=== PATIENT | female | born 1940 | race Caucasian/White ===

== ENCOUNTER → 2020-05-13 09:08 | Outpatient (CLI) | payer MEDICARE, SELFPAY ==
--- NOTE | ~2020-05-13 | MR_ITS ---
EXAMINATION: MR lumbar spine wo con EXAM DATE: 05/13/2020 09:34 INDICATION: Low back pain, bilateral leg pain. TECHNIQUE: Multi-sequential, multiplanar MR images of the lumbar spine were obtained without contrast . Sagittal T1, T2, T2 fat saturation images. Axial T2 weighted images. There is no prior study for comparison. FINDINGS: There is severe thoracolumbar levoscoliosis. No acute bone marrow edema. There is moderate to severe loss of the L1-2 and L2-3 disc heights, mild to moderate at L3-4 and L4-5. The conus medull jose terminates at the L1 level and has normal signal intensity and morphology. The vertebral bodies are aligned in the AP dimension. Paraspinal soft tissue is unremarkable. Level by level evaluation: T12-L1: Disc does not extend beyond the endplate margin. Facet arthropathy: Moderate right, mild left. Neural foraminal stenosis: Mild to moderate right. Central canal stenosis: No stenosis. L1-L2: There is a minimal diffuse disc bulge. Facet arthropathy: Mild to moderate bilateral. Neural foraminal stenosis: No stenosis. Central canal stenosis: No stenosis. L2-L3: There is a mild diffuse disc bulge. Facet arthropathy: Moderate to severe right, moderate left. Neural foraminal stenosis: Mild to moderate right. Central canal stenosis: Mild. L3-L4: There is a moderate diffuse disc bulge. Facet arthropathy: Severe right, moderate to severe left. Neural foraminal stenosis: Moderate bilateral. Central canal stenosis: Moderate. L4-L5: There is a mild to moderate diffuse disc bulge superimposed tiny right central protrusion into the neural foramina Facet arthropathy: Moderate. Neural foraminal stenosis: Moderate to severe left, mild to moderate right. Central canal stenosis: Mild. L5-S1: There is a mild to moderate diffuse disc bulge. Facet arthropathy: Mild to moderate left, mild right. Neural foraminal stenosis: Mild to moderate left, mild right. Central canal stenosis: Mild. IMPRESSION: 1. Severe thoracolumbar levoscoliosis. 2. Multilevel neural foraminal stenosis, left L4-5 most stenotic. 3. L3-4 moderate central canal stenosis. Reviewed, dictated and finalized at location B.
--- NOTE | ~2020-05-13 | XR_ITS ---
EXAMINATION: XR lumbar spine 2-3V DATE: 05/13/2020 09:57 INDICATION: Lumbar radiculopathy TECHNIQUE: Anteroposterior and lateral views of the lumbar spine, and cone-down lateral view of the l umbosacral junction were obtained. COMPARISON: None. FINDINGS: There are 61 degrees of thoracolumbar levoscoliosis. Evaluation is difficult due to the sev erity of scoliosis. No fracture is identified. The bones are osteopenic. There are 12 mm of left late ral subluxation of the L3 relative to L4. There is asymmetric loss of intervertebral disc space heigh t on the right at L2-3 and on the left at L4-5. Severe symmetrical loss of intervertebral disc space height is seen at L1-2 and L5-S1. The vertebral body heights appear to be maintained. Changes of righ t total hip arthroplasty are noted. The bowel gas pattern is normal. Surgical clips in the right uppe r quadrant are likely from prior cholecystectomy. IMPRESSION: 1. Severe thoracolumbar levoscoliosis and severe spondylosis without definite acute osseous findings. Reviewed, dictated and finalized at location A. IMPRESSION: 1. Severe thoracolumbar levoscoliosis and severe spondylosis without definite a cute osseous findings.
== END ==
PROVIDERS: PCP Internal Medicine; Visit Provider Nurse Practitioner Adult Health
DX: M54.16 Radiculopathy, lumbar region (principal); M48.061 Spinal stenosis, lumbar region without neurogenic claudication; M47.894 Other spondylosis, thoracic region
CPT/HCPCS: 72100; 72148

== ENCOUNTER 2020-06-30 10:16 | Outpatient (CLI) | payer MEDICARE, SELFPAY ==
--- NOTE | ~2020-06-30 | DEXA_ITS ---
Bone Density Report Name: Ellyn Cody Age: 79 Sex: Female Ethnicity: White Date of : 1940 Indication: postmenopausal; height loss; asthma or emphysema; hysterectomy; Referring Provider: BRUCE GARCIA Study: Bone densitometry was performed. Exam Date: June 30, 2020 Accession number: [id number] There is hypertrophic degenerative change of the lumbar spine, which results in higher than expected spine bone mineral density measurements. These spine BMD and T score and Z score measurements are not reflective of the patient's true general bone mineral density. Bone Density: Region BMD T-score Z-score Classification AP Spine (L1, L2, L3) 1.015 0.0 2.6 Normal Femoral Neck (Left) 0.742 -1.0 1.3 Normal Total Hip (Left) 0.838 -0.9 1.2 Normal World Health Organization criteria for BMD impression classify patients as: Normal (T-score at or above -1.0), Osteopenia (T-score between -1.0 and -2.5), or Osteoporosis (T-score at or below -2.5). 10-year Fracture Risk: FRAX not reported because: All T-scores for Spine Total, Hip Total, Femoral Neck at or above -1.0 Treated for osteoporosis Clinical Information Provided by Patient: Is being treated for osteoporosis Has used the following medications: Fosamax (i.e. alendronate), Vitamin D, Calcium Has the following medical conditions: Asthma or Emphysema, Hysterectomy Patient maximum height was 65 Menopause Age: 47 Onset of menses at age 12 Number of children 2 Impression: The patient has normal bone mass. There is hypertrophic degenerative change of the lumbar spine, which results in higher than expected spine bone mineral density measurements. These spine BMD and T score and Z score measurements are not reflective of the patient's true general bone mineral density. Discussion: It is important to ask patients whether they are taking their medications and to encourage continued and appropriate compliance with their osteoporosis therapies to reduce fracture risk. It is also important to review their risk factors and encourage appropriate calcium and vitamin D intakes, exercise, fall prevention and other lifestyle measures. Follow-Up: Consider a repeat BMD and Vertebral Fracture Assessment (VFA) exam in 2 years or sooner if medically necessary, to reassess this patient's status. Reported by: SHERICE on 06/30/2020 10:50:00 AM. Reviewed, dictated and finalized at location AAshley TAPIA
== END 2020-06-30 10:17 | disposition home or self-care (01) ==
LOC: ANHIMG 10:20
PROVIDERS: PCP Internal Medicine; Visit Provider Internal Medicine
DX: M81.0 Age-related osteoporosis without current pathological fracture (principal); Z78.0 Asymptomatic menopausal state
CPT/HCPCS: 77080

== ENCOUNTER 2020-07-02 09:57 | Outpatient (NON) | payer MEDICARE, SELFPAY ==
[2020-07-03 02:53] LABS: SARS-CoV-2 RNA PCR Negative
== END 2020-07-02 09:58 ==
PROVIDERS: Visit Provider Internal Medicine
DX: Z20.828 Contact with and (suspected) exposure to other viral communicable diseases (principal); R68.89 Other general symptoms and signs
CPT/HCPCS: 87635; C9803; U0003

== ENCOUNTER 2020-07-27 13:30 | Outpatient (RCR) | payer MEDICARE, SELFPAY ==
[2020-06-26 10:54] VITALS: BP_SYST 75
--- NOTE | 2020-06-26 11:52 | PTOPEVAL ---
PHYSICAL THERAPY EVALUATION AND PLAN OF CARE Thank you for referring Ellyn Cody to [facility].? The patient is scheduled to be seen for therapy? 2x/week for 4 weeks. Please review, sign, date and return this plan of care EDILBERTO. I agree with and certify that the following plan of care is medically necessary. Referring Physician Date Attending Provider: Ignacio Bell MD Evaluation Musculoskeletal History Hx Back Pain Yes: severe scoliosis Hx Joint Replacement Yes: left CORAZON Diagnosis left shoulder adhesive capsulitis Onset 6months Cause insidious Subjective Information Ellyn is here today with left Query Text:As Reported By Patient/ shoulder pain and limited Family motion of the left shoulder. She reports no injury or accidnet or falls to initiate injury. She cannot raise arm overhead. she is doing aquatic therapy at another facility balance and LE function. Prior Level of Function Medications Home Meds (Include: OTC, RX, Vitamins, mobic Herbals, Dose, Route,and Frequency) [email or web address] Self Report Pain Assessment Left Shoulder(s) Reported Pain Level 5 Pain Description Aching Pain Frequency Chronic,Continuous Pain Score Pain Score 5: Self Report Scapular/ Shoulder Range of Motion Right Shoulder Flexion - Active 80 Shoulder Flexion - Passive 96 Shoulder Extension - Active 30 Shoulder Abduction - Active 55 Shoulder Abduction - Passive 75 Scapular/Shoulder Range of Motion significant popping and Comments instability noted during ROM and strength testing Scapular/Shoulder Right Shoulder Flexion Strength 4+ Good + Shoulder Abduction Strength 4+ Good + Shoulder Medial Rotation Strength 4+ Good + Shoulder Lateral Rotation Strength 4+ Good + Left Shoulder Flexion Strength 3- Fair - Shoulder Abduction Strength 3- Fair - Shoulder Medial Rotation Strength 4- Good - Shoulder Lateral Rotation Strength 4- Good - Palpation significant tension throughout trapezius, pectoralis, and rotator cuff muscles PT Clinical Summary Ellyn is a 79 yo female presenting to outpatient pysical therapy with diagnosis of left shoulder adhesive capsulitis. She does have arthritis in
[2020-07-27 13:31] VITALS: BP_SYST 85
--- NOTE | 2020-07-27 14:11 | PTOPEVAL ---
PHYSICAL THERAPY PROGRESS REPORT Thank you for referring Ellyn oCdy to [facility].? I recommend we hold PT until follow-up with orthopedic physician. Please review, sign, date and return this plan of care EDILBERTO. I agree with and certify that the following plan of care is medically necessary. Referring Physician Date Attending Provider: Ignacio Bell MD [facility] Past Medical History Musculoskeletal History Hx Back Pain Yes: severe scoliosis Hx Joint Replacement Yes: left CORAZON Diagnosis left shoulder adhesive capsulitis Onset 6months Cause insidious Subjective Information Ellyn has participated in PT Query Text:As Reported By Patient/ for left shoulder pain and Family adhesive capsulitis for 4 weeks. States that it feels stronger and as though the range of motion is greater. She is following up with Dr. Knox on 08/07. States that she feels as though there is less clicking/grinding in the shoulder and that she is able to reach out to the side easier - elevation continues to be biggest limitation Self Report Pain Assessment Left Shoulder(s) Reported Pain Level 3 Pain Score Pain Score 3: Self Report Upper Extremity Range of Motion Scapular/ Shoulder Range of Motion Right Shoulder Flexion - Active 75 (same as initial evaluation) Shoulder Flexion - Passive 96 (same as initial evaluation) Shoulder Extension - Active 30 Shoulder Abduction - Active 59 (same as initial evaluation) Shoulder Abduction - Passive 85 (increased 10deegrees from initial evaluation) Shoulder Medial Rotation - Active L5 Scapular/Shoulder Right Shoulder Flexion Strength 4+ Good + Shoulder Abduction Strength 4+ Good + Shoulder Medial Rotation Strength 4+ Good + Shoulder Lateral Rotation Strength 4+ Good + Left Shoulder Flexion Strength 3- Fair - (same as initial evaluation) Shoulder Abduction Strength 3- Fair -(same as initial evaluation) Shoulder Medial Rotation Strength 4- Good - (same as initial evaluation) Shoulder Lateral Rotation Strength 4- Good - (same as initial evaluation) PT Clinical Summary Ellyn is a 79 yo female participating in outpatient pysical therapy with diagnosis of left shoulder adhesive capsulitis. I continue to consider whether she arthritis
--- NOTE | 2020-08-26 16:39 | PCPTNOTE ---
PHYSICAL THERAPY DISCHARGE NOTE Attending Provider: Ignacio Bell MD Patient:Ellyn Cody Date of :1940 Patient has not returned for any further treatments since 07/27/2020, at which point she was having surgery. If she was to continue PT after surgery, her surgeon and referring physician were to clear her. We have not heard from Ellyn nor have we received new orders to resume PT; therefore, she will be discharged from PT at this time. The goals have been partially met. Thank you for referring this patient to [facility]. Please review, sign, date and return this discharge summary EDILBERTO. I have been updated about the patient's current status and I agree with discharge from the above service at this time. Referring Physician Date
== END 2020-08-27 10:38 | disposition home or self-care (01) ==
LOC: ANHPT 13:30
PROVIDERS: PCP Internal Medicine; Visit Provider Internal Medicine
DX: M75.02 Adhesive capsulitis of left shoulder (principal)
CPT/HCPCS: 97110; 97140; 97161

== ENCOUNTER 2020-12-22 08:40 | Outpatient (CLI) | payer MEDICARE, SELFPAY ==
--- NOTE | ~2020-12-22 | XR_ITS ---
EXAMINATION: XR barium swallow modified DATE: 12/22/2020 09:20 INDICATION: Dysphagia, unspecified, coughing and choking TECHNIQUE: Modified barium esophagram was performed by myself to administered fluoroscopy, in conjun ction with speech pathologist who administered barium in varying consistencies as per speech patholog ist documentation. This was recorded on tape. A single fluoroscopic spot image was recorded. The DAP for this procedure was 1.565 Gycm2. Fluoroscopy exposure time was 2.4 minutes. FINDINGS: Oral stage: Adequate function. Pharyngeal phase: Adequate function. Laryngeal penetration: None. Aspiration: None. Laryngeal sensitivity: Present. IMPRESSION: No laryngeal penetration or aspiration observed. Please refer to speech pathologist findi ngs and specific feeding recommendations. Reviewed, dictated and finalized at location A. ING WORKER IMPRESSION: No laryngeal penetration or aspiration observed. Please refer to sp eech pathologist findings and specific feeding recommendations.
--- NOTE | 2020-12-22 09:53 | STOPEVAL ---
MODIFIED BARIUM SWALLOW EVALUATION: Thank you for referring Ellyn Cody to [facility].? Attending Provider: MD DARLIN [place] [place] Start: 12/22/20 09:47 Freq: Status: Active Protocol: Document 12/22/20 09:00 BECHERERT (Rec: 12/22/20 09:53 BECHERERT [id number]) Therapy Assessment Status Assessment Status Assessment Status Evaluation Outpatient Past Medical History Past Medical History Source of Past Medical History Patient Musculoskeletal History Hx Back Pain Yes: severe scoliosis Hx Joint Replacement Yes: left CORAZON Pain Assessment Timing of Pain Assessment Timing of Pain Assessment Assessment Self Report Self Report Pain Level 0 Pain Score Pain Score 0: Self Report Modified Barium Swallow Evaluation Recent Swallowing History Reports Dysphagia Yes: occasional choking with liquids History of Dysphagia No Other Factors Impacting Dysphagia None History of Pneumonia No Reported Difficult Consistencies Thin Liquids Intake Method Prior to Swallow Oral Evaluation Diet Prior to Swallow Evaluation Regular, Level 7 Liquid Consistency Prior to Swallow Thin (0) Evaluation Consistency Solid Consistency Method of Presentation Spoon Oral Preparatory Symptoms None Oral Phase Symptoms None Pharyngeal Phase Symptoms None Severity of Vallecular Residue None - 0% No Residue Severity of Pyriform Sinus Residue None - 0% No Residue 8 Point Laryngeal Penetration-Aspiration Material Does Not Enter Airway Scale Cervical/Esophageal Symptoms None Mixed Consistency Method of Presentation Spoon Oral Preparatory Symptoms None Oral Phase Symptoms None Pharyngeal Phase Symptoms None Severity of Vallecular Residue None - 0% No Residue Severity of Pyriform Sinus Residue None - 0% No Residue 8 Point Laryngeal Penetration-Aspiration Material Does Not Enter Airway Scale Cervical/Esophageal Symptoms None Pureed Consistency Method of Presentation Spoon Oral Preparatory Symptoms None Oral Phase Symptoms None Pharyngeal Phase Symptoms None Severity of Vallecular Residue None - 0% No Residue Severity of Pyriform Sinus Residue None - 0% No Residue 8 Point Laryngeal Penetration-Aspiration Material Does Not Enter Airway Scale Cervical/Esophageal Symptoms None Thin Uncontrolled 2 Method of Presentation Straw Oral Preparatory Symptoms None Oral Phase Symptoms None Pharyngeal Phase Symptoms None Severity of Vallecular Residue None - 0% No Residue Severity of Pyriform Sinus Residue None - 0% No Residue
== END 2020-12-22 08:41 | disposition home or self-care (01) ==
PROVIDERS: PCP Internal Medicine; Visit Provider Internal Medicine
DX: R13.10 Dysphagia, unspecified (principal)
CPT/HCPCS: 92611

== ENCOUNTER 2021-07-20 14:20 | Inpatient (IN) | payer MEDICARE, SELFPAY ==
[2021-07-20] VITALS (8 sets, daily range): BP systolic 121–162; BP diastolic 45–82; PULSE 76–96; RESP 14–26; TEMP 36.1–38.2; O2SAT 95–99; BMI 26.9
--- NOTE | ~2021-07-20 | XR_ITS ---
EXAMINATION: XR chest 2V EXAM DATE: 07/20/2021 14:40 INDICATION: sob, cough TECHNIQUE: Frontal and lateral projections of the chest obtained and reviewed. There is no prior ko dy for comparison. FINDINGS: There is multi segmental left lower lobe airspace disease which could be pneumonia and atel ectasis but follow-up is indicated to exclude underlying cancer. The right lung is clear. Cardiomedia stinal silhouette is normal. There is no pneumothorax suspected. There are no pleural effusions. IMPRESSION: Multisegmental left lower lobe airspace disease, probably pneumonia and atelectasis. Foll ow-up to resolution. Reviewed, dictated and finalized at location A. IMPRESSION: Multisegmental left lower lobe airspace disease, probably pneumonia and atelectasis. Follow-up to resolution.
--- NOTE | 2021-07-20 14:22 | ECG_ITS ---
Measurements Intervals [place] Rate: 94 P: 48 WV: 149 QRS: -7 QRSD: 109 T: -9 QT: 311 QTc: 389 Interpretive Statements SINUS RHYTHM POSSIBLE LEFT ATRIAL ENLARGEMENT DELAYED PRECORDIAL R/S TRANSITION POSSIBLE LEFT VENTRICULAR HYPERTROPHY INFERIOR INFARCT, AGE INDETERMINATE ABNORMAL ECG Electronically Signed On 07-20-2021 14:57:04 CDT by Bonifacio Hernandez D.O.
[2021-07-20 15:12] LABS: Basophils Percent Auto 0.5 % (0.2-1.2); Eosinophils Percent Auto 0.5 % (0-4.4); Hematocrit 39.9 % (37.0-47.0); Hemoglobin 13.3 g/dL (12.0-15.0); Immature Granulocyte Absolute 0.03 K/mm3 (0.00-0.031); Immature Granulocyte Percent A 0.4 % (0-0.5); Lymphocytes Absolute Auto 1.25 K/mm3 (0.9-3.2); Lymphocytes Percent Auto 16.1 % (18.3-44.2); Mean Corpuscular HGB Conc 33.3 g/dl (32-36); Mean Corpuscular Hemoglobin 29.8 pg (26-34); Mean Corpuscular Volume 89.3 fl (80-100); Mean Platelet Volume 9.1 fl (7.4-10.4); Monocytes Percent Auto 12.6 % (2.6-8.5); Neutrophils Absolute Auto 5.4 K/mm3 (1.3-6.7); Neutrophils Percent Auto 69.9 % (45.5-73.1); Platelet Count Result 208 k/mm3 (150-375); Red Blood Count 4.47 M/mm3 (4.2-5.4); Red Cell Distribution Width 13.8 % (11.5-14.5); White Blood Count 7.8 K/mm3 (4.5-10.0)
[2021-07-20 15:21] LABS: Anion Gap 10 mmol/L (8-16); Blood Urea Nitrogen 15 mg/dL (7-17); Calcium 9.3 mg/dL (8.4-10.2); Carbon Dioxide 24 mmol/L (22-30); Chloride 102 mmol/L (98-107); Estimated CRCL calculation 40 ml/min; Estimated Glomerular Filt Rate > 60; Glucose 141 mg/dL (65-110); Sodium 136 mmol/L (137-145)
--- NOTE | 2021-07-20 20:10 | ED.GENADULT ---
HPI - General Adult General Chief complaint: Shortness of Breath/Dyspnea Stated complaint: sob, cough, hx copd Time Seen by Provider: 07/20/21 19:24 Source: patient and family Mode of arrival: ambulatory Limitations: no limitations History of Present Illness HPI narrative: Patient presents for evaluation of respiratory symptoms since Monday of last week. She indicates she received a flu shot last Monday and has tolerated these well in the past. Following administration of her vaccine last week she started generally not feeling well. She has experienced a cough and shortness of breath and feels like her lungs are filling up with fluid . No fever, chills, chest pain or leg swelling. On Monday of last week her son came to check on her. He checked her pulse oximetry with a reading of 87%. Reading did ultimately improve to 93% on . Her son lives down the street and states that he was concerned that his mother had not been taking in much orally. He was concerned that she may have Covid. Patient currently lives with her and he is asymptomatic. Patient did receive both of her [employer] Covid vaccines. She has underlying COPD and asthma. She does not smoke. She is compliant with spiriva. She states she has not been using her albuterol MDI. She is no longer using nebs. Related Data Home Medications Medication Instructions Recorded Confirmed aspirin 81 mg tablet,delayed 81 mg PO DAILY 12/13/19 05/03/21 release cetirizine 10 mg capsule PO .PRN cap 12/13/19 05/03/21 magnesium 250 mg tablet 250 mg PO DAILY 12/13/19 05/03/21 omeprazole 20 mg capsule,delayed 20 mg PO DAILY 12/13/19 05/03/21 release cholecalciferol (vitamin D3) 50 50 mcg PO DAILY 08/07/20 05/03/21 mcg (2,000 unit) capsule multivitamin 1 cap PO DAILY 08/07/20 05/03/21 Allergies Allergy/AdvReac Type Severity Reaction Status Date / Time codeine Allergy Severe Passes out Verified 07/20/21 19:36 oxycodone Allergy Mild pass out Verified 07/20/21 19:36 Review of Systems Review of Systems: CONSTITUTIONAL: Reports decreased appetite. Denies fever, chills, or sweats. EYES: Denies visual changes, redness, or discharge. ENT: Denies rhinorrhea, congestion, sore throat, or otalgia. CARDIOVASCULAR: Denies chest pain, palpitations, or edema. RESPIRATORY: Reports cough and shortness of breath GASTROINTESTINAL: Denies abdominal pain, nausea, vomiting, or diarrhea. GENITOURINARY: Denies dysuria or hematuria. SKIN: Denies rash or itching. MUSCULOSKELETAL: Denies back pain, joint pain, or myalgia. NEUROLOGIC: Denies headache, numbness, dizziness, or weakness. PSYCHIATRIC: Denies anxiety or depression. [facility] Past Medical History Medical History Arthritis Asthma Cataract fragments in eye following surgery COPD (chronic obstructive pulmonary disease) Diarrhea Emphysema of lung GERD (gastroesophageal reflux disease) Hair loss IBS (irritable bowel syndrome) Osteoporosis Pneumonia Right leg pain Shortness of breath Sleep apnea Vision abnormalities Vision changes Surgical History Surgical History History of bowel resection History of cholecystectomy History of partial hysterectomy History of right hip replacement Family History Family History Mother Pneumonia Father Asbestosis Grandparent Pneumonia Grandparent Heart attack Grandparent Cerebrovascular accident Other Arthritis Heart disease Malignant neoplasm Social History Social History (Updated 07/20/21 @ 20:11 by DELLA Yeung, ) Smoking status: Never smoker Alcohol intake: never Substance use: never Living arrangements: with family Gender identity (if verbalized by the patient): Female Sexual Orientation (if Verbalized by
[2021-07-20] MEDS: IPRATROPIUM BR 0.02% INH SOLN 0.5 MG/2.5 ML VIAL INHALATION (20:16)
[2021-07-20] MEDS: ALBUTEROL SULFATE NEB 2.5 MG/0.5 ML INH INHALATION (20:16)
[2021-07-20] MEDS: SODIUM CHLORIDE 0.9% IV 1,000 ML 999 ML IV CONT (21:06)
[2021-07-20] MEDS: methylPREDNISolone SOD SUCC 125 MG VIAL IV PUSH (21:07)
[2021-07-20 21:40] LABS: EDCOVIDSCREEN Negative (Negative)
--- NOTE | 2021-07-20 21:41 | PC.NURSE ---
Pt very difficult stick. Called phlebotomy yot request if they can draw pt labs
[2021-07-20 22:23] LABS: Alanine Aminotransferase 20 U/L (4-35); Albumin Level 3.7 g/dL (3.5-5.1); Alkaline Phosphatase 78 U/L (38-126); Aspartate Amino Transferase 25 U/L (14-36); Bilirubin,Total 0.7 mg/dL (0.2-1.3); Lactate Dehydrogenase 378 U/L (313-618)
[2021-07-20 22:32] LABS: NT Pro B Type Natriuretic Pept 190 pg/mL (5-100); Troponin I < 0.012 ng/mL (0.000-0.034)
[2021-07-21] VITALS (8 sets, daily range): BP systolic 102–148; BP diastolic 43–81; PULSE 72–95; RESP 18–22; TEMP 36.2–37.3; O2SAT 92–98
--- NOTE | 2021-07-21 00:05 | PM.IMHP ---
H&P: HPI History of Present Illness Date/Time: 07/21/21 00:05 Chief Complaint: Cough and shortness of breath Narrative: 80-year-old female with a past medical history of asthma/COPD, GERD, and obstructive sleep apnea who presented to the ER via private vehicle due to cough and shortness of breath since Monday. She reports that her symptoms started after she received her flu vaccine last week. Four days ago the patient's son came to check on the patient and her oxygen saturations were 87% at that time. They did improved to 93% on room air. She did receive both of her Pfizer COVID vaccines. She has not had any known COVID exposures and her is not having any ill symptoms. She has had decreased oral intake. She had a fever of 100.8 on arrival to the ER. She reports that immediately after receiving her flu shot she began feeling as if she had a ton of fluid that she had to cough up. She was coughing up thin clear phlegm. She is having generalized dyspnea. She denied any nausea or vomiting. She reports aching in her arm at the side of her her flu shot. Denies any other myalgias but does report her chronic back pain. She denied having any dysuria, changes in urinary frequency or urgency. She does have intermittent diarrhea with a history of IBS but no significant diarrhea recently. She denies any abdominal pain. Review of Systems Review of Systems: 12 systems were reviewed with pertinent positives and negatives per HPI. Except as documented in the HPI, all other systems were reviewed and are negative. [facility] Past Medical History Medical History (Updated 07/21/21 @ 00:27 by Ania Gaspar DO) Arthritis Asthma COPD (chronic obstructive pulmonary disease) COVID-19 vaccine series completed Dyslipidemia Emphysema of lung Frozen shoulder Left shoulder GERD (gastroesophageal reflux disease) IBS (irritable bowel syndrome) Memory loss Neuropathy Osteoporosis Sciatica associated with disorder of lumbar spine Scoliosis due to degenerative disease of spine in adult patient Sleep apnea Vision changes Vitamin D deficiency Surgical History Surgical History History of bowel resection History of cholecystectomy History of partial hysterectomy History of right hip replacement Status post cataract extraction of both eyes with insertion of intraocular lens Family History Family History Mother Pneumonia Father Asbestosis Grandparent Pneumonia Grandparent Heart attack Grandparent Cerebrovascular accident Other Arthritis Heart disease Malignant neoplasm Social History Social History (Updated 07/21/21 @ 04:07 by Ania Gaspar DO) Social History: She lives in [place] with her of 60 years. She has a Rollator at home but only uses it when she goes to the store. She has 2 children who are healthy. She is a lifelong nonsmoker and does not drink alcohol. 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 Primary care physician: Dr. Ignacio Bell Code status: DNR/DNI Surrogate decision maker: Miah (son) Smoking status: Never smoker Second hand tobacco smoke exposure: No Alcohol intake: never Substance use: never Substance use type: does not use Living arrangements: with family Occupation/Education: retired Gender identity (if verbalized by the patient): Female Sexual Orientation (if Verbalized by the Patient): Straight or Heterosexual Spiritual care concerns: No Agree to blood products: Yes Meds Home Medications and Allergies Home Medications Medication Instructions Recorded Confirmed Type aspirin 81 mg tablet,delayed 81 mg PO DAILY 12/13/19 07/20/21 History release cetirizine 10 mg capsule PO DAILY cap 12/13/19 05/03/21 History magnesium 250 mg tablet 250 mg PO DAILY 12/13/19 07/20/21 History omeprazole 20 m
--- NOTE | 2021-07-21 00:12 | ADMGEN ---
This patient, Ellyn Cody, was admitted to [facility] Surg Room 316-01. Patient/family oriented to hospital policies and general routines including ID bracelet, bed and alarms, visiting hours, pain management, procedures, bathroom and other care routines, personal items, smoking policy, room service/diet, and visiting hours. Information on how to activate the Rapid Response Team has been discussed. Patient/Family are encouraged to report perceived risks to care and to ask questions if they do not understand what they are told or what they should do.
[2021-07-21 01:29] LABS: Troponin I < 0.012 ng/mL (0.000-0.034)
[2021-07-21] MEDS: ALBUTEROL SULFATE (*SP) AEROSOL 1 PUFF 4 PUFF INHALATION ×2 (02:56→09:01)
[2021-07-21] MEDS: methylPREDNISolone SOD SUCC 40 MG VIAL 60 MG IV PUSH ×3 (06:20→22:30)
[2021-07-21 06:56] LABS: Basophils Percent Auto 0.2 % (0.2-1.2); Hematocrit 35.6 % (37.0-47.0); Hemoglobin 11.8 g/dL (12.0-15.0); Immature Granulocyte Absolute 0.03 K/mm3 (0.00-0.031); Immature Granulocyte Percent A 0.6 % (0-0.5); Lymphocytes Percent Auto 11.4 % (18.3-44.2); Mean Corpuscular HGB Conc 33.1 g/dl (32-36); Mean Corpuscular Hemoglobin 29.9 pg (26-34); Mean Corpuscular Volume 90.1 fl (80-100); Mean Platelet Volume 9.7 fl (7.4-10.4); Monocytes Absolute Auto 0.1 K/mm3 (0.1-0.6); Monocytes Percent Auto 2.1 % (2.6-8.5); Neutrophils Absolute Auto 4.5 K/mm3 (1.3-6.7); Neutrophils Percent Auto 85.7 % (45.5-73.1); Platelet Count Result 227 k/mm3 (150-375); Red Blood Count 3.95 M/mm3 (4.2-5.4); Red Cell Distribution Width 13.6 % (11.5-14.5); White Blood Count 5.3 K/mm3 (4.5-10.0)
[2021-07-21 07:16] LABS: Anion Gap 13 mmol/L (8-16); Blood Urea Nitrogen 19 mg/dL (7-17); Calcium 8.7 mg/dL (8.4-10.2); Carbon Dioxide 20 mmol/L (22-30); Chloride 102 mmol/L (98-107); Estimated CRCL calculation 36 ml/min; Estimated Glomerular Filt Rate 60; Glucose 262 mg/dL (65-110); Potassium 3.2 mmol/L (3.4-5.0); Sodium 135 mmol/L (137-145)
[2021-07-21] MEDS: PRAVASTATIN SODIUM 20 MG TABLET PO (09:36)
[2021-07-21] MEDS: MAGNESIUM OXIDE 200 MG TABLET PO (09:36)
[2021-07-21] MEDS: MONTELUKAST SODIUM 10 MG TABLET PO (09:36)
[2021-07-21] MEDS: ASPIRIN 81 MG ENTERIC TABLET PO (09:36)
[2021-07-21] MEDS: GABAPENTIN 300 MG CAPSULE PO ×3 (09:36→20:09)
[2021-07-21] MEDS: MELOXICAM 7.5 MG TABLET 15 MG PO (09:37)
[2021-07-21] MEDS: ENOXAPARIN 40 MG/0.4 ML SYRINGE SUB-Q (09:37)
[2021-07-21] MEDS: PANTOPRAZOLE 40 MG TABLET PO (09:37)
[2021-07-21] MEDS: ACETAMINOPHEN 325 MG TABLET 650 MG PO ×2 (12:34→20:10)
[2021-07-21] MEDS: LEVALBUTEROL HFA (*SP) 15 GM INHALER 2 PUFF INHALATION ×2 (14:01→20:48)
--- NOTE | 2021-07-21 18:11 | PM.EVENT ---
Event Note Event Note Event Note: f/u same day patient visit labs reviewed do not appear to be covid but pt vaccinated could be mild case cont current care k repleted will follow up tomorrow
[2021-07-21] MEDS: LIDOCAINE HCL 2% VISC SOLN 15 ML UDC PO (18:19)
--- NOTE | 2021-07-21 19:51 | PC.NURSE ---
At 1630, pt stating she had throat/epigastric pain, which she says is not uncommon for her. Pt had called MD who ordered 15ml viscous lidocaine. Held 1700 meds until pt pain improved. Will ask night RN to pass with PM medications; she stated she would. MD to adjust medications.
[2021-07-21] MEDS: POTASSIUM CHLORIDE 20 MEQ PACKET (FOR LIQUID) 40 MEQ PO (20:07)
[2021-07-21 20:25] LABS: SARS-CoV-2 RNA PCR Negative
[2021-07-22] VITALS (8 sets, daily range): BP systolic 100–118; BP diastolic 40–53; PULSE 69–78; RESP 20–23; TEMP 36.2–36.8; O2SAT 94–97
[2021-07-22] MEDS: LEVALBUTEROL HFA (*SP) 15 GM INHALER 2 PUFF INHALATION ×4 (03:08→20:57)
[2021-07-22] MEDS: methylPREDNISolone SOD SUCC 40 MG VIAL 60 MG IV PUSH (05:46)
[2021-07-22] MEDS: PRAVASTATIN SODIUM 20 MG TABLET PO (08:49)
[2021-07-22] MEDS: ENOXAPARIN 40 MG/0.4 ML SYRINGE SUB-Q (08:49)
[2021-07-22] MEDS: MAGNESIUM OXIDE 200 MG TABLET PO (08:50)
[2021-07-22] MEDS: ASPIRIN 81 MG ENTERIC TABLET PO (08:50)
[2021-07-22] MEDS: GABAPENTIN 300 MG CAPSULE PO ×3 (08:50→21:55)
[2021-07-22] MEDS: MONTELUKAST SODIUM 10 MG TABLET PO (08:50)
[2021-07-22] MEDS: PANTOPRAZOLE 40 MG TABLET PO (08:50)
[2021-07-22] MEDS: MELOXICAM 7.5 MG TABLET 15 MG PO (08:50)
--- NOTE | 2021-07-22 14:45 | PM.IMPN ---
Progress Note: A&P Assessment and Plan (1) Pneumonia: Qualifiers: Laterality: left Lung location: lower lobe of lung Pneumonia type: due to unspecified organism Qualified Code(s): J18.9 - Pneumonia, unspecified organism Code(s): J18.9 - Pneumonia, unspecified organism Status: Acute (2) COPD (chronic obstructive pulmonary disease): Code(s): J44.9 - Chronic obstructive pulmonary disease, unspecified Status: Inactive (3) GERD (gastroesophageal reflux disease): Code(s): K21.9 - Gastro-esophageal reflux disease without esophagitis Status: Acute Additional Plan Patient has left lower lobe pneumonia. There was concern for possible COVID 19 infection the patient's rapid COVID antigen was negative. COVID PCR has been ordered. Patient does have history of dysphagia but had a normal modified barium swallow in December so aspiration is less likely. She has been started on empiric antibiotic therapy with Rocephin and azithromycin. Blood cultures were not obtained in the ER but have been ordered at this time. She has a significant history of asthma/COPD and subsequently scheduled bronchodilators with albuterol inhaler have been ordered and daily Spiriva. The patient is not having any hypoxia at this time. The patient remains on droplet isolation until COVID PCR results are resulted. Patient has been started on IV Solu-Medrol as well as scheduled bronchodilators. Patient has been admitted as observation status. 07/22/21 pt doing much better COPD exacerbation improving now on RA COVID negative by PCR and rapid decrease steroid dosing cont duonebs cont abx anticipate dc in am Subjective Date/time seen: 07/22/21 14:45 pt doing ok feeling better but not quite back to baseline+ cough tolerating PO now on RA Exam Narrative: General: No acute distress, well-developed well-nourished HEENT: Mucous membranes are moist, no oral pharyngeal erythema, fair dentition, no scleral icterus Respiratory: RLL crackles no increased work breathing, frequent cough Cardiovascular: Regular rate, regular rhythm Gastrointestinal: Soft, nontender, nondistended Skin: Generalized pallor, non jaundice Musculoskeletal: No clubbing, cyanosis or edema Neurological: Alert and oriented times 3 bspeech is clear, no facial asymmetry, moves all extremities equally Psychiatric: Normal mood and affect, pleasant and cooperative Objective Data Vital Signs Vital Signs: Vital Signs - 24 hr 07/21/21 16:00 07/21/21 20:00 07/21/21 20:48 Temperature 97.6 F 98.1 F Pulse Rate 87 79 72 Respiratory Rate 18 20 Blood Pressure 148/81 H 117/53 L Pulse Oximetry 96 95 95 07/22/21 03:11 07/22/21 06:00 07/22/21 08:00 Temperature 98.2 F Pulse Rate 69 73 Respiratory Rate 20 Blood Pressure 100/40 L Pulse Oximetry 94 96 07/22/21 09:06 Temperature Pulse Rate Respiratory Rate Blood Pressure Pulse Oximetry 96 Intake/Output Intake/Output: Intake & Output 07/19/21 07/20/21 07/21/21 07/22/21 23:59 23:59 23:59 23:59 Intake Total 1300 890 640 Balance 1300 890 640 Meds/Results Medications: Active Medications Generic Name Dose Route Start Last Admin Trade Name Freq PRN Reason Stop Dose Admin Acetaminophen 650 mg 07/20/21 21:28 07/21/21 20:10 Acetaminophen 325 Mg Tablet PO 650 mg Q4H PRN Administration Mild Pain (1-3) or Fever Aspirin 81 mg 07/21/21 09:00 07/22/21 08:50 Aspirin 81 Mg Enteric Tablet PO 81 mg DAILY FATUMA Administration Dextrose 12.5 gm 07/22/21 14:34 Dextrose 50% 25 Gm/50 Ml Syringe IV PUSH PRN PRN Hypoglycemia Protocol Enoxaparin Sodium 40 mg 07/21/21 09:00 07/22/21 08:49 Enoxaparin 40 Mg/0.4 Ml Syringe SUB-Q 40 mg DAILY FATUMA Administration Gabapentin 300 mg 07/22/21 09:00 07/22/21 08:50 Gabapentin 300 Mg Capsule PO 300 mg 0900,1500,2100 FATUMA Administration Glucagon 1 mg 07/22/21 14:34
[2021-07-22] MEDS: POTASSIUM CHLORIDE 20 MEQ TABLET 40 MEQ PO (15:37)
[2021-07-22] MEDS: ACETAMINOPHEN 325 MG TABLET 650 MG PO (15:44)
[2021-07-22] MEDS: methylPREDNISolone SOD SUCC 125 MG VIAL 60 MG IV PUSH (17:48)
[2021-07-22 20:15] LABS: Glucose Point of Care 151 mg/dl (65-105)
[2021-07-23] MEDS: LEVALBUTEROL HFA (*SP) 15 GM INHALER 2 PUFF INHALATION ×2 (03:34→09:10)
[2021-07-23] MEDS: methylPREDNISolone SOD SUCC 125 MG VIAL 60 MG IV PUSH (05:24)
[2021-07-23 06:00] VITALS: BP 106/48; PULSE 73; RESP 20; TEMP 36.7; O2SAT 95
[2021-07-23 08:00] VITALS: O2SAT 96
[2021-07-23 08:28] LABS: Glucose Point of Care 142 mg/dl (65-105)
[2021-07-23 09:14] VITALS: O2SAT 96
[2021-07-23] MEDS: ASPIRIN 81 MG ENTERIC TABLET PO (09:45)
[2021-07-23] MEDS: ENOXAPARIN 40 MG/0.4 ML SYRINGE SUB-Q (09:45)
[2021-07-23] MEDS: MELOXICAM 7.5 MG TABLET 15 MG PO (09:45)
[2021-07-23] MEDS: PRAVASTATIN SODIUM 20 MG TABLET PO (09:46)
[2021-07-23] MEDS: MONTELUKAST SODIUM 10 MG TABLET PO (09:46)
[2021-07-23] MEDS: PANTOPRAZOLE 40 MG TABLET PO (09:46)
[2021-07-23] MEDS: MAGNESIUM OXIDE 200 MG TABLET PO (10:48)
[2021-07-23] MEDS: GABAPENTIN 300 MG CAPSULE PO (10:48)
[2021-07-23 13:09] LABS: Glucose Point of Care 166 mg/dl (65-105)
--- NOTE | 2021-07-23 13:26 | PM.DS ---
DS: Admitting Diagnosis Discharge Date 07/23/21 Admitting Diagnosis Pneumonia DS: Discharge Diagnosis Discharge Diagnosis (1) Pneumonia: Qualifiers: Laterality: left Lung location: lower lobe of lung Pneumonia type: due to unspecified organism Qualified Code(s): J18.9 - Pneumonia, unspecified organism Code(s): J18.9 - Pneumonia, unspecified organism Status: Acute (2) COPD (chronic obstructive pulmonary disease): Code(s): J44.9 - Chronic obstructive pulmonary disease, unspecified Status: Acute (3) GERD (gastroesophageal reflux disease): Code(s): K21.9 - Gastro-esophageal reflux disease without esophagitis Status: Acute DS: Summary Hospital Course Reason for hospitalization: Shortness of breath Hospital Course: Patient has left lower lobe pneumonia. There was concern for possible COVID 19 infection the patient's rapid COVID antigen was negative. COVID PCR has been ordered. Patient does have history of dysphagia but had a normal modified barium swallow in December so aspiration is less likely. She has been started on empiric antibiotic therapy with Rocephin and azithromycin. Blood cultures were not obtained in the ER but have been ordered at this time. She has a significant history of asthma/COPD and subsequently scheduled bronchodilators with albuterol inhaler have been ordered and daily Spiriva. The patient is not having any hypoxia at this time. The patient remains on droplet isolation until COVID PCR results are resulted. Patient has been started on IV Solu-Medrol as well as scheduled bronchodilators. Patient has been admitted as observation status. 07/22/21 pt doing much better COPD exacerbation improving now on RA COVID negative by PCR and rapid decrease steroid dosing cont duonebs cont abx anticipate dc in am 07/23/21 Patient is feeling much better on room air wheezing has resolved steroids have been changed to tapering prednisone dose continue DuoNebs outpatient p.o. antibiotics continued to complete course cefdinir 300 b.i.d. for 5 more days and azithromycin 250 p.o. q.day for 3 more days. Patient is advised to follow-up with her primary care physician for ongoing care. Status at Discharge Functional status at discharge: independent ambulation Overall status at discharge: patient is back to baseline Time Spent with Patient Time attestation: Total time spent providing and/or coordinating discharge services: Time spent: Greater than 30 minutes Exam Narrative: General: No acute distress, well-developed well-nourished HEENT: Mucous membranes are moist, no oral pharyngeal erythema, fair dentition, no scleral icterus Respiratory: RLL crackles no increased work breathing, frequent cough Cardiovascular: Regular rate, regular rhythm Gastrointestinal: Soft, nontender, nondistended Skin: Generalized pallor, non jaundice Musculoskeletal: No clubbing, cyanosis or edema Neurological: Alert and oriented times 3 bspeech is clear, no facial asymmetry, moves all extremities equally Psychiatric: Normal mood and affect, pleasant and cooperative DS: Data Data Completed and Pending Labs on day of discharge: Labs from last 24 hours 07/23/21 07/23/21 07/22/21 13:03 08:15 17:45 POC Capillary Glucose 166 H 142 H 151 H Preliminary micro results at discharge 07/21/21 00:45 Blood Culture - Preliminary Blood 07/21/21 00:45 Blood Culture - Preliminary Blood Discharge Plan Discharge Attending physician on discharge: [place] Al Discharging Clinician: [place] Al Anticipated Discharge Date/Time: 07/23/21 13:19 Patient Disposition: Home, Self-Care Activity: as tolerated Diet: regular Patient Instructions: Antibiotic Form Stand Alone Forms: General Discharge Information Follow-up/Referrals: Ignacio Bell MD [Primary Care Provider] - Discharge Medications: New prednisone 10 mg tablet 10 mg PO .ASDIR Qt
== END 2021-07-23 13:50 | disposition home or self-care (01) | DRG 195 ==
LOC: ANHED 20:49 → ANH3MEDSUR 22:38
PROVIDERS: Emergency Medicine; Admitting Provider Internal Medicine; Emergency Provider Nurse Practitioner; PCP Internal Medicine; Visit Provider Hospitalist
DX: J18.9 Pneumonia, unspecified organism (principal); Z20.822 Contact with and (suspected) exposure to COVID-19; J43.9 Emphysema, unspecified; K21.9 Gastro-esophageal reflux disease without esophagitis; K58.9 Irritable bowel syndrome, unspecified; J45.909 Unspecified asthma, uncomplicated; G47.33 Obstructive sleep apnea (adult) (pediatric); Z66 Do not resuscitate; Z79.82 Long term (current) use of aspirin; Z79.899 Other long term (current) drug therapy; Z98.42 Cataract extraction status, left eye; Z98.41 Cataract extraction status, right eye; Z96.1 Presence of intraocular lens
CPT/HCPCS: 36415; 71046; 80048; 80076; 82728; 82948; 83615; 83880; 84145; 84484; 85025; 86140; 87040; 87426; 93005; 94640; 96365; 96367; 96372; 96375; 96376; 97110; 97116; 97161; 97165; 99285; A9270; C9803; G0378; J0456; J0696; J1650; J2920; J2930; J7030; U0003; U0005

== ENCOUNTER 2021-09-22 02:54 | Day surgery (SDC) | payer MEDICARE, SELFPAY ==
[2021-09-15 13:17] VITALS: BMI 25.8
[2021-09-22 10:27] VITALS: BP 136/51; PULSE 84; RESP 18; TEMP 36.6; O2SAT 96
--- NOTE | 2021-09-22 10:44 | WPDANESEPPF ---
Anes - Initial Pre Proc Eval Procedure: Operation Date: 09/22/21 11:30 Proposed Procedures p Colonoscopy - Demarcus Byrnes MD Date/Time: 09/22/21 10:44 Surgeon: Demarcus Byrnes MD Pre Op Diagnosis: diarrhea Patient Data Age: 80 Gender: F Height: 1.52 m Weight: 60 kg Last Vital Signs Temp 36.6 C 09/22/21 10:27 Pulse 84 09/22/21 10:27 Resp 18 09/22/21 10:27 BP 136/51 L 09/22/21 10:27 Pulse Ox 96 09/22/21 10:27 Allergies Allergy/AdvReac Type Severity Reaction Status Date / Time codeine Allergy Severe Passes out Verified 09/22/21 10:25 oxycodone Allergy Severe pass out Verified 09/22/21 10:25 Home Medications Medication Instructions Recorded Confirmed Type aspirin 81 mg tablet,delayed 81 mg PO DAILY 12/13/19 09/15/21 History release cetirizine 10 mg capsule 10 mg PO DAILY cap 12/13/19 09/15/21 History omeprazole 20 mg capsule,delayed 20 mg PO DAILY PRN 12/13/19 09/15/21 History release cholecalciferol (vitamin D3) 50 50 mcg PO DAILY 08/07/20 09/15/21 History mcg (2,000 unit) capsule multivitamin 1 cap PO DAILY 08/07/20 09/15/21 History gabapentin 300 mg capsule 300 mg PO TID 90 Days #270 cap 12/16/20 09/15/21 Rx tiotropium bromide 1.25 2 puff INHALATION DAILY #4 g 03/22/21 09/15/21 Rx mcg/actuation mist for inhalation diphenoxylate-atropine 2.5 1 tablet PO BID PRN #30 tablet 07/27/21 09/15/21 Rx mg-0.025 mg tablet rosuvastatin 10 mg tablet 10 mg PO DAILY 07/27/21 09/15/21 History ondansetron HCl 4 mg tablet 4 mg PO Q8H PRN #30 tablet 09/14/21 09/15/21 Rx acetaminophen [Tylenol Extra 500 mg PO TID 09/15/21 09/15/21 History Strength] cyanocobalamin (vitamin B-12) 1,000 mcg PO DAILY 09/15/21 09/15/21 History [Vitamin B-12] levalbuterol tartrate 2 inh INHALATION Q6H PRN 09/15/21 09/15/21 History meloxicam 15 mg PO DAILY 09/15/21 09/15/21 History tramadol 25 mg PO Q6H 09/15/21 09/15/21 History montelukast 10 mg tablet 10 mg PO DAILY #90 tablet 09/20/21 09/22/21 Rx Patient hx anesthesia problems: none Family hx anesthesia problems: none Results Review: All pre-operative results and documents have been reviewed as part of the pre-operative evaluation. [facility] Past Medical History Medical History (Updated 07/27/21 @ 13:36 by Ignacio Bell MD) Arthritis Asthma COPD (chronic obstructive pulmonary disease) COVID-19 vaccine series completed Dyslipidemia Emphysema of lung Frozen shoulder Left shoulder GERD (gastroesophageal reflux disease) IBS (irritable bowel syndrome) Memory loss Neuropathy Osteoporosis Sciatica associated with disorder of lumbar spine Scoliosis due to degenerative disease of spine in adult patient Sleep apnea Vision changes Vitamin D deficiency Surgical History Surgical History History of bowel resection History of cholecystectomy History of partial hysterectomy History of right hip replacement Status post cataract extraction of both eyes with insertion of intraocular lens Family History Family History Mother Pneumonia Father Asbestosis Grandparent Pneumonia Grandparent Heart attack Grandparent Cerebrovascular accident Other Arthritis Heart disease Malignant neoplasm Social History Social History (Updated 09/14/21 @ 11:10 by Micaela Carrillo) Social History: She lives in [place] with her of 60 years. She has a Rollator at home but only uses it when she goes to the store. She has 2 children who are healthy. She is a lifelong nonsmoker and does not drink alcohol. 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 Primary care physician: Dr. Ignacio Bell Code status: DNR/DNI Surrogate decision maker: Miah (son) Smoking status: Never smoker Second hand tobacco smoke exposure: No Alcohol intake: never Substance use: [place]
[2021-09-22] MEDS: LACTATED RINGERS 1,000 ML 150 ML IV CONT (11:13)
--- NOTE | 2021-09-22 11:24 | PM.HPGS ---
History of Present Illness History of Present Illness Consent: Risks, benefits, and alternatives have been discussed and questions answered. Patient agrees to proceed with procedure. Chief complaint: diarrhea Narrative: Ellyn Cody is a 80 year old female with intermittent diarrhea for few years using imodium as needed. Last colonoscopy about 20 years ago, had partial colon resection for diverticulitis, also remote h/o GB surgery. Review of Systems Constitutional: Constitutional: Denies headache(s) and Denies weakness Eyes: Eyes: Denies blurry vision ENT: Reports Normal hearing present, Denies headache(s) and Denies neck pain Cardiovascular: Cardiovascular: Denies chest pain and Denies dyspnea Respiratory: Respiratory: Denies dyspnea Gastrointestinal: Gastrointestinal: Reports no additional gastrointestinal complaints Genitourinary: Genitourinary: Denies dysuria Musculoskeletal: Musculoskeletal: Denies neck pain Integumentary/Breasts: Skin/Breast: Denies dry skin Neurologic: Reports Normal hearing present, Denies headache(s) and Denies weakness Psychiatric: Psychiatric: Denies anxiety Endocrine: Endocrine: Denies change in body appearance Hematologic/Lymphatic: Hematologic/Lymphatic: Denies easy bleeding Allergic/Immunologic: Allergic/Immunologic: Denies urticaria PMFSH Past Medical History Medical History (Updated 07/27/21 @ 13:36 by Ignacio Bell MD) Arthritis Asthma COPD (chronic obstructive pulmonary disease) COVID-19 vaccine series completed Dyslipidemia Emphysema of lung Frozen shoulder Left shoulder GERD (gastroesophageal reflux disease) IBS (irritable bowel syndrome) Memory loss Neuropathy Osteoporosis Sciatica associated with disorder of lumbar spine Scoliosis due to degenerative disease of spine in adult patient Sleep apnea Vision changes Vitamin D deficiency Surgical History Surgical History History of bowel resection History of cholecystectomy History of partial hysterectomy History of right hip replacement Status post cataract extraction of both eyes with insertion of intraocular lens Family History Family History Mother Pneumonia Father Asbestosis Grandparent Pneumonia Grandparent Heart attack Grandparent Cerebrovascular accident Other Arthritis Heart disease Malignant neoplasm Social History Social History (Updated 09/14/21 @ 11:10 by Micaela Carrillo) Social History: She lives in [place] with her of 60 years. She has a Rollator at home but only uses it when she goes to the store. She has 2 children who are healthy. She is a lifelong nonsmoker and does not drink alcohol. 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 Primary care physician: Dr. Ignacio Bell Code status: DNR/DNI Surrogate decision maker: Miah (son) Smoking status: Never smoker Second hand tobacco smoke exposure: No Alcohol intake: never Substance use: never Substance use type: does not use Living arrangements: with family Gender identity (if verbalized by the patient): Female Sexual Orientation (if Verbalized by the Patient): Straight or Heterosexual Spiritual care concerns: No Agree to blood products: Yes Meds Home Medications and Allergies Home Medications Medication Instructions Recorded Confirmed Type aspirin 81 mg tablet,delayed 81 mg PO DAILY 12/13/19 09/15/21 History release cetirizine 10 mg capsule 10 mg PO DAILY cap 12/13/19 09/15/21 History omeprazole 20 mg capsule,delayed 20 mg PO DAILY PRN 12/13/19 09/15/21 History release cholecalciferol (vitamin D3) 50 50 mcg PO DAILY 08/07/20 09/15/21 History mcg (2,000 unit) capsule multivitamin 1 cap PO DAILY 08/07/20 09/15/21 History gabapentin 300 mg capsule 300 mg PO TID 90 Days #270 cap 12/16/20 09/15/21 Rx tiotrop
[2021-09-22 11:46] VITALS: BP 98/55; PULSE 68; RESP 18; O2SAT 96
[2021-09-22 11:56] VITALS: BP 111/59; PULSE 66; RESP 20; O2SAT 97
[2021-09-22 12:06] VITALS: BP 110/62; PULSE 68; RESP 18; O2SAT 98
== END 2021-09-22 12:23 | disposition home or self-care (01) ==
PROVIDERS: PCP Internal Medicine; Visit Provider Internal Medicine Gastroenterology
PROC: 0DJD8ZZ Inspection of Lower Intestinal Tract, Via Natural or Artificial Opening Endoscopic (ICD-10-PCS; CPT 45378; principal; 2021-09-22 11:30)
DX: Z12.11 Encounter for screening for malignant neoplasm of colon (principal); D12.8 Benign neoplasm of rectum; K57.30 Diverticulosis of large intestine without perforation or abscess without bleeding; K64.8 Other hemorrhoids; Z79.82 Long term (current) use of aspirin; Z79.51 Long term (current) use of inhaled steroids; J44.9 Chronic obstructive pulmonary disease, unspecified; E78.5 Hyperlipidemia, unspecified; K21.9 Gastro-esophageal reflux disease without esophagitis; K58.9 Irritable bowel syndrome, unspecified; G62.9 Polyneuropathy, unspecified; M81.0 Age-related osteoporosis without current pathological fracture; G47.30 Sleep apnea, unspecified; E55.9 Vitamin D deficiency, unspecified
CPT/HCPCS: 45385; 45380; 88305; J2704; J7120

== ENCOUNTER 2021-09-29 16:59 | Inpatient (IN) | payer MEDICARE, SELFPAY ==
[2021-09-29] VITALS (13 sets, daily range): BP systolic 105–137; BP diastolic 54–69; PULSE 75–102; RESP 15–24; TEMP 36–37; O2SAT 97–100; BMI 25.0
--- NOTE | ~2021-09-29 | MR_ITS ---
EXAMINATION: MR lumbar spine wo con DATE: 09/30/2021 10:01 INDICATION: Acute on chronic back pain. TECHNIQUE: Magnetic resonance imaging (MRI) of the lumbar spine was performed without intravenous con trast. Sequences included sagittal and coronal T2-weighted FSE, sagittal T2-weighted FS FSE, sagittal T1-weighted FSE, and axial T2-weighted FSE. COMPARISON: Lumbar spine MRI 05/13/2020, CT abdomen 09/29/21 FINDINGS: There is 52 degrees levoscoliosis of thoracolumbar spine. Vertebral body heights are normal . There is severely decreased disc height at L1-L2 and L2-L3, moderately decreased disc height at L3- L4 and L4-L5, and severely decreased disc at L5-S1 with endplate remodeling. The distal spinal cord s ignal intensity is normal. The conus medullaris is at L1. The following disc levels are specifically discussed: L1-L2: The disc is mildly bulging. There is moderate right and mild left facet joint osteoarthritis. There is mild right neural foraminal stenosis. There is no central canal stenosis. L2-L3: The disc is mildly bulging. There is severe bilateral facet joint osteoarthritis. There is mil d bilateral neural foraminal stenosis. There is no central canal stenosis. L3-L4: The disc is bulging and has an annular fissure. There is severe bilateral facet joint osteoart hritis. There is moderate bilateral neural foraminal stenosis. There is moderate central canal stenos is. L4-L5: The disc is bulging. There is moderate right and severe left facet joint osteoarthritis. There is mild right and moderate left neural foraminal stenosis. There is mild central canal stenosis. L5-S1: The disc is bulging and has an annular fissure. There is severe bilateral facet joint osteoart hritis. There is mild left neural foraminal stenosis. There is mild central canal stenosis. IMPRESSION: 1. Severe lumbar spondylosis, stable from 05/13/2020. 2. Thoracolumbar levoscoliosis. Reviewed, dictated and finalized at location A. IC SERVICE REPRESENTATIVE
--- NOTE | ~2021-09-29 | CT_ITS ---
EXAMINATION: CT lumbar spine wo con DATE: 09/29/2021 18:50 INDICATION: Severe back pain TECHNIQUE: Computed tomography (CT) of the lumbar spine was performed without intravenous contrast. A utomated exposure control and iterative reconstruction technique were employed. The dose-length produ ct was 1021.84 mGy-cm. COMPARISON: Lumbar spine radiographs and MR dated 05/13/2020 FINDINGS: 55 degree thoracolumbar levoscoliosis measured between T11 and L4. 8 mm left lateral listhesis L3 on L4. Sagittal alignment is normal with no spondylolisthesis. Vertebral body heights are normal. No fra cture. Mild right-sided predominant disc height loss at T11-T12, mild to moderate right-sided predomi nant disc height loss at T12-L1, moderate to severe right-sided predominant disc height loss at L1-L2 and L2-L3 with prominent disc calcification, moderate left-sided predominant disc height loss with p rominent vacuum phenomena at L3-L4. Mild to moderate left-sided predominant disc height loss at L4-L5 . Moderate to severe disc height loss at L5-S1. Minimal atelectasis at the visualized portions of the bilateral lung bases. Cholecystectomy clips the gallbladder fossa. Paravertebral soft tissues are un remarkable. The following disc levels are specifically discussed: T11-T12: Disc is mildly bulging. There is mild right and moderate to severe left facet joint osteoart hritis. There is moderate bilateral neural foraminal stenosis. There is no central canal stenosis. T12-L1: Disc is mildly bulging. There is mild to moderate right and severe left facet joint osteoarth ritis. There is moderate right and mild left neural foraminal stenosis. There is no central canal zee nosis. L1-L2: Disc is mildly bulging. There is severe left facet joint osteoarthritis. The right facet joint is fused. There is mild to moderate right and no left neural foraminal stenosis. There is no central canal stenosis. L2-L3: Disc is mildly bulging. There is severe left facet joint osteoarthritis. The right facet joint is fused. There is mild to moderate right and no left neural foraminal stenosis. There is mild centr al canal stenosis. L3-L4: Disc is bulging. There is moderate right and severe left facet joint osteoarthritis. There is moderate right and mild left neural foraminal stenosis. There is moderate central canal stenosis. L4-L5: Disc is bulging. There is mild to moderate right and severe left facet joint osteoarthritis. T here is moderate to severe left and mild to moderate right neural foraminal stenosis. There is mild c entral canal stenosis. L5-S1: Disc is bulging. There is mild right and severe left facet joint osteoarthritis. There is mode rate left and mild to moderate right neural foraminal stenosis. There is mild central canal stenosis. IMPRESSION: 1. Severe thoracolumbar levoscoliosis with moderate to severe spondylosis. No acute osseous abnormali ty. Reviewed, dictated and finalized at location A. ICAL MANAGER IMPRESSION: 1. Severe thoracolumbar levoscoliosis with moderate to severe spondylosis. No a cute osseous abnormality.
--- NOTE | ~2021-09-29 | XR_ITS ---
EXAMINATION: XR chest 1V portable DATE: 09/29/2021 18:00 INDICATION: Weakness TECHNIQUE: frontal view of the chest was obtained. COMPARISON: Chest radiograph dated 07/20/2021 FINDINGS: Patient is rotated towards the left. Elevation of the right hemidiaphragm. Mild streaky atelectasis/s carring at the site of prior more confluent lung disease at the left lung base. No new airspace opaci ties, pulmonary edema, pleural effusion or pneumothorax. The cardiomediastinal silhouette is normal. Cholecystectomy clips at the right upper quadrant. Chondrocalcinosis and severe glenohumeral osteoart hritis at the left shoulder. IMPRESSION: 1. Elevation right hemidiaphragm and mild streaky left basilar atelectasis. Reviewed, dictated and finalized at location A. RIBUTION TECHNICIAN
--- NOTE | 2021-09-29 17:10 | ECG_ITS ---
Measurements Intervals Essie Rate: 81 P: -8 DE: 135 QRS: 8 QRSD: 98 T: 3 QT: 357 QTc: 415 Interpretive Statements SINUS RHYTHM BASELINE ARTIFACT- I, II, III, AVR, AVF, V1-V6 NORMAL ECG Electronically Signed On 09-29-2021 19:53:52 [employer] by Bonifacio Hernandez D.O.
--- NOTE | 2021-09-29 17:40 | ED.WEAKNESS ---
HPI - Weakness General Chief complaint: Weakness Stated complaint: hasnt eaten in 2 days Time Seen by Provider: 09/29/21 17:01 Source: patient and family Mode of arrival: ambulatory Limitations: no limitations History of Present Illness HPI Narrative: This is an 80 year old female with history of chronic back pain, severe scoliosis, and COPD who presents for evaluation of low back pain and decreased appetite. Her son is at bedside assisting with history. Patient reports having severe low back pain for 3 months but it has worsened over past 1 week. She reports several years of back issues due to her scoliosis. She reports having MRI performed in the past and she also follows with pain management. She reports having back injection 6 months which initially helped her pain. She denies any exacerbating injury to account for her worsening pain. Her son states patient was hospitalized in July for treatment of pneumonia, and patient has been having severe back pain since. He also states patient has been weak since discharge. Patient was prescribed tramadol for her pain 1 week ago, but it has caused nausea and vomiting. She has discontinued taking her tramadol so she reports severe pain that is worse with movement. She also states her back pain radiates down her right leg. She denies any focal limb weakness. She reports bilateral peripheral neuropathy in feet but denies worsening numbness or tingling. She also denies urinary issues. Her son is concerned that patient has been in the bed alot over past 24 hours. He also states patient is not eating or drinking due to her nausea. He states she could not get up without assistance today. Related Data Home Medications Medication Instructions Recorded Confirmed aspirin 81 mg tablet,delayed 81 mg PO DAILY 12/13/19 09/15/21 release cetirizine 10 mg capsule 10 mg PO DAILY cap 12/13/19 09/15/21 omeprazole 20 mg capsule,delayed 20 mg PO DAILY PRN 12/13/19 09/15/21 release cholecalciferol (vitamin D3) 50 50 mcg PO DAILY 08/07/20 09/15/21 mcg (2,000 unit) capsule multivitamin 1 cap PO DAILY 08/07/20 09/15/21 rosuvastatin 10 mg tablet 10 mg PO DAILY 07/27/21 09/15/21 acetaminophen [Tylenol Extra 500 mg PO TID 09/15/21 09/15/21 Strength] cyanocobalamin (vitamin B-12) 1,000 mcg PO DAILY 09/15/21 09/15/21 [Vitamin B-12] levalbuterol tartrate 2 inh INHALATION Q6H PRN 09/15/21 09/15/21 meloxicam 15 mg PO DAILY 09/15/21 09/15/21 tramadol 25 mg PO Q6H 09/15/21 09/15/21 Allergies Allergy/AdvReac Type Severity Reaction Status Date / Time codeine Allergy Severe Passes out Verified 09/29/21 17:33 oxycodone Allergy Severe pass out Verified 09/29/21 17:33 Review of Systems Review of Systems: All systems reviewed & are unremarkable except as noted in HPI and below PMFSH Past Medical History Medical History Arthritis Asthma COPD (chronic obstructive pulmonary disease) COVID-19 vaccine series completed Dyslipidemia Emphysema of lung Frozen shoulder Left shoulder GERD (gastroesophageal reflux disease) IBS (irritable bowel syndrome) Memory loss Neuropathy Osteoporosis Sciatica associated with disorder of lumbar spine Scoliosis due to degenerative disease of spine in adult patient Sleep apnea Vision changes Vitamin D deficiency Surgical History Surgical History History of bowel resection History of cholecystectomy History of partial hysterectomy History of right hip replacement Status post cataract extraction of both eyes with insertion of intraocular lens Family History Family History Mother Pneumonia Father Asbestosis Grandparent Pneumonia Grandparent Heart attack Grandparent Cerebrovascular accident Other Arthritis Heart disease M
[2021-09-29 18:03] LABS: Basophils Percent Auto 0.4 % (0.2-1.2); Eosinophils Percent Auto 0.4 % (0-4.4); Hematocrit 40.6 % (37.0-47.0); Hemoglobin 13.6 g/dL (12.0-15.0); Immature Granulocyte Absolute 0.01 K/mm3 (0.00-0.031); Immature Granulocyte Percent A 0.2 % (0-0.5); Lymphocytes Absolute Auto 1.16 K/mm3 (0.9-3.2); Lymphocytes Percent Auto 21.4 % (18.3-44.2); Mean Corpuscular HGB Conc 33.5 g/dl (32-36); Mean Corpuscular Volume 89.4 fl (80-100); Mean Platelet Volume 9.1 fl (7.4-10.4); Monocytes Absolute Auto 0.5 K/mm3 (0.1-0.6); Monocytes Percent Auto 9.1 % (2.6-8.5); Neutrophils Absolute Auto 3.7 K/mm3 (1.3-6.7); Neutrophils Percent Auto 68.5 % (45.5-73.1); Platelet Count Result 226 k/mm3 (150-375); Red Blood Count 4.54 M/mm3 (4.2-5.4); Red Cell Distribution Width 13.4 % (11.5-14.5); White Blood Count 5.4 K/mm3 (4.5-10.0)
[2021-09-29] MEDS: ONDANSETRON INJ 4 MG/2 ML VIAL IV PUSH ×2 (18:21→19:26)
[2021-09-29] MEDS: FAMOTIDINE 20 MG/2 ML VIAL IV PUSH (18:21)
[2021-09-29] MEDS: SODIUM CHLORIDE 0.9% IV 1,000 ML 999 ML IV CONT (18:21)
[2021-09-29] MEDS: MORPHINE SULFATE (*CRX) 4 MG/ML INJ IV PUSH (18:21)
[2021-09-29 18:30] LABS: Add Urine Microscopic? YES; Appearance Urine Cloudy (Clear); Bilirubin Urine Negative (Negative); Blood Urine Negative (Negative); Color Urine Yellow (Yellow); Glucose Urine UA Negative (Negative); Ketones Urine 2+ mg/dL (Negative); Leukocyte Esterase Ur 3+ LEU/UL (Negative); Mucus Urine Rare /lpf; Nitrate Urine Negative (Negative); Protein Urine Negative (Negative); Specific Grav Ur 1.017 (1.001-1.035); Squamous Epithelial Cell Urine Rare /hpf (Few); Urobilinogen Urine Negative mg/dL (<2.0); WBC Urine 31-50 /hpf
[2021-09-29 18:31] LABS: Alanine Aminotransferase 21 U/L (4-35); Albumin Level 4.1 g/dL (3.5-5.1); Alkaline Phosphatase 52 U/L (38-126); Anion Gap 9 mmol/L (8-16); Aspartate Amino Transferase 34 U/L (14-36); Bilirubin,Total 0.8 mg/dL (0.2-1.3); Blood Urea Nitrogen 12 mg/dL (7-17); Calcium 9.9 mg/dL (8.4-10.2); Carbon Dioxide 24 mmol/L (22-30); Chloride 103 mmol/L (98-107); Estimated CRCL calculation 42 ml/min; Estimated Glomerular Filt Rate > 60; Glucose 118 mg/dL (65-110); Lipase 36 U/L (23-300); Magnesium 1.4 mg/dL (1.6-2.3); Potassium 4.3 mmol/L (3.4-5.0); Sodium 136 mmol/L (137-145)
[2021-09-29 18:36] LABS: INR 0.9; Prothrombin Time 12.4 Seconds (11.1-14.7)
[2021-09-29 18:37] LABS: Partial Thromboplastin Time 25.3 SECONDS (22.3-36.8)
[2021-09-29] MEDS: SODIUM CHLORIDE 0.9% IV 1,000 ML 125 ML IV CONT ×2 (21:17→22:50)
--- NOTE | 2021-09-29 21:39 | PC.NURSE ---
floor called back ask to hold patient house keeping cleaning room
--- NOTE | 2021-09-29 21:45 | PM.IMHP ---
H&P: HPI History of Present Illness Date/Time: 09/29/21 21:45 Chief Complaint: Severe back pain Narrative: 80-year-old female with past medical history of asthma/COPD, GERD, obstructive sleep apnea, scoliosis, moderate lumbar stenosis who presented to the ER with worsening of her chronic back pain. She was recently evaluated as outpatient last week for some back pain is started on tramadol on 09/14/2021. She reported that initially she was started on 25 mg of tramadol which did not seem to upset her stomach but it was not helping with her pain. When the increase the tramadol to 50 mg a day she was having significant nausea with some vomiting. She had no hematemesis or coffee-ground emesis. Her emesis was clear consisted of food. The nausea started about 5 days ago. She reports that her back pain precipitously worsened about a week or so ago when she almost fell and had a catch herself on the edge of the bed. She did not fall and did not think she initially injured anything. She reports that her pain travels from the left side of her lumbar region to the right. Over the last 7 days the pain has worsened and is now radiating down her left leg. She does have chronic neuropathy but reports that this pain is worse and different than her neuropathy. At times the pain is a 10/10 in intensity. She was supposed to have injections in her back at her pain management doctor today but stated that she was in too much pain to go to the appointment. She reports that she has had such decreased appetite that she has become progressively more weak. She does not usually have to use her Rollator to walk on a day-to-day basis but had to use her Rollator today. She required 1 person assist in the ER to ambulate to the bedside commode. She reports that she really has not eaten anything over the last several days. She has not been able to get out of bed at all on her own over the last 24 hours. She denies any loss of bowel or bladder control. She has not had a bowel movement about 3 days due to decreased appetite and intake. She reports that her urine output has also decreased over the last several days due to decreased intake. She denies any dysuria urea or hematuria. She denies any foul-smelling urine or urgency. She had an MRI of her lumbar spine about a year ago that showed moderate L3-L4 central canal stenosis and severe thoraco lumbar scoliosis, and multilevel neural foraminal stenosis with likely L4-L5 left foraminal stenosis being most severe. She reports that the pain is worse with activity and with palpation. She reports severe tenderness over the spinous processes in the soft tissues of the sacral region. She reports chronic shortness of breath that is unchanged from baseline. She was supposed to get her COVID vaccine booster last week but chose not to as she was feeling ill. Review of Systems Review of Systems: 12 systems were reviewed with pertinent positives and negatives per HPI. Except as documented in the HPI, all other systems were reviewed and are negative. [facility] Past Medical History Medical History Arthritis Asthma COPD (chronic obstructive pulmonary disease) COVID-19 vaccine series completed Dyslipidemia Emphysema of lung Frozen shoulder Left shoulder GERD (gastroesophageal reflux disease) IBS (irritable bowel syndrome) Memory loss Neuropathy Osteoporosis Sciatica associated with disorder of lumbar spine Scoliosis due to degenerative disease of spine in adult patient Sleep apnea Vision changes Vitamin D deficiency Surgical History Surgical History History of bowel resection History of cholecystectomy History of partial hysterectomy History of right hip replacement Status post cataract extraction of both eyes with insertion of intraocular lens Family History Family History (Reviewed 09/30/21 @ 01:29 by Katrina Gracia
--- NOTE | 2021-09-29 22:33 | ADMGEN ---
This patient, Ellyn Cody, was admitted to Medical Room 254-01. Patient/family oriented to hospital policies and general routines including ID bracelet, bed and alarms, visiting hours, pain management, procedures, bathroom and other care routines, personal items, smoking policy, room service/diet, and visiting hours. Information on how to activate the Rapid Response Team has been discussed. Patient/Family are encouraged to report perceived risks to care and to ask questions if they do not understand what they are told or what they should do.
[2021-09-29] MEDS: MAGNESIUM OXIDE 200 MG TABLET PO (22:51)
[2021-09-30] MEDS: KETOROLAC 30 MG/ML VIAL (*BKC) IV PUSH (00:03)
[2021-09-30 03:51] VITALS: BP 109/44; PULSE 70; RESP 17; TEMP 36; O2SAT 94
[2021-09-30] MEDS: ONDANSETRON INJ 4 MG/2 ML VIAL IV PUSH ×3 (05:59→16:54)
[2021-09-30] MEDS: METOCLOPRAMIDE HCL INJ 10 MG/2 ML VIAL IV PUSH (08:07)
[2021-09-30] MEDS: GABAPENTIN 300 MG CAPSULE PO ×2 (10:08→16:40)
[2021-09-30] MEDS: ACETAMINOPHEN 500 MG TABLET PO ×2 (10:09→16:40)
--- NOTE | 2021-09-30 10:16 | PCOTNOTE ---
Attempted OT Evaluation, unable to complete eval at this time due to patient's increased nausea. Will follow and attempt at later time, RN aware.
[2021-09-30 10:31] VITALS: O2SAT 94
[2021-09-30] MEDS: PANTOPRAZOLE SODIUM IV 40 MG VIAL IV PUSH (10:57)
--- NOTE | 2021-09-30 11:01 | PCPTNOTE ---
Attempted PT Evaluation, unable to complete eval at this time due to patient's increased nausea and active vomitting. Will follow and attempt at later time, RN aware.
--- NOTE | 2021-09-30 11:30 | PM.IMPN ---
Progress Note: A&P Assessment and Plan (1) Acute UTI: Code(s): N39.0 - Urinary tract infection, site not specified Status: Acute Assessment and Plan: Urine cultures pending. Empiric antibiotic therapy with Rocephin. (2) Acute exacerbation of chronic low back pain: Code(s): M54.50 - Low back pain, unspecified; G89.29 - Other chronic pain Status: Acute Assessment and Plan: Acute on chronic Pain controlled currently with morphine. The patient is currently unable to tolerate oral medications and has persistent nausea/vomiting. Gave 1 dose of Toradol IV. PT and OT evaluation. Case management consult for possible rehab placement. (3) Weakness: Code(s): R53.1 - Weakness Status: Acute Assessment and Plan: Due to acute on chronic back pain, UTI, and decreased oral intake. Gentle IV fluid hydration. PT OT evaluation. (4) Hypomagnesemia: Code(s): E83.42 - Hypomagnesemia Status: Acute Assessment and Plan: Oral magnesium supplementation. (5) Nausea and vomiting: Code(s): R11.2 - Nausea with vomiting, unspecified Status: Acute Assessment and Plan: Likely secondary to UTI. Will provide antiemetics as needed and continue IV fluid hydration. Will place on Protonix IV daily for GI prophylaxis. Subjective Date/time seen: 09/30/21 11:30 80-year-old female with past medical history of asthma/COPD, GERD, obstructive sleep apnea, scoliosis, moderate lumbar stenosis, admitted to the hospital for UTI and acute on chronic back pain. This morning she reports generalized weakness, nausea, vomiting, dysuria, and decreased appetite. States she has not been able to keep anything down x3-4 days. Dysuria intermittent x weeks. No abdominal pain. Has intermittent diarrhea but this is chronic. Pt also c/o low back pain rated 8/10. Acute on chronic back pain. Hx of stenosis was scheduled to see pain management but has been too weak. No new injury. No focal weakness. Has numbness to bilateral feet which is chronic. Review of Systems Review of Systems: General: Denies fevers, chills, reports fatigue and generalized weakness Eyes: Denies vision changes or eye pain ENT: Denies nasal congestion or sore throat Respiratory: Denies cough or shortness of breath Cardiovascular: Denies chest pain, palpitations, or lower extremity edema Gastrointestinal: Denies abdominal pain, reports nausea, vomiting, and diarrhea Genitourinary: Reports dysuria Musculoskeletal: Reports back pain Neurological: Denies headache or motor weakness, reports numbness bilateral feet Integumentary: Denies rash or other skin lesions Exam Narrative: General: Frail, elderly, well-nourished HEENT: Mucous membranes are dry, no oral pharyngeal erythema, fair dentition, pupils are equal and reactive, head is normocephalic atraumatic Respiratory: Clear to auscultation bilaterally, no increased work of breathing Cardiovascular: Regular rate, regular rhythm, 2+ bilateral radial pedal pulses Gastrointestinal: Soft, nontender, nondistended, positive bowel sounds Skin: Generalized pallor, non jaundice Musculoskeletal: 5/5 plantar and dorsiflexion strength bilaterally, no clubbing, no cyanosis Neurological: Alert and oriented, speech is clear but slow, chronic tremor of bilateral upper extremities, sensation intact BLE Psychiatric: Appropriate mood, mildly anxious, pleasant and cooperative : No urinary or stool incontinence Hematologic/lymphatic: No petechiae, no bruising, no anterior cervical or submandibular lymphadenopathy Objective Data Vital Signs Vital Signs: Vital Signs - 24 hr 09/29/21 17:07 09/29/21 17:12 09/29/21 17:29 Temperature 98 F Pulse Rate 83 81 Respiratory Rate 24 H Blood Pressure 126/54 L Pulse Oximetry 98 98 09/29/21 17:35 09/29/21 17:45 09/29/21 18:05 Temperature Pulse Rate 79 79 76 Respiratory Rate 17
[2021-09-30 13:55] VITALS: BP 121/48; PULSE 73; RESP 20; TEMP 37; O2SAT 93
[2021-09-30] MEDS: MAGNESIUM SULF 2 GM/WATER 50ML 2 GM/50 ML BAG IVPB (16:40)
[2021-09-30] MEDS: SODIUM CHLORIDE 0.9% IV 1,000 ML 125 ML IV CONT (16:54)
[2021-09-30 20:00] VITALS: PULSE 67; RESP 18; O2SAT 97
[2021-09-30 20:02] VITALS: BP 127/46; PULSE 67; RESP 18; TEMP 36.6; O2SAT 97
[2021-09-30] MEDS: MAGNESIUM OXIDE 200 MG TABLET PO (20:32)
[2021-09-30 21:27] VITALS: O2SAT 97
[2021-10-01 05:20] LABS: Basophils Percent Auto 0.6 % (0.2-1.2); Eosinophils Absolute Auto 0.1 K/mm3 (0-0.3); Eosinophils Percent Auto 2.3 % (0-4.4); Hematocrit 33.8 % (37.0-47.0); Hemoglobin 11.4 g/dL (12.0-15.0); Immature Granulocyte Absolute 0.01 K/mm3 (0.00-0.031); Immature Granulocyte Percent A 0.2 % (0-0.5); Lymphocytes Absolute Auto 1.72 K/mm3 (0.9-3.2); Lymphocytes Percent Auto 35.6 % (18.3-44.2); Mean Corpuscular HGB Conc 33.7 g/dl (32-36); Mean Corpuscular Hemoglobin 30.4 pg (26-34); Mean Corpuscular Volume 90.1 fl (80-100); Mean Platelet Volume 8.9 fl (7.4-10.4); Monocytes Absolute Auto 0.5 K/mm3 (0.1-0.6); Neutrophils Absolute Auto 2.4 K/mm3 (1.3-6.7); Neutrophils Percent Auto 50.3 % (45.5-73.1); Platelet Count Result 196 k/mm3 (150-375); Red Blood Count 3.75 M/mm3 (4.2-5.4); Red Cell Distribution Width 13.3 % (11.5-14.5); White Blood Count 4.8 K/mm3 (4.5-10.0)
[2021-10-01 05:30] LABS: Anion Gap 6 mmol/L (8-16); Blood Urea Nitrogen 10 mg/dL (7-17); Calcium 8.8 mg/dL (8.4-10.2); Carbon Dioxide 23 mmol/L (22-30); Chloride 108 mmol/L (98-107); Estimated CRCL calculation 39 ml/min; Estimated Glomerular Filt Rate > 60; Glucose 86 mg/dL (65-110); Potassium 3.8 mmol/L (3.4-5.0); Sodium 137 mmol/L (137-145)
[2021-10-01 05:46] VITALS: BP 133/58; PULSE 65; RESP 16; TEMP 36.7; O2SAT 94
[2021-10-01] MEDS: ACETAMINOPHEN 500 MG TABLET PO ×3 (08:24→16:06)
[2021-10-01] MEDS: GABAPENTIN 300 MG CAPSULE PO ×3 (08:24→16:06)
[2021-10-01] MEDS: ASPIRIN 81 MG ENTERIC TABLET PO (08:24)
[2021-10-01] MEDS: CYANOCOBALAMIN 1,000 MCG TABLET 1000 MCG PO (08:25)
[2021-10-01] MEDS: CHOLECALCIFEROL 1,000 UNITS TABLET 2000 UNITS PO (08:25)
[2021-10-01] MEDS: ENOXAPARIN 40 MG/0.4 ML SYRINGE SUB-Q (08:25)
[2021-10-01] MEDS: MONTELUKAST SODIUM 10 MG TABLET PO (08:25)
[2021-10-01] MEDS: MELOXICAM 7.5 MG TABLET 15 MG PO (08:25)
[2021-10-01] MEDS: MAGNESIUM OXIDE 200 MG TABLET PO ×2 (09:10→21:12)
[2021-10-01] MEDS: MULTIVITAMINS THERAPEUTIC TAB (*BKC) 1 TABLET PO (09:10)
[2021-10-01] MEDS: UMECLIDINIUM BROMIDE 62.5 MCG ELLIPTA 1 PUFF INHALATION (09:50)
[2021-10-01] MEDS: PANTOPRAZOLE SODIUM IV 40 MG VIAL IV PUSH (10:10)
[2021-10-01] MEDS: ACETAMINOPHEN 500 MG TABLET 1000 MG PO (11:13)
--- NOTE | 2021-10-01 13:02 | PM.IMPN ---
Progress Note: A&P Assessment and Plan (1) Acute UTI: Code(s): N39.0 - Urinary tract infection, site not specified Status: Acute Assessment and Plan: -UA w/ 3+ leukocytes, 31-50 WBCs and rare squamous cells, however urine culture was negative -Pt arrived symptomatic and was started on rocephin. She has shown significant improvement with antibiotics today. Will continue to treat empirically based on clinical picture. (2) Acute exacerbation of chronic low back pain: Code(s): M54.50 - Low back pain, unspecified; G89.29 - Other chronic pain Status: Acute Assessment and Plan: Acute on chronic Pain control w/ morphine initially but pt states made her more nauseated Does not want narcotics, will stick to tylenol for now PT and OT evaluation. Case management consult for possible rehab placement. Also working on pain management referral, pt reportedly does not like the person she was supposed to see for injections (3) Weakness: Code(s): R53.1 - Weakness Status: Acute Assessment and Plan: Due to acute on chronic back pain, UTI, and decreased oral intake. PT OT evaluation. (4) Hypomagnesemia: Code(s): E83.42 - Hypomagnesemia Status: Acute Assessment and Plan: Oral magnesium supplementation. (5) Nausea and vomiting: Code(s): R11.2 - Nausea with vomiting, unspecified Status: Acute Assessment and Plan: Likely secondary to UTI. Will provide antiemetics as needed and continue IV fluid hydration. Will place on Protonix IV daily for GI prophylaxis. Doing better today Subjective Date/time seen: 10/01/21 13:02 Interval history: 80-year-old female with past medical history of asthma/COPD, GERD, obstructive sleep apnea, scoliosis, moderate lumbar stenosis, admitted to the hospital for UTI and acute on chronic back pain. Pt is doing better today. Nausea and vomiting has resolved. No dysuria or incontinence today. No abd pain. States was able to walk to bathroom yesterday with the walker. Had increased pain but had not been ambulating at all so this was improvement. Back pain 2/10 at rest and 8/10 w/ movement. Review of Systems Review of Systems: General: Denies fevers, chills, reports fatigue and generalized weakness Eyes: Denies vision changes or eye pain ENT: Denies nasal congestion or sore throat Respiratory: Denies cough or shortness of breath Cardiovascular: Denies chest pain, palpitations, or lower extremity edema Gastrointestinal: Denies abdominal pain, reports nausea, vomiting, and diarrhea Genitourinary: Denies dysuria Musculoskeletal: Reports back pain Neurological: Denies headache or motor weakness, reports numbness bilateral feet Integumentary: Denies rash or other skin lesions Exam Narrative: General: Frail, elderly, well-nourished HEENT: Mucous membranes are dry, no oral pharyngeal erythema, fair dentition, pupils are equal and reactive, head is normocephalic atraumatic Respiratory: Clear to auscultation bilaterally, no increased work of breathing Cardiovascular: Regular rate, regular rhythm, 2+ bilateral radial pedal pulses Gastrointestinal: Soft, nontender, nondistended, positive bowel sounds Skin: Generalized pallor, non jaundice Musculoskeletal: 5/5 plantar and dorsiflexion strength bilaterally, no clubbing, no cyanosis Neurological: Alert and oriented, speech is clear but slow, chronic tremor of bilateral upper extremities, sensation intact BLE Psychiatric: Appropriate mood, mildly anxious, pleasant and cooperative : No urinary or stool incontinence Hematologic/lymphatic: No petechiae, no bruising, no anterior cervical or submandibular lymphadenopathy Objective Data Vital Signs Vital Signs: Vital Signs - 24 hr 09/30/21 13:55 09/30/21 20:00 09/30/21 20:02 Temperature 98.6 F 97.8 F Pulse Rate 73 67 67 Respiratory Rate 20 18 18 Blood Pressure 121/48 L 127/46 L
[2021-10-01] MEDS: ONDANSETRON INJ 4 MG/2 ML VIAL IV PUSH ×2 (13:54→21:32)
[2021-10-01 14:18] VITALS: BP 123/48; PULSE 84; RESP 16; TEMP 36.6; O2SAT 95
[2021-10-01 21:15] VITALS: BP 124/61; PULSE 69; RESP 20; TEMP 36.7; O2SAT 96
[2021-10-01] MEDS: KETOROLAC 15 MG/ML VIAL (*BKC) IV PUSH (21:32)
[2021-10-02 05:17] VITALS: BP 135/51; PULSE 67; RESP 16; TEMP 36.4; O2SAT 96
[2021-10-02 08:18] LABS: Basophils Percent Auto 0.7 % (0.2-1.2); Eosinophils Absolute Auto 0.1 K/mm3 (0-0.3); Hematocrit 35.3 % (37.0-47.0); Hemoglobin 11.8 g/dL (12.0-15.0); Immature Granulocyte Absolute 0.01 K/mm3 (0.00-0.031); Immature Granulocyte Percent A 0.2 % (0-0.5); Lymphocytes Percent Auto 43.4 % (18.3-44.2); Mean Corpuscular HGB Conc 33.4 g/dl (32-36); Mean Corpuscular Hemoglobin 30.1 pg (26-34); Mean Corpuscular Volume 90.1 fl (80-100); Mean Platelet Volume 9.3 fl (7.4-10.4); Monocytes Absolute Auto 0.5 K/mm3 (0.1-0.6); Monocytes Percent Auto 11.6 % (2.6-8.5); Neutrophils Absolute Auto 1.8 K/mm3 (1.3-6.7); Neutrophils Percent Auto 41.1 % (45.5-73.1); Platelet Count Result 198 k/mm3 (150-375); Red Blood Count 3.92 M/mm3 (4.2-5.4); Red Cell Distribution Width 13.7 % (11.5-14.5); White Blood Count 4.4 K/mm3 (4.5-10.0)
[2021-10-02 08:21] LABS: Anion Gap 4 mmol/L (8-16); Blood Urea Nitrogen 12 mg/dL (7-17); Calcium 8.7 mg/dL (8.4-10.2); Carbon Dioxide 26 mmol/L (22-30); Chloride 104 mmol/L (98-107); Estimated CRCL calculation 39 ml/min; Estimated Glomerular Filt Rate > 60; Glucose 91 mg/dL (65-110); Potassium 3.6 mmol/L (3.4-5.0); Sodium 134 mmol/L (137-145)
[2021-10-02] MEDS: GABAPENTIN 300 MG CAPSULE PO ×3 (08:31→16:39)
[2021-10-02] MEDS: MULTIVITAMINS THERAPEUTIC TAB (*BKC) 1 TABLET PO (08:31)
[2021-10-02] MEDS: MELOXICAM 7.5 MG TABLET 15 MG PO (08:31)
[2021-10-02] MEDS: CHOLECALCIFEROL 1,000 UNITS TABLET 2000 UNITS PO (08:31)
[2021-10-02] MEDS: MONTELUKAST SODIUM 10 MG TABLET PO (08:31)
[2021-10-02] MEDS: ACETAMINOPHEN 500 MG TABLET PO ×3 (08:32→16:39)
[2021-10-02] MEDS: ENOXAPARIN 40 MG/0.4 ML SYRINGE SUB-Q (08:32)
[2021-10-02] MEDS: ASPIRIN 81 MG ENTERIC TABLET PO (08:32)
[2021-10-02] MEDS: PANTOPRAZOLE SODIUM IV 40 MG VIAL IV PUSH (08:32)
[2021-10-02] MEDS: CYANOCOBALAMIN 1,000 MCG TABLET 1000 MCG PO (08:32)
[2021-10-02] MEDS: MAGNESIUM OXIDE 200 MG TABLET PO ×2 (08:32→20:43)
[2021-10-02] MEDS: UMECLIDINIUM BROMIDE 62.5 MCG ELLIPTA 1 PUFF INHALATION (09:50)
[2021-10-02] MEDS: MORPHINE SULFATE (*CRX) 4 MG/ML INJ IV PUSH (10:15)
[2021-10-02] MEDS: ONDANSETRON INJ 4 MG/2 ML VIAL IV PUSH (10:15)
--- NOTE | 2021-10-02 11:05 | PM.IMPN ---
Progress Note: A&P Assessment and Plan (1) Acute UTI: Code(s): N39.0 - Urinary tract infection, site not specified Status: Acute Assessment and Plan: -UA w/ 3+ leukocytes, 31-50 WBCs and rare squamous cells, however urine culture was negative -Pt arrived symptomatic and was started on rocephin. She has shown significant improvement with antibiotics. Will continue to treat empirically based on clinical picture. (2) Acute exacerbation of chronic low back pain: Code(s): M54.50 - Low back pain, unspecified; G89.29 - Other chronic pain Status: Acute Assessment and Plan: Acute on chronic Pain control w/ morphine initially but pt states made her more nauseated Does not want narcotics, will stick to tylenol for now, dry steroid and lidoderm patch PT and OT evaluation. Case management consult for possible rehab placement. Also working on pain management referral, pt reportedly does not like the person she was supposed to see for injections (3) Weakness: Code(s): R53.1 - Weakness Status: Acute Assessment and Plan: Due to acute on chronic back pain, UTI, and decreased oral intake. PT OT evaluation. Resolved (4) Hypomagnesemia: Code(s): E83.42 - Hypomagnesemia Status: Acute Assessment and Plan: Oral magnesium supplementation. (5) Nausea and vomiting: Code(s): R11.2 - Nausea with vomiting, unspecified Status: Acute Assessment and Plan: Likely secondary to UTI. Will provide antiemetics as needed and continue IV fluid hydration. Will place on Protonix IV daily for GI prophylaxis. Resolved, IV fluids discontinued Will avoid narcotics when possible as they seem to increase her nausea Subjective Date/time seen: 10/02/21 11:05 Interval history: 80-year-old female with past medical history of asthma/COPD, GERD, obstructive sleep apnea, scoliosis, moderate lumbar stenosis, admitted to the hospital for UTI and acute on chronic back pain. Pt is doing well today. Nausea and vomiting has resolved. No dysuria or incontinence today. No abd pain. Weakness improving. States she is still having a lot of back pain when ambulating but does not want to try any narcotic medications because they make her very nauseated. Back pain 2/10 at rest and 8/10 w/ movement. She states she would prefer to go to a rehab facility on discharge to continue working with therapy. Review of Systems Review of Systems: General: Denies fevers, chills, weakness Eyes: Denies vision changes or eye pain ENT: Denies nasal congestion or sore throat Respiratory: Denies cough or shortness of breath Cardiovascular: Denies chest pain, palpitations, or lower extremity edema Gastrointestinal: Denies abdominal pain, nausea, vomiting, or diarrhea Genitourinary: Denies dysuria Musculoskeletal: Reports back pain Neurological: Denies headache or motor weakness, reports numbness bilateral feet Integumentary: Denies rash or other skin lesions Exam Narrative: General: Frail, elderly, well-nourished HEENT: Mucous membranes moist, pupils are equal and reactive, head is normocephalic atraumatic Respiratory: Clear to auscultation bilaterally, no increased work of breathing Cardiovascular: Regular rate, regular rhythm, 2+ bilateral radial pedal pulses Gastrointestinal: Soft, nontender, nondistended, positive bowel sounds Skin: Generalized pallor, non jaundice Musculoskeletal: 5/5 plantar and dorsiflexion strength bilaterally, no clubbing, no cyanosis Neurological: Alert and oriented, speech is clear but slow, chronic tremor of bilateral upper extremities, sensation intact BLE Psychiatric: Appropriate mood, pleasant and cooperative Hematologic/lymphatic: No petechiae, no bruising Objective Data Vital Signs Vital Signs: Vital Signs - 24 hr 10/01/21 14:18 10/01/21 21:15 10/02/21 05:17 Temperature 97.9 F 98.0 F 97.5 F L Pulse Rate 84 69 67
[2021-10-02 11:34] LABS: Magnesium 1.8 mg/dL (1.6-2.3)
[2021-10-02 11:35] VITALS: BP 134/80; PULSE 68; TEMP 36.6; O2SAT 97
[2021-10-02] MEDS: LIDOCAINE 5% PATCH 1 PATCH TRANSDERM (13:40)
[2021-10-02] MEDS: DOCUSATE SODIUM 100 MG CAPSULE PO (13:40)
[2021-10-02 14:00] VITALS: BP 147/52; PULSE 80; RESP 18; TEMP 36.9; O2SAT 95
[2021-10-02 21:42] VITALS: BP 121/64; PULSE 78; RESP 20; TEMP 36.1; O2SAT 95
[2021-10-03 05:45] VITALS: BP 134/63; PULSE 71; RESP 16; TEMP 36.1; O2SAT 95
[2021-10-03 06:04] LABS: Hematocrit 35.9 % (37.0-47.0); Hemoglobin 12.3 g/dL (12.0-15.0); Mean Corpuscular HGB Conc 34.3 g/dl (32-36); Mean Corpuscular Hemoglobin 30.1 pg (26-34); Mean Platelet Volume 9.6 fl (7.4-10.4); Platelet Count Result 235 k/mm3 (150-375); Red Blood Count 4.08 M/mm3 (4.2-5.4); Red Cell Distribution Width 13.3 % (11.5-14.5); White Blood Count 5.3 K/mm3 (4.5-10.0)
[2021-10-03 06:28] LABS: Anion Gap 7 mmol/L (8-16); Blood Urea Nitrogen 17 mg/dL (7-17); Calcium 9.3 mg/dL (8.4-10.2); Carbon Dioxide 24 mmol/L (22-30); Chloride 101 mmol/L (98-107); Estimated CRCL calculation 39 ml/min; Estimated Glomerular Filt Rate > 60; Glucose 123 mg/dL (65-110); Magnesium 1.7 mg/dL (1.6-2.3); Potassium 3.9 mmol/L (3.4-5.0); Sodium 132 mmol/L (137-145)
[2021-10-03] MEDS: ENOXAPARIN 40 MG/0.4 ML SYRINGE SUB-Q (08:00)
[2021-10-03] MEDS: CHOLECALCIFEROL 1,000 UNITS TABLET 2000 UNITS PO (08:01)
[2021-10-03] MEDS: PANTOPRAZOLE SODIUM IV 40 MG VIAL IV PUSH (08:01)
[2021-10-03] MEDS: LIDOCAINE 5% PATCH 1 PATCH TRANSDERM (08:01)
[2021-10-03] MEDS: MULTIVITAMINS THERAPEUTIC TAB (*BKC) 1 TABLET PO (08:01)
[2021-10-03] MEDS: ACETAMINOPHEN 500 MG TABLET PO ×3 (08:01→16:29)
[2021-10-03] MEDS: MAGNESIUM OXIDE 200 MG TABLET PO (08:01)
[2021-10-03] MEDS: MONTELUKAST SODIUM 10 MG TABLET PO (08:01)
[2021-10-03] MEDS: MELOXICAM 7.5 MG TABLET 15 MG PO (08:01)
[2021-10-03] MEDS: GABAPENTIN 300 MG CAPSULE PO ×3 (08:01→16:29)
[2021-10-03] MEDS: CYANOCOBALAMIN 1,000 MCG TABLET 1000 MCG PO (08:01)
[2021-10-03] MEDS: ASPIRIN 81 MG ENTERIC TABLET PO (08:01)
[2021-10-03] MEDS: DOCUSATE SODIUM 100 MG CAPSULE PO (08:05)
[2021-10-03] MEDS: UMECLIDINIUM BROMIDE 62.5 MCG ELLIPTA 1 PUFF INHALATION (09:34)
[2021-10-03 11:47] LABS: EDCOVIDSCREEN Negative (Negative)
--- NOTE | 2021-10-03 12:23 | PM.DS ---
DS: Admitting Diagnosis Discharge Date 10/03/21 Admitting Diagnosis back pain DS: Discharge Diagnosis Discharge Diagnosis (1) Acute UTI: Code(s): N39.0 - Urinary tract infection, site not specified Status: Acute Assessment and Plan: -UA w/ 3+ leukocytes, 31-50 WBCs and rare squamous cells, however urine culture was negative -Pt arrived symptomatic and was started on rocephin. She has shown significant improvement with antibiotics. Will continue to treat empirically based on clinical picture. Discharging home w/ 3 more days of keflex. (2) Acute exacerbation of chronic low back pain: Code(s): M54.50 - Low back pain, unspecified; G89.29 - Other chronic pain Status: Acute Assessment and Plan: Acute on chronic Pain control w/ morphine initially but pt states made her more nauseated Does not want narcotics, will stick to tylenol for now, had relief with steroid and lidoderm patch PT and OT evaluation. Pt doing much better. She was able to walk around the room several times with her walker today which is a giant improvement. She is going to [facility] today to continue her rehab. (3) Weakness: Code(s): R53.1 - Weakness Status: Acute Assessment and Plan: Due to acute on chronic back pain, UTI, and decreased oral intake. PT OT evaluation. Resolved (4) Hypomagnesemia: Code(s): E83.42 - Hypomagnesemia Status: Acute Assessment and Plan: Oral magnesium supplemented as needed repeat mag level outpatient in 1 week pcp follow up (5) Nausea and vomiting: Code(s): R11.2 - Nausea with vomiting, unspecified Status: Acute Assessment and Plan: Likely secondary to UTI. Provided antiemetics as needed and IV fluid hydration. On Protonix IV daily for GI prophylaxis. Resolved, IV fluids discontinued Will avoid narcotics when possible as they seem to increase her nausea DS: Summary Hospital Course Reason for hospitalization: 80-year-old female with past medical history of asthma/COPD, GERD, obstructive sleep apnea, scoliosis, moderate lumbar stenosis, admitted to the hospital for UTI and acute on chronic back pain. Please see HPI for further details. Hospital Course: Please see above for details of hospital course. Status at Discharge Cognitive/behavioral status at discharge: stable Functional status at discharge: uses cane/walker Overall status at discharge: patient is progressing back to baseline Time Spent with Patient Time attestation: Total time spent providing and/or coordinating discharge services: 32 Time spent: Greater than 30 minutes Exam Narrative: General: Frail, elderly, well-nourished HEENT: Mucous membranes moist, pupils are equal and reactive, head is normocephalic atraumatic Respiratory: Clear to auscultation bilaterally, no increased work of breathing Cardiovascular: Regular rate, regular rhythm, 2+ bilateral radial pedal pulses Gastrointestinal: Soft, nontender, nondistended, positive bowel sounds Skin: Generalized pallor, non jaundice Musculoskeletal: 5/5 plantar and dorsiflexion strength bilaterally, no clubbing, no cyanosis Neurological: Alert and oriented, speech is clear but slow, chronic tremor of bilateral upper extremities, sensation intact BLE Psychiatric: Appropriate mood, pleasant and cooperative Hematologic/lymphatic: No petechiae, no bruising DS: Data Data Completed and Pending Labs on day of discharge: Labs from last 24 hours 10/03/21 10/03/21 10/03/21 11:31 05:27 05:27 WBC 5.3 RBC 4.08 L Hgb 12.3 Hct 35.9 L MCV 88.0 MCH 30.1 MCHC 34.3 RDW 13.3 Plt Count 235 MPV 9.6 Sodium 132 L Potassium 3.9 Chloride 101 Carbon Dioxide 24 Anion Gap 7 L BUN 17 Creatinine 0.80 Estim Creat Clear Calc 39 Estimated GFR > 60 Glucose 123 H Calcium 9.3 Magnesium 1.7 SARS-CoV-2 IgG/IgM Ag?Rapid
[2021-10-03 14:15] VITALS: BP 121/53; PULSE 66; RESP 18; TEMP 36.3; O2SAT 97
== END 2021-10-03 17:05 | DRG 690 ==
LOC: ANHED 20:36 → ANH2MED 21:23
PROVIDERS: Physician Assistant; Admitting Provider Internal Medicine; Emergency Provider General Practice; PCP Internal Medicine; Visit Provider Internal Medicine
DX: N39.0 Urinary tract infection, site not specified (principal); R11.2 Nausea with vomiting, unspecified; M54.50 Low back pain, unspecified; G89.29 Other chronic pain; R53.1 Weakness; E83.42 Hypomagnesemia; J44.9 Chronic obstructive pulmonary disease, unspecified; K21.9 Gastro-esophageal reflux disease without esophagitis; G47.33 Obstructive sleep apnea (adult) (pediatric); M48.061 Spinal stenosis, lumbar region without neurogenic claudication; M41.9 Scoliosis, unspecified; Z66 Do not resuscitate; Z79.82 Long term (current) use of aspirin; Z79.899 Other long term (current) drug therapy; Z98.42 Cataract extraction status, left eye; Z98.41 Cataract extraction status, right eye; Z96.1 Presence of intraocular lens
CPT/HCPCS: 36415; 71045; 72131; 72148; 80048; 80053; 81001; 83690; 83735; 85025; 85027; 85610; 85730; 87040; 87086; 87426; 93005; 94640; 96365; 96375; 96376; 97110; 97116; 97161; 97165; 97530; 97535; 99285; A9270; C9113; C9803; J0131; J0696; J1100; J1650; J1885; J2270; J2405; J2765; J3475; J7030

== ENCOUNTER 2022-04-04 08:04 | Outpatient (CLI) | payer MEDICARE, SELFPAY ==
--- NOTE | 2022-04-12 13:33 | WPDSLEEPSTUD ---
Sleep Study Date of Study: 04/04/22 Ordering Provider: Do Maciel MD Interpreting Physician: Do Maciel MD Sleep Study Type: Split Polysomnogram Height: 1.5 m Weight: 58.513 kg Body Mass Index: 26.0 Neck Circumference (inches): 12 [place]: 3 Reason for Sleep Study Long history of obstructive sleep apnea, was treated with CPAP until 2 years ago moving to this area; now she has worsening symptoms Sleep History Ellyn Zarco is an 81 year old female with a long history of obstructive sleep apnea, last testing was 2017 in [place]. She has not used her equipment during the 2 years since she moved to this area because she did not have a [employer] company. She wakes up throughout the night and has a difficult time waking in the morning. She occasionally awakens at night feeling short of breath. She does not awaken at night with heartburn, belching or coughing. She constantly snores loudly enough that others complain about it. She constantly has trouble sleeping with a cold and constantly gasps for breath at night. She occasionally has breathing problems at night observed by others. She does not sweat excessively at night or notice her heart pounding or beating irregularly at night. She occasionally falls asleep during the day, occasionally involuntarily but never while driving. She does not have loss of muscle tone with strong emotion. She does not have daytime difficulties due to excessive sleepiness. She does not have vivid dreamlike scenes upon awakening or falling asleep. She does not feel afraid to go to sleep. She denies having nightmares. She does not remember her dreams. She does not have recent thoughts. She does not feel sad, depressed or anxious. She does not have muscular tension. She does not notice parts of her body jerking. She does not kick at night. She constantly has crawling and aching feelings in her legs and leg pain during the night. She does not have morning jaw pain. She does not grind her teeth during sleep. She constantly is bothered by pain during the day, constantly awakened by pain at night and constantly wakes up feeling stiff in the morning with sore achy muscles and pain in the neck and spine. Normal bedtime is variable, sometimes going to bed at 10 pm or later. She has multiple awakenings during the night, at least 2 or 3 times per night with a trip to the bathroom each time. The amount of time to return to sleep is variable. She does not have a fixed wake time either. She estimates at most getting 5 hours of sleep at night. She takes naps in the afternoon or evening. A short nap lasting 10 or 15 minutes may be refreshing. She is generally drowsy for 2 hours after waking. Habits: Never smoked tobacco. No caffeine, alcohol or recreational drugs . FOR[facility]LY [facility] Past Medical History Medical History Arthritis Asthma COPD (chronic obstructive pulmonary disease) COVID-19 vaccine series completed Dyslipidemia Emphysema of lung Frozen shoulder Left shoulder GERD (gastroesophageal reflux disease) IBS (irritable bowel syndrome) Memory loss Neuropathy Osteoporosis Sciatica associated with disorder of lumbar spine Scoliosis due to degenerative disease of spine in adult patient Sleep apnea Vision changes Vitamin D deficiency Surgical History Surgical History History of bowel resection History of cholecystectomy History of partial hysterectomy History of right hip replacement Status post cataract extraction of both eyes with insertion of intraocular lens Family History Family History Mother Pneumonia Father Asbestosis Grandparent Pneumonia Grandparent Heart attack Grandparent Cerebrovascular accident Other Arthritis Malignant neoplasm Social History Social
[2022-04-12 14:52] VITALS: BMI 26.0
--- NOTE | 2023-04-25 11:15 | SLEEP ---
pt dc'd use of new bilevel device pt is continuing usage of old machine
== END 2022-04-05 07:32 | disposition home or self-care (01) ==
LOC: ANHCSM 08:05
PROVIDERS: PCP Internal Medicine; Visit Provider Internal Medicine Critical Care Medicine
DX: G47.33 Obstructive sleep apnea (adult) (pediatric) (principal); G25.81 Restless legs syndrome; Z68.26 Body mass index [BMI] 26.0-26.9, adult
CPT/HCPCS: 95811

== ENCOUNTER 2022-04-20 08:12 | Outpatient (CLI) | payer MEDICARE, SELFPAY ==
--- NOTE | 2022-04-20 10:25 | WPDPFTINT ---
PFT Procedure Performed PFT Procedure Performed Spirometry with Pre/Post Bronchodilator Plethysmography (Lung Vol) Diffusing Cap (DLCO) Flow Vol Loop PFT Interpretation Lung volumes were measured with the body plethysmography method. Lung volumes are unremarkable. Spirometry showed normal expiratory flow rates and a normal FEV1 to FVC ratio of 76%. Following administration of a bronchodilator, there was a borderline increase in FVC and FEV1. Lung diffusion capacity is within normal range at 70% predicted. The flow volume loop is unremarkable. Impression: Spirometry, lung volumes, and lung diffusion capacity all within the normal range.
== END 2022-04-20 08:13 | disposition home or self-care (01) ==
LOC: ANHPFT 08:15
PROVIDERS: PCP Internal Medicine; Visit Provider Internal Medicine Critical Care Medicine
DX: R06.02 Shortness of breath (principal); J44.9 Chronic obstructive pulmonary disease, unspecified
CPT/HCPCS: 94060; 94726; 94729

== ENCOUNTER 2023-05-01 09:51 | Outpatient (CLI) | payer MEDICARE, SELFPAY ==
--- NOTE | ~2023-05-01 | DEXA_ITS ---
Bone Density Report Name: MYLES RECINOS Age: 82 Sex: Female Ethnicity: White Date of : 1940 Indication: postmenopausal; screening for osteoporosis; height loss; prior fracture; asthma or emphysema; hysterectomy; Referring Provider: SANDRO SILVER Study: Bone densitometry was performed. Exam Date: May 01, 2023 Accession number: [id number] There is hypertrophic degenerative change of the lumbar spine, which results in higher than expected spine bone mineral density measurements. These spine BMD and T score and Z score measurements are not reflective of the patient's true general bone mineral density. Bone Density: Region BMD T-score Z-score Classification AP Spine(L3, L4) 1.213 1.0 3.9 Normal Femoral Neck (Left) 0.730 -1.1 1.3 Osteopenia Total Hip (Left) 0.803 -1.1 1.1 Osteopenia World Health Organization criteria for BMD impression classify patients as: Normal (T-score at or above -1.0), Osteopenia (T-score between -1.0 and -2.5), or Osteoporosis (T-score at or below -2.5). 10-year Fracture Risk: FRAX not reported because: Prior hip or vertebral fracture Treated for osteoporosis Clinical Information Provided by Patient: Have had a previous hip or vertebral fracture Has had a low trauma fracture Is being treated for osteoporosis Has used the following medications: Vitamin D Has the following medical conditions: Asthma or Emphysema, Hysterectomy Patient maximum height was 65.5 Menopause Age: 45 Drinks caffeinated beverages Onset of menses at age 12 Number of children 2 Impression: The patient has low bone mass, based on the Left Total Hip T-score. The patient has risk factors, including: previous fracture. There is hypertrophic degenerative change of the lumbar spine, which results in higher than expected spine bone mineral density measurements. These spine BMD and T score and Z score measurements are not reflective of the patient's true general bone mineral density. Discussion: It is important to ask patients whether they are taking their medications and to encourage continued and appropriate compliance with their osteoporosis therapies to reduce fracture risk. It is also important to review their risk factors and encourage appropriate calcium and vitamin D intakes, exercise, fall prevention and other lifestyle measures. Follow-Up: Consider a repeat BMD and Vertebral Fracture Assessment (VFA) exam in 2 years or sooner if medically necessary, to reassess this patient's status. Reported by: SHERICE on 05/01/2023 10:13:00 AM. Reviewed, dictated and finalized at location A. [facility]
== END 2023-05-01 09:52 | disposition home or self-care (01) ==
LOC: ANHIMG 09:52
PROVIDERS: PCP Family Medicine; Visit Provider Family Medicine
DX: M81.0 Age-related osteoporosis without current pathological fracture (principal); M85.852 Other specified disorders of bone density and structure, left thigh
CPT/HCPCS: 77080

== ENCOUNTER 2023-08-21 08:31 | Outpatient (CLI) | payer MEDICARE, SELFPAY ==
--- NOTE | 2023-08-24 17:08 | WPDSLEEPSTUD ---
Sleep Study Date of Study: 08/21/23 Ordering Provider: Sixto Patino APRN Interpreting Physician: Do Maciel MD Sleep Study Type: Split Polysomnogram Height: 1.45 m Weight: 54.431 kg Body Mass Index: 25.9 Neck Circumference (inches): 13 Reason for Sleep Study Known SHAKIR, split night in 2021, optimal pressure was BiPAP 16/12 with an apnea-hypopnea index of 20.2, desaturation to 84%, worse in REM with a supine REM AHI of 26.7.? She has RLS by history, constant has crawling and aching feelings in her legs and leg pain during the night.?Ferritin was 117 ng/mL on 07/20/2021, normal level. Sleep History Ellyn Zarco is an 82 year old female with a long history of obstructive sleep apnea, last testing was a split night on 04/04/2022. On that study, she had moderate SHAKIR, optimal pressure was BiPAP 16/12. She is re-testing now to qualify for equipment, did not use her equipment set up after last test. She did not complete a new questionnaire, so all her information from the March 2022 study is used here. She wakes up throughout the night and has a difficult time waking in the morning. She occasionally awakens at night feeling short of breath. She does not awaken at night with heartburn, belching or coughing. She constantly snores loudly enough that others complain about it. She constantly has trouble sleeping with a cold and constantly gasps for breath at night. She occasionally has breathing problems at night observed by others. She does not sweat excessively at night or notice her heart pounding or beating irregularly at night. She occasionally falls asleep during the day, occasionally falls asleep involuntarily but never while driving. She does not have loss of muscle tone with strong emotion. She does not have daytime difficulties due to excessive sleepiness. She does not have vivid dreamlike scenes upon awakening or falling asleep. She does not feel afraid to go to sleep. She denies having nightmares. She does not remember her dreams. She does not have racing thoughts. She does not feel sad, depressed or anxious. She does not have muscular tension. She does not notice parts of her body jerking. She does not kick at night. She constantly has crawling and aching feelings in her legs and leg pain during the night. She does not have morning jaw pain. She does not grind her teeth during sleep. She constantly is bothered by pain during the day, constantly awakened by pain at night and constantly wakes up feeling stiff in the morning with sore achy muscles and pain in the neck and spine. Normal bedtime is variable, sometimes going to bed at 10 pm or later. She has multiple awakenings during the night, at least 2 or 3 times per night with a trip to the bathroom each time. The amount of time to return to sleep is variable. She does not have a fixed wake time, either. She estimates at most getting 5 hours of sleep at night. She takes naps in the afternoon or evening. A short nap lasting 10 or 15 minutes may be refreshing. She is generally drowsy for 2 hours after waking. Habits: Never smoked tobacco. No caffeine, alcohol or recreational drugs . REPLACED BY [facility] Past Medical History Medical History Arthritis Asthma COPD (chronic obstructive pulmonary disease) COVID-19 vaccine series completed Dyslipidemia Emphysema of lung Frozen shoulder Left shoulder GERD (gastroesophageal reflux disease) IBS (irritable bowel syndrome) Memory loss Neuropathy Osteoporosis Sciatica associated with disorder of lumbar spine Scoliosis due to degenerative disease of spine in adult patient Sleep apnea Vision changes Vitamin D deficiency Surgical History Surgical History History of bowel resection History of cholecystectomy History of partial hysterectomy History of right hip replacement Status post cataract extraction of both eyes with inser
[2023-08-31 23:16] VITALS: BMI 25.9
== END 2023-08-22 06:48 | disposition home or self-care (01) ==
PROVIDERS: PCP Family Medicine; Visit Provider Nurse Practitioner Family
DX: G47.33 Obstructive sleep apnea (adult) (pediatric) (principal)
CPT/HCPCS: 95811

== ENCOUNTER 2023-09-29 11:35 | Observation (INO) | payer MEDICARE, SELFPAY ==
[2023-09-29] VITALS (23 sets, daily range): BP systolic 102–177; BP diastolic 55–102; PULSE 75–107; RESP 13–22; TEMP 36.5–36.8; O2SAT 94–100; BMI 20.9
--- NOTE | ~2023-09-29 | CT_ITS ---
EXAMINATION: CT abdomen pelvis w con DATE: 09/29/2023 16:49 INDICATION: Nausea, loss of weight, weakness. TECHNIQUE: Computed tomography (CT) of the abdomen and pelvis was performed with 100 CC Omnipaque 350 intravenous contrast. Automated exposure control and iterative reconstruction technique were employe d. Exam dose: 349.79 mGy-cm total exam DLP. COMPARISON: None. FINDINGS: There is atelectasis and/or fibrotic change at the lung bases. Normal heart size. No pericardial or pleural effusion. Status post cholecystectomy. No bile duct or pancreatic duct dilatation. No hepatic, splenic, pancreatic, and adrenal or suspicious renal space-occupying mass lesion is evide nt. 4.5 mm probable left renal cyst. No urinary tract calculus or hydroureteronephrosis is detected. There is very extensive calcification of the abdominal aorta and aortic branches as well as iliac art eries and femoral arteries. No abdominal aortic aneurysm. No intraperitoneal or retroperitoneal or pe lvic mass lesion or adenopathy or ascites is evident. There is considerable streak artifact from a right total hip arthroplasty, which limits evaluation of the pelvis. There is apparent hysterectomy. Small amount of air in the urinary bladder which otherwise appears gr ossly unremarkable considering the limitations related to the streak artifact from the hip replacemen t. Diverticulosis of the colon; no evidence of diverticulitis is noted. No bowel obstruction is detected . No bowel wall thickening, pneumatosis or intraperitoneal free air. Prominent levoscoliosis and multilevel severe degenerative disease of the lumbar spine. No suspicious osteolytic or osteoblastic lesions are noted. IMPRESSION: Status post cholecystectomy Atherosclerosis Diverticulosis of the colon; no CT evidence of diverticulitis Status post right total hip arthroplasty Levoscoliosis and multilevel degenerative disc disease of the lumbar spine Reviewed, dictated and finalized at Location A. Reviewed, dictated and finalized at location B. [employer]
[2023-09-29 12:57] LABS: Basophils Percent Auto 0.1 % (0.2-1.2); Hematocrit 43.4 % (37.0-47.0); Hemoglobin 14.3 g/dL (12.0-15.0); Immature Granulocyte Absolute 0.02 K/mm3 (0.00-0.031); Immature Granulocyte Percent A 0.2 % (0-0.5); Lymphocytes Absolute Auto 1.31 K/mm3 (0.9-3.2); Mean Corpuscular HGB Conc 32.9 g/dl (32-36); Mean Corpuscular Hemoglobin 30.4 pg (26-34); Mean Corpuscular Volume 92.1 fl (80-100); Mean Platelet Volume 9.5 fl (7.4-10.4); Monocytes Absolute Auto 0.8 K/mm3 (0.1-0.6); Monocytes Percent Auto 9.8 % (2.6-8.5); Neutrophils Absolute Auto 6.1 K/mm3 (1.3-6.7); Neutrophils Percent Auto 73.9 % (45.5-73.1); Platelet Count Result 194 k/mm3 (150-375); Red Blood Count 4.71 M/mm3 (4.2-5.4); Red Cell Distribution Width 13.4 % (11.5-14.5); White Blood Count 8.2 K/mm3 (4.5-10.0)
[2023-09-29 13:03] LABS: Alanine Aminotransferase 26 U/L (6-35); Albumin Level 4.5 g/dL (3.5-5.1); Alkaline Phosphatase 60 U/L (38-126); Anion Gap 15 mmol/L (8-16); Aspartate Amino Transferase 33 U/L (14-36); Blood Urea Nitrogen 15 mg/dL (7-17); Calcium 9.7 mg/dL (8.4-10.2); Carbon Dioxide 21 mmol/L (22-30); Chloride 102 mmol/L (98-107); Estimated CRCL calculation 44 ml/min; Estimated Glomerular Filt Rate > 60; Glucose 140 mg/dL (65-110); Lipase 37 U/L (23-300); Potassium 3.9 mmol/L (3.4-5.0); Sodium 138 mmol/L (137-145)
--- NOTE | 2023-09-29 13:04 | ED.GENADULT ---
HPI - General Adult General Chief complaint: Nausea/Vomiting/Diarrhea Stated complaint: nausea Time Seen by Provider: 09/29/23 12:22 Source: patient Mode of arrival: ambulatory Limitations: no limitations History of Present Illness HPI narrative: 82 years old white female came by private car from home with her complaining of gradually gotten weak, nausea and poor appetite over the last 3 days. She denies any fever, chills, vomiting or diarrhea. Patient denies any respiratory symptoms. Currently patient in complaint is chronic back pain which is not different from before secondary to spinal stenosis and scoliosis and currently on gabapentin. Related Data Home Medications Medication Instructions Recorded Confirmed cholecalciferol (vitamin D3) 50 50 mcg PO DAILY 08/07/20 07/26/23 mcg (2,000 unit) capsule multivitamin 1 cap PO DAILY 08/07/20 07/26/23 cyanocobalamin (vitamin B-12) 1,000 mcg PO DAILY 09/15/21 07/26/23 1,000 mcg tablet (Vitamin B-12) cetirizine 10 mg capsule (All Day 10 mg PO DAILY PRN 03/08/23 07/26/23 Allergy (cetirizine)) Allergies Allergy/AdvReac Type Severity Reaction Status Date / Time codeine Allergy Severe Passes out Verified 09/13/23 12:53 oxycodone Allergy Severe pass out Verified 09/13/23 12:53 pain medications AdvReac Severe syncope Uncoded 09/13/23 12:55 Review of Systems Review of Systems: All systems reviewed & are unremarkable except as noted in HPI and below PMFSH Past Medical History Medical History Arthritis Asthma COPD (chronic obstructive pulmonary disease) COVID-19 vaccine series completed Dyslipidemia Emphysema of lung Frozen shoulder Left shoulder GERD (gastroesophageal reflux disease) IBS (irritable bowel syndrome) Memory loss Neuropathy Osteoporosis Sciatica associated with disorder of lumbar spine Scoliosis due to degenerative disease of spine in adult patient Sleep apnea Vision changes Vitamin D deficiency Surgical History Surgical History History of bowel resection History of cholecystectomy History of partial hysterectomy History of right hip replacement Status post cataract extraction of both eyes with insertion of intraocular lens Family History Family History Mother Pneumonia Father Asbestosis Grandparent Pneumonia Grandparent Heart attack Grandparent Cerebrovascular accident Other Arthritis Malignant neoplasm Social History Social History Social History: She lives in [place] with her of 60 years. She has a [employer] at home but only uses it when she goes to the store. She has 2 children who are healthy. She is a lifelong nonsmoker and does not drink alcohol. 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 Primary care physician: Dr. Cruz Code status: DNR/DNI Surrogate decision maker: Miah (son) Smoking status: Never smoker Second hand tobacco smoke exposure: No Alcohol intake: never Substance use: never Substance use type: does not use Living arrangements: with family Occupation/Education: retired Gender identity (if verbalized by the patient): Female Sexual Orientation (if Verbalized by the Patient): Straight or Heterosexual Spiritual care concerns: No Agree to blood products: Yes Exam Narrative: General appearance: Well-developed, well-nourished, not in any pain or distress Skin: Normal color Head: Normocephalic, nontraumatic Eyes: Clear conjunctiva ENT: Oropharynx normal, ears normal, nose normal Neck: Supple, nontender Chest and respiratory: Airway patent, no respiratory distress, no accessory muscle use Heart: Regular rate/rhythm Abdomen: Soft, nontender, no organomegaly, quiet bowel sounds Vascular: Normal peripheral pul
[2023-09-29] MEDS: SODIUM CHLORIDE 0.9% IV 1,000 ML 999 ML IV CONT (13:18)
[2023-09-29] MEDS: ONDANSETRON INJ 4 MG/2 ML VIAL 8 MG IV PUSH (13:19)
--- NOTE | 2023-09-29 13:43 | PC.NURSE ---
LAC SLN infiltrated, vascular access at bedside after 2 failed attempts. Slight hematoma at site pt denies pain
[2023-09-29 14:48] LABS: Appearance Urine Clear (Clear); Bacteria Urine None Seen /hpf; Bilirubin Urine Negative (Negative); Blood Urine Trace (Negative); Color Urine Yellow (Yellow); Glucose Urine UA Negative (Negative); Ketones Urine 4+ mg/dL (Negative); Leukocyte Esterase Ur Negative LEU/UL (Negative); Nitrate Urine Negative (Negative); Protein Urine Trace mg/dL (Negative); Specific Grav Ur 1.022 (1.001-1.035); Squamous Epithelial Cell Urine None seen /hpf (Few); Urobilinogen Urine 0.2 mg/dL (<2.0); WBC Urine 0-5 /hpf; pH Urine 5.5 (5.0-9.0)
[2023-09-29 14:59] LABS: Add Urine Microscopic? YES
[2023-09-29] MEDS: ONDANSETRON INJ 4 MG/2 ML VIAL IV PUSH (18:13)
--- NOTE | 2023-09-29 18:16 | PC.NURSE ---
Upon entering room to discharge patient her son Miah, was on phone, and expressed concern sending patient home as no one is in town to come get her and she cannot take a cab alone. Pts is home but not well enough to assist patient. Son also states last time this happened she was re-admitted to hospital the day after being sent home d/t not eating and N/V. Dr. Morris notified.
--- NOTE | 2023-09-29 20:56 | ADMGEN ---
This patient, Ellyn Cody, was admitted to Medical Room 348-01. Patient/family oriented to hospital policies and general routines including ID bracelet, bed and alarms, visiting hours, pain management, procedures, bathroom and other care routines, personal items, smoking policy, room service/diet, and visiting hours. Information on how to activate the Rapid Response Team has been discussed. Patient/Family are encouraged to report perceived risks to care and to ask questions if they do not understand what they are told or what they should do.
[2023-09-29] MEDS: SODIUM CHLORIDE 0.9% IV 1,000 ML 125 ML IV CONT (21:21)
--- NOTE | 2023-09-29 21:57 | PM.IMHP ---
H&P: HPI History of Present Illness Date/Time: 09/29/23 21:57 Chief Complaint: Nausea/vomiting Narrative: This is an 82-year-old female with past medical history significant for COPD, dyslipidemia, GERD, irritable bowel syndrome, dementia, neuropathy, osteoporosis, sleep apnea. Patient was brought to the emergency room due to generalized weakness, nausea, vomiting. At the time of my visit patient was confused unable to really contribute in a meaningful way to history taking could not give any details about her current visit in the hospital. Preliminary workup has been essentially nonrevealing. Patient is has been placed in observation for further evaluation management and treatment. NDICATION: Nausea, loss of weight, weakness. TECHNIQUE: Computed tomography (CT) of the abdomen and pelvis was performed with 100 CC Omnipaque 350 intravenous contrast. Automated exposure control and iterative reconstruction technique were employed. Exam dose:? 349.79 mGy-cm total exam DLP.? COMPARISON: None. FINDINGS: There is atelectasis and/or fibrotic change at the lung bases. Normal heart size. No pericardial or pleural effusion. Status post cholecystectomy. No bile duct or pancreatic duct dilatation. No hepatic, splenic, pancreatic, and adrenal or suspicious renal space-occupying mass lesion is evident. 4.5 mm probable left renal cyst. No urinary tract calculus or hydroureteronephrosis is detected. There is very extensive calcification of the abdominal aorta and aortic branches as well as iliac arteries and femoral arteries. No abdominal aortic aneurysm. No intraperitoneal or retroperitoneal or pelvic mass lesion or adenopathy or ascites is evident. There is considerable streak artifact from a right total hip arthroplasty, which limits evaluation of the pelvis. There is apparent hysterectomy. Small amount of air in the urinary bladder which otherwise appears grossly unremarkable considering the limitations related to the streak artifact from the hip replacement. Diverticulosis of the colon; no evidence of diverticulitis is noted. No bowel obstruction is detected. No bowel wall thickening, pneumatosis or intraperitoneal free air. Prominent levoscoliosis and multilevel severe degenerative disease of the lumbar spine. No suspicious osteolytic or osteoblastic lesions are noted. IMPRESSION:? Status post cholecystectomy Atherosclerosis Diverticulosis of the colon; no CT evidence of diverticulitis Status post right total hip arthroplasty Levoscoliosis and multilevel degenerative disc disease of the lumbar spine Review of Systems Review of Systems: ROS unobtainable: Yes unobtainable due to mental status (Dementia) [facility] Past Medical History Medical History Arthritis Asthma COPD (chronic obstructive pulmonary disease) COVID-19 vaccine series completed Dyslipidemia Emphysema of lung Frozen shoulder Left shoulder GERD (gastroesophageal reflux disease) IBS (irritable bowel syndrome) Memory loss Neuropathy Osteoporosis Sciatica associated with disorder of lumbar spine Scoliosis due to degenerative disease of spine in adult patient Sleep apnea Vision changes Vitamin D deficiency Surgical History Surgical History History of bowel resection History of cholecystectomy History of partial hysterectomy History of right hip replacement Status post cataract extraction of both eyes with insertion of intraocular lens Family History Family History (Updated 09/29/23 @ 21:02 by Deja Cat RN) Mother Pneumonia Father Asbestosis Grandparent Pneumonia Grandparent Heart attack Grandparent Cerebrovascular accident Sibling Malignant neoplasm Other Arthritis Social History Social History Social History: She lives in [facility]
[2023-09-30 06:00] VITALS: BP 123/56; PULSE 69; RESP 18; TEMP 37.1; O2SAT 94
[2023-09-30 08:21] VITALS: O2SAT 92
[2023-09-30] MEDS: MAGNESIUM OXIDE 200 MG TABLET PO (09:42)
[2023-09-30] MEDS: MULTIVITAMINS THERAPEUTIC TAB (*BKC) 1 TABLET PO (09:42)
[2023-09-30] MEDS: LORATADINE 10 MG TABLET PO (09:42)
[2023-09-30] MEDS: GABAPENTIN 300 MG CAPSULE 600 MG PO ×3 (09:42→17:14)
[2023-09-30] MEDS: ASPIRIN 81 MG CHEWABLE TABLET PO (09:42)
[2023-09-30] MEDS: CYANOCOBALAMIN 1,000 MCG TABLET 1000 MCG PO (09:42)
[2023-09-30] MEDS: MONTELUKAST SODIUM 10 MG TABLET PO (09:42)
[2023-09-30] MEDS: DULoxetine HCL 30 MG CAPSULE.DR PO (09:42)
[2023-09-30] MEDS: CHOLECALCIFEROL 1,000 UNITS TABLET 2000 UNITS PO (09:42)
[2023-09-30] MEDS: ONDANSETRON INJ 4 MG/2 ML VIAL IV PUSH (10:46)
[2023-09-30] MEDS: DIPHENOXYLATE/ATROPINE (*CRX) 2.5 MG TABLET 1 TABLET PO (11:17)
[2023-09-30] MEDS: SODIUM CHLORIDE 0.9% IV 1,000 ML 125 ML IV CONT (13:22)
[2023-09-30 14:00] VITALS: BP 160/65; PULSE 73; RESP 16; TEMP 36.5; O2SAT 95
--- NOTE | 2023-09-30 15:00 | PM.IMPN ---
Progress Note: A&P Assessment and Plan (1) Weakness: Code(s): R53.1 - Weakness Status: Acute Assessment and Plan: 09/29/23 Placed in observation Supportive care PT OT 09/30/23: No change to current treatment plan (2) IBS (irritable bowel syndrome): Qualifiers: Irritable bowel syndrome type: with diarrhea Qualified Code(s): K58.0 - Irritable bowel syndrome with diarrhea Code(s): K58.9 - Irritable bowel syndrome without diarrhea Status: Acute Assessment and Plan: 09/29/23: Unchanged 09/30/23: Patient is having diarrhea and states that she has had diarrhea for the last 5 days We will check a stool culture on her along with ova and parasite We will also check a respiratory panel to rule out COVID/flu (3) Nausea: Code(s): R11.0 - Nausea Status: Acute Assessment and Plan: 09/29/23: CT abdomen and pelvis with no acute findings Resume diet 09/30/23: Patient currently on Zofran for nausea control (4) GERD (gastroesophageal reflux disease): Code(s): K21.9 - Gastro-esophageal reflux disease without esophagitis Status: Acute Assessment and Plan: 09/29/23: PPI 09/30/23: No change to current treatment plan Time Spent With Patient Time with patient: 25 - 35 minutes Subjective Date/time seen: 09/30/23 15:00 Interval history: An 82-year-old female who came to the emergency room last night due to generalized weakness, nausea, vomiting. She was confused on admission and there was little history obtained during her initial presentation. Workup in the ED included CT of the abdomen pelvis which shown a post cholecystectomy, atherosclerosis, diverticulosis of the colon without evidence of diverticulitis. Labs were essentially unremarkable other than her carbon dioxide was 21, and her blood sugars ranging 140-150, liver enzymes were normal, lipase was 37. She also had a UA which showed 4+ ketones but otherwise was negative. No cultures were obtained. On examination today patient alert oriented x3 lying in the bed. She states that for the last 5 days she has had a bout of diarrhea with nausea. She has not had any vomiting. She denies any sick contacts or recent illness. Vital signs are stable she is currently afebrile she is currently on room air. She denies pain or discomfort at this time. Also denies fever, chills, headache, shortness of breath, chest pain, cough, vomiting, or abdominal pain. She also states that she has not had any antibiotic therapy recently. We will repeat labs today. We will check a respiratory panel on her, obtain a stool sample for culture, and ova/parasites. Review of Systems Review of Systems: All systems reviewed & are unremarkable except as noted in HPI and below Constitutional: Constitutional: Reports as per HPI and Reports no additional constitutional complaints Eyes: Eyes: Reports as per HPI and Reports no additional eye complaints ENT: Reports system reviewed and no additional complaints, except as documented and Reports as per HPI Cardiovascular: Cardiovascular: Reports as per HPI and Reports no additional cardiovascular complaints Respiratory: Respiratory: Reports as per HPI and Reports no additional respiratory complaints Gastrointestinal: Gastrointestinal: Reports as per HPI and Reports no additional gastrointestinal complaints Genitourinary: Genitourinary: Reports no additional female genitourinary complaints and Reports as per HPI Musculoskeletal: Musculoskeletal: Reports no additional musculoskeletal complaints and Reports as per HPI Integumentary/Breasts: Skin/Breast: Reports system reviewed and no additional complaints, except as docu and Reports as per HPI Neurologic: Reports system reviewed and no additional complaints, except as documented and Reports as per HPI Psychiatric: Psychiatric: Reports no additional psychiatric complaints and Reports as per HPI Exam Narrativ
[2023-09-30 16:16] LABS: Basophils Percent Auto 0.7 % (0.2-1.2); Eosinophils Absolute Auto 0.1 K/mm3 (0-0.3); Eosinophils Percent Auto 0.8 % (0-4.4); Hematocrit 36.6 % (37.0-47.0); Hemoglobin 11.9 g/dL (12.0-15.0); Immature Granulocyte Absolute 0.02 K/mm3 (0.00-0.031); Immature Granulocyte Percent A 0.3 % (0-0.5); Lymphocytes Absolute Auto 2.38 K/mm3 (0.9-3.2); Lymphocytes Percent Auto 39.2 % (18.3-44.2); Mean Corpuscular HGB Conc 32.5 g/dl (32-36); Mean Corpuscular Hemoglobin 30.4 pg (26-34); Mean Corpuscular Volume 93.4 fl (80-100); Mean Platelet Volume 9.3 fl (7.4-10.4); Monocytes Absolute Auto 0.7 K/mm3 (0.1-0.6); Monocytes Percent Auto 11.4 % (2.6-8.5); Neutrophils Absolute Auto 2.9 K/mm3 (1.3-6.7); Neutrophils Percent Auto 47.6 % (45.5-73.1); Platelet Count Result 155 k/mm3 (150-375); Red Blood Count 3.92 M/mm3 (4.2-5.4); Red Cell Distribution Width 13.5 % (11.5-14.5); White Blood Count 6.1 K/mm3 (4.5-10.0)
[2023-09-30 16:30] LABS: Anion Gap 9 mmol/L (8-16); Blood Urea Nitrogen 12 mg/dL (7-17); Calcium 8.8 mg/dL (8.4-10.2); Carbon Dioxide 22 mmol/L (22-30); Chloride 106 mmol/L (98-107); Estimated CRCL calculation 41 ml/min; Estimated Glomerular Filt Rate > 60; Glucose 81 mg/dL (65-110); Potassium 3.4 mmol/L (3.4-5.0); Sodium 137 mmol/L (137-145)
[2023-09-30 20:00] VITALS: PULSE 73; RESP 16; O2SAT 95
[2023-09-30 22:00] VITALS: BP 109/47; PULSE 81; RESP 16; TEMP 36.6; O2SAT 94
[2023-10-01] MEDS: SODIUM CHLORIDE 0.9% IV 1,000 ML 125 ML IV CONT ×2 (00:18→09:32)
[2023-10-01 06:00] VITALS: BP 128/56; PULSE 66; RESP 16; TEMP 36.3; O2SAT 94
[2023-10-01 06:08] LABS: Basophils Percent Auto 0.8 % (0.2-1.2); Eosinophils Absolute Auto 0.1 K/mm3 (0-0.3); Eosinophils Percent Auto 1.6 % (0-4.4); Hematocrit 35.3 % (37.0-47.0); Hemoglobin 11.2 g/dL (12.0-15.0); Immature Granulocyte Absolute 0.01 K/mm3 (0.00-0.031); Immature Granulocyte Percent A 0.2 % (0-0.5); Lymphocytes Absolute Auto 2.34 K/mm3 (0.9-3.2); Lymphocytes Percent Auto 47.7 % (18.3-44.2); Mean Corpuscular HGB Conc 31.7 g/dl (32-36); Mean Corpuscular Hemoglobin 30.3 pg (26-34); Mean Corpuscular Volume 95.4 fl (80-100); Monocytes Absolute Auto 0.6 K/mm3 (0.1-0.6); Monocytes Percent Auto 11.6 % (2.6-8.5); Neutrophils Absolute Auto 1.9 K/mm3 (1.3-6.7); Neutrophils Percent Auto 38.1 % (45.5-73.1); Platelet Count Result 139 k/mm3 (150-375); Red Cell Distribution Width 13.6 % (11.5-14.5); White Blood Count 4.9 K/mm3 (4.5-10.0)
[2023-10-01 06:30] LABS: Anion Gap 5 mmol/L (8-16); Blood Urea Nitrogen 11 mg/dL (7-17); Calcium 8.3 mg/dL (8.4-10.2); Carbon Dioxide 25 mmol/L (22-30); Chloride 107 mmol/L (98-107); Estimated CRCL calculation 53 ml/min; Estimated Glomerular Filt Rate > 60; Glucose 84 mg/dL (65-110); Potassium 3.3 mmol/L (3.4-5.0); Sodium 137 mmol/L (137-145)
[2023-10-01] MEDS: CHOLECALCIFEROL 1,000 UNITS TABLET 2000 UNITS PO (09:32)
[2023-10-01] MEDS: LORATADINE 10 MG TABLET PO (09:32)
[2023-10-01] MEDS: DULoxetine HCL 30 MG CAPSULE.DR PO (09:32)
[2023-10-01] MEDS: CYANOCOBALAMIN 1,000 MCG TABLET 1000 MCG PO (09:32)
[2023-10-01] MEDS: GABAPENTIN 300 MG CAPSULE 600 MG PO (09:32)
[2023-10-01] MEDS: ASPIRIN 81 MG CHEWABLE TABLET PO (09:32)
[2023-10-01] MEDS: MONTELUKAST SODIUM 10 MG TABLET PO (09:32)
[2023-10-01] MEDS: MULTIVITAMINS THERAPEUTIC TAB (*BKC) 1 TABLET PO (09:33)
[2023-10-01] MEDS: MAGNESIUM OXIDE 200 MG TABLET PO (09:33)
[2023-10-01] MEDS: POTASSIUM CHLORIDE 20 MEQ ER TABLET 40 MEQ PO (10:22)
[2023-10-01 11:04] LABS: Influenza A QL RT-PCR Negative (Negative); Influenza B QL RT-PCR Negative (Negative); RSV RNA, RT-PCR Negative (Negative); SARS-CoV-2 RNA PCR Negative (Negative)
--- NOTE | 2023-10-01 12:10 | PM.DS ---
DS: Admitting Diagnosis Discharge Date 10/01/23 Admitting Diagnosis Weakness Nausea Dehydration COPD spinal stenosis GERD IBS DS: Discharge Diagnosis Discharge Diagnosis (1) Weakness: Code(s): R53.1 - Weakness Status: Acute (2) IBS (irritable bowel syndrome): Qualifiers: Irritable bowel syndrome type: with diarrhea Qualified Code(s): K58.0 - Irritable bowel syndrome with diarrhea Code(s): K58.9 - Irritable bowel syndrome without diarrhea Status: Acute (3) Nausea: Code(s): R11.0 - Nausea Status: Acute (4) GERD (gastroesophageal reflux disease): Code(s): K21.9 - Gastro-esophageal reflux disease without esophagitis Status: Acute DS: Summary Hospital Course Reason for hospitalization: Weakness Dehydration Hospital Course: This is an 82-year-old female who presented to the hospital 09/29/2023 with generalized weakness, nausea, and diarrhea. She was confused on admission and there was little history obtained during her initial presentation. Workup in the ED included a CT of the abdomen pelvis which shown E post cholecystectomy, arthrosclerosis, diverticulosis of the colon without evidence of diverticulitis. Patient was given IV fluids and a respiratory panel was done which was negative for RSV, COVID, flu. On examination today patient is alert and oriented x3, lying in the bed. She states that she feels much better than when she initially presented and states that the diarrhea has resolved. She denies any fever, chills, nausea, vomiting, diarrhea, abdominal pain, abdominal distension, shortness of breath, or chest pain. Labs today revealed a white blood cell count of 4.9, hemoglobin 11.2, hematocrit 35.3, sodium 137, potassium 3.3, chloride 107, BUN 11, creatinine 0.6, calcium 8.3, blood sugars ranging 81-84. She was given 40 mEq of potassium this morning. She is stable for discharge. Will need to follow up with her primary care physician 1 week. Status at Discharge Cognitive/behavioral status at discharge: Alert oriented x3 Functional status at discharge: independent ambulation Overall status at discharge: patient is progressing back to baseline Time Spent with Patient Time attestation: Total time spent providing and/or coordinating discharge services: Time spent: Greater than 30 minutes Exam Narrative: General: In no acute distress, well nourished, pleasant Head: atraumatic, no encephalopathy Eyes: EOMI, PERRLA, sclera clear ENT: moist mucous membranes, nasal passages clear Neck: supple, no JVD, no adenopathy, trachea midline Cardiac: Normal S1 and S2. No murmur, gallops or friction rubs, peripheral pulses intact. Respiratory: Lungs clear to auscultation, no adventitious lung sounds Gastrointestinal: soft, non-distended, non-tender, normoactive bowel sounds. : voiding without difficulty. Extremities: moves all extremities well, no edema, good ROM, strength 5/5 Skin: clean, dry, intact. No wounds or lesions. Neuro: Alert and oriented x4, cranial nerves intact, no neuro deficits. Psych: normal mood, normal affect, interactive DS: Data Data Completed and Pending Completed studies during hospitalization: Abdomen/pelvis CT Pending studies at discharge: None Labs on day of discharge: Labs from last 24 hours 10/01/23 10/01/23 09/30/23 09:40 05:56 15:58 WBC 4.9 6.1 RBC 3.70 L 3.92 L Hgb 11.2 L 11.9 L Hct 35.3 L 36.6 L MCV 95.4 93.4 MCH 30.3 30.4 MCHC 31.7 L 32.5 RDW 13.6 13.5 Plt Count 139 L 155 MPV 9.0 9.3 Immature Gran % (Auto) 0.2 0.3 Neut % (Auto) 38.1 L 47.6 Lymph % (Auto) 47.7 H 39.2 Finney % (Auto) 11.6 H 11.4 H Eos % (Auto) 1.6 0.8 Baso % (Auto) 0.8 0.7 Lymph # (Auto) 2.34 2.38 Finney # (Auto) 0.6 0.7 H Eos # (Auto) 0.1 0.1 Baso # (Auto) 0.0 0.0 Abs Immat Gran (auto) 0.01 0.02 Absolute Neuts (auto) 1.9 2.9 Absolute Nucleated RBC 0.0 0.0 Nucleated RBC %
== END 2023-10-01 13:50 | disposition home or self-care (01) ==
LOC: ANHED 17:49 → ANH3MED 19:40
PROVIDERS: General Practice; Nurse Practitioner Acute Care; Admitting Provider Internal Medicine; Emergency Provider Emergency Medicine; PCP Family Medicine; Visit Provider Student in an Organized Health Care Education/Training Program
DX: R53.1 Weakness (principal); K58.0 Irritable bowel syndrome with diarrhea; K21.9 Gastro-esophageal reflux disease without esophagitis; M48.00 Spinal stenosis, site unspecified; M81.0 Age-related osteoporosis without current pathological fracture; M54.40 Lumbago with sciatica, unspecified side; M41.86 Other forms of scoliosis, lumbar region; F03.90 Unspecified dementia, unspecified severity, without behavioral disturbance, psychotic disturbance, mood disturbance, and anxiety; K57.30 Diverticulosis of large intestine without perforation or abscess without bleeding; G47.30 Sleep apnea, unspecified; R63.0 Anorexia; Z68.20 Body mass index [BMI] 20.0-20.9, adult; Z20.822 Contact with and (suspected) exposure to COVID-19; M19.90 Unspecified osteoarthritis, unspecified site; I70.90 Unspecified atherosclerosis; Z99.89 Dependence on other enabling machines and devices; J44.9 Chronic obstructive pulmonary disease, unspecified; E78.5 Hyperlipidemia, unspecified; G62.9 Polyneuropathy, unspecified; E55.9 Vitamin D deficiency, unspecified; Z66 Do not resuscitate; Z79.82 Long term (current) use of aspirin; Z79.51 Long term (current) use of inhaled steroids; Z79.899 Other long term (current) drug therapy
CPT/HCPCS: 36415; 74177; 80048; 80053; 81001; 83690; 85025; 87637; 96361; 96374; 96375; 96376; 99285; A9270; G0378; J2405; J7030; Q9967

== ENCOUNTER 2023-10-04 09:20 | Inpatient (IN) | payer MEDICARE, SELFPAY ==
[2023-10-04 09:22] VITALS: BP 120/50; PULSE 96; RESP 18; TEMP 36.6; O2SAT 96
--- NOTE | 2023-10-04 09:33 | PC.NURSE ---
per family pt has been taking odt zofran to control nausea and vomiting. but states pt is refusing po intake. pt is weak and sleeping more. thinks she may be dehydrated again.
--- NOTE | 2023-10-04 10:04 | ED.NAVMDI ---
HPI - Nausea/Vomiting/Diarrhea General Chief complaint: Nausea/Vomiting/Diarrhea <PRECIOUS Lou Last Filed: 10/04/23 18:43> Stated complaint: N/V deydration <PRECIOUS Lou Last Filed: 10/04/23 18:43> Time Seen by Provider: 10/04/23 09:33 <PRECIOUS Lou Last Filed: 10/04/23 18:43> Source: patient, family and old records reviewed <PRECIOUS Lou Last Filed: 10/04/23 18:43> Mode of arrival: ambulatory <PRECIOUS Lou Filed: 10/04/23 18:43> Limitations: no limitations <PRECIOUS Lou Filed: 10/04/23 18:43> History of Present Illness HPI Narrative: Patient is an 82 y/o female who presents to the ED with c/o persistent nausea. Patient complains of constant nausea, decreased appetite, weakness, dehydration. Family at bedside assisted in providing information. They report patient was recently admitted to the hospital from 09/29 through 10/01 for similar symptoms/N/V/D. She was discharged on oral Zofran and has been trying this at home without much improvement of her nausea. She has not had as much vomiting or diarrhea, but still not been eating and drinking much. Family reports oliguria. Patient denies current abdominal pain, fevers, cough or cold symptoms. <PRECIOUS Lou Last Filed: 10/04/23 18:43> Related Data Home medications: Home Medications Medication Instructions Recorded Confirmed cholecalciferol (vitamin D3) 50 50 mcg PO DAILY 08/07/20 10/04/23 mcg (2,000 unit) capsule multivitamin 1 cap PO DAILY 08/07/20 10/04/23 cyanocobalamin (vitamin B-12) 1,000 mcg PO DAILY 09/15/21 10/04/23 1,000 mcg tablet (Vitamin B-12) gabapentin 600 mg tablet 600 mg PO TID 09/29/23 10/04/23 levalbuterol tartrate 45 2 inh inhalation Q6H PRN Asthma 09/29/23 10/04/23 mcg/actuation aerosol inhaler magnesium 250 mg tablet 250 mg PO DAILY 09/29/23 10/04/23 omeprazole 20 mg tablet,delayed 20 mg PO DAILY PRN GERD 09/29/23 10/04/23 release <Marielle Marte PA-C - Last Filed: 10/04/23 18:43> Allergies/Adverse reactions: Allergies Allergy/AdvReac Type Severity Reaction Status Date / Time codeine Allergy Severe Passes out Verified 10/03/23 07:51 oxycodone Allergy Severe pass out Verified 10/03/23 07:51 pain medications AdvReac Severe syncope Uncoded 10/03/23 07:51 <Marielle Marte PA-C - Last Filed: 10/04/23 18:43> Review of Systems Review of Systems: CONSTITUTIONAL: Denies fever, chills, or sweats. ENT: Denies rhinorrhea, congestion, sore throat. CARDIOVASCULAR: Denies chest pain. RESPIRATORY: Denies cough or dyspnea. GASTROINTESTINAL: See HPI. GENITOURINARY: See HPI. SKIN: Denies rash or itching. MUSCULOSKELETAL: Denies back pain, joint pain, or myalgia. <Marielle Marte PA-C - Last Filed: 10/04/23 18:43> All systems reviewed & are unremarkable except as noted in HPI and below <Marielle Marte PA-C - Last Filed: 10/04/23 18:43> [facility] Past Medical History Medical History: Medical History Arthritis Asthma COPD (chronic obstructive pulmonary disease) COVID-19 vaccine series completed Dyslipidemia Emphysema of lung Frozen shoulder Left shoulder GERD (gastroesophageal reflux disease) IBS (irritable bowel syndrome) Memory loss Neuropathy Osteoporosis Sciatica associated with disorder of lumbar spine Scoliosis due to degenerative disease of spine in adult patient Sleep apnea Vision changes Vitamin D deficiency <Marielle Marte PA-C - Last Filed: 10/04/23 18:43> Surgical History Surgical History: Surgical History History of bowel resection History of cholecystectomy History of partial hysterectomy History of right hip replacement Status post cataract extraction of both eyes with insertion
[2023-10-04 10:42] LABS: Influenza A QL RT-PCR Negative (Negative); Influenza B QL RT-PCR Negative (Negative); SARS-CoV-2 RNA PCR Negative (Negative)
--- NOTE | 2023-10-04 11:18 | PC.NURSE ---
ARLETTE Arambula with ultrasound at bedside to attempt IV access.
[2023-10-04 11:35] VITALS: BP 121/54; PULSE 74; RESP 18; O2SAT 96
[2023-10-04] MEDS: SODIUM CHLORIDE 0.9% IV 1,000 ML 999 ML IV CONT ×2 (11:36→16:57)
[2023-10-04] MEDS: ONDANSETRON INJ 4 MG/2 ML VIAL IV PUSH (11:36)
[2023-10-04 11:49] LABS: Basophils Percent Auto 0.3 % (0.2-1.2); Eosinophils Percent Auto 0.3 % (0-4.4); Hematocrit 43.8 % (37.0-47.0); Hemoglobin 14.6 g/dL (12.0-15.0); Immature Granulocyte Absolute 0.01 K/mm3 (0.00-0.031); Immature Granulocyte Percent A 0.2 % (0-0.5); Lymphocytes Absolute Auto 1.82 K/mm3 (0.9-3.2); Lymphocytes Percent Auto 27.7 % (18.3-44.2); Mean Corpuscular HGB Conc 33.3 g/dl (32-36); Mean Corpuscular Hemoglobin 30.7 pg (26-34); Mean Corpuscular Volume 92.2 fl (80-100); Mean Platelet Volume 9.4 fl (7.4-10.4); Monocytes Absolute Auto 0.8 K/mm3 (0.1-0.6); Monocytes Percent Auto 11.4 % (2.6-8.5); Neutrophils Absolute Auto 3.9 K/mm3 (1.3-6.7); Neutrophils Percent Auto 60.1 % (45.5-73.1); Platelet Count Result 213 k/mm3 (150-375); Red Blood Count 4.75 M/mm3 (4.2-5.4); Red Cell Distribution Width 13.4 % (11.5-14.5); White Blood Count 6.6 K/mm3 (4.5-10.0)
[2023-10-04 11:58] LABS: Creatine Kinase 33 U/L (30-135)
[2023-10-04 12:03] LABS: Alanine Aminotransferase 25 U/L (6-35); Albumin Level 4.3 g/dL (3.5-5.1); Alkaline Phosphatase 43 U/L (38-126); Anion Gap 15 mmol/L (8-16); Aspartate Amino Transferase 37 U/L (14-36); Bilirubin,Total 1.1 mg/dL (0.2-1.3); Blood Urea Nitrogen 14 mg/dL (7-17); Calcium 9.7 mg/dL (8.4-10.2); Carbon Dioxide 22 mmol/L (22-30); Chloride 97 mmol/L (98-107); Estimated Glomerular Filt Rate > 60; Glucose 92 mg/dL (65-110); Lipase 43 U/L (23-300); Magnesium 1.6 mg/dL (1.6-2.3); Potassium 3.8 mmol/L (3.4-5.0); Sodium 134 mmol/L (137-145)
[2023-10-04 12:31] LABS: Appearance Urine Cloudy (Clear); Bacteria Urine 4+ /hpf; Bilirubin Urine Negative (Negative); Blood Urine Trace (Negative); Color Urine Yellow (Yellow); Glucose Urine UA Negative (Negative); Hyaline Casts Urine Present /lpf; Ketones Urine 3+ mg/dL (Negative); Leukocyte Esterase Ur Negative LEU/UL (Negative); Need Manual Microscopic Reviewed; Nitrate Urine Negative (Negative); Protein Urine Negative (Negative); Specific Grav Ur 1.012 (1.001-1.035); Squamous Epithelial Cell Urine None seen /hpf (Few); WBC Urine 0-5 /hpf; pH Urine 5.5 (5.0-9.0)
[2023-10-04 12:34] LABS: Add Urine Microscopic? YES
[2023-10-04 12:35] VITALS: BP 125/60; PULSE 75; RESP 20; O2SAT 99
[2023-10-04] MEDS: MAGNESIUM SULF 1 GM/D5W 100 ML 1 GM/100 ML BAG IVPB (12:39)
[2023-10-04 13:30] VITALS: BP 121/58; PULSE 70; RESP 18; O2SAT 96
--- NOTE | 2023-10-04 14:54 | ADMGEN ---
This patient, Ellyn Cody, was admitted to Medical Room 258-01. Patient/family oriented to hospital policies and general routines including ID bracelet, bed and alarms, visiting hours, pain management, procedures, bathroom and other care routines, personal items, smoking policy, room service/diet, and visiting hours. Information on how to activate the Rapid Response Team has been discussed. Patient/Family are encouraged to report perceived risks to care and to ask questions if they do not understand what they are told or what they should do.
[2023-10-04 15:05] VITALS: BP 122/52; PULSE 68; RESP 16; TEMP 36.4; O2SAT 97; BMI 25.1
[2023-10-04 15:12] VITALS: BMI 25.1
[2023-10-04] MEDS: SODIUM CHLORIDE 0.9% IV 1,000 ML 100 ML IV CONT (18:18)
--- NOTE | 2023-10-04 19:08 | PM.IMHP ---
H&P: HPI History of Present Illness Date/Time: 10/04/23 19:08 Chief Complaint: Nausea, Decreased PO, Weakness Narrative: 82 y/o F presents here with nausea. decreased PO intake, and weakness/shakiness with PMH of asthma, GERD, IBS, osteoporosis, arthritis, vit D deficiency, and sleep apnea. Patient was recently admitted from 09/29-10/01 for generalized weakness, nausea, vomiting and transient confusion. States she had been having nausea and diarrhea 5 days prior to admission. Workup at that time was benign, CT performed showing diverticulosis of the colon without evidence of diverticulitis. Patient was discharged after she was able to tolerate PO and instructed to follow-up with her PCP in 1 week. Patient saw her PCP yesterday, 10/03, and continued to endorse nausea. Prescribed zofran and GI f/u to be made. Patient reports Zofran has given her partial relief from nausea but has had a significance reduction in PO intake despite medication. Nausea with intermittent retching, no emesis. Continues to deny abdominal pain, diarrhea, or syncope. States she feels shaky when she walks, no previous issue with this prior to this bout of illness. PT/OT evaluated during last admission and was improving at time of discharge. Review of Systems Review of Systems: All systems reviewed & are unremarkable except as noted in HPI and below PMFSH Past Medical History Medical History Arthritis Asthma COPD (chronic obstructive pulmonary disease) COVID-19 vaccine series completed Dyslipidemia Emphysema of lung Frozen shoulder Left shoulder GERD (gastroesophageal reflux disease) IBS (irritable bowel syndrome) Memory loss Neuropathy Osteoporosis Sciatica associated with disorder of lumbar spine Scoliosis due to degenerative disease of spine in adult patient Sleep apnea Vision changes Vitamin D deficiency Surgical History Surgical History History of bowel resection History of cholecystectomy History of partial hysterectomy History of right hip replacement Status post cataract extraction of both eyes with insertion of intraocular lens Family History Family History Mother Pneumonia Father Asbestosis Grandparent Pneumonia Grandparent Heart attack Grandparent Cerebrovascular accident Sibling Malignant neoplasm Other Arthritis Social History Social History Social History: She lives in [place] with her of 60 years. She has a Rollator at home but only uses it when she goes to the store. She has 2 children who are healthy. She is a lifelong nonsmoker and does not drink alcohol. 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 Primary care physician: Dr. Cruz Code status: DNR/DNI Surrogate decision maker: Miah (son) Smoking status: Never smoker Second hand tobacco smoke exposure: No Alcohol intake: never Substance use: never Substance use type: does not use Lack of Transportation: No Lack of Food: Never True Current Housing: I Have Housing Concerned About Future Housing: No Difficulty Paying Gas/Electric Bills: No Difficulty Paying for Meds: No Currently Unemployed: No Education: Master's Degree or Higher Difficulty w/ Childcare or Family Care: No Living arrangements: with family Occupation/Education: retired Gender identity (if verbalized by the patient): Female Sexual Orientation (if Verbalized by the Patient): Straight or Heterosexual Spiritual care concerns: No Agree to blood products: Yes Meds Home Medications and Allergies Home Medications Medication Instructions Recorded Confirmed Type cholecalciferol (vitamin D3) 50 50 mcg PO DAILY 08/07/20 10/04/23 History mcg (2,000 unit) capsule mu
[2023-10-04 19:55] VITALS: BP 132/89; PULSE 72; RESP 18; TEMP 36.4; O2SAT 96
[2023-10-04] MEDS: FAMOTIDINE 20 MG/2 ML VIAL IV PUSH (19:56)
[2023-10-04] MEDS: METOCLOPRAMIDE HCL INJ 10 MG/2 ML VIAL 5 MG IV PUSH (23:14)
[2023-10-05 06:04] LABS: Basophils Percent Auto 0.6 % (0.2-1.2); Eosinophils Absolute Auto 0.1 K/mm3 (0-0.3); Hematocrit 37.7 % (37.0-47.0); Hemoglobin 11.9 g/dL (12.0-15.0); Immature Granulocyte Absolute 0.01 K/mm3 (0.00-0.031); Immature Granulocyte Percent A 0.2 % (0-0.5); Lymphocytes Absolute Auto 1.79 K/mm3 (0.9-3.2); Lymphocytes Percent Auto 35.2 % (18.3-44.2); Mean Corpuscular HGB Conc 31.6 g/dl (32-36); Mean Corpuscular Hemoglobin 30.5 pg (26-34); Mean Corpuscular Volume 96.7 fl (80-100); Mean Platelet Volume 9.4 fl (7.4-10.4); Monocytes Absolute Auto 0.5 K/mm3 (0.1-0.6); Monocytes Percent Auto 10.6 % (2.6-8.5); Neutrophils Absolute Auto 2.7 K/mm3 (1.3-6.7); Neutrophils Percent Auto 52.4 % (45.5-73.1); Platelet Count Result 172 k/mm3 (150-375); Red Cell Distribution Width 13.6 % (11.5-14.5); White Blood Count 5.1 K/mm3 (4.5-10.0)
[2023-10-05] MEDS: SODIUM CHLORIDE 0.9% IV 1,000 ML 100 ML IV CONT ×2 (06:06→14:13)
[2023-10-05] MEDS: METOCLOPRAMIDE HCL INJ 10 MG/2 ML VIAL 5 MG IV PUSH ×3 (06:06→17:54)
[2023-10-05 06:17] LABS: Alanine Aminotransferase 15 U/L (6-35); Albumin Level 2.9 g/dL (3.5-5.1); Alkaline Phosphatase 34 U/L (38-126); Anion Gap 12 mmol/L (8-16); Aspartate Amino Transferase 27 U/L (14-36); Bilirubin,Total 0.7 mg/dL (0.2-1.3); Blood Urea Nitrogen 9 mg/dL (7-17); Carbon Dioxide 16 mmol/L (22-30); Chloride 107 mmol/L (98-107); Estimated Glomerular Filt Rate > 60; Glucose 70 mg/dL (65-110); Magnesium 1.8 mg/dL (1.6-2.3); Potassium 3.4 mmol/L (3.4-5.0); Sodium 135 mmol/L (137-145)
[2023-10-05 08:00] VITALS: RESP 18; O2SAT 96
[2023-10-05] MEDS: ENOXAPARIN 40 MG/0.4 ML SYRINGE SUB-Q (08:34)
[2023-10-05] MEDS: CHOLECALCIFEROL 1,000 UNITS TABLET 2000 UNITS PO (08:34)
[2023-10-05] MEDS: GABAPENTIN 300 MG CAPSULE 600 MG PO ×3 (08:34→16:28)
[2023-10-05] MEDS: MONTELUKAST SODIUM 10 MG TABLET PO (08:34)
[2023-10-05] MEDS: FAMOTIDINE 20 MG/2 ML VIAL IV PUSH ×2 (08:34→20:55)
[2023-10-05] MEDS: MULTIVITAMINS THERAPEUTIC TAB (*BKC) 1 TABLET PO (08:34)
[2023-10-05] MEDS: CYANOCOBALAMIN 1,000 MCG TABLET 1000 MCG PO (08:34)
[2023-10-05] MEDS: ROSUVASTATIN 10 MG TABLET PO (08:35)
[2023-10-05] MEDS: MELOXICAM 7.5 MG TABLET 15 MG PO (08:35)
[2023-10-05] MEDS: MAGNESIUM OXIDE 200 MG TABLET PO (08:35)
[2023-10-05 09:59] VITALS: BP 116/53; PULSE 73; RESP 17; TEMP 36.6; O2SAT 96
--- NOTE | 2023-10-05 13:15 | PM.IMPN ---
Progress Note: A&P Assessment and Plan (1) Generalized weakness: Code(s): R53.1 - Weakness Status: Acute Assessment and Plan: suspect weakness secondary to dehydration given current nausea and benign workup. fluids,. supportive care PT/OT to eval and treat, patient is currently not open to transitioning to assisted living. Stated she lives at home with her , who also has mobility issues, but their son lives less than 1 mile away and helps them often. UA: Cloudy, 3+ ketones, 3-5 RBC, no epithelial cells. Urine culture pending. Urine culture from 09/29 final result was no growth. Low suspicion for UTI given normal WBC and asymptomatic, will hold further antibiotics until urine culture results. viral PCR negative for COVID/Flu/RSV monitor daily labs (2) Nausea: Code(s): R11.0 - Nausea Status: Acute Assessment and Plan: CT abd/pelvis on 09/29 Status post cholecystectomy Atherosclerosis Diverticulosis of the colon; no CT evidence of diverticulitis Status post right total hip arthroplasty Levoscoliosis and multilevel degenerative disc disease of the lumbar spine IVF, supportive care antiemetics: Zofran 1st line, metoclopramide 2nd line advance diet as tolerated, clears this am tolerated, will try full liquid hold home omeprazole, sub to famotidine IV BID Plan Home Meds/Chronic Conditions -home medication reviewed, all resumed. DVT Prophylaxis: SCDs, Lovenox Lines: pIV Code Status: DNR Subjective Date/time seen: 10/05/23 13:15 Interval history: Patient is a 82 YO F admitted for continued nausea. decreased PO intake, and weakness/shakiness with PMH of asthma, GERD, IBS, osteoporosis, arthritis, vit D deficiency, and sleep apnea. Patient was recently admitted from 09/29-10/01 for generalized weakness, nausea, vomiting and transient confusion. States she had been having nausea and diarrhea 5 days prior to admission. Workup at that time was benign, CT performed showing diverticulosis of the colon without evidence of diverticulitis. Patient was discharged after she was able to tolerate PO and instructed to follow-up with her PCP in 1 week. Patient saw her PCP yesterday, 10/03, and continued to endorse nausea. Prescribed zofran and GI f/u to be made. Patient reports Zofran has given her partial relief from nausea but has had a significance reduction in PO intake despite medication. Nausea with intermittent retching, no emesis. Continues to deny abdominal pain, diarrhea, or syncope. Patient was able to tolerate minimal intake of clear liquids this morning. Denies nausea this am. Will continue IV fluids and advance her diet as tolerated. Working on increasing PO intake and resolve nausea prior to d/c. PT and OT to evaluate. UA culture pending to rule out infection as her UA had presence of bacteria. Review of Systems Review of Systems: All systems reviewed & are unremarkable except as noted in HPI and below Exam Narrative: Sitting up in chair, visiting Const: General: comfortable and no acute distress HENMT: Face/Nose/Sinus: Normal nares present Mouth: Yes dry mucous membranes Eyes: General: appearance normal, both eyes and all related structures Sclera: sclerae normal Pupils: Equal, round and reactive pupils present Neck: Thyroid: thyroid normal Resp: Effort & Inspection: normal respiratory effort Auscultation: clear to auscultation bilaterally Cardio: Rate: regular rate Rhythm: regular rhythm Other: S1-S2 present without murmur, rub, ectopy GI: GI Palp: Yes Soft to palpation Auscultation: normal bowel sounds Other: non-tender, non-distended Skin: General skin exam: normal color and no rashes or lesions noted Wounds: no wounds Neuro: Speech: normal speech Sensory Exam: normal sensation Other: A/Ox4 Psych: Mental Status: mental status grossly normal Affect: normal affect Other: good insight/judgement
[2023-10-05 14:00] VITALS: BP 118/58; PULSE 70; RESP 17; TEMP 36.5; O2SAT 96
[2023-10-05 20:50] VITALS: BP 155/73; PULSE 67; RESP 16; O2SAT 98
[2023-10-05 20:52] VITALS: BP 155/73; PULSE 67; RESP 16; TEMP 36.4; O2SAT 98
[2023-10-06] MEDS: METOCLOPRAMIDE HCL INJ 10 MG/2 ML VIAL 5 MG IV PUSH ×4 (00:02→17:33)
[2023-10-06] MEDS: SODIUM CHLORIDE 0.9% IV 1,000 ML 100 ML IV CONT (00:03)
[2023-10-06 05:19] VITALS: BP 126/51; PULSE 60; RESP 16; TEMP 36.1; O2SAT 97
[2023-10-06 06:05] LABS: Basophils Percent Auto 0.8 % (0.2-1.2); Eosinophils Absolute Auto 0.1 K/mm3 (0-0.3); Eosinophils Percent Auto 1.6 % (0-4.4); Hematocrit 35.7 % (37.0-47.0); Hemoglobin 11.8 g/dL (12.0-15.0); Immature Granulocyte Absolute 0.01 K/mm3 (0.00-0.031); Immature Granulocyte Percent A 0.3 % (0-0.5); Lymphocytes Absolute Auto 1.55 K/mm3 (0.9-3.2); Lymphocytes Percent Auto 41.4 % (18.3-44.2); Mean Corpuscular HGB Conc 33.1 g/dl (32-36); Mean Corpuscular Hemoglobin 30.5 pg (26-34); Mean Corpuscular Volume 92.2 fl (80-100); Mean Platelet Volume 9.2 fl (7.4-10.4); Monocytes Absolute Auto 0.4 K/mm3 (0.1-0.6); Monocytes Percent Auto 11.5 % (2.6-8.5); Neutrophils Absolute Auto 1.7 K/mm3 (1.3-6.7); Neutrophils Percent Auto 44.4 % (45.5-73.1); Platelet Count Result 159 k/mm3 (150-375); Red Blood Count 3.87 M/mm3 (4.2-5.4); Red Cell Distribution Width 13.6 % (11.5-14.5); White Blood Count 3.7 K/mm3 (4.5-10.0)
[2023-10-06 06:15] LABS: Anion Gap 8 mmol/L (8-16); Blood Urea Nitrogen 4 mg/dL (7-17); Calcium 8.4 mg/dL (8.4-10.2); Carbon Dioxide 23 mmol/L (22-30); Chloride 107 mmol/L (98-107); Estimated Glomerular Filt Rate > 60; Glucose 84 mg/dL (65-110); Lipase 51 U/L (23-300); Potassium 2.9 mmol/L (3.4-5.0); Sodium 138 mmol/L (137-145)
[2023-10-06] MEDS: CHOLECALCIFEROL 1,000 UNITS TABLET 2000 UNITS PO (08:34)
[2023-10-06] MEDS: POTASSIUM CHLORIDE INJ 40 MEQ in SODIUM CHLORIDE 0.9% IV 500 ML 130 MEQ IVPB (08:34)
[2023-10-06] MEDS: FAMOTIDINE 20 MG/2 ML VIAL IV PUSH ×2 (08:35→20:18)
[2023-10-06] MEDS: ROSUVASTATIN 10 MG TABLET PO (08:35)
[2023-10-06] MEDS: CYANOCOBALAMIN 1,000 MCG TABLET 1000 MCG PO (08:35)
[2023-10-06] MEDS: MULTIVITAMINS THERAPEUTIC TAB (*BKC) 1 TABLET PO (08:35)
[2023-10-06] MEDS: MELOXICAM 7.5 MG TABLET 15 MG PO (08:35)
[2023-10-06] MEDS: POTASSIUM CHLORIDE 20 MEQ ER TABLET PO (08:35)
[2023-10-06] MEDS: GABAPENTIN 300 MG CAPSULE 600 MG PO ×3 (08:35→17:33)
[2023-10-06] MEDS: MAGNESIUM OXIDE 200 MG TABLET PO (08:35)
[2023-10-06] MEDS: MONTELUKAST SODIUM 10 MG TABLET PO (08:35)
[2023-10-06] MEDS: ENOXAPARIN 40 MG/0.4 ML SYRINGE SUB-Q (08:35)
--- NOTE | 2023-10-06 11:02 | PM.IMPN ---
Progress Note: A&P Assessment and Plan (1) Generalized weakness: Code(s): R53.1 - Weakness Status: Acute Assessment and Plan: suspect weakness secondary to dehydration given current nausea and benign workup. discontinue fluids PT/OT to eval and treat, patient is currently not open to transitioning to assisted living. Stated she lives at home with her , who also has mobility issues, but their son lives less than 1 mile away and helps them often. UA: Cloudy, 3+ ketones, 3-5 RBC, no epithelial cells. Urine culture pending. Urine culture from 09/29 final result was no growth. viral PCR negative for COVID/Flu/RSV monitor daily labs (2) Acute UTI: Code(s): N39.0 - Urinary tract infection, site not specified Status: Acute Assessment and Plan: UA: Cloudy, 3+ ketones, 3-5 RBC, no epithelial cells. Urine culture pending. Urine culture from 09/29 final result was no growth. Urine culture positive for E coli. Sensitivities pending. Will give dose of Rocephin Adjust antibiotics to sensitivity results (3) Nausea: Code(s): R11.0 - Nausea Status: Resolved Assessment and Plan: CT abd/pelvis on 09/29 did not show anything they could cause patient's symptoms. antiemetics: Zofran 1st line, metoclopramide 2nd line hold home omeprazole, sub to famotidine IV BID Patient tolerating regular diet. Subjective Date/time seen: 10/06/23 11:02 Interval history: Patient doing well tolerating her diet. She denies any active nausea at this time. Her urine culture did come back positive for E. Coli will give patient 1 dose of Rocephin and wait for sensitivities to return. Patient states that she is getting around okay in the room although PT did recommend possible home health therapy. Will discuss this with care coordination. Hopeful discharge for patient tomorrow. Exam Narrative: GENERAL: Comfortable, no acute distress HENMT: moist mucous membranes EYES: EOM intact b/l NECK: no lymphadenopathy RESPIRATORY: clear to auscultation CARDIO: RRR GI: soft, nontender, bowel sounds present SKIN: no rashes EXTREMITIES: no edema, redness or tenderness Objective Data Vital Signs Vital Signs: Vital Signs - 24 hr 10/05/23 14:00 10/05/23 20:50 10/05/23 20:52 Temperature 97.7 F 97.5 F L Pulse Rate 70 67 67 Respiratory Rate 17 16 16 Blood Pressure 118/58 L 155/73 H 155/73 H Pulse Oximetry 96 98 98 Oxygen Delivery 10/06/23 05:19 10/06/23 08:30 Temperature 97.0 F L Pulse Rate 60 Respiratory Rate 16 Blood Pressure 126/51 L Pulse Oximetry 97 Oxygen Delivery Room Air Intake/Output Intake/Output: Intake & Output 10/03/23 10/04/23 10/05/23 10/06/23 23:59 23:59 23:59 23:59 Intake Total 720 3014 1150 Balance 720 3014 1150 Meds/Results Medications: Active Medications Generic Name Dose Route Start Last Admin Trade Name Freq PRN Reason Stop Dose Admin Acetaminophen 650 mg 10/04/23 13:56 Acetaminophen 325 Mg Tablet PO Q4H PRN Mild Pain (1-3) or Fever Cyanocobalamin 1,000 mcg 10/05/23 09:00 10/06/23 08:35 Cyanocobalamin 1,000 Mcg Tablet PO 1,000 mcg DAILY FATUMA Administration Enoxaparin Sodium 40 mg 10/05/23 09:00 10/06/23 08:35 Enoxaparin 40 Mg/0.4 Ml Syringe SUB-Q 40 mg DAILY FATUMA Administration Famotidine 20 mg 10/04/23 21:00 10/06/23 08:35 Famotidine 20 Mg/2 Ml Vial IV PUSH 20 mg Q12HR FATUMA Administration Gabapentin 600 mg 10/05/23 09:00 10/06/23 08:35 Gabapentin 300 Mg Capsule PO 600 mg TID FATUMA Administration Potassium Chloride 40 meq/ 520 mls @ 130 mls/hr 10/06/23 08:00 10/06/23 08:34 Sodium Chloride IVPB 10/06/23 11:59 130 mls/hr ONCE ONE Administration Levalbuterol HCl 2 puff 10/04/23 22:20 Levalbuterol Hfa (*Sp) 15 Gm Inhaler INHALATION Q6HRT PRN Asthma Magnesium Oxide 200 mg 10/05/23 09:00 10/06/23 08:35 Mag
[2023-10-06 13:31] LABS: Anion Gap 7 mmol/L (8-16); Blood Urea Nitrogen 3 mg/dL (7-17); Calcium 8.8 mg/dL (8.4-10.2); Carbon Dioxide 27 mmol/L (22-30); Chloride 105 mmol/L (98-107); Estimated Glomerular Filt Rate > 60; Glucose 107 mg/dL (65-110); Potassium 3.9 mmol/L (3.4-5.0); Sodium 139 mmol/L (137-145)
[2023-10-06 14:00] VITALS: BP 132/52; PULSE 70; RESP 17; TEMP 36.9; O2SAT 97
[2023-10-06 19:43] VITALS: BP 140/56; PULSE 73; RESP 16; TEMP 36.4; O2SAT 95
[2023-10-07 06:19] VITALS: BP 115/58; PULSE 62; RESP 16; TEMP 36.5; O2SAT 96
[2023-10-07 06:23] LABS: Anion Gap 6 mmol/L (8-16); Blood Urea Nitrogen 6 mg/dL (7-17); Calcium 8.9 mg/dL (8.4-10.2); Carbon Dioxide 28 mmol/L (22-30); Chloride 105 mmol/L (98-107); Estimated Glomerular Filt Rate > 60; Glucose 112 mg/dL (65-110); Potassium 3.2 mmol/L (3.4-5.0); Sodium 139 mmol/L (137-145)
[2023-10-07] MEDS: FAMOTIDINE 20 MG/2 ML VIAL IV PUSH ×2 (08:24→20:13)
[2023-10-07] MEDS: MAGNESIUM OXIDE 200 MG TABLET PO (08:24)
[2023-10-07] MEDS: ENOXAPARIN 40 MG/0.4 ML SYRINGE SUB-Q (08:24)
[2023-10-07] MEDS: GABAPENTIN 300 MG CAPSULE 600 MG PO ×3 (08:24→17:13)
[2023-10-07] MEDS: CHOLECALCIFEROL 1,000 UNITS TABLET 2000 UNITS PO (08:24)
[2023-10-07] MEDS: MULTIVITAMINS THERAPEUTIC TAB (*BKC) 1 TABLET PO (08:24)
[2023-10-07] MEDS: MONTELUKAST SODIUM 10 MG TABLET PO (08:24)
[2023-10-07] MEDS: CYANOCOBALAMIN 1,000 MCG TABLET 1000 MCG PO (08:24)
[2023-10-07] MEDS: MELOXICAM 7.5 MG TABLET 15 MG PO (08:24)
[2023-10-07] MEDS: ROSUVASTATIN 10 MG TABLET PO (08:24)
[2023-10-07] MEDS: AMOXICILLIN/CLAVULANATE K 875-125 MG TAB 1 TABLET PO ×2 (12:09→20:13)
--- NOTE | 2023-10-07 13:46 | PM.IMPN ---
Progress Note: A&P Assessment and Plan (1) Generalized weakness: Code(s): R53.1 - Weakness Status: Acute Assessment and Plan: suspect weakness secondary to dehydration given current nausea and benign workup. discontinue fluids PT/OT to eval and treat, patient is currently not open to transitioning to assisted living. Stated she lives at home with her , who also has mobility issues, but their son lives less than 1 mile away and helps them often. UA: Cloudy, 3+ ketones, 3-5 RBC, no epithelial cells. Urine culture pending. Urine culture from 09/29 final result was no growth. viral PCR negative for COVID/Flu/RSV monitor daily labs 10/07: Son able to machine operator picker patient tomorrow and be around to assist. Patient working with therapy and plans for home health therapy have been discussed. (2) Acute UTI: Code(s): N39.0 - Urinary tract infection, site not specified Status: Acute Assessment and Plan: UA: Cloudy, 3+ ketones, 3-5 RBC, no epithelial cells. Urine culture pending. Urine culture from 09/29 final result was no growth. Urine culture positive for E coli. Sensitivities pending. Will give dose of Rocephin Adjust antibiotics to sensitivity results 10/07: Pansensitive E coli and aerococcus urinae, Augmentin started (3) Nausea: Code(s): R11.0 - Nausea Status: Resolved Assessment and Plan: CT abd/pelvis on 09/29 did not show anything they could cause patient's symptoms. antiemetics: Zofran 1st line, metoclopramide 2nd line hold home omeprazole, sub to famotidine IV BID Patient tolerating regular diet. 10/07: No further nausea and vomiting at this time Plan Oral antibiotics, continue to work with therapy, plan to discharge tomorrow Time Spent With Patient Time with patient: 25 - 35 minutes Subjective Date/time seen: 10/07/23 13:46 Interval history: Patient reports that her nausea and vomiting is resolved. She is not experiencing any pain but still having some generalized weakness. She is working with therapy and able to ambulate with a wheeled walker. She tires out easily after doing so. Urine culture shows E coli and another bacteria that appear to be pansensitive. We will place patient on Augmentin. Patient's son called and stated that there would not be a ride for the patient or anyone to help her at home if she were to be discharged today. We felt it prudent to observe patient overnight continue to work with therapy make sure she tolerates oral antibiotics and planned discharge tomorrow morning. Patient had some mild hypokalemia this morning that was treated orally. Review of Systems Review of Systems: All systems reviewed & are unremarkable except as noted in HPI and below Exam Narrative: GENERAL: Comfortable, no acute distress HENMT: moist mucous membranes EYES: EOM intact b/l NECK: no lymphadenopathy RESPIRATORY: clear to auscultation CARDIO: RRR no murmur GI: soft, nontender, bowel sounds present SKIN: no rashes EXTREMITIES: no edema, redness or tenderness Objective Data Vital Signs Vital Signs: Vital Signs - 24 hr 10/06/23 14:00 10/06/23 19:43 10/07/23 06:19 Temperature 36.9 C 36.4 C 36.5 C Pulse Rate 70 73 62 Respiratory Rate 17 16 16 Blood Pressure 132/52 L 140/56 L 115/58 L Pulse Oximetry 97 95 96 Oxygen Delivery 10/07/23 08:30 10/07/23 12:42 Temperature Pulse Rate Respiratory Rate Blood Pressure Pulse Oximetry Oxygen Delivery Room Air Room Air Intake/Output Intake/Output: Intake & Output 10/04/23 10/05/23 10/06/23 10/07/23 23:59 23:59 23:59 23:59 Intake Total 720 3014 1630 830 Output Total 400 Balance 720 3014 1630 430 Meds/Results Medications: Active Medications Generic Name Dose Route Start Last Admin Trade Name Freq PRN Reason Stop Dose Admin Acetaminophen 650 mg 10/04/23 13:56 Acetaminophen 325 Mg Tablet PO Q4H PRN Mild Pain (1-3
[2023-10-07 14:00] VITALS: BP 115/53; PULSE 86; RESP 16; TEMP 36.2; O2SAT 94
[2023-10-07 20:00] VITALS: PULSE 86; RESP 16; O2SAT 94
[2023-10-07 21:54] VITALS: BP 145/53; PULSE 66; RESP 16; TEMP 36.5; O2SAT 96
[2023-10-08 05:41] LABS: Basophils Percent Auto 0.7 % (0.2-1.2); Eosinophils Absolute Auto 0.1 K/mm3 (0-0.3); Eosinophils Percent Auto 2.3 % (0-4.4); Hematocrit 38.9 % (37.0-47.0); Hemoglobin 12.7 g/dL (12.0-15.0); Immature Granulocyte Absolute 0.01 K/mm3 (0.00-0.031); Immature Granulocyte Percent A 0.2 % (0-0.5); Lymphocytes Absolute Auto 1.71 K/mm3 (0.9-3.2); Mean Corpuscular HGB Conc 32.6 g/dl (32-36); Mean Corpuscular Hemoglobin 30.2 pg (26-34); Mean Corpuscular Volume 92.6 fl (80-100); Mean Platelet Volume 9.6 fl (7.4-10.4); Monocytes Absolute Auto 0.6 K/mm3 (0.1-0.6); Monocytes Percent Auto 13.1 % (2.6-8.5); Neutrophils Absolute Auto 1.9 K/mm3 (1.3-6.7); Neutrophils Percent Auto 43.7 % (45.5-73.1); Platelet Count Result 180 k/mm3 (150-375); Red Cell Distribution Width 13.4 % (11.5-14.5); White Blood Count 4.3 K/mm3 (4.5-10.0)
[2023-10-08 05:50] LABS: Albumin Level 3.2 g/dL (3.5-5.1); Anion Gap 6 mmol/L (8-16); Blood Urea Nitrogen 13 mg/dL (7-17); Calcium 9.1 mg/dL (8.4-10.2); Carbon Dioxide 30 mmol/L (22-30); Chloride 100 mmol/L (98-107); Estimated Glomerular Filt Rate > 60; Glucose 110 mg/dL (65-110); Phosphorus 3.1 mg/dL (2.5-4.5); Potassium 3.2 mmol/L (3.4-5.0); Sodium 136 mmol/L (137-145)
[2023-10-08 06:08] VITALS: BP 113/60; PULSE 64; RESP 16; TEMP 36.7; O2SAT 95
[2023-10-08] MEDS: MELOXICAM 7.5 MG TABLET 15 MG PO (08:37)
[2023-10-08] MEDS: CHOLECALCIFEROL 1,000 UNITS TABLET 2000 UNITS PO (08:37)
[2023-10-08] MEDS: FAMOTIDINE 20 MG/2 ML VIAL IV PUSH (08:37)
[2023-10-08] MEDS: MAGNESIUM OXIDE 200 MG TABLET PO (08:37)
[2023-10-08] MEDS: MULTIVITAMINS THERAPEUTIC TAB (*BKC) 1 TABLET PO (08:37)
[2023-10-08] MEDS: AMOXICILLIN/CLAVULANATE K 875-125 MG TAB 1 TABLET PO (08:37)
[2023-10-08] MEDS: CYANOCOBALAMIN 1,000 MCG TABLET 1000 MCG PO (08:37)
[2023-10-08] MEDS: MONTELUKAST SODIUM 10 MG TABLET PO (08:37)
[2023-10-08] MEDS: ROSUVASTATIN 10 MG TABLET PO (08:37)
[2023-10-08] MEDS: POTASSIUM CHLORIDE 20 MEQ ER TABLET 40 MEQ PO (08:37)
[2023-10-08] MEDS: GABAPENTIN 300 MG CAPSULE 600 MG PO (08:37)
[2023-10-08] MEDS: ENOXAPARIN 40 MG/0.4 ML SYRINGE SUB-Q (08:38)
--- NOTE | 2023-10-08 09:00 | PM.DS ---
DS: Admitting Diagnosis Discharge Date 10/08/2023 Admitting Diagnosis Generalized weakness, nausea DS: Discharge Diagnosis Discharge Diagnosis (1) Generalized weakness: Code(s): R53.1 - Weakness Status: Acute (2) Acute UTI: Code(s): N39.0 - Urinary tract infection, site not specified Status: Acute (3) Nausea: Code(s): R11.0 - Nausea Status: Resolved DS: Summary Hospital Course Reason for hospitalization: Patient was a return hospitalization after recent discharge for nausea and vomiting with continued nausea vomiting and generalized weakness. Hospital Course: 10/05: Patient is a 82 YO F admitted for continued nausea. decreased PO intake, and weakness/shakiness with PMH of asthma, GERD, IBS, osteoporosis, arthritis, vit D deficiency, and sleep apnea. Patient was recently admitted from 09/29-10/01 for generalized weakness, nausea, vomiting and transient confusion.? States she had been having nausea and diarrhea 5 days prior to admission.? Workup at that time was benign, CT performed showing diverticulosis of the colon without evidence of diverticulitis.? Patient was discharged after she was able to tolerate PO and instructed to follow-up with her PCP in 1 week. Patient saw her PCP yesterday, 10/03, and continued to endorse nausea. Prescribed zofran and GI f/u to be made. Patient reports Zofran has given her partial relief from nausea but has had a significance reduction in PO intake despite medication.? Nausea with intermittent retching, no emesis.? Continues to deny abdominal pain, diarrhea, or syncope. Patient was able to tolerate minimal intake of clear liquids this morning. Denies nausea this am. Will continue IV fluids and advance her diet as tolerated. Working on increasing PO intake and resolve nausea prior to d/c. PT and OT to evaluate. UA culture pending to rule out infection as her UA had presence of bacteria. 10/06: Patient doing well tolerating her diet.? She denies any active nausea at this time.? Her urine culture did come back positive for E. Coli? will give patient 1 dose of Rocephin and wait for sensitivities to return.? Patient states that she is getting around okay in the room although PT did recommend possible home health therapy.? Will discuss this with care coordination.? Hopeful discharge for patient tomorrow. 10/07: Patient reports that her nausea and vomiting is resolved.? She is not experiencing any pain but still having some generalized weakness.? She is working with therapy and able to ambulate with a wheeled walker.? She tires out easily after doing so.? Urine culture shows E coli and another bacteria that appear to be pansensitive.? We will place patient on Augmentin.? Patient's son called and stated that there would not be a ride for the patient or anyone to help her at home if she were to be discharged today.? We felt it prudent to observe patient overnight continue to work with therapy make sure she tolerates oral antibiotics and planned discharge tomorrow morning.? Patient had some mild hypokalemia this morning that was treated orally. 10/08: Patient continues to deny any nausea vomiting and states that she is getting stronger working with therapy. Patient declined SNF and wanted to go home with home health for continued work with therapy. She is tolerating the Augmentin without any adverse effects. She is discharged with 9 more doses to ensure 7 days appropriate coverage. Status at Discharge Cognitive/behavioral status at discharge: Awake alert oriented and very pleasant Functional status at discharge: uses cane/walker (Previously independent ambulation) Overall status at discharge: patient is progressing back to baseline Time Spent with Patient Time attestation: Total time spent providing and/or coordinating discharge services: 40 minutes Time spent: Greater than 30 minutes Exam Narrative: GENERAL: Comfortable, no acute distress HENMT: moist mucous membranes EYES:
== END 2023-10-08 11:35 | disposition home health service (06) | DRG 690 ==
LOC: ANHED 14:09 → ANH2MED 14:15
PROVIDERS: Internal Medicine Critical Care Medicine; Nurse Practitioner; Student in an Organized Health Care Education/Training Program; Admitting Provider Hospitalist; Emergency Provider Physician Assistant; PCP Family Medicine; Visit Provider Nurse Practitioner
DX: N39.0 Urinary tract infection, site not specified (principal); B96.20 Unspecified Escherichia coli [E. coli] as the cause of diseases classified elsewhere; E86.0 Dehydration; K21.9 Gastro-esophageal reflux disease without esophagitis; K58.9 Irritable bowel syndrome, unspecified; M81.0 Age-related osteoporosis without current pathological fracture; E55.9 Vitamin D deficiency, unspecified; G47.30 Sleep apnea, unspecified; M19.90 Unspecified osteoarthritis, unspecified site; E87.6 Hypokalemia; J45.909 Unspecified asthma, uncomplicated; Z20.822 Contact with and (suspected) exposure to COVID-19; J44.9 Chronic obstructive pulmonary disease, unspecified; E78.5 Hyperlipidemia, unspecified; G62.9 Polyneuropathy, unspecified; Z90.49 Acquired absence of other specified parts of digestive tract; Z96.641 Presence of right artificial hip joint; Z98.42 Cataract extraction status, left eye; Z98.41 Cataract extraction status, right eye; Z96.1 Presence of intraocular lens; Z90.711 Acquired absence of uterus with remaining cervical stump
CPT/HCPCS: 36415; 80048; 80053; 80069; 81001; 82550; 83605; 83690; 83735; 85025; 87077; 87086; 87147; 87186; 87636; 96365; 96367; 96375; 97161; 97165; 97530; 99285; A9270; G0378; J0696; J1650; J2405; J2765; J3475; J3480; J7030; J7040

== ENCOUNTER 2023-11-24 19:43 | Observation (INO) | payer MEDICARE, SELFPAY ==
--- NOTE | ~2023-11-24 | CT_ITS ---
EXAMINATION: CT abdomen pelvis w con DATE: 11/24/2023 22:32 INDICATION: nausea and vomiting, constipation TECHNIQUE: Computed tomography (CT) of the abdomen and pelvis was performed with 100 mL Omnipaque-350 intravenous contrast. Automated exposure control and iterative reconstruction technique were employe d. The dose-length product was 338.28 mGy-cm. COMPARISON: 09/29/2023. FINDINGS: Lower thorax: Bibasilar scar. Coronary artery calcification. Liver: Normal. Biliary/Gallbladder: Gallbladder is absent. Mild intrahepatic and extra hepatic bile duct dilation, l ikely secondary to cholecystectomy. Pancreas: Atrophy and fatty infiltration. No duct dilation. Spleen: Normal. Adrenals:No mass. Kidneys: No suspicious mass, obstructing stone, or hydronephrosis. Small left midpole AML. Scattered hypodensities, too small to characterize but also likely represent cysts. Bilateral cortical scarring . GI tract: Mild distal esophageal and gastric wall edema. No small or large bowel dilation. Normal anh endix. Diverticulosis without diverticulitis. Mesentery/Peritoneum: No ascites, mass, or free air. Retroperitoneum: No mass. Atherosclerotic abdominal aortic and/or arterial calcifications. Pelvis: Pelvic organs are partially obscured by metal artifact. Absent uterus. Normal-appearing bladd er. Soft Tissues: Soft tissues and body wall unremarkable. Bones: No acute osseous finding. Severe lumbar scoliosis. Partially visualized uncomplicated appeari ng right hip arthroplasty. IMPRESSION: Mild esophagitis/gastritis. Otherwise, no acute abdominopelvic process detected Reviewed, dictated and finalized at location K. COORDINATOR
[2023-11-24 19:52] VITALS: BP 138/74; PULSE 95; RESP 16; TEMP 37; O2SAT 96
[2023-11-24 21:12] LABS: Basophils Percent Auto 0.2 % (0.2-1.2); Eosinophils Percent Auto 0.3 % (0-4.4); Hematocrit 47.5 % (37.0-47.0); Hemoglobin 15.2 g/dL (12.0-15.0); Immature Granulocyte Absolute 0.02 K/mm3 (0.00-0.031); Immature Granulocyte Percent A 0.3 % (0-0.5); Lymphocytes Absolute Auto 1.07 K/mm3 (0.9-3.2); Lymphocytes Percent Auto 17.7 % (18.3-44.2); Mean Corpuscular Hemoglobin 30.2 pg (26-34); Mean Corpuscular Volume 94.2 fl (80-100); Mean Platelet Volume 9.2 fl (7.4-10.4); Monocytes Absolute Auto 0.4 K/mm3 (0.1-0.6); Monocytes Percent Auto 6.5 % (2.6-8.5); Neutrophils Absolute Auto 4.5 K/mm3 (1.3-6.7); Platelet Count Result 212 k/mm3 (150-375); Red Blood Count 5.04 M/mm3 (4.2-5.4); Red Cell Distribution Width 13.4 % (11.5-14.5)
[2023-11-24 21:26] LABS: Alanine Aminotransferase 25 U/L (6-35); Albumin Level 4.7 g/dL (3.5-5.1); Alkaline Phosphatase 64 U/L (38-126); Anion Gap 12 mmol/L (8-16); Aspartate Amino Transferase 32 U/L (14-36); Blood Urea Nitrogen 15 mg/dL (7-17); Carbon Dioxide 25 mmol/L (22-30); Chloride 101 mmol/L (98-107); Estimated Glomerular Filt Rate > 60; Glucose 144 mg/dL (65-110); Lipase 58 U/L (23-300); Potassium 4.2 mmol/L (3.4-5.0); Sodium 138 mmol/L (137-145)
[2023-11-24 21:30] VITALS: BP 166/69; PULSE 77; RESP 23; O2SAT 96
[2023-11-24] MEDS: SODIUM CHLORIDE 0.9% IV 1,000 ML 999 ML IV CONT (22:07)
[2023-11-24 22:14] LABS: Appearance Urine Clear (Clear); Bacteria Urine None Seen /hpf; Bilirubin Urine Negative (Negative); Blood Urine Trace (Negative); Color Urine Yellow (Yellow); Glucose Urine UA Negative (Negative); Ketones Urine 2+ mg/dL (Negative); Leukocyte Esterase Ur Negative LEU/UL (Negative); Nitrate Urine Negative (Negative); Non Pathogenic Casts 0-2; Protein Urine Negative (Negative); RBC Urine 0-2 /hpf (0-2); Specific Grav Ur 1.021 (1.001-1.035); Squamous Epithelial Cell Urine None seen /hpf (Few); Urobilinogen Urine 0.2 mg/dL (<2.0); WBC Urine 0-5 /hpf; pH Urine 5.5 (5.0-9.0)
--- NOTE | 2023-11-24 22:15 | ED.GENADULT ---
HPI - General Adult General Chief complaint: Nausea/Vomiting/Diarrhea Stated complaint: N/V Time Seen by Provider: 11/24/23 21:22 Source: patient and family Mode of arrival: ambulatory Limitations: no limitations History of Present Illness HPI narrative: This is an 82-year-old female who presents to the ED with chief complaint of N/V/D x2 days. Patient complains of constant nausea along with general weakness and decreased appetite. Her son is at bedside and helping provide the information and history. He reports that she has just been feeling a little sick with N/V/D and often gets he dehydrated when this happens. He reports that she will not take in oral fluids and start to feel sicker and sicker. He states the last time this happened she had be admitted. States her most recent hospital stay was in September. Denies fevers, abdominal pain, cough, chest pain. Related Data Home Medications Medication Instructions Recorded Confirmed cholecalciferol (vitamin D3) 50 50 mcg PO DAILY 08/07/20 10/04/23 mcg (2,000 unit) capsule multivitamin 1 cap PO DAILY 08/07/20 10/04/23 cyanocobalamin (vitamin B-12) 1,000 mcg PO DAILY 09/15/21 10/04/23 1,000 mcg tablet (Vitamin B-12) gabapentin 600 mg tablet 600 mg PO TID 09/29/23 10/04/23 levalbuterol tartrate 45 2 inh inhalation Q6H PRN Asthma 09/29/23 10/04/23 mcg/actuation aerosol inhaler magnesium 250 mg tablet 250 mg PO DAILY 09/29/23 10/04/23 omeprazole 20 mg tablet,delayed 20 mg PO DAILY PRN GERD 09/29/23 10/04/23 release Allergies Allergy/AdvReac Type Severity Reaction Status Date / Time codeine Allergy Severe Passes out Verified 11/24/23 21:34 oxycodone Allergy Severe pass out Verified 11/24/23 21:34 pain medications AdvReac Severe syncope Uncoded 11/24/23 21:34 Review of Systems Review of Systems: All systems as dictated in [facility] Past Medical History Medical History Arthritis Asthma COPD (chronic obstructive pulmonary disease) COVID-19 vaccine series completed Dyslipidemia Emphysema of lung Frozen shoulder Left shoulder GERD (gastroesophageal reflux disease) IBS (irritable bowel syndrome) Memory loss Neuropathy Osteoporosis Sciatica associated with disorder of lumbar spine Scoliosis due to degenerative disease of spine in adult patient Sleep apnea Vision changes Vitamin D deficiency Surgical History Surgical History History of bowel resection History of cholecystectomy History of partial hysterectomy History of right hip replacement Status post cataract extraction of both eyes with insertion of intraocular lens Family History Family History Mother Pneumonia Father Asbestosis Grandparent Pneumonia Grandparent Heart attack Grandparent Cerebrovascular accident Sibling Malignant neoplasm Other Arthritis Social History Social History Social History: She lives in [place] with her of 60 years. She has a Rollator at home but only uses it when she goes to the store. She has 2 children who are healthy. She is a lifelong nonsmoker and does not drink alcohol. 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 Primary care physician: Dr. Cruz Code status: DNR/DNI Surrogate decision maker: Miah (son) Smoking status: Never smoker Second hand tobacco smoke exposure: No Alcohol intake: never Substance use: never Substance use type: does not use Lack of Transportation: No Lack of Food: Never True Current Housing: I Have Housing Concerned About Future Housing: No Difficulty Paying Gas/Electric Bills: No Difficulty Paying for Meds: No Currently Unemployed: No Education: Master's Degree or Higher Difficulty w/ Childcare or Family Care: No
[2023-11-24 22:20] LABS: Add Urine Microscopic? YES
[2023-11-24] MEDS: ONDANSETRON INJ 4 MG/2 ML VIAL IV PUSH (22:54)
[2023-11-25] VITALS (8 sets, daily range): BP systolic 98–149; BP diastolic 49–93; PULSE 70–111; RESP 16–20; TEMP 35.7–37.3; O2SAT 94–97; BMI 26.3
--- NOTE | 2023-11-25 01:50 | PM.IMHP ---
H&P: HPI History of Present Illness Date/Time: 11/25/23 01:50 Chief Complaint: nausea and vomiting Narrative: this is an 83-year-old female with past medical history significant for asthma, GERD, irritable bowel syndrome, dementia, sleep apnea. Patient presents to the emergency room with her son due to concerns for patient's nausea and vomiting poor per orally intake generalized weakness. Preliminary workup has been essentially none revealing. EXAMINATION: CT abdomen pelvis w con DATE: 11/24/2023 22:32 INDICATION: nausea and vomiting, constipation TECHNIQUE: Computed tomography (CT) of the abdomen and pelvis was performed with 100 mL Omnipaque-350 intravenous contrast. Automated exposure control and iterative reconstruction technique were employed. The dose-length product was 338.28 mGy-cm. COMPARISON: 09/29/2023. FINDINGS: Lower thorax: Bibasilar scar. Coronary artery calcification. Liver: Normal.? Biliary/Gallbladder: Gallbladder is absent. Mild intrahepatic and extra hepatic bile duct dilation, likely secondary to cholecystectomy. Pancreas: Atrophy and fatty infiltration. No duct dilation. Spleen: Normal. Adrenals:No mass. Kidneys: No suspicious mass, obstructing stone, or hydronephrosis. Small left midpole AML. Scattered hypodensities, too small to characterize but also likely represent cysts. Bilateral cortical scarring. GI tract: Mild distal esophageal and gastric wall edema. No small or large bowel dilation. Normal appendix. Diverticulosis without diverticulitis. Mesentery/Peritoneum: No ascites, mass, or free air. Retroperitoneum: No mass. Atherosclerotic abdominal aortic and/or arterial calcifications. Pelvis: Pelvic organs are partially obscured by metal artifact. Absent uterus. Normal-appearing bladder. Soft Tissues: Soft tissues and body wall unremarkable. Bones:? No acute osseous finding. Severe lumbar scoliosis. Partially visualized uncomplicated appearing right hip arthroplasty. IMPRESSION: Mild esophagitis/gastritis. Otherwise, no acute abdominopelvic process detected Review of Systems Review of Systems: ROS unobtainable: Yes unobtainable due to medical condition ( dry heaving) [facility] Past Medical History Medical History Arthritis Asthma COPD (chronic obstructive pulmonary disease) COVID-19 vaccine series completed Dyslipidemia Emphysema of lung Frozen shoulder Left shoulder GERD (gastroesophageal reflux disease) IBS (irritable bowel syndrome) Memory loss Neuropathy Osteoporosis Sciatica associated with disorder of lumbar spine Scoliosis due to degenerative disease of spine in adult patient Sleep apnea Vision changes Vitamin D deficiency Surgical History Surgical History History of bowel resection History of cholecystectomy History of partial hysterectomy History of right hip replacement Status post cataract extraction of both eyes with insertion of intraocular lens Family History Family History Mother Pneumonia Father Asbestosis Grandparent Pneumonia Grandparent Heart attack Grandparent Cerebrovascular accident Sibling Malignant neoplasm Other Arthritis Social History Social History Social History: She lives in [place] with her of 60 years. She has a Rollator at home but only uses it when she goes to the store. She has 2 children who are healthy. She is a lifelong nonsmoker and does not drink alcohol. 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 Primary care physician: Dr. Cruz Code status: DNR/DNI Surrogate decision maker: Miah (son) Smoking status: Never smoker Second hand tobacco smoke exposure: No Alcohol intake: never Substance use: never Substance use type: does not u
[2023-11-25] MEDS: ONDANSETRON INJ 4 MG/2 ML VIAL IV PUSH ×2 (02:42→08:26)
[2023-11-25 03:03] LABS: SARS-CoV-2 RNA PCR Negative (Negative)
[2023-11-25 03:04] LABS: Influenza A QL RT-PCR Negative (Negative); Influenza B QL RT-PCR Negative (Negative); RSV RNA, RT-PCR Negative (Negative)
[2023-11-25 03:44] LABS: Toxigenic C. Diff NEGATIVE (NEGATIVE)
[2023-11-25] MEDS: SODIUM CHLORIDE 0.9% IV 1,000 ML 125 ML IV CONT ×3 (04:02→23:10)
--- NOTE | 2023-11-25 11:49 | PM.IMPN ---
Progress Note: A&P Assessment and Plan (1) Intractable nausea and vomiting: Code(s): R11.2 - Nausea with vomiting, unspecified Status: Acute (2) Generalized weakness: Code(s): R53.1 - Weakness Status: Acute (3) COPD (chronic obstructive pulmonary disease): Qualifiers: COPD type: unspecified COPD Qualified Code(s): J44.9 - Chronic obstructive pulmonary disease, unspecified Code(s): J44.9 - Chronic obstructive pulmonary disease, unspecified Status: Acute (4) Restless leg syndrome: Code(s): G25.81 - Restless legs syndrome Status: Acute (5) Spinal stenosis: Code(s): M48.00 - Spinal stenosis, site unspecified Status: Acute Plan 82-year-old female presented with nausea vomiting diarrhea for 2 days generalized weakness and decreased appetite. Not able to keep anything down. ED evaluation revealed mild tachycardia afebrile laboratory evaluation with normal cbc and CMP urinalysis showed 2+ ketones but otherwise negative. Clinically dehydrated. CT abdomen pelvis showed mild esophagitis and gastritis but no acute findings. Admitted for observation. Feeling better. Denies any abdominal pain. Had on PPI. IV fluid clear liquid diet and advanced as tolerated. Zofran for supportive treatment Subjective Date/time seen: 11/25/23 11:49 Interval history: 82-year-old female presented with nausea vomiting diarrhea for 2 days generalized weakness and decreased appetite. Not able to keep anything down. ED evaluation revealed mild tachycardia afebrile laboratory evaluation with normal cbc and CMP urinalysis showed 2+ ketones but otherwise negative. Clinically dehydrated. CT abdomen pelvis showed mild esophagitis and gastritis but no acute findings. Admitted for observation. Feeling better. Denies any abdominal pain. Had on PPI. IV fluid clear liquid diet and advanced as tolerated. Zofran for supportive treatment Review of Systems Review of Systems: All systems reviewed & are unremarkable except as noted in HPI and below Exam Narrative: GENERAL: Well-appearing, well-nourished, and in no acute distress. HEAD: Normocephalic, atraumatic. EYES: PERRLA and EOMI. ENT: Nares clear, no rhinorrhea or epistaxis.? Mucous membranes moist. NECK: Supple.? No adenopathy or masses.? CHEST: No respiratory distress. Clear to auscultation. No wheezes rales or rhonchi HEART: Regular rate and rhythm.? No murmur heard.? Normal peripheral pulses. ABDOMEN: Soft, nontender, nondistended, normal active bowel sounds. MSK: Normal range of motion.? No edema. SKIN: Warm, dry, no rash. NEURO: Alert and oriented x3. No focal deficits.? PSYCH: Normal mood and affect. Objective Data Vital Signs Vital Signs: Vital Signs - 24 hr 11/24/23 19:52 11/24/23 21:30 11/25/23 00:30 Temperature 98.6 F Pulse Rate 95 77 93 Respiratory Rate 16 23 H 20 Blood Pressure 138/74 166/69 H 132/70 Pulse Oximetry 96 96 94 Oxygen Delivery Room Air 11/25/23 01:21 11/25/23 02:55 11/25/23 03:37 Temperature Pulse Rate 111 H 86 90 Respiratory Rate 20 20 19 Blood Pressure 149/93 H 144/66 H 141/71 H Pulse Oximetry 94 94 94 Oxygen Delivery 11/25/23 06:00 11/25/23 08:00 Temperature 96.3 F L Pulse Rate 91 Respiratory Rate 16 Blood Pressure 124/77 Pulse Oximetry 97 Oxygen Delivery Room Air Intake/Output Intake/Output: Intake & Output 11/22/23 11/23/23 11/24/23 11/25/23 23:59 23:59 23:59 23:59 Intake Total 1000 Balance 1000 Meds/Results Medications: Active Medications Generic Name Dose Route Start Last Admin Trade Name Freq PRN Reason Stop Dose Admin Sodium Chloride 1,000 mls @ 125 mls/hr 11/25/23 01:55 11/25/23 11:02 Normal Saline Iv IV CONT Not Given .Q8H [facility] Ondansetron HCl 4 mg 11/25/23 01:53 11/25/23 08:26 Ondansetron Inj 4 Mg/2 Ml Vial IV PUSH 4 mg Q4H PRN Administration Nausea Radiology Results: ITS Impres
[2023-11-25] MEDS: GABAPENTIN 300 MG CAPSULE 600 MG PO ×3 (14:33→20:57)
[2023-11-25] MEDS: CHOLECALCIFEROL 1,000 UNITS TABLET 1000 UNITS PO (14:34)
[2023-11-25] MEDS: MONTELUKAST SODIUM 10 MG TABLET PO (14:34)
[2023-11-26 06:00] VITALS: BP 121/44; PULSE 69; RESP 16; TEMP 36.3; O2SAT 93
[2023-11-26 06:18] LABS: Eosinophils Absolute Auto 0.1 K/mm3 (0-0.3); Eosinophils Percent Auto 2.2 % (0-4.4); Immature Granulocyte Absolute 0.01 K/mm3 (0.00-0.031); Immature Granulocyte Percent A 0.2 % (0-0.5); Lymphocytes Absolute Auto 1.97 K/mm3 (0.9-3.2); Lymphocytes Percent Auto 47.8 % (18.3-44.2); Mean Corpuscular HGB Conc 31.6 g/dl (32-36); Mean Corpuscular Hemoglobin 30.4 pg (26-34); Mean Corpuscular Volume 96.2 fl (80-100); Mean Platelet Volume 8.8 fl (7.4-10.4); Monocytes Absolute Auto 0.5 K/mm3 (0.1-0.6); Monocytes Percent Auto 12.1 % (2.6-8.5); Neutrophils Absolute Auto 1.5 K/mm3 (1.3-6.7); Neutrophils Percent Auto 36.7 % (45.5-73.1); Platelet Count Result 160 k/mm3 (150-375); Red Blood Count 3.95 M/mm3 (4.2-5.4); Red Cell Distribution Width 13.2 % (11.5-14.5); White Blood Count 4.1 K/mm3 (4.5-10.0)
[2023-11-26 06:38] LABS: Alanine Aminotransferase 17 U/L (6-35); Albumin Level 3.3 g/dL (3.5-5.1); Alkaline Phosphatase 43 U/L (38-126); Anion Gap 4 mmol/L (8-16); Aspartate Amino Transferase 25 U/L (14-36); Bilirubin,Total 0.6 mg/dL (0.2-1.3); Blood Urea Nitrogen 10 mg/dL (7-17); Calcium 8.3 mg/dL (8.4-10.2); Carbon Dioxide 27 mmol/L (22-30); Chloride 107 mmol/L (98-107); Estimated Glomerular Filt Rate > 60; Glucose 90 mg/dL (65-110); Magnesium 1.5 mg/dL (1.6-2.3); Potassium 3.5 mmol/L (3.4-5.0); Sodium 138 mmol/L (137-145)
[2023-11-26] MEDS: PANTOPRAZOLE 40 MG TABLET PO (08:43)
[2023-11-26] MEDS: CHOLECALCIFEROL 1,000 UNITS TABLET 1000 UNITS PO (08:43)
[2023-11-26] MEDS: GABAPENTIN 300 MG CAPSULE 600 MG PO ×4 (08:43→20:07)
[2023-11-26] MEDS: ROSUVASTATIN 10 MG TABLET PO (08:43)
[2023-11-26] MEDS: MONTELUKAST SODIUM 10 MG TABLET PO (08:43)
[2023-11-26] MEDS: MULTIVITAMINS THERAPEUTIC TAB (*BKC) 1 TABLET PO (08:43)
[2023-11-26] MEDS: CYANOCOBALAMIN 1,000 MCG TABLET 1000 MCG PO (08:44)
[2023-11-26] MEDS: SODIUM CHLORIDE 0.9% IV 1,000 ML 125 ML IV CONT (08:45)
[2023-11-26] MEDS: MAGNESIUM 13.5 MG TABLET (250 MG MAG GLUCONATE) BY MOUTH (09:02)
[2023-11-26] MEDS: MAGNESIUM SULF 2 GM/WATER 50ML 2 GM/50 ML BAG IVPB (09:39)
[2023-11-26] MEDS: POTASSIUM CHLORIDE 20 MEQ ER TABLET 40 MEQ PO (09:39)
--- NOTE | 2023-11-26 12:02 | PCPTNOTE ---
11/26/23 MW PT eval completed
--- NOTE | 2023-11-26 12:04 | PM.IMPN ---
Progress Note: A&P Assessment and Plan (1) Intractable nausea and vomiting: Code(s): R11.2 - Nausea with vomiting, unspecified Status: Acute (2) Generalized weakness: Code(s): R53.1 - Weakness Status: Acute (3) COPD (chronic obstructive pulmonary disease): Qualifiers: COPD type: unspecified COPD Qualified Code(s): J44.9 - Chronic obstructive pulmonary disease, unspecified Code(s): J44.9 - Chronic obstructive pulmonary disease, unspecified Status: Acute (4) Restless leg syndrome: Code(s): G25.81 - Restless legs syndrome Status: Acute (5) Spinal stenosis: Code(s): M48.00 - Spinal stenosis, site unspecified Status: Acute Plan 82-year-old female presented with nausea vomiting diarrhea for 2 days generalized weakness and decreased appetite. Not able to keep anything down. ED evaluation revealed mild tachycardia afebrile laboratory evaluation with normal cbc and CMP urinalysis showed 2+ ketones but otherwise negative. Clinically dehydrated. CT abdomen pelvis showed mild esophagitis and gastritis but no acute findings. Admitted for observation. Feeling better. Denies any abdominal pain. Had on PPI. IV fluid clear liquid diet and advanced as tolerated. Zofran for supportive treatment. Tolerating diet. Replace electrolytes will stop IV fluid today PT OT to see Subjective Date/time seen: 11/26/23 12:04 Interval history: 82-year-old female presented with nausea vomiting diarrhea for 2 days generalized weakness and decreased appetite. Not able to keep anything down. ED evaluation revealed mild tachycardia afebrile laboratory evaluation with normal cbc and CMP urinalysis showed 2+ ketones but otherwise negative. Clinically dehydrated. CT abdomen pelvis showed mild esophagitis and gastritis but no acute findings. Admitted for observation. Feeling better. Denies any abdominal pain. Had on PPI. IV fluid clear liquid diet and advanced as tolerated. Zofran for supportive treatment 11/26/2023: Feeling well. Able to eat and drink. Has some loose stool again today. Denies any abdominal pain. Review of Systems Review of Systems: All systems reviewed & are unremarkable except as noted in HPI and below Exam Narrative: GENERAL: Well-appearing, well-nourished, and in no acute distress. HEAD: Normocephalic, atraumatic. EYES: PERRLA and EOMI. ENT: Nares clear, no rhinorrhea or epistaxis.? Mucous membranes moist. NECK: Supple.? No adenopathy or masses.? CHEST: No respiratory distress. Clear to auscultation. No wheezes rales or rhonchi HEART: Regular rate and rhythm.? No murmur heard.? Normal peripheral pulses. ABDOMEN: Soft, nontender, nondistended, normal active bowel sounds. MSK: Normal range of motion.? No edema. SKIN: Warm, dry, no rash. NEURO: Alert and oriented x3. No focal deficits.? PSYCH: Normal mood and affect. Objective Data Vital Signs Vital Signs: Vital Signs - 24 hr 11/25/23 14:00 11/25/23 22:00 11/25/23 22:30 Temperature 99.1 F 98 F Pulse Rate 74 70 Respiratory Rate 18 16 Blood Pressure 121/54 L 98/49 L 120/68 Pulse Oximetry 96 95 Oxygen Delivery 11/26/23 06:00 11/26/23 08:45 11/26/23 11:54 Temperature 97.3 F L Pulse Rate 69 Respiratory Rate 16 Blood Pressure 121/44 L Pulse Oximetry 93 Oxygen Delivery Room Air Room Air Intake/Output Intake/Output: Intake & Output 11/23/23 11/24/23 11/25/23 11/26/23 23:59 23:59 23:59 23:59 Intake Total 1000 2240 1240 Balance 1000 2240 1240 Meds/Results Medications: Active Medications Generic Name Dose Route Start Last Admin Trade Name Freq PRN Reason Stop Dose Admin Cyanocobalamin 1,000 mcg 11/26/23 09:00 11/26/23 08:44 Cyanocobalamin 1,000 Mcg Tablet PO 1,000 mcg DAILY FATUMA Administration Gabapentin 600 mg 11/25/23 13:00 11/26/23 08:43 Gabapentin 300 Mg Capsule PO 600 mg QID FATUMA Administration Sodium Chloride 1,000
[2023-11-26 14:00] VITALS: BP 106/30; PULSE 73; RESP 10; TEMP 36.4; O2SAT 95
[2023-11-26 21:59] VITALS: BP 127/58; PULSE 70; RESP 16; TEMP 36.4; O2SAT 96
[2023-11-27 06:00] VITALS: BP 132/55; PULSE 67; RESP 16; TEMP 36.4; O2SAT 95
[2023-11-27 06:27] LABS: Basophils Percent Auto 0.6 % (0.2-1.2); Eosinophils Absolute Auto 0.1 K/mm3 (0-0.3); Eosinophils Percent Auto 2.1 % (0-4.4); Hematocrit 37.8 % (37.0-47.0); Hemoglobin 11.7 g/dL (12.0-15.0); Immature Granulocyte Absolute 0.01 K/mm3 (0.00-0.031); Immature Granulocyte Percent A 0.2 % (0-0.5); Lymphocytes Absolute Auto 1.97 K/mm3 (0.9-3.2); Lymphocytes Percent Auto 42.1 % (18.3-44.2); Mean Corpuscular Hemoglobin 30.1 pg (26-34); Mean Corpuscular Volume 97.2 fl (80-100); Mean Platelet Volume 9.1 fl (7.4-10.4); Monocytes Absolute Auto 0.5 K/mm3 (0.1-0.6); Monocytes Percent Auto 11.5 % (2.6-8.5); Neutrophils Percent Auto 43.5 % (45.5-73.1); Platelet Count Result 170 k/mm3 (150-375); Red Blood Count 3.89 M/mm3 (4.2-5.4); Red Cell Distribution Width 13.3 % (11.5-14.5); White Blood Count 4.7 K/mm3 (4.5-10.0)
[2023-11-27 06:42] LABS: Alanine Aminotransferase 15 U/L (6-35); Albumin Level 3.3 g/dL (3.5-5.1); Alkaline Phosphatase 47 U/L (38-126); Anion Gap 5 mmol/L (8-16); Aspartate Amino Transferase 21 U/L (14-36); Bilirubin,Total 0.5 mg/dL (0.2-1.3); Blood Urea Nitrogen 9 mg/dL (7-17); Calcium 8.8 mg/dL (8.4-10.2); Carbon Dioxide 26 mmol/L (22-30); Chloride 106 mmol/L (98-107); Estimated Glomerular Filt Rate > 60; Glucose 94 mg/dL (65-110); Sodium 137 mmol/L (137-145)
[2023-11-27] MEDS: MULTIVITAMINS THERAPEUTIC TAB (*BKC) 1 TABLET PO (08:51)
[2023-11-27] MEDS: MONTELUKAST SODIUM 10 MG TABLET PO (08:51)
[2023-11-27] MEDS: CHOLECALCIFEROL 1,000 UNITS TABLET 1000 UNITS PO (08:51)
[2023-11-27] MEDS: PANTOPRAZOLE 40 MG TABLET PO (08:51)
[2023-11-27] MEDS: CYANOCOBALAMIN 1,000 MCG TABLET 1000 MCG PO (08:52)
[2023-11-27] MEDS: GABAPENTIN 300 MG CAPSULE 600 MG PO ×2 (08:52→12:21)
[2023-11-27] MEDS: ROSUVASTATIN 10 MG TABLET PO (08:52)
[2023-11-27] MEDS: MAGNESIUM 13.5 MG TABLET (250 MG MAG GLUCONATE) BY MOUTH (08:52)
[2023-11-27] MEDS: MELOXICAM 7.5 MG TABLET 15 MG PO (12:21)
--- NOTE | 2023-11-27 12:24 | PM.DS ---
DS: Admitting Diagnosis Discharge Date 11/27/2023 Admitting Diagnosis Nausea vomiting diarrhea DS: Discharge Diagnosis Discharge Diagnosis (1) Intractable nausea and vomiting: Code(s): R11.2 - Nausea with vomiting, unspecified Status: Acute (2) Generalized weakness: Code(s): R53.1 - Weakness Status: Acute (3) COPD (chronic obstructive pulmonary disease): Qualifiers: COPD type: unspecified COPD Qualified Code(s): J44.9 - Chronic obstructive pulmonary disease, unspecified Code(s): J44.9 - Chronic obstructive pulmonary disease, unspecified Status: Acute (4) Restless leg syndrome: Code(s): G25.81 - Restless legs syndrome Status: Acute (5) Spinal stenosis: Code(s): M48.00 - Spinal stenosis, site unspecified Status: Acute DS: Summary Hospital Course Hospital Course: 82-year-old female presented with nausea vomiting diarrhea for 2 days generalized weakness and decreased appetite.? Not able to keep anything down.? ED evaluation revealed mild tachycardia afebrile laboratory evaluation with normal cbc and CMP urinalysis showed 2+ ketones but otherwise negative.? Clinically dehydrated.? CT abdomen pelvis showed mild esophagitis and gastritis but no acute findings.? Admitted for observation.? Feeling better.? Denies any abdominal pain.? Had on PPI. Started on iV fluid and slowly started on clear liquid diet and advanced as tolerated.? Zofran for supportive treatment.? Tolerating diet.? Replace electrolytes will stop IV fluid today PT OT to see and ambulated well without any much assistance. She will be going back home. Her diarrhea has resolved stool studies came back negative so far Time Spent with Patient Time attestation: Total time spent providing and/or coordinating discharge services: 30 minutes Exam Narrative: GENERAL: Well-appearing, well-nourished, and in no acute distress. HEAD: Normocephalic, atraumatic. EYES: PERRLA and EOMI. ENT: Nares clear, no rhinorrhea or epistaxis.? Mucous membranes moist. NECK: Supple.? No adenopathy or masses.? CHEST: No respiratory distress. Clear to auscultation. No wheezes rales or rhonchi HEART: Regular rate and rhythm.? No murmur heard.? Normal peripheral pulses. ABDOMEN: Soft, nontender, nondistended, normal active bowel sounds. MSK: Normal range of motion.? No edema. SKIN: Warm, dry, no rash. NEURO: Alert and oriented x3. No focal deficits.? PSYCH: Normal mood and affect. DS: Data Data Completed and Pending Labs on day of discharge: Labs from last 24 hours 11/27/23 06:04 WBC 4.7 RBC 3.89 L Hgb 11.7 L Hct 37.8 MCV 97.2 MCH 30.1 MCHC 31.0 L RDW 13.3 Plt Count 170 MPV 9.1 Immature Gran % (Auto) 0.2 Neut % (Auto) 43.5 L Lymph % (Auto) 42.1 [place] % (Auto) 11.5 H Eos % (Auto) 2.1 Baso % (Auto) 0.6 Lymph # (Auto) 1.97 [place] # (Auto) 0.5 Eos # (Auto) 0.1 Baso # (Auto) 0.0 Abs Immat Gran (auto) 0.01 Absolute Neuts (auto) 2.0 Absolute Nucleated RBC 0.0 Nucleated RBC % 0.0 Sodium 137 Potassium 4.0 Chloride 106 Carbon Dioxide 26 Anion Gap 5 L BUN 9 Creatinine 0.80 Estim Creat Clear Calc Not Reportable Estimated GFR > 60 Glucose 94 Calcium 8.8 Magnesium 2.0 Total Bilirubin 0.5 AST 21 ALT 15 Alkaline Phosphatase 47 Total Protein 6.0 L Albumin 3.3 L Imaging Radiologist's impression: ITS Impressions Abdomen/Pelvis CT 11/24/23 22:44 IMPRESSION: Mild esophagitis/gastritis. Otherwise, no acute abdominopelvic process detected Discharge Plan Discharge Attending physician on discharge: Wyatt Lindquist Discharging Clinician: Wyatt Lindquist Anticipated Discharge Date/Time: 11/27/23 12:22 Patient Disposition: Home, Self-Care Activity: as tolerated Diet: as tolerated and regular Patient Instructions: Antibiotic Form Stand Alone Forms: General Discharge Information Follow-up/Referrals: Angel Mora
[2023-11-27 14:00] VITALS: BP 132/44; PULSE 71; RESP 18; TEMP 36.7; O2SAT 95
== END 2023-11-27 15:30 | disposition home or self-care (01) ==
LOC: ANHED 11-25 02:21 → ANH3MEDSUR 11-25 03:39
PROVIDERS: Emergency Medicine; Admitting Provider Internal Medicine; Emergency Provider Physician Assistant; PCP Family Medicine; Visit Provider Internal Medicine
DX: R11.2 Nausea with vomiting, unspecified (principal); E86.0 Dehydration; R53.1 Weakness; J44.9 Chronic obstructive pulmonary disease, unspecified; G25.81 Restless legs syndrome; M48.00 Spinal stenosis, site unspecified; K58.0 Irritable bowel syndrome with diarrhea; R00.0 Tachycardia, unspecified; K20.90 Esophagitis, unspecified without bleeding; K29.70 Gastritis, unspecified, without bleeding; E78.5 Hyperlipidemia, unspecified; F03.90 Unspecified dementia, unspecified severity, without behavioral disturbance, psychotic disturbance, mood disturbance, and anxiety; K21.9 Gastro-esophageal reflux disease without esophagitis; M81.0 Age-related osteoporosis without current pathological fracture; Z20.822 Contact with and (suspected) exposure to COVID-19; Z68.26 Body mass index [BMI] 26.0-26.9, adult; G47.30 Sleep apnea, unspecified; E55.9 Vitamin D deficiency, unspecified; Z66 Do not resuscitate; Z90.49 Acquired absence of other specified parts of digestive tract; Z99.89 Dependence on other enabling machines and devices; Z79.51 Long term (current) use of inhaled steroids; Z79.899 Other long term (current) drug therapy
CPT/HCPCS: 36415; 74177; 80053; 81001; 83690; 83735; 85025; 87045; 87427; 87449; 87493; 87637; 96361; 96365; 96374; 96376; 97161; 97165; 99285; A9270; G0378; J2405; J3475; J7030; Q9967

== ENCOUNTER 2024-07-25 07:01 | Outpatient (CLI) | payer MEDICARE, SELFPAY ==
--- NOTE | ~2024-07-25 | MR_ITS ---
EXAMINATION: MR lumbar spine wo con DATE: 07/25/2024 08:10 INDICATION: Sciatica with low back pain and numbness extending down the right leg TECHNIQUE: Magnetic resonance imaging (MRI) of the lumbar spine was performed without intravenous con trast. Sequences included sagittal T2-weighted FSE, sagittal T2-weighted FS FSE, sagittal T1-weighted FSE, and axial T2-weighted FSE. COMPARISON: None FINDINGS: 55 degree levoscoliosis measured between T11 and L3 and 35 degree dextroscoliosis between L3 and S1. There is also significant rotational component to the scoliosis with 40 degree rotation towards the l eft between L1 and S1. 3 to 4 mm retrolisthesis L5 on S1. Approximately 5 mm left lateral listhesis o f L2 on L3 and L3 on L4. Vertebral body heights are normal. Normal marrow signal. Severe disc height loss on the concave right side of the levocurvature at T12-L1 through L2-L3 and along the concave le ft side of the dextrocurvature at L3-L4 L4-L5 and more diffusely at L5-S1. The conus medullaris termi nates at L1. The conus and nerve roots of the cauda equina transverse along the right side of the the omaira sac in the region of the upper lumbar levoscoliosis and along the left side of the thecal sac at the lower lumbar dextroscoliosis. There is normal signal in the caudal spinal cord. Paravertebral sof t tissues are unremarkable. The following disc levels are specifically discussed: T12-L1: Minimal right paracentral disc protrusion. There is moderate left-sided and severe right-side d facet joint osteoarthritis. There is moderate right and no left neural foraminal stenosis. There is mild central canal stenosis. L1-L2: The disc is minimally bulging. There is moderate bilateral facet joint osteoarthritis. There i s moderate right and no left neural foraminal stenosis. There is mild central canal stenosis. L2-L3: The disc is minimally bulging. There is severe bilateral facet joint osteoarthritis. There is moderate right and no left neural foraminal stenosis. There is mild central canal stenosis. L3-L4: Annular fissure with disc bulge and small endplate osteophytes. There is severe bilateral face t joint osteoarthritis. There is moderate bilateral neural foraminal stenosis. There is moderate cent ral canal stenosis. L4-L5: Disc is mildly bulging. There is moderate right and severe left facet joint osteoarthritis. Th ere is moderate right and moderate to severe left neural foraminal stenosis. There is mild central ca nal stenosis. L5-S1: Annular fissure and disc bulge. There is minimal bilateral facet joint osteoarthritis. There i s mild right and mild to moderate left neural foraminal stenosis. There is mild central canal stenosi s. IMPRESSION: 1. Thoracolumbar levorotoscoliosis with compensatory lumbar dextroscoliosis. 2. Severe lumbar spondylosis Reviewed, dictated and finalized at location B.
--- NOTE | ~2024-07-25 | MR_ITS ---
MRI of the brain Clinical History: Trauma Technique: Axial and sagittal T1-weighted images were acquired. These were followed by axial T2-weigh marlon, diffusion weighted, gradient, and FLAIR images. Findings: There is no acute infarct, intracranial hemorrhage or mass lesion. There is mild to moderat e chronic microvascular ischemic change in the periventricular white matter. Ventricles and subarachnoid spaces are mildly dilated. Orbits are unremarkable. Paranasal sinuses and mastoid air cells are clear. Major intracranial flow voids are intact. Sagittal midline structures are intact. IMPRESSION: No acute abnormality. Mild to moderate chronic microvascular ischemic change and mild generalized atrophy. Reviewed, dictated and finalized at location . IMPRESSION: No acute abnormality. Mild to moderate chronic microvascular ischemic change and mild generalized atr ophy.
== END 2024-07-25 07:02 | disposition home or self-care (01) ==
LOC: MICIMG 07:02
PROVIDERS: PCP Family Medicine; Visit Provider Psychiatry & Neurology Neurology
DX: G25.2 Other specified forms of tremor (principal); M54.30 Sciatica, unspecified side; M47.896 Other spondylosis, lumbar region
CPT/HCPCS: 70551; 72148

== ENCOUNTER 2024-10-27 07:54 | Emergency (ER) | payer MEDICARE, SELFPAY ==
--- NOTE | ~2024-10-27 | CT_ITS ---
Noncontrast CT scan of the thoracolumbar spine CLINICAL HISTORY: Pain TECHNIQUE: Axial noncontrast imaging of the thoracolumbar spine was performed. Sagittal and coronal r eformatted images were constructed. Dose reduction technique was used on this scan by utilizing autom ated exposure control and iterative reconstruction technique. The dose-length product (DLP) was 744.1 5 mGy-cm. FINDINGS: There is marked levoscoliosis of the thoracolumbar spine. No acute fracture or anteroposter ior subluxation evident. There are scattered areas of moderate degenerative disc narrowing of the tho racic spine. There are prominent facet joint degenerative changes at the lower thoracic spine. No significant disc bulge or herniation clearly evident in the thoracic spine. No thoracic canal sten osis or cord compression evident. There is advanced left neural foraminal narrowing at T10-T11. There is advanced right neural foraminal narrowing at T9-T10. There is probable multilevel mild to moderat e neural foraminal narrowing from T7 through T10 otherwise. At L1-L2, there is advanced degenerative disc narrowing. There is advanced facet arthropathy, without significant disc bulge evident. No spinal canal stenosis. There is probable mild right neural forami nal narrowing. Left neural foramen preserved. At L2-L3, there is advanced degenerative disc narrowing. No definite disc bulge or herniation. There is advanced centrally. No definite canal stenosis or neural foraminal narrowing. At L3-L4, there is advanced degenerative disc narrowing. There is disc osteophyte complex at the left paracentral to left foraminal region. No nilson central canal stenosis. There is probable severe righ t neural foraminal narrowing. Probable moderate to advanced left neural foraminal narrowing. At L4-L5, there is mild disc bulge with advanced facet arthropathy. No nilson central canal stenosis. There is severe left neural foraminal narrowing, and moderate right neural foraminal narrowing. At L5-S1, there is moderate to advanced degenerative disc narrowing. There is advanced facet arthropa thy, especially the left side. No nilson central canal stenosis. There is moderate bilateral neural fo raminal narrowing. Paravertebral soft tissues are unremarkable. Impression: No acute abnormality clearly evident. Prominent levoscoliosis with overall moderate degenerative spondylitic changes, as detailed above. Reviewed, dictated and finalized at location [employer] Impression: No acute abnormality clearly evident. Prominent levoscoliosis with overall moderate degenerative spondylitic changes, as detailed above.
[2024-10-27 07:07] VITALS: BP 132/58; PULSE 73; RESP 20; TEMP 36.6; O2SAT 99
--- NOTE | 2024-10-27 07:55 | PC.NURSE ---
Dr. Louis informed of low output with straight cath. Pt oral mucosa dry
--- NOTE | 2024-10-27 07:59 | ED.GENADULT ---
HPI - General Adult General Chief complaint: Back Pain/Injury Stated complaint: chronic back pain History of Present Illness HPI narrative: patient 84-year-old female presents emergency department with chief complaint back pain. Patient reports she has prior history of chronic back pain and has history of scoliosis and has also had sciatica patient reports that for the last several days her back has been more uncomfortable reports that she did take Tylenol this morning without improvement the patient reports that she has been on Lidoderm patches but has not used today patient reports that the pain is worse with movement denies bowel or bladder continence the patient reports no new trauma. Related Data Home Medications ?Medication ?Instructions ?Recorded ?Confirmed ?Last Taken ?Type cholecalciferol (vitamin D3) 50 50 mcg PO DAILY 08/07/20 10/09/24 11/22/23 08:00 History mcg (2,000 unit) capsule multivitamin 1 cap PO DAILY 08/07/20 10/09/24 11/22/23 08:00 History levalbuterol tartrate 45 2 inh inhalation Q6H PRN Asthma 09/29/23 10/09/24 11/22/23 08:00 History mcg/actuation aerosol inhaler magnesium 250 mg tablet 250 mg PO DAILY 09/29/23 10/09/24 11/22/23 08:00 History cyanocobalamin (vitamin B-12) 1,000 mcg PO DAILY PRN 04/04/24 10/09/24 Unknown History 1,000 mcg tablet (Vitamin B-12) acetaminophen 500 mg tablet 1,000 mg PO QID 10/09/24 10/09/24 Unknown History Allergies Allergy/AdvReac Type Severity Reaction Status Date / Time codeine Allergy Severe Passes out Verified 10/09/24 07:18 oxycodone Allergy Severe pass out Verified 10/09/24 07:18 pain medications AdvReac Severe syncope Uncoded 10/09/24 07:18 Review of Systems Review of Systems: A 10 system review of systems was completed on the patient and is negative except for what is stated in the HPI. Nursing and ancillary documentation was reviewed. [facility] Past Medical History Medical History Kyphoscoliosis Benign essential tremor Vitamin D deficiency Scoliosis due to degenerative disease of spine in adult patient COPD (chronic obstructive pulmonary disease) Vision changes COVID-19 vaccine series completed Neuropathy Dyslipidemia Osteoporosis Sleep apnea Emphysema of lung Memory loss Frozen shoulder Left shoulder Sciatica associated with disorder of lumbar spine GERD (gastroesophageal reflux disease) Arthritis IBS (irritable bowel syndrome) Asthma Surgical History Surgical History Status post cataract extraction of both eyes with insertion of intraocular lens History of partial hysterectomy History of bowel resection History of cholecystectomy History of right hip replacement Family History Family History Mother Pneumonia Father Asbestosis Grandparent Pneumonia Grandparent Heart attack Grandparent Cerebrovascular accident Sibling Malignant neoplasm Other Arthritis Social History Social History Social History: She lives in [place] with her of 60 years. She has a Rollator at home but only uses it when she goes to the store. She has 2 children who are healthy. She is a lifelong nonsmoker and does not drink alcohol. 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 Primary care physician: Dr. Cruz Code status: DNR/DNI Surrogate decision maker: Miah (son) Smoking status: Never smoker Second hand tobacco smoke exposure: No Alcohol intake: never Substance use: never Substance use type: does not use Do You Feel Safe in your Home?: Yes Lack of Transportation: No Lack of Food: Never True Current Housing: I Have Housing Concerned About Future Housing: No Difficulty Paying Gas/Electric Bills: No Difficulty Paying for Meds: No Currently Unemployed: No Education: Master's Degree or Higher Difficulty w/ Childcare or Family Care: No Living arrangements: with family Occupation/Education: retired Gender identity (if verbalized by the patient): Female Sexual Orientation (if Verbalized by the Patient): Straight or Heterosexual Spiritual care concerns: No Agree to blood products: Yes Exam Narrative: GENERAL: Well-appearing, well-nourished, and in no acute distress. HEAD: Normocephalic, atraumatic. EYES: PERRLA and EOMI. ENT: Nares clear, no rhinorrhea or epistaxis. Mucous membranes moist. NECK: Supple. CHEST: Clear to auscultation. No respiratory distress. HEART: Regular rate and rhythm. No murmur heard. Normal peripheral pulses. ABDOMEN: Soft, nontender, nondistended, normal active bowel sounds. EXTREMITIES: Normal range of motion. No edema. SKIN: Warm, dry, no rash. NEURO: No focal deficits. Alert and oriented x3. PSYCH: Normal mood and affect. Course Vital Signs Vital signs: Vital Signs Temperature 36.6 C 10/27/24 07:07 Pulse Rate 73 10/27/24 07:07 Respiratory Rate 20 10/27/24 07:07 Blood Pressure 132/58 L 10/27/24 07:07 Pulse Oximetry 99 10/27/24 07:07 Oxygen Delivery Room Air 10/27/24 07:07 Temperature 36.8 C 10/27/24 09:30 Pulse Rate 78 10/27/24 09:30 Respiratory Rate 18 10/27/24 09:30 Blood Pressure 128/86 10/27/24 09:30 Pulse Oximetry 98 10/27/24 09:30 Oxygen Delivery Room Air 10/27/24 07:07 Medical Decision Making MDM Narrative Medical decision making narrative: differential diagnosis includes thoracic or lumbar spine fracture, sciatica, low back pain CT scan of thoracic and lumbar spine showed There is marked levoscoliosis of the thoracolumbar spine. No acute fracture or anteroposterior subluxation evident. There are scattered areas of moderate degenerative disc narrowing of the thoracic spine. There are prominent facet joint degenerative changes at the lower thoracic spine. No significant disc bulge or herniation clearly evident in the thoracic spine. No thoracic canal stenosis or cord compression evident. There is advanced left neural foraminal narrowing at T10-T11. There is advanced right neural foraminal narrowing at T9-T10. There is probable multilevel mild to moderate neural foraminal narrowing from T7 through T10 otherwise. At L1-L2, there is advanced degenerative disc narrowing. There is advanced facet arthropathy, without significant disc bulge evident. No spinal canal stenosis. There is probable mild right neural foraminal narrowing. Left neural foramen preserved. At L2-L3, there is advanced degenerative disc narrowing. No definite disc bulge or herniation. There is advanced centrally. No definite canal stenosis or neural foraminal narrowing. At L3-L4, there is advanced degenerative disc narrowing. There is disc osteophyte complex at the left paracentral to left foraminal region. No nilson central canal stenosis. There is probable severe right neural foraminal narrowing. Probable moderate to advanced left neural foraminal narrowing. At L4-L5, there is mild disc bulge with advanced facet arthropathy. No nilson central canal stenosis. There is severe left neural foraminal narrowing, and moderate right neural foraminal narrowing. At L5-S1, there is moderate to advanced degenerative disc narrowing. There is advanced facet arthropathy, especially the left side. No nilson central canal stenosis. There is moderate bilateral neural foraminal narrowing. Paravertebral soft tissues are unremarkable. patient received steroids in the emergency department and also was given Lidoderm patch. The patient reports she is feeling much better at this time the patient was started on a steroid pulse and will be given a prescription for Lidoderm patches Vital Signs Vital Signs: Vital Signs Temperature 36.6 C 10/27/24 07:07 Pulse Rate 73 10/27/24 07:07 Respiratory Rate 20 10/27/24 07:07 Blood Pressure 132/58 L 10/27/24 07:07 Pulse Oximetry 99 10/27/24 07:07 Oxygen Delivery Room Air 10/27/24 07:07 Temperature 36.8 C 10/27/24 09:30 Pulse Rate 78 10/27/24 09:30 Respiratory Rate 18 10/27/24 09:30 Blood Pressure 128/86 10/27/24 09:30 Pulse Oximetry 98 10/27/24 09:30 Oxygen Delivery Room Air 10/27/24 07:07 Lab Data 10/27/24 08:00 10/27/24 08:00 Labs: Lab Results 10/27/24 Range/Units 08:00 WBC 6.7 (4.5-10.0) K/mm3 RBC 4.84 (4.2-5.4) M/mm3 Hgb 14.7 D (12.0-15.0) g/dL Hct 44.2 (37.0-47.0) % MCV 91.3 (80-100) fl MCH 30.4 (26-34) pg MCHC 33.3 (32-36) g/dl RDW 13.2 (11.5-14.5) % Plt Count 205 (150-375) k/mm3 MPV 8.6 (7.4-10.4) fl Immature Gran % (Auto) 0.1 (0-0.5) % Neut % (Auto) 53.5 (45.5-73.1) % Lymph % (Auto) 33.8 (18.3-44.2) % [place] % (Auto) 11.6 H (2.6-8.5) % Eos % (Auto) 0.6 (0-4.4) % Baso % (Auto) 0.4 (0.2-1.2) % Lymph # (Auto) 2.27 (0.9-3.2) K/mm3 [place] # (Auto) 0.8 H (0.1-0.6) K/mm3 Eos # (Auto) 0.0 (0-0.3) K/mm3 Baso # (Auto) 0.0 (0.0-0.1) K/mm3 Abs Immat Gran (auto) 0.01 (0.00-0.031) K/mm3 Absolute Neuts (auto) 3.6 (1.3-6.7) K/mm3 Absolute Nucleated RBC 0.000 (0.0-0.012) K/mm3 Nucleated RBC % 0.0 (0.0-0.2) % Sodium 139 (137-145) mmol/L Potassium 3.3 L (3.4-5.0) mmol/L Chloride 106 (98-107) mmol/L Carbon Dioxide 24 (22-30) mmol/L Anion Gap 9 (4-12) mmol/L BUN 21 H D (7-17) mg/dL Creatinine 0.80 (0.7-1.0) mg/dL Estim Creat Clear Calc 47 ml/min Estimated GFR > 60 (59 - ) Glucose 123 H (65-110) mg/dL Calcium 9.7 (8.4-10.2) mg/dL Total Bilirubin 1.1 (0.2-1.3) mg/dL AST 25 (14-36) U/L ALT 17 (6-35) U/L Alkaline Phosphatase 58 (38-126) U/L Total Protein 7.0 (6.3-8.2) g/dL Albumin 4.1 (3.5-5.1) g/dL Urine Color Dark yellow (Yellow) Urine Appearance Clear (Clear) Urine pH 5.5 (5.0-9.0) Ur Specific [place] 1.027 (1.001-1.035) Urine Protein Trace (Negative) mg/dL Urine Glucose (UA) Negative (Negative) mg/dL Urine Ketones 2+ H (Negative) mg/dL Ur Blood (Man) Negative (Negative) Urine Nitrate Negative (Negative) Urine Bilirubin Negative (Negative) Urine Urobilinogen 1.0 (<2.0) mg/dL Add Ur Microanalysis Reviewed Leukocyte Esterase Rfl Negative (Negative) PATY/UL Urine RBC 0-2 (0-2) /hpf Urine WBC 0-5 (0-3) /hpf Ur Squamous Epith Cells None seen (Few) /hpf Urine Bacteria None seen /hpf Urine Casts 3-5 Discharge Plan Discharge Clinical Impression: Back pain Patient Disposition: Home, Self-Care Condition: Stable Instructions: Antibiotic Form, Back Pain (ED) Patient Language: Citizen Of [place] Prescriptions: New lidocaine [Lidoderm] 5 % adhesive patch,medicated 1 patch topical DAILY PRN (Reason: back pain) Qty: 15 0RF Rx Instructions: leave on most painful area for up to 12 hrs prednisone 20 mg tablet 40 mg PO DAILY 5 Days Qty: 10 0RF No Action ondansetron 4 mg tablet,disintegrating 4 mg PO Q8H PRN (Reason: nausea and vomiting) Qty: 30 1RF omeprazole 40 mg capsule,delayed release(DR/EC) 40 mg PO DAILY Qty: 90 0RF cholecalciferol (vitamin D3) 50 mcg (2,000 unit) capsule 50 mcg PO DAILY multivitamin Capsule 1 cap PO DAILY primidone [Mysoline] 50 mg tablet 50 mg PO QHS Qty: 90 6RF Rx Instructions: start with half tablet daily at bedtime and increase at a rate of half tablet every week until 3 tablets at bedtime. prednisone 10 mg tablet 10 mg PO DIRECTED Qty: 21 0RF Rx Instructions: 4 tabs po QD x 3 days 2 tabs PO QD x 3 days 1 tab PO QD x 3 days lidocaine [Lidoderm] 5 % adhesive patch,medicated 1 patch transdermal DAILY Qty: 10 0RF cyanocobalamin (vitamin B-12) [Vitamin B-12] 1,000 mcg tablet 1,000 mcg PO DAILY PRN magnesium 250 mg Tablet 250 mg PO DAILY levalbuterol tartrate 45 mcg/actuation Hfa Aerosol Inhaler 2 inh INHALATION Q6H PRN (Reason: Asthma) acetaminophen 500 mg tablet 1,000 mg PO QID Rx Instructions: takes with gabapentin montelukast 10 mg tablet 10 mg PO DAILY Qty: 90 1RF Rx Instructions: Take 1 tablet by mouth once daily meloxicam 15 mg tablet 15 mg PO DAILY Qty: 90 1RF Rx Instructions: Take 1 tablet by mouth once daily rosuvastatin 10 mg tablet 10 mg PO DAILY Qty: 90 1RF gabapentin 600 mg tablet See Rx Instructions .ROUTE .COMPLEX Qty: 360 0RF Dose Instruction: Take 1 tablet by mouth 4 times daily Rx Instructions: Take 1 tablet by mouth 4 times daily Follow-up/Referrals: Angel Mora MD [Primary Care Provider] - Time of Disposition: 10:58
[2024-10-27 08:06] LABS: Basophils Percent Auto 0.4 % (0.2-1.2); Eosinophils Percent Auto 0.6 % (0-4.4); Hematocrit 44.2 % (37.0-47.0); Hemoglobin 14.7 g/dL (12.0-15.0); Immature Granulocyte Absolute 0.01 K/mm3 (0.00-0.031); Immature Granulocyte Percent A 0.1 % (0-0.5); Lymphocytes Absolute Auto 2.27 K/mm3 (0.9-3.2); Lymphocytes Percent Auto 33.8 % (18.3-44.2); Mean Corpuscular HGB Conc 33.3 g/dl (32-36); Mean Corpuscular Hemoglobin 30.4 pg (26-34); Mean Corpuscular Volume 91.3 fl (80-100); Mean Platelet Volume 8.6 fl (7.4-10.4); Monocytes Absolute Auto 0.8 K/mm3 (0.1-0.6); Monocytes Percent Auto 11.6 % (2.6-8.5); Neutrophils Absolute Auto 3.6 K/mm3 (1.3-6.7); Neutrophils Percent Auto 53.5 % (45.5-73.1); Platelet Count Result 205 k/mm3 (150-375); Red Blood Count 4.84 M/mm3 (4.2-5.4); Red Cell Distribution Width 13.2 % (11.5-14.5); White Blood Count 6.7 K/mm3 (4.5-10.0)
[2024-10-27 08:18] LABS: Alanine Aminotransferase 17 U/L (6-35); Albumin Level 4.1 g/dL (3.5-5.1); Alkaline Phosphatase 58 U/L (38-126); Anion Gap 9 mmol/L (4-12); Aspartate Amino Transferase 25 U/L (14-36); Bilirubin,Total 1.1 mg/dL (0.2-1.3); Blood Urea Nitrogen 21 mg/dL (7-17); Calcium 9.7 mg/dL (8.4-10.2); Carbon Dioxide 24 mmol/L (22-30); Chloride 106 mmol/L (98-107); Estimated CRCL calculation 47 ml/min; Estimated Glomerular Filt Rate > 60; Glucose 123 mg/dL (65-110); Potassium 3.3 mmol/L (3.4-5.0); Sodium 139 mmol/L (137-145)
[2024-10-27 08:24] LABS: Add Urine Microscopic? YES; Appearance Urine Clear (Clear); Bacteria Urine None Seen /hpf; Bilirubin Urine Negative (Negative); Blood Urine Negative (Negative); Color Urine Dark Yellow (Yellow); Glucose Urine UA Negative (Negative); Ketones Urine 2+ mg/dL (Negative); Leukocyte Esterase Ur Negative LEU/UL (Negative); Need Manual Microscopic Reviewed; Nitrate Urine Negative (Negative); Protein Urine Trace mg/dL (Negative); RBC Urine 0-2 /hpf (0-2); Specific Grav Ur 1.027 (1.001-1.035); Squamous Epithelial Cell Urine None Seen /hpf (Few); WBC Urine 0-5 /hpf (0-3); pH Urine 5.5 (5.0-9.0)
[2024-10-27] MEDS: SODIUM CHLORIDE 0.9% IV 1,000 ML 999 ML IV CONT (08:33)
[2024-10-27] MEDS: dexAMETHasone SOD PHOS INJ 10 MG/ML 1 ML VIAL IV PUSH (08:34)
[2024-10-27] MEDS: KETOROLAC 15 MG/ML VIAL (*BKC) IV PUSH (08:34)
[2024-10-27 08:39] VITALS: BP 140/70; PULSE 71; RESP 20; O2SAT 98
[2024-10-27] MEDS: LIDOCAINE 5% PATCH 1 PATCH TRANSDERM (09:10)
[2024-10-27] MEDS: POTASSIUM CHLORIDE 20 MEQ PACKET (FOR LIQUID) 40 MEQ PO (09:25)
[2024-10-27 09:30] VITALS: BP 128/86; PULSE 78; RESP 18; TEMP 36.8; O2SAT 98
[2024-10-27 11:00] VITALS: BP 133/73; PULSE 978; RESP 16; TEMP 36.8; O2SAT 96
[2024-10-27 12:04] VITALS: BP 140/86; PULSE 87; RESP 16; O2SAT 98
--- OUTSIDE RECORDS SUMMARY | 2024-10-31 16:50 | XMS_ITS | Clinical Summary ---
Author Organization [employer] [address] [facility] Address [address] [place] [address] Care Team Providers Care Budget Assistant Name Role Phone Ignacio Bell MD Primary Care Provider [phone] Allergies Active Allergy Reactions Criticality Noted Date Comments Codeine Syncope Medium 02/02/2021 Medications Medication Sig Dispensed Refills Start Date End Date Status aspirin (ELVIRA CHEWABLE) 81 mg Tablet, Chewable Take 81 mg by mouth daily. Active cetirizine (ZyrTEC) 10 mg tablet Take 10 mg by mouth daily. Active cholecalciferol, Vitamin D3, 50 mcg (2,000 unit) Tablet Take by mouth. A ctive gabapentin (NEURONTIN) 300 mg capsule Take 300 mg by mouth 3 times daily. Active LEVALBUTEROL TARTRATE INHALATION Take by inhalation. Active magnesium oxide 250 mg magnesium Tablet Take by mouth. A ctive meloxicam (MOBIC) 15 mg tablet Take 15 mg by mouth daily. Active montelukast (SINGULAIR) 10 mg tablet Take 10 mg by mouth daily at bedtime. Active multivitamin (DAILY-ANDRES) tablet Take 1 Tablet by mouth daily. Active omeprazole (PriLOSEC) 20 mg Capsule, Delayed Release(E.C.) Take 20 mg by mouth daily. Active rosuvastatin (CRESTOR) 10 mg tablet Take 10 mg by mouth daily. Active tiotropium (Spiriva Respimat) 1.25 mcg/actuation Mist Take by inhalation daily. Active cyanocobalamin 1,000 mcg Tablet Take 1,000 mcg by mouth daily. Active Active Problems Problem Noted Date Diagnosed Date Other secondary scoliosis, thoracolumbar region 02/03/2021 Osteoarthritis of right sacroiliac joint 021 Social History Tobacco Use Types Packs/Day Years Used Date Smoking Tobacco: Never Smokeless Tobacco: Never Alcohol Use Standard Drinks/Week Comments Never 0 (1 standard drink = 0.6 oz pur e alcohol) Sex and Gender Information Value Date Recorded Sex Assigned at Not on file Gender Identity Not on file Sexual Orientation Not on file Plan of Treatment Health Maintenance Due Date Last Done Comments ZOSTER VACCINE (1 of 2) 1990 OSTEOPOROSIS SCREENING 2005 DTAP/TDAP/TD VACCINES (1 - Tdap) 10/12/2011 10/11/20 11 RSV VACCINE (60+ or ) (1 - 1-dose 75+ series) 2015 INFLUENZA VACCINE (#1) 2024 0, 09/04/2019, 07/17/2018, Additional history exists PNEUMOCOCCAL VACCINE 65+ YEARS Completed 12/03/2014 , 09/21/2006 Care Teams Budget Assistant Relationship Specialty Start Date End Date Ignacio Bell MD [address] [place] [address] PCP - General Internal Medicine 12/31/20
--- OUTSIDE RECORDS SUMMARY | 2024-10-31 16:50 | XMS_ITS | Encounter Summary ---
Author Organization [facility] Address [address] [place] [address] Care Team Providers Care Radar Mechanic Name Role Phone Unavailable Primary Care Provider Unavailabl e Encounter Details Date Type Department Care Team (Late st Contact Info) Description 12/16/2020 Abstract [facility] Neurosurgery - [address] [place] [address] Provider, Abstract NO ADDRESS ON FILE Social History Tobacco Use Types Packs/Day Years Used Date Smoking Tobacco: Never Assessed Sex and Gender Information Value Date Recorded Sex Assigned at Not on file Gender Identity Not on file Sexual Orientation Not on file documented as of this encounter Plan of Treatment Not on file documented as of this encounter Visit Diagnoses Not on filedocumented in this encounter
--- OUTSIDE RECORDS SUMMARY | 2024-10-31 16:50 | XMS_ITS | Encounter Summary ---
Author Organization [facility] Address [address] [place] [address] Care Team Providers Care System Specialist Name Role Phone Unavailable Primary Care Provider Unavailabl e Reason for Visit * MRI (Routine) - Closed Specialty Diagnoses / Procedures Referred By Aly carlson Referred To Contact Diagnoses DDD (degenerative disc disease), lumbar Procedures MRI PRIOR STUDY [facility], External Provider [address] [place] [address] Referral ID Status Reason Start Date Expiration Date Visits Re quested Visits Authorized [id number] Closed 01/08/2021 02/08/2022 1 1 Encounter Details Date Type Department Care Team (Latest Contact Info) Description 05/13/2020 - 05/13/2020 11:59 PM CDT Hospital Encounter [facility] [address] [place] [address] [facility], External Provider [address] [place] [address] Discharge Disposition: Home or Self Care Social History Tobacco Use Types Packs/Day Years Used Date Smoking Tobacco: Never Assessed Sex and Gender Information Value Date Recorded Sex Assigned at Not on file Gender Identity Not on file Sexual Orientation Not on file documented as of this encounter Plan of Treatment Not on file documented as of this encounter Procedures Procedure Name Priority Date/Time Associated Diagnosis Comments MRI PRIOR STUDY Routine 05/13/2020 12:00 AM CDT DDD (degenerative disc disease), lumbar documented in this encounter Results * MRI PRIOR STUDY (05/13/2020 12:00 AM CDT) Narrative 01/08/2021 9:16 AM FAUCETS ASSEMBLER This exam was auto finalized to allow images to be scanned to PACS. External Provider [facility] MR ORDERABLES documented in this encounter Visit Diagnoses Diagnosis DDD (degenerative disc disease), lumbar Degeneration of lumbar or lumbosacral intervertebral disc documented in this encounter
--- OUTSIDE RECORDS SUMMARY | 2024-10-31 16:50 | XMS_ITS | Encounter Summary ---
Author Organization [facility] Address [address] [place] [address] Care Team Providers Care Entry Level Name Role Phone Ignacio Bell MD Primary Care Provider [phone] Reason for Referral * Eval and Treat (Routine) - Closed Specialty Diagnoses / Procedures Referred By Contac t Referred To Contact Pain Management Diagnoses Other secondary scoliosis, thoracolumbar region Osteoarthritis [place] [address] [place] [address] [facility] Pain [facility] Physical Therapy [address] [place] [address] [place] [address] Referral ID Status Reason Start Date Expiration Date Visits Re quested Visits Authorized [id number] Closed 02/04/2021 02/04/2022 12 12 Encounter Details Date Type Department Care Team (Late st Contact Info) Description 02/04/2021 Orders Only [facility] Neurosurgery - [id number] [place] [address] [address] [place] [address] [place] [address] [place] [address] Other secondary scoliosis, thoracolumbar region (Primary Dx); Osteoarthritis of right sacroiliac joint Social History Tobacco Use Types Packs/Day Years Used Date Smoking Tobacco: Never Smokeless Tobacco: Never Alcohol Use Standard Drinks/Week Comments Never 0 (1 standard drink = 0.6 oz pur e alcohol) Sex and Gender Information Value Date Recorded Sex Assigned at Not on file Gender Identity Not on file Sexual Orientation Not on file COVID-19 Exposure Response Date Recorded In the last month, have you been in contact with someone who was confirmed or suspected to have Coronavirus / COVID-19? No / Unsure 02/02/2021 1:58 PM CDT documented as of this encounter Plan of Treatment Scheduled Referrals Name Type Priority Associated Diagnoses Orde r Schedule AMB REFERRAL TO PAIN CLINIC Outpatient Referral Routine Other secondary scoliosis, thoracolumbar region Osteoarthritis of right sacroiliac joint Ordered: 02/04/2021 documented as of this encounter Visit Diagnoses Diagnosis Other secondary scoliosis, thoracolumbar region- Primary Osteoarthritis of right sacroiliac joint documented in this encounter Care Teams Entry Level Relationship Specialty Start Date End Date Ignacio Bell MD [address] [place] [address] PCP - General Internal Medicine 12/31/20 documented as of this encounter
--- OUTSIDE RECORDS SUMMARY | 2024-10-31 16:50 | XMS_ITS | Encounter Summary ---
Author Organization [facility] Address [address] [place] [address] Care Team Providers Care Shingle Inspector Name Role Phone Ignacio Bell MD Primary Care Provider [phone] Reason for Visit * Reason Comments Back Pain Encounter Details Date Type Department Care Team (Late st Contact Info) Description 02/02/2021 2:00 PM CDT Office Visit [facility] Neurosurgery [address] [facility] [address] [place] [address] [place] [address] [facility] [address] [place] [address] Other secondary scoliosis, thoracolumbar region [...] PM CDT documented as of this encounter Progress Notes * Erwin Parrish MD - 02/03/2021 8:52 AM CDT I had the pleasure of seeing Escobar today at [facility] here in [place], [place]. Carolis a 80 y.o. female who comes today with complaints of low back pain and right lower extremity painthat is been ongoing now for 2 years. The pain can be quite severe at times. She attributes this toher arthritis. Is described as sharp and worse with her activities of daily living. The medicationsshe takes does help to some extent as does aqua therapy.. No past medical history on file. No past surgical history on file. Social History Socioeconomic History ??? Marital status: Spouse name: Not on file ??? Number of children: Not on file ??? Years of education: Not on file ??? Highest education level: Not on file Occupational History ??? Not on file Tobacco Use ??? Smoking status: Not on file Substance and Sexual Activity ??? Alcohol use: Not on file ??? Drug use: Not on file ??? Sexual activity: Not on file Other Topics Concern ??? Not on file Social History Narrative ??? Not on file Social Determinants of Health Financial Resource Strain: ??? Difficulty of Paying Living Expenses: Food Insecurity: ??? Worried About Running Out of Food in the Last Year: ??? Ran Out of Food in the Last Year: Transportation Needs: ??? Lack of Transportation (Medical): ??? Lack of Transportation (Non-Medical): Physical Activity: ??? Days of Exercise per Week: ??? Minutes of Exercise per Session: Stress: ??? Feeling of Stress : Social Connections: ??? Frequency of Communication with Friends and Family: ??? Frequency of Social Gatherings with Friends and Family: ??? Attends Baptism Services: ??? Active Member of Clubs or Organizations: ??? Attends Club or Organization Meetings: ??? Marital Status: Intimate Partner Violence: ??? Fear of Current or Ex-Partner: ??? Emotionally Abused: ??? Physically Abused: ??? Sexually Abused: No family history on file. Current Outpatient Medications on File Prior to Visit Medication Sig Dispense Refill ??? aspirin (ELVIRA CHEWABLE) 81 mg Tablet, Chewable Take 81 mg by mouth daily. ??? cetirizine (ZyrTEC) 10 mg tablet Take 10 mg by mouth daily. ??? cholecalciferol, Vitamin D3, 50 mcg (2,000 unit) Tablet Take by mouth. ??? gabapentin (NEURONTIN) 300 mg capsule Take 300 mg by mouth 3 times daily. ??? LEVALBUTEROL TARTRATE INHALATION Take by inhalation. ??? magnesium oxide 250 mg magnesium Tablet Take by mouth. ??? meloxicam (MOBIC) 15 mg tablet Take 15 mg by mouth daily. ??? montelukast (SINGULAIR) 10 mg tablet Take 10 mg by mouth daily at bedtime. ??? multivitamin (DAILY-ANDRES) tablet Take 1 Tablet by mouth daily. ??? omeprazole (PriLOSEC) 20 mg Capsule, Delayed Release(E.C.) Take 20 mg by mouth daily. ??? rosuvastatin (CRESTOR) 10 mg tablet Take 10 mg by mouth daily. ??? tiotropium (Spiriva Respimat) 1.25 mcg/actuation Mist Take by inhalation daily. ??? cyanocobalamin 1,000 mcg Tablet Take 1,000 mcg by mouth daily. No current facility-administered medications on file prior to visit. Allergies Allergen Reactions ??? Codeine Syncope Review of Systems Physical Exam Constitutional: Appearance: She is well-developed. HENT: Head: Normocephalic and atraumatic. Eyes: Conjunctiva/sclera: Conjunctivae normal. Pupils: Pupils are equal, round, and reactive to light. Pulmonary: Effort: Pulmonary effort is normal. Abdominal: Palpations: Abdomen is soft. Musculoskeletal: General: Tenderness present. Cervical back: Neck supple. Comments: Tenderness over the right SI joint is noted. Obvious curvature of the thoracolumbar spine with significant scoliosis is noted. Skin: General: Skin is warm and dry. Neurological: General: No focal deficit present. Mental Status: She is alert and oriented to person, place, and time. Cranial Nerves: No cranial nerve deficit. Sensory: No sensory deficit. Coordination: Coordination normal. Deep Tendon Reflexes: Reflexes normal. Comments: Strength 5 out of 5 throughout. Psychiatric: Behavior: Behavior normal. Thought Content: Thought content normal. Diagnostic Data: The patient has an MRI of the lumbar spine shows severe degenerative level scoliosis.. ASSESSMENT: Encounter Diagnoses Name Primary? Other secondary scoliosis, thoracolumbar region Yes ??? Osteoarthritis of right sacroiliac joint PLAN: No orders of the defined types were placed in this encounter. There is no height or weight on file to calculate BMI. BMI within normal limits TOBACCO COUNSELING She is not a tobacco user. Assessment and Plan: My assessment at this point is that Ellyn is suffering from degenerative levelscoliosis that is causing right SI joint pain. Neither of these should be treated surgically. We will refer her to [facility] for her care of both her lumbar spine and her right SI joint syndrome. She is a very pleasant female and very much enjoyed meeting her. I am sorry I cannot do more for her. I welcome any questions you may have. Thank you. documented in this encounter Plan of Treatment Not on file documented as of this encounter Visit Diagnoses Diagnosis Other secondary scoliosis, thoracolumbar region- Primary Osteoarthritis of right sacroiliac joint documented in this encounter Care Teams Shingle Inspector Relationship Specialty Start Date End Date Ignacio Bell MD [address] [place] [address] PCP - General Internal Medicine 12/31/20 documented as of this encounter
--- OUTSIDE RECORDS SUMMARY | 2024-10-31 16:50 | XMS_ITS | Encounter Summary ---
Author Organization [facility] Address [address] [place] [address] Care Team Providers Care Revenue Enforcement Collection Agent Name Role Phone Ignacio Bell MD Primary Care Provider [phone] Reason for Referral * MRI (Routine) - Closed Specialty Diagnoses / Procedures Referred By Contac t Referred To Contact Diagnoses DDD (degenerative disc disease), lumbar Procedures MRI PRIOR STUDY [facility], External Provider [address] [place] [address] Referral ID Status Reason Start Date Expiration Date Visits Re quested Visits Authorized [id number] Closed 01/08/2021 02/08/2022 1 1 IT ADMINISTRATION OFFICER Encounter Details Date Type Department Care Team (Late st Contact Info) Description 01/08/2021 Orders Only [facility]iology [address] [place] [address] [facility], External Provider [address] [place] [address] DDD (degenerative disc disease), lumbar (Primary Dx) Social History Tobacco Use Types Packs/Day Years Used Date Smoking Tobacco: Never Assessed Sex and Gender Information Value Date Recorded Sex Assigned at Not on file Gender Identity Not on file Sexual Orientation Not on file documented as of this encounter Plan of Treatment Not on file documented as of this encounter Results * MRI PRIOR STUDY (05/13/2020 12:00 AM CDT) Narrative 01/08/2021 9:16 AM CREDIT ADMINISTRATION OFFICER This exam was auto finalized to allow images to be scanned to PACS. External Provider [facility] MR ORDERABLES documented in this encounter Visit Diagnoses Diagnosis DDD (degenerative disc disease), lumbar Degeneration of lumbar or lumbosacral intervertebral disc DDD (degenerative disc disease), lumbar- Primary Degeneration of lumbar or lumbosacral intervertebral disc documented in this encounter Care Teams Revenue Enforcement Collection Agent Relationship Specialty Start Date End Date Ignacio Bell MD [address] [place] [address] PCP - General Internal Medicine 12/31/20 documented as of this encounter
--- OUTSIDE RECORDS SUMMARY | 2024-10-31 16:50 | XMS_ITS | Encounter Summary ---
Author Organization [facility] Address [address] [place] [address] Care Team Providers Care Bleaching Supervisor Name Role Phone Ignacio Bell MD Primary Care Provider [phone] Encounter Details Date Type Department Care Team (Late st Contact Info) Description 02/05/2021 Abstract [facility] - [address] [facility] [address] [place] [address] Provider, Abstract NO ADDRESS ON [...] Diagnoses Not on filedocumented in this encounter Care Teams Bleaching Supervisor Relationship Specialty Start Date End Date Ignacio Bell MD [address] [place] [address] PCP - General Internal Medicine 12/31/20 documented as of this encounter
--- OUTSIDE RECORDS SUMMARY | 2024-10-31 16:50 | XMS_ITS | Encounter Summary ---
Author Organization [facility] Address [address] [place] [address] Care Team Providers Care Tracer Lathe Set Up Operator Name Role Phone Unavailable Primary Care Provider Unavailabl e Reason for Visit * MRI (Routine) - Closed Specialty Diagnoses / Procedures Referred By Aly carlson Referred To Contact Diagnoses DDD (degenerative disc disease), lumbar Procedures MRI PRIOR STUDY [facility], External Provider [address] [place] [address] Referral ID Status Reason Start Date Expiration Date Visits Re quested Visits Authorized [id number] Closed 12/31/2020 01/31/2022 1 1 Encounter Details Date Type Department Care Team (Latest Contact Info) Description 05/13/2020 - 05/13/2020 11:59 PM CDT Hospital Encounter [facility] [place] [address] [place] [address] [facility], External Provider [address] [place] [address] Discharge Disposition: Home or Self Care Social [...] PRIOR STUDY (05/13/2020 12:00 AM CDT) Narrative 12/31/2020 4:07 PM SHIPPING LEAD PERSON This exam was auto finalized to allow images to be scanned to PACS. External Provider [facility] MR ORDERABLES documented in this encounter Visit Diagnoses Diagnosis DDD (degenerative disc disease), lumbar Degeneration of lumbar or lumbosacral intervertebral disc documented in this encounter
--- OUTSIDE RECORDS SUMMARY | 2024-10-31 16:50 | XMS_ITS | Encounter Summary ---
Author Organization [facility] Address [address] [place] [address] Care Team Providers Care Automotive Brake Technician Name Role Phone Ignacio Bell MD Primary Care Provider [phone] Encounter Details Date Type Department Care Team (Late st Contact Info) Description 12/31/2020 Orders Only [facility] Neurosurgery - [address] [facility] [address] [place] [address] Provider, Abstract NO ADDRESS ON [...] Name Priority Date/Time Associated Diagnosis Comments MRI LUMBAR WO CONTRAST Routine 05/13/2020 XR LUMBAR SPINE 2 OR 3 VW Routine 05/13/2020 documented in this encounter Results * XR LUMBAR SPINE 2 OR 3 VW (05/13/2020) Anatomical Region Laterality Modality Spine Other Abstract Provider DIAGNOSTIC IMAGING O RDERABLES * MRI LUMBAR WO CONTRAST (05/13/2020) Anatomical Region Laterality Modality Spine Other Abstract Provider MR ORDERABLES documented in this encounter Visit Diagnoses Not on filedocumented in this encounter Care Teams Automotive Brake Technician Relationship Specialty Start Date End Date Ignacio Bell MD [address] [place] [address] PCP - General Internal Medicine 12/31/20 documented as of this encounter
--- OUTSIDE RECORDS SUMMARY | 2024-10-31 16:50 | XMS_ITS | Encounter Summary ---
Author Organization [facility] Address [address] [facility] Attn: Epic Prelude ADT REGINO DIMAS [address] Care Team Providers Care Assembler Dielectric Heater Name Role Phone Ignacio Bell MD Primary Care Provider [phone] Encounter Details Date Type Department Care Team (Latest Contact Info) Description 02/02/2021 Travel Social History Tobacco Use Types Packs/Day Years [...] on filedocumented in this encounter Care Teams Assembler Dielectric Heater Relationship Specialty Start Date End Date Ignacio Bell [place] [address] PCP - General Internal Medicine 12/31/20 documented as of this encounter
--- OUTSIDE RECORDS SUMMARY | 2024-10-31 16:50 | XMS_ITS | Encounter Summary ---
Author Organization [facility] Address [address] [place] [address] Care Team Providers Care Long Wall Shear Operator Name Role Phone Ignacio Bell MD Primary Care Provider [phone] Reason for Referral * MRI (Routine) - Closed Specialty Diagnoses / Procedures Referred By Contac t Referred To Contact Diagnoses DDD (degenerative disc disease), lumbar Procedures MRI PRIOR STUDY [facility], External Provider [address] [place] [address] Referral ID Status Reason Start Date Expiration Date Visits Re quested Visits Authorized [id number] Closed 12/31/2020 01/31/2022 1 1 ER MINER Encounter Details Date Type Department Care Team (Late st Contact Info) Description 12/31/2020 Orders Only [facility] [id number] [place] [address] [facility], External Provider [address] [place] [address] DDD (degenerative disc disease), lumbar (Primary Dx) [...] 12:00 AM CDT) Narrative 12/31/2020 4:07 PM SILVER MINER This exam was auto finalized to allow images to be scanned to PACS. External Provider [facility] MR ORDERABLES * XR PRIOR STUDY (05/13/2020 12:00 AM CDT) Narrative 12/31/2020 3:54 PM SILVER MINER This exam was auto finalized to allow images to be scanned to PACS. External Provider [facility] DIAGNOSTIC IMAGIN G ORDERABLES documented in this encounter Visit Diagnoses Diagnosis DDD (degenerative disc disease), lumbar Degeneration of lumbar or lumbosacral intervertebral disc DDD (degenerative disc disease), lumbar Degeneration of lumbar or lumbosacral intervertebral disc DDD (degenerative disc disease), lumbar- Primary Degeneration of lumbar or lumbosacral intervertebral disc documented in this encounter Care Teams Long Wall Shear Operator Relationship Specialty Start Date End Date Ignacio Bell MD [address] [place] [id number] PCP - General Internal Medicine 12/31/20 documented as of this encounter
--- OUTSIDE RECORDS SUMMARY | 2024-10-31 16:50 | XMS_ITS | Encounter Summary ---
Author Organization [facility] Address [address] [place] [address] Care Team Providers Care Application Design Engineer Name Role Phone Unavailable Primary Care Provider Unavailabl e Encounter Details Date Type Department Care Team (Latest Contact Info) Description 05/13/2020 - 05/13/2020 11:59 PM CDT Hospital Encounter [facility] Diagnostic XR [address] [place] [address] [facility], External Provider [address] [place] [address] Discharge Disposition: Home or Self Care Social [...] Procedure Name Priority Date/Time Associated Diagnosis Comments X-RAY PRIOR STUDY Routine 05/13/2020 12: 00 AM CDT DDD (degenerative disc disease), lumbar documented in this encounter Results * XR PRIOR STUDY (05/13/2020 12:00 AM CDT) Narrative 12/31/2020 3:54 PM OFFAL TRIMMER This exam was auto finalized to allow images to be scanned to PACS. External Provider [facility] DIAGNOSTIC IMAGIN G ORDERABLES documented in this encounter Visit Diagnoses Diagnosis DDD (degenerative disc disease), lumbar Degeneration of lumbar or lumbosacral intervertebral disc documented in this encounter
--- OUTSIDE RECORDS SUMMARY | 2024-10-31 16:50 | XMS_ITS | Encounter Summary ---
Author Organization [facility] Address [address] [place] [address] Care Team Providers Care Deputy Assessor Name Role Phone Ignacio Bell MD Primary Care Provider [phone] Reason for Visit * Reason Onset Date Comments Question 09/03/2021 Encounter Details Date Type Department Care Team (Late st Contact Info) Description 09/03/2021 Telephone [facility] [address] [address] Princess Arroyo, ARLETTE Question Social History Tobacco Use Types Packs/Day Years Used Date Smoking Tobacco: Never Smokeless Tobacco: Never Alcohol Use Standard Drinks/Week Comments Never 0 (1 standard drink = 0.6 oz pur e alcohol) Sex and Gender Information Value Date Recorded Sex Assigned at Not on file Gender Identity Not on file Sexual Orientation Not on file documented as of this encounter Miscellaneous Notes * Telephone Encounter - Princess Arroyo RN - 09/03/2021 2:31 PM CDT This RN called patient to get verbal consent to fax Dr. Parrish's note from 02/02/2021 to [facility]. Wendi Patricia Requesting this be faxed to [phone]. Left voicemail. documented in this encounter Plan of Treatment Not on file documented as of this encounter Visit Diagnoses Not on filedocumented in this encounter Care Teams Deputy Assessor Relationship Specialty Start Date End Date Ignacio Bell MD [address] [place] [address] PCP - General Internal Medicine 12/31/20 documented as of this encounter
== END 2024-10-27 12:07 | disposition home or self-care (01) ==
PROVIDERS: Emergency Provider Emergency Medicine; PCP Family Medicine
DX: M54.9 Dorsalgia, unspecified (principal); G89.29 Other chronic pain; J43.9 Emphysema, unspecified; J45.909 Unspecified asthma, uncomplicated; G62.9 Polyneuropathy, unspecified; E55.9 Vitamin D deficiency, unspecified; E78.5 Hyperlipidemia, unspecified; G47.30 Sleep apnea, unspecified; K21.9 Gastro-esophageal reflux disease without esophagitis; M81.0 Age-related osteoporosis without current pathological fracture; M41.9 Scoliosis, unspecified; M19.90 Unspecified osteoarthritis, unspecified site; K58.9 Irritable bowel syndrome, unspecified; Z66 Do not resuscitate; Z96.641 Presence of right artificial hip joint; Z96.1 Presence of intraocular lens; Z98.42 Cataract extraction status, left eye; Z98.41 Cataract extraction status, right eye; Z90.711 Acquired absence of uterus with remaining cervical stump; Z90.49 Acquired absence of other specified parts of digestive tract
CPT/HCPCS: 36415; 72128; 72131; 80053; 81001; 85025; 96361; 96374; 96375; 99284; A9270; J1100; J1885; J7030

== ENCOUNTER 2025-01-19 12:00 | Emergency (ER) | payer MEDICARE, SELFPAY ==
--- NOTE | ~2025-01-19 | XR_ITS ---
EXAMINATION: XR chest 1V portable Exam Date/Time: 01/19/2025 13:50 CDT HISTORY: Coughing Comparison: 09/29/2021. RESULT: Lines, tubes, and devices: Cholecystectomy clips. Lungs and pleura: Mild right hemidiaphragm elevation. Left basilar scar. Otherwise clear. Cardiomediastinal silhouette: Stable. Other: No acute osseous or upper abdominal finding. IMPRESSION: No acute cardiopulmonary process. Reviewed, dictated and finalized at location K.
[2025-01-19 11:58] VITALS: BP 129/68; PULSE 70; RESP 17; TEMP 36.6; O2SAT 97
--- NOTE | 2025-01-19 12:05 | ECG_ITS ---
Test Date: 2025-01-19 12:14:36 Measurements Intervals [place] Rate: 69 P: -32 CT: 150 QRS: 33 QRSD: 98 T: 43 QT: 383 QTc: 412 Interpretive Statements SINUS RHYTHM No previous ECG available for comparison Electronically Signed On 01-20-2025 11:12:16 CDT by Humberto Tavares M.D.
[2025-01-19 12:09] VITALS: O2SAT 98
[2025-01-19 12:16] VITALS: BP 114/64; PULSE 71; RESP 21; O2SAT 99
--- OUTSIDE RECORDS SUMMARY | 2025-01-19 12:23 | XMS_ITS | Clinical Summary ---
Author Organization [employer] [address] [facility] Address [address] [place] [address] Care Team Providers Care Retail Solar Advisor Name Role Phone Ignacio Bell MD Primary Care Provider [phone] Allergies Active Allergy Reactions Criticality Noted Date Comments Codeine Syncope Medium 02/02/2021 Medications aspirin (ELVIRA CHEWABLE) 81 mg Tablet, Chewable Take 81 mg by mouth daily. Active cetirizine (ZyrTEC) 10 mg tablet Take 10 mg by mouth daily. Active cholecalciferol , Vitamin D3, 50 mcg (2,000 unit) Tablet Take by mouth. Ac tive gabapentin (NEURONTIN) 300 mg capsule Take 300 mg by mouth 3 times daily. Active LEVALBUTEROL TARTRATE INHALATION Take by inhalation. Active magnesium oxide 250 mg magnesium Tablet Take by mouth. Activ e meloxicam (MOBIC) 15 mg tablet Take 15 [...] drink = 0.6 oz pur e alcohol) Comments Unknown Sex and Gender Information Value Date Recorded Sex Assigned at Not on file Legal Sex Female 9:29 AM MANAGER EXCHANGE Gender Identity Not on file Sexual Orientation Not on file Plan of Treatment Health Maintenance Due Date Last Done Comments ZOSTER VACCINE (1 of 2) 1990 OSTEOPOROSIS SCREENING 2005 DTAP/TDAP/TD VACCINES (1 - Tdap) 10/12/2011 10/11/20 11 RSV VACCINE (60+ or ) (1 - 1-dose 75+ series) 2015 INFLUENZA VACCINE (#1) 2024 0, 09/04/2019, 07/17/2018, Additional history exists PNEUMOCOCCAL VACCINE 50+ YEARS Completed 12/03/2014 , 09/21/2006 Insurance MEDICARE PART A AND B [facility] [id number] Care Teams Retail Solar Advisor Relationship Specialty Start Date End Date Ignacio Bell MD [address] [place] [address] PCP - General Internal Medicine 12/31/20
--- NOTE | 2025-01-19 12:24 | ED.GENADULT ---
HPI - General Adult General Chief complaint: Nausea/Vomiting/Diarrhea Stated complaint: nausea x 1 week Time Seen by Provider: 01/19/25 12:20 Source: patient Mode of arrival: EMS Limitations: no limitations History of Present Illness HPI narrative: 84 years old white female came from home by ambulance because of nausea for 1 week. She denies any fever or chills or vomiting or diarrhea or constipation. Patient report lot of people at home tested positive for flu. Patient reports a nonproductive cough over the last few days. Related Data Home Medications ?Medication ?Instructions ?Recorded ?Confirmed ?Last Taken ?Type cholecalciferol (vitamin D3) 50 50 mcg PO DAILY 08/07/20 10/09/24 11/22/23 08:00 History mcg (2,000 unit) capsule multivitamin 1 cap PO DAILY 08/07/20 10/09/24 11/22/23 08:00 History levalbuterol tartrate 45 2 inh inhalation Q6H PRN Asthma 09/29/23 10/09/24 11/22/23 08:00 History mcg/actuation aerosol inhaler magnesium 250 mg tablet 250 mg PO DAILY 09/29/23 10/09/24 11/22/23 08:00 History cyanocobalamin (vitamin B-12) 1,000 mcg PO DAILY PRN 04/04/24 10/09/24 Unknown History 1,000 mcg tablet (Vitamin B-12) acetaminophen 500 mg tablet 1,000 mg PO QID 10/09/24 10/09/24 Unknown History Allergies Allergy/AdvReac Type Severity Reaction Status Date / Time codeine Allergy Severe Passes out Verified 01/19/25 12:08 oxycodone Allergy Severe pass out Verified 01/19/25 12:08 pain medications AdvReac Severe syncope Uncoded 01/19/25 12:08 Review of Systems Review of Systems: All systems reviewed & are unremarkable except as noted in HPI and below PMFSH Past Medical History Medical History Kyphoscoliosis Benign essential tremor Vitamin D deficiency Scoliosis due to degenerative disease of spine in adult patient COPD (chronic obstructive pulmonary disease) Vision changes COVID-19 vaccine series completed Neuropathy Dyslipidemia Osteoporosis Sleep apnea Emphysema of lung Memory loss Frozen shoulder Left shoulder Sciatica associated with disorder of lumbar spine GERD (gastroesophageal reflux disease) Arthritis IBS (irritable bowel syndrome) Asthma Surgical History Surgical History Status post cataract extraction of both eyes with insertion of intraocular lens History of partial hysterectomy History of bowel resection History of cholecystectomy History of right hip replacement Family History Family History Mother Pneumonia Father Asbestosis Grandparent Pneumonia Grandparent Heart attack Grandparent Cerebrovascular accident Sibling Malignant neoplasm Other Arthritis Social History Social History Social History: She lives in [place] with her of 60 years. She has a Rollator at home but only uses it when she goes to the store. She has 2 children who are healthy. She is a lifelong nonsmoker and does not drink alcohol. 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 Primary care physician: Dr. Cruz Code status: DNR/DNI Surrogate decision maker: Miah (son) Smoking status: Never smoker Second hand tobacco smoke exposure: No Alcohol intake: never Substance use: never Substance use type: does not use Do You Feel Safe in your Home?: Yes Lack of Transportation: No Lack of Food: Never True Current Housing: I Have Housing Concerned About Future Housing: No Difficulty Paying Gas/Electric Bills: No Difficulty Paying for Meds: No Currently Unemployed: No Education: Master's Degree or Higher Difficulty w/ Childcare or Family Care: No Living arrangements: with family Occupation/Education: retired Gender identity (if verbalized by the patient): Female Sexual Orientation (if Verbalized by the Patient): Straight or Heterosexual Spiritual care concerns: No Agree to blood products: Yes Exam Narrative: General appearance: Well-developed, well-nourished, holding vomiting bag in hand, dry heaves, no vomiting Skin: Normal color Head: Normocephalic, nontraumatic Eyes: Clear conjunctiva ENT: Oropharynx normal, ears normal, nose normal Neck: Supple, nontender Chest and respiratory: Airway patent, no respiratory distress, no accessory muscle use Heart: Regular rate/rhythm Abdomen: Soft, nontender, no organomegaly, quiet bowel sounds Vascular: Normal peripheral pulses, normal capillary refill. Musculoskeletal: Normal range of motion, nontender back Neurologic: Alert and oriented ?3, L D RN is normal as tested, no gross motor deficit Course Vital Signs Vital signs: Vital Signs Temperature 36.6 C 01/19/25 11:58 Pulse Rate 70 01/19/25 11:58 Respiratory Rate 17 01/19/25 11:58 Blood Pressure 129/68 01/19/25 11:58 Pulse Oximetry 97 01/19/25 11:58 Oxygen Delivery Room Air 01/19/25 11:58 Temperature 36.6 C 01/19/25 11:58 Pulse Rate 71 01/19/25 13:47 Respiratory Rate 19 01/19/25 13:47 Blood Pressure 134/70 01/19/25 13:47 Pulse Oximetry 99 01/19/25 13:47 Oxygen Delivery Room Air 01/19/25 12:09 Medical Decision Making MDM Narrative Medical decision making narrative: Patient came to the ED with flu-like symptoms, and nausea. Vital signs are stable Physical examination positive for intermittent coughing, holding vomiting bag in hands otherwise insignificant Differential diagnosis viral syndrome, electrolyte imbalance, dehydration, pneumonia Blood workup today includes CBC, CMP, lipase showed WBC of 3.3 potassium 3.2, otherwise insignificant abnormalities Respiratory panel positive for influenza A CHEST X-RAY SHOWED NO ACUTE ABNORMALITIES DIAGNOSIS: INFLUENZA A AND NAUSEA SECONDARY TO INFLUENZA DISCHARGED ON ZOFRAN. THE PT WAS DISCHARGED TO HOME.THE PT,S CONDITION UPON DISCHARGE WAS FAIR,EDUCATION WAS PROVIDED TO THE PT IN REFERENCE TO THE FINAL IMPRESSION,DISCHARGE STUDY RESULTS,TREATMENT,PROGNOSIS AND NEED FOR FOLLOW UP . Differential Diagnosis Differential Diagnosis: ABOVE Vital Signs Vital Signs: Vital Signs Temperature 36.6 C 01/19/25 11:58 Pulse Rate 70 01/19/25 11:58 Respiratory Rate 17 01/19/25 11:58 Blood Pressure 129/68 01/19/25 11:58 Pulse Oximetry 97 01/19/25 11:58 Oxygen Delivery Room Air 01/19/25 11:58 Temperature 36.6 C 01/19/25 11:58 Pulse Rate 71 01/19/25 13:47 Respiratory Rate 19 01/19/25 13:47 Blood Pressure 134/70 01/19/25 13:47 Pulse Oximetry 99 01/19/25 13:47 Oxygen Delivery Room Air 01/19/25 12:09 Lab Data 01/19/25 12:15 01/19/25 12:15 Labs: Lab Results 01/19/25 01/19/25 Range/Units 12:15 13:15 WBC 3.3 L (4.5-10.0) K/mm3 RBC 5.06 (4.2-5.4) M/mm3 Hgb 15.2 H (12.0-15.0) g/dL Hct 46.2 (37.0-47.0) % MCV 91.3 (80-100) fl MCH 30.0 (26-34) pg MCHC 32.9 (32-36) g/dl RDW 13.2 (11.5-14.5) % Plt Count 179 (150-375) k/mm3 MPV 8.9 (7.4-10.4) fl Immature Gran % (Auto) 0.3 (0-0.5) % Neut % (Auto) 47.5 (45.5-73.1) % Lymph % (Auto) 34.7 (18.3-44.2) % [place] % (Auto) 17.2 H (2.6-8.5) % Eos % (Auto) 0.0 (0-4.4) % Baso % (Auto) 0.3 (0.2-1.2) % Lymph # (Auto) 1.13 (0.9-3.2) K/mm3 [place] # (Auto) 0.6 (0.1-0.6) K/mm3 Eos # (Auto) 0.0 (0-0.3) K/mm3 Baso # (Auto) 0.0 (0.0-0.1) K/mm3 Abs Immat Gran (auto) 0.01 (0.00-0.031) K/mm3 Absolute Neuts (auto) 1.6 (1.3-6.7) K/mm3 Absolute Nucleated RBC 0.000 (0.0-0.012) K/mm3 Nucleated RBC % 0.0 (0.0-0.2) % Sodium 137 (137-145) mmol/L Potassium 3.2 L (3.4-5.0) mmol/L Chloride 100 (98-107) mmol/L Carbon Dioxide 24 (22-30) mmol/L Anion Gap 13 H (4-12) mmol/L BUN 20 H (7-17) mg/dL Creatinine 0.78 (0.7-1.0) mg/dL Estim Creat Clear Calc 37 ml/min Estimated GFR > 60 (59 - ) Glucose 97 (65-110) mg/dL Calcium 9.0 (8.4-10.2) mg/dL Total Bilirubin 0.6 (0.2-1.3) mg/dL AST 33 (14-36) U/L ALT 18 (6-35) U/L Alkaline Phosphatase 60 (38-126) U/L Total Protein 7.0 (6.3-8.2) g/dL Albumin 4.1 (3.5-5.1) g/dL Lipase 68 (23-300) U/L Urine Color Yellow (Yellow) Urine Appearance Clear (Clear) Urine pH 5.5 (5.0-9.0) Ur Specific [place] 1.028 (1.001-1.035) Urine Protein 1+ H (Negative) mg/dL Urine Glucose (UA) Negative (Negative) mg/dL Urine Ketones 3+ H (Negative) mg/dL Ur Blood (Man) Negative (Negative) Urine Nitrate Negative (Negative) Urine Bilirubin Negative (Negative) Urine Urobilinogen 0.2 (<2.0) mg/dL Leukocyte Esterase Rfl Negative (Negative) PATY/UL Urine RBC 0-2 (0-2) /hpf Urine WBC 0-5 (0-3) /hpf Ur Squamous Epith Cells None seen (Few) /hpf Urine Bacteria None seen /hpf Urine Casts 0-2 Influenza A (RT-PCR) Positive A (Negative) Influenza B (RT-PCR) Negative (Negative) RSV (RT-PCR) Negative (Negative) SARS-CoV-2 RNA (RT-PCR) Negative (Negative) Imaging Data Radiologist's impression: Impressions Chest X-Ray 01/19/25 14:02 IMPRESSION: No acute cardiopulmonary process. Critical Care Time Critical Care Time Critical Care Time: No Discharge Plan Discharge Clinical Impression: Influenza A, Nausea, Acute hypokalemia Patient Disposition: Home, Self-Care Condition: Stable Instructions: Influenza (ED), Acute Nausea and Vomiting (ED), Viral Syndrome (ED) Additional Instructions: Return if symptoms are worsening , call your family physician for appointment, take Tylenol as as needed for aches and pain, continue home medications. Patient Language: Italian Prescriptions: New potassium chloride [K-Tab] 20 mEq tablet extended release 20 meq PO BID Qty: 14 0RF ondansetron HCl 4 mg tablet 4 mg PO Q4H Qty: 10 0RF Rx Instructions: 1st dose 1-2 hr before radiation No Action ondansetron 4 mg tablet,disintegrating 4 mg PO Q8H PRN (Reason: nausea and vomiting) Qty: 30 1RF omeprazole 40 mg capsule,delayed release(DR/EC) 40 mg PO DAILY Qty: 90 0RF cholecalciferol (vitamin D3) 50 mcg (2,000 unit) capsule 50 mcg PO DAILY multivitamin Capsule 1 cap PO DAILY primidone [Mysoline] 50 mg tablet 50 mg PO QHS Qty: 90 6RF Rx Instructions: start with half tablet daily at bedtime and increase at a rate of half tablet every week until 3 tablets at bedtime. prednisone 10 mg tablet 10 mg PO DIRECTED Qty: 21 0RF Rx Instructions: 4 tabs po QD x 3 days 2 tabs PO QD x 3 days 1 tab PO QD x 3 days lidocaine [Lidoderm] 5 % adhesive patch,medicated 1 patch transdermal DAILY Qty: 10 0RF cyanocobalamin (vitamin B-12) [Vitamin B-12] 1,000 mcg tablet 1,000 mcg PO DAILY PRN magnesium 250 mg Tablet 250 mg PO DAILY levalbuterol tartrate 45 mcg/actuation Hfa Aerosol Inhaler 2 inh INHALATION Q6H PRN (Reason: Asthma) acetaminophen 500 mg tablet 1,000 mg PO QID Rx Instructions: takes with gabapentin lidocaine [Lidoderm] 5 % adhesive patch,medicated 1 patch topical DAILY PRN (Reason: back pain) Qty: 15 0RF Rx Instructions: leave on most painful area for up to 12 hrs prednisone 20 mg tablet 40 mg PO DAILY 5 Days Qty: 10 0RF montelukast 10 mg tablet 10 mg PO DAILY Qty: 90 1RF Rx Instructions: Take 1 tablet by mouth once daily meloxicam 15 mg tablet 15 mg PO DAILY Qty: 90 1RF Rx Instructions: Take 1 tablet by mouth once daily rosuvastatin 10 mg tablet 10 mg PO DAILY Qty: 90 1RF gabapentin 600 mg tablet See Rx Instructions .ROUTE .COMPLEX Qty: 360 0RF Dose Instruction: Take 1 tablet by mouth 4 times daily Rx Instructions: Take 1 tablet by mouth 4 times daily Follow-up/Referrals: Angel Mora MD [Primary Care Provider] -
[2025-01-19 12:30] LABS: Basophils Percent Auto 0.3 % (0.2-1.2); Hematocrit 46.2 % (37.0-47.0); Hemoglobin 15.2 g/dL (12.0-15.0); Immature Granulocyte Absolute 0.01 K/mm3 (0.00-0.031); Immature Granulocyte Percent A 0.3 % (0-0.5); Lymphocytes Absolute Auto 1.13 K/mm3 (0.9-3.2); Lymphocytes Percent Auto 34.7 % (18.3-44.2); Mean Corpuscular HGB Conc 32.9 g/dl (32-36); Mean Corpuscular Volume 91.3 fl (80-100); Mean Platelet Volume 8.9 fl (7.4-10.4); Monocytes Absolute Auto 0.6 K/mm3 (0.1-0.6); Monocytes Percent Auto 17.2 % (2.6-8.5); Neutrophils Absolute Auto 1.6 K/mm3 (1.3-6.7); Neutrophils Percent Auto 47.5 % (45.5-73.1); Platelet Count Result 179 k/mm3 (150-375); Red Blood Count 5.06 M/mm3 (4.2-5.4); Red Cell Distribution Width 13.2 % (11.5-14.5); White Blood Count 3.3 K/mm3 (4.5-10.0)
[2025-01-19 12:41] LABS: Alanine Aminotransferase 18 U/L (6-35); Albumin Level 4.1 g/dL (3.5-5.1); Alkaline Phosphatase 60 U/L (38-126); Anion Gap 13 mmol/L (4-12); Aspartate Amino Transferase 33 U/L (14-36); Bilirubin,Total 0.6 mg/dL (0.2-1.3); Blood Urea Nitrogen 20 mg/dL (7-17); Carbon Dioxide 24 mmol/L (22-30); Chloride 100 mmol/L (98-107); Estimated CRCL calculation 37 ml/min; Estimated Glomerular Filt Rate > 60; Glucose 97 mg/dL (65-110); Lipase 68 U/L (23-300); Potassium 3.2 mmol/L (3.4-5.0); Sodium 137 mmol/L (137-145)
[2025-01-19 13:05] LABS: Influenza A QL RT-PCR Positive (Negative); Influenza B QL RT-PCR Negative (Negative); RSV RNA, RT-PCR Negative (Negative); SARS-CoV-2 RNA PCR Negative (Negative)
[2025-01-19] MEDS: POTASSIUM CHLORIDE 20 MEQ ER TABLET 40 MEQ PO (13:06)
[2025-01-19 13:31] LABS: Add Urine Microscopic? YES; Appearance Urine Clear (Clear); Bacteria Urine None Seen /hpf; Bilirubin Urine Negative (Negative); Blood Urine Negative (Negative); Color Urine Yellow (Yellow); Glucose Urine UA Negative (Negative); Ketones Urine 3+ mg/dL (Negative); Leukocyte Esterase Ur Negative LEU/UL (Negative); Nitrate Urine Negative (Negative); Non Pathogenic Casts 0-2; Protein Urine 1+ mg/dL (Negative); RBC Urine 0-2 /hpf (0-2); Specific Grav Ur 1.028 (1.001-1.035); Squamous Epithelial Cell Urine None Seen /hpf (Few); Urobilinogen Urine 0.2 mg/dL (<2.0); WBC Urine 0-5 /hpf (0-3); pH Urine 5.5 (5.0-9.0)
[2025-01-19 13:33] VITALS: BP 127/76; PULSE 78; RESP 15; O2SAT 96
[2025-01-19] MEDS: ONDANSETRON INJ 4 MG/2 ML VIAL IV PUSH (13:46)
[2025-01-19 13:47] VITALS: BP 134/70; PULSE 71; RESP 19; O2SAT 99
[2025-01-19 15:11] VITALS: BP 136/65; PULSE 71; RESP 18; TEMP 36.6; O2SAT 98
== END 2025-01-19 15:13 | disposition home or self-care (01) ==
PROVIDERS: Emergency Provider Emergency Medicine; PCP Family Medicine
DX: J10.1 Influenza due to other identified influenza virus with other respiratory manifestations (principal); R11.0 Nausea; E87.6 Hypokalemia; E55.9 Vitamin D deficiency, unspecified; E78.5 Hyperlipidemia, unspecified; J43.9 Emphysema, unspecified; J45.909 Unspecified asthma, uncomplicated; K21.9 Gastro-esophageal reflux disease without esophagitis; K58.9 Irritable bowel syndrome, unspecified; M19.90 Unspecified osteoarthritis, unspecified site; M81.0 Age-related osteoporosis without current pathological fracture; G47.30 Sleep apnea, unspecified; G62.9 Polyneuropathy, unspecified; Z66 Do not resuscitate; Z96.641 Presence of right artificial hip joint; Z96.1 Presence of intraocular lens; Z98.42 Cataract extraction status, left eye; Z98.41 Cataract extraction status, right eye; Z90.711 Acquired absence of uterus with remaining cervical stump; Z90.49 Acquired absence of other specified parts of digestive tract
CPT/HCPCS: 36415; 71045; 80053; 81001; 83690; 85025; 87637; 93005; 96374; 99284; A9270; J2405

== ENCOUNTER 2025-01-21 11:14 | Inpatient (IN) | payer MEDICARE, SELFPAY ==
[2025-01-21] VITALS (13 sets, daily range): BP systolic 119–141; BP diastolic 48–66; PULSE 66–73; RESP 9–21; TEMP 36–36.8; O2SAT 92–97; BMI 24.8
--- NOTE | ~2025-01-21 | XR_ITS ---
EXAMINATION: XR chest 2V DATE: 01/21/2025 12:28 INDICATION: Shortness of breath. TECHNIQUE: Frontal and lateral views of the chest were obtained. COMPARISON: Chest single view 01/19/2025 FINDINGS: There is mild atelectasis at left lung base. No pleural effusion or pneumothorax. The heart size is normal. Surgical clips in the right upper quadrant are likely from cholecystectomy. IMPRESSION: 1. Mild atelectasis at left lung base. Reviewed, dictated and finalized at location B.
--- NOTE | 2025-01-21 11:38 | ECG_ITS ---
Test Date: 2025-01-21 11:47:03 Measurements Intervals [place] Rate: 76 P: 0 VA: 0 QRS: 44 QRSD: 101 T: 57 QT: 380 QTc: 429 Interpretive Statements SINUS ARRHYTHMIA ABNORMAL RHYTHM ECG Compared to ECG 01/19/2025 12:14:36 NO SIGNIFICANT CHANGES Electronically Signed On 01-21-2025 15:03:51 CDT by Leslie Wright M.D.
[2025-01-21 11:48] LABS: Basophils Percent Auto 0.2 % (0.2-1.2); Eosinophils Percent Auto 0.2 % (0-4.4); Hemoglobin 14.9 g/dL (12.0-15.0); Immature Granulocyte Absolute 0.01 K/mm3 (0.00-0.031); Immature Granulocyte Percent A 0.2 % (0-0.5); Lymphocytes Absolute Auto 1.46 K/mm3 (0.9-3.2); Lymphocytes Percent Auto 26.3 % (18.3-44.2); Mean Corpuscular HGB Conc 33.1 g/dl (32-36); Mean Corpuscular Hemoglobin 30.2 pg (26-34); Mean Corpuscular Volume 91.1 fl (80-100); Mean Platelet Volume 8.9 fl (7.4-10.4); Monocytes Absolute Auto 0.6 K/mm3 (0.1-0.6); Monocytes Percent Auto 10.3 % (2.6-8.5); Neutrophils Absolute Auto 3.5 K/mm3 (1.3-6.7); Neutrophils Percent Auto 62.8 % (45.5-73.1); Platelet Count Result 174 k/mm3 (150-375); Red Blood Count 4.94 M/mm3 (4.2-5.4); Red Cell Distribution Width 13.1 % (11.5-14.5); White Blood Count 5.6 K/mm3 (4.5-10.0)
[2025-01-21 12:09] LABS: Alanine Aminotransferase 20 U/L (6-35); Alkaline Phosphatase 56 U/L (38-126); Anion Gap 15 mmol/L (4-12); Aspartate Amino Transferase 29 U/L (14-36); Bilirubin,Total 0.8 mg/dL (0.2-1.3); Blood Urea Nitrogen 20 mg/dL (7-17); Calcium 9.2 mg/dL (8.4-10.2); Carbon Dioxide 21 mmol/L (22-30); Chloride 99 mmol/L (98-107); Estimated CRCL calculation 36 ml/min; Estimated Glomerular Filt Rate > 60; Glucose 100 mg/dL (65-110); Potassium 3.6 mmol/L (3.4-5.0); Sodium 135 mmol/L (137-145)
[2025-01-21 13:12] LABS: Add Urine Microscopic? YES; Appearance Urine Clear (Clear); Bacteria Urine 4+ /hpf; Bilirubin Urine Negative (Negative); Blood Urine Trace (Negative); Color Urine Dark Yellow (Yellow); Glucose Urine UA Negative (Negative); Ketones Urine 3+ mg/dL (Negative); Leukocyte Esterase Ur Trace LEU/UL (Negative); Nitrate Urine Positive (Negative); Non Pathogenic Casts 0-2; Protein Urine Trace mg/dL (Negative); RBC Urine 21-50 /hpf (0-2); Specific Grav Ur 1.023 (1.001-1.035); Squamous Epithelial Cell Urine None Seen /hpf (Few); pH Urine 5.5 (5.0-9.0)
--- NOTE | 2025-01-21 13:26 | PC.NURSE ---
Lab called to add on CK and trop.
--- NOTE | 2025-01-21 13:29 | ED_ITS ---
HPI - Weakness General Chief complaint: Weakness Stated complaint: N/V, Flu A Time Seen by Provider: 01/21/25 12:59 History of Present Illness HPI Narrative: 84-year-old female presenting to the emergency department for evaluation of generalized weakness and diarrhea. She was diagnosed with flu and has been having symptoms for about 8 days. She is presenting with her at bedside who states that she is not eating, drinking and lying around in bed for last week and concerned for her well-being. Patient has had a nonproductive cough for last few days, reported sick contacts with influenza at home as well. Patient endorses diffuse myalgias, chest pain, cough, diarrhea. No nausea vomiting presently. She was seen here 2 days ago and discharged home after unremarkable workup. is concerned that she cannot take care of herself and he cannot take care of her at home at this time given her illness. Related Data Home Medications ?Medication ?Instructions ?Recorded ?Confirmed ?Last Taken ?Type cholecalciferol (vitamin D3) 50 50 mcg PO DAILY 08/07/20 10/09/24 11/22/23 08:00 History mcg (2,000 unit) capsule multivitamin 1 cap PO DAILY 08/07/20 10/09/24 11/22/23 08:00 History levalbuterol tartrate 45 2 inh inhalation Q6H PRN Asthma 09/29/23 10/09/24 11/22/23 08:00 History mcg/actuation aerosol inhaler magnesium 250 mg tablet 250 mg PO DAILY 09/29/23 10/09/24 11/22/23 08:00 History cyanocobalamin (vitamin B-12) 1,000 mcg PO DAILY PRN 04/04/24 10/09/24 Unknown History 1,000 mcg tablet (Vitamin B-12) acetaminophen 500 mg tablet 1,000 mg PO QID 10/09/24 10/09/24 Unknown History Allergies Allergy/AdvReac Type Severity Reaction Status Date / Time codeine Allergy Severe Passes out Verified 01/19/25 12:08 oxycodone Allergy Severe pass out Verified 01/19/25 12:08 pain medications AdvReac Severe syncope Uncoded 01/19/25 12:08 Review of Systems 2 Review of Systems: As reviewed above in HPI [facility] Past Medical History Medical History Kyphoscoliosis Benign essential tremor Vitamin D deficiency Scoliosis due to degenerative disease of spine in adult patient COPD (chronic obstructive pulmonary disease) Vision changes COVID-19 vaccine series completed Neuropathy Dyslipidemia Osteoporosis Sleep apnea Emphysema of lung Memory loss Frozen shoulder Left shoulder Sciatica associated with disorder of lumbar spine GERD (gastroesophageal reflux disease) Arthritis IBS (irritable bowel syndrome) Asthma Surgical History Surgical History Status post cataract extraction of both eyes with insertion of intraocular lens History of partial hysterectomy History of bowel resection History of cholecystectomy History of right hip replacement Family History Family History Mother Pneumonia Father Asbestosis Grandparent Pneumonia Grandparent Heart attack Grandparent Cerebrovascular accident Sibling Malignant neoplasm Other Arthritis Social History Social History Social History: She lives in [place] with her of 60 years. She has a Rollator at home but only uses it when she goes to the store. She has 2 children who are healthy. She is a lifelong nonsmoker and does not drink alcohol. 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 Primary care physician: Dr. Cruz Code status: DNR/DNI Surrogate decision maker: Miah (son) Smoking status: Never smoker Second hand tobacco smoke exposure: No Alcohol intake: never Substance use: never Substance use type: does not use Do You Feel Safe in your Home?: Yes Lack of Transportation: No Lack of Food: Never True Current Housing: I Have Housing Concerned About Future Housing: No Difficulty Paying Gas/Electric Bills: No Difficulty Paying for Meds: No Currently Unemployed: No Education: Master's Degree or Higher Difficulty w/ Childcare or Family Care: No Living arrangements: with family Occupation/Education: retired Gender identity (if verbalized by the patient): Female Sexual Orientation (if Verbalized by the Patient): Straight or Heterosexual Spiritual care concerns: No Agree to blood products: Yes Exam 2 Narrative: GENERAL: Ill-appearing, not any acute distress, thin and frail, elderly HEAD: [Normocephalic, atraumatic.] EYES: [PERRLA and EOMI.] ENT: Nares clear, no rhinorrhea or epistaxis. Mucous membranes moist. NECK: Supple. CHEST: [Clear to auscultation. No respiratory distress.] Coughing frequently without any productive cough HEART: [Regular rate and rhythm]. No murmur heard. [Normal peripheral pulses.] ABDOMEN: [Soft, nondistended], [nontender], [No rigidity or guarding] EXTREMITIES: Normal range of motion. [No edema.] SKIN: Warm, dry, no rash. NEURO: [No focal deficits]. Alert and oriented [x3.] PSYCH: [Normal mood and affect.] Course Vital Signs Vital signs: Vital Signs Temperature 36.8 C 01/21/25 11:17 Pulse Rate 70 01/21/25 11:17 Respiratory Rate 18 01/21/25 11:17 Blood Pressure 141/66 H 01/21/25 11:17 Pulse Oximetry 95 01/21/25 11:17 Oxygen Delivery Room Air 01/21/25 11:17 Temperature 36.8 C 01/21/25 11:23 Pulse Rate 73 01/21/25 13:35 Respiratory Rate 20 01/21/25 13:35 Blood Pressure 133/62 01/21/25 13:35 Pulse Oximetry 92 01/21/25 13:35 Oxygen Delivery Room Air 01/21/25 11:17 MDM - Weakness MDM Narrative Medical decision making narrative: 84-year-old female with a past medical history including COPD, hypertension, hyperlipidemia, GERD. She presents for evaluation of generalized weakness. She was seen here 2 days ago, diagnosed with influenza and sent home after unremarkable workup. states that she is not eating, drinking and laying in bed complaining of diffuse pain. Patient herself states that she does not feel well, denies any vomiting but states she has been having loose watery stools consistent with diarrhea. She does appeared slightly dry with dry mucous membranes but her vital signs are reassuring without any significant blood pressure concerns, tachycardia, fever or hypoxia. She is mostly clear breath sounds without any wheezing, tachypnea. Workup was ordered including CBC, CMP, troponin, EKG, chest x-ray, CPK. Patient was given a bolus of D5 LR as she does have some with appears to be starvation ketoacidosis on her laboratory studies consistent with her story of not eating or drinking. Denies any urinary complaints but urinalysis was ordered this time for further delineation. Patient likely requires admission for failure to thrive at minimum unless other underlying etiology can be found. Workup shows no leukocytosis or anemia. Normal platelet count. Electrolytes were unremarkable aside from mild anion gap likely secondary to starvation ketosis as she has ketones in her urine. Urinalysis shows signs of infection. Creatinine normal. Normal renal function, normal glucose. Negative troponin, negative CPK. Chest x-ray shows some atelectasis but no pneumonia. Tested positive for influenza 2 days ago here. EKG shows normal sinus rhythm, no signs of ST segment elevations, depressions or inversions. No interval change compared to prior EKG. Patient re-evaluated, doing well, started on Rocephin and D5 LR. Will be admitted to the hospital for further evaluation and treatment. Family members made aware and comfortable the plan at this time. Medical Records Attestation: I reviewed the patient's medical records. Lab Data Attestation: I reviewed the patient's lab results. 01/21/25 11:42 01/21/25 11:42 Labs: Lab Results 01/21/25 01/21/25 Range/Units 11:42 12:59 WBC 5.6 (4.5-10.0) K/mm3 RBC 4.94 (4.2-5.4) M/mm3 Hgb 14.9 (12.0-15.0) g/dL Hct 45.0 (37.0-47.0) % MCV 91.1 (80-100) fl MCH 30.2 (26-34) pg MCHC 33.1 (32-36) g/dl RDW 13.1 (11.5-14.5) % Plt Count 174 (150-375) k/mm3 MPV 8.9 (7.4-10.4) fl Immature Gran % (Auto) 0.2 (0-0.5) % Neut % (Auto) 62.8 (45.5-73.1) % Lymph % (Auto) 26.3 (18.3-44.2) % Carbon % (Auto) 10.3 H (2.6-8.5) % Eos % (Auto) 0.2 (0-4.4) % Baso % (Auto) 0.2 (0.2-1.2) % Lymph # (Auto) 1.46 (0.9-3.2) K/mm3 Carbon # (Auto) 0.6 (0.1-0.6) K/mm3 Eos # (Auto) 0.0 (0-0.3) K/mm3 Baso # (Auto) 0.0 (0.0-0.1) K/mm3 Abs Immat Gran (auto) 0.01 (0.00-0.031) K/mm3 Absolute Neuts (auto) 3.5 (1.3-6.7) K/mm3 Absolute Nucleated RBC 0.000 (0.0-0.012) K/mm3 Nucleated RBC % 0.0 (0.0-0.2) % Sodium 135 L (137-145) mmol/L Potassium 3.6 (3.4-5.0) mmol/L Chloride 99 (98-107) mmol/L Carbon Dioxide 21 L (22-30) mmol/L Anion Gap 15 H (4-12) mmol/L BUN 20 H (7-17) mg/dL Creatinine 0.72 (0.7-1.0) mg/dL Estim Creat Clear Calc 36 ml/min Estimated GFR > 60 (59 - ) Glucose 100 (65-110) mg/dL Calcium 9.2 (8.4-10.2) mg/dL Total Bilirubin 0.8 (0.2-1.3) mg/dL AST 29 (14-36) U/L ALT 20 (6-35) U/L Alkaline Phosphatase 56 (38-126) U/L Total Creatine Kinase < 20 L (30-135) U/L Troponin I < 0.012 (0.000-0.034) ng/mL Total Protein 7.0 (6.3-8.2) g/dL Albumin 4.0 (3.5-5.1) g/dL Urine Color Dark yellow (Yellow) Urine Appearance Clear (Clear) Urine pH 5.5 (5.0-9.0) Ur Specific [place] 1.023 (1.001-1.035) Urine Protein Trace (Negative) mg/dL Urine Glucose (UA) Negative (Negative) mg/dL Urine Ketones 3+ H (Negative) mg/dL Ur Blood (Man) Trace (Negative) Urine Nitrate Positive H (Negative) Urine Bilirubin Negative (Negative) Urine Urobilinogen 1.0 (<2.0) mg/dL Leukocyte Esterase Rfl Trace H (Negative) PATY/UL Urine RBC 21-50 H (0-2) /hpf Urine WBC 11-20 H (0-3) /hpf Ur Squamous Epith Cells None seen (Few) /hpf Urine Bacteria 4+ H /hpf Urine Casts 0-2 Imaging Data Attestation: I personally reviewed and interpreted this imaging study as follows: My impression: Impressions Chest X-Ray 01/21/25 12:30 IMPRESSION: 1. Mild atelectasis at left lung base. Discharge Plan Discharge Clinical Impression: Urinary tract infection, Influenza A, Adult failure to thrive, Starvation ketoacidosis Patient Disposition: Still a Patient Condition: Stable Patient Language: [place] Prescriptions: No Action ondansetron 4 mg tablet,disintegrating 4 mg PO Q8H PRN (Reason: nausea and vomiting) Qty: 30 1RF omeprazole 40 mg capsule,delayed release(DR/EC) 40 mg PO DAILY Qty: 90 0RF cholecalciferol (vitamin D3) 50 mcg (2,000 unit) capsule 50 mcg PO DAILY multivitamin Capsule 1 cap PO DAILY primidone [Mysoline] 50 mg tablet 50 mg PO QHS Qty: 90 6RF Rx Instructions: start with half tablet daily at bedtime and increase at a rate of half tablet every week until 3 tablets at bedtime. prednisone 10 mg tablet 10 mg PO DIRECTED Qty: 21 0RF Rx Instructions: 4 tabs po QD x 3 days 2 tabs PO QD x 3 days 1 tab PO QD x 3 days lidocaine [Lidoderm] 5 % adhesive patch,medicated 1 patch transdermal DAILY Qty: 10 0RF potassium chloride [K-Tab] 20 mEq tablet extended release 20 meq PO BID Qty: 14 0RF ondansetron HCl 4 mg tablet 4 mg PO Q4H Qty: 10 0RF Rx Instructions: 1st dose 1-2 hr before radiation cyanocobalamin (vitamin B-12) [Vitamin B-12] 1,000 mcg tablet 1,000 mcg PO DAILY PRN magnesium 250 mg Tablet 250 mg PO DAILY levalbuterol tartrate 45 mcg/actuation Hfa Aerosol Inhaler 2 inh INHALATION Q6H PRN (Reason: Asthma) acetaminophen 500 mg tablet 1,000 mg PO QID Rx Instructions: takes with gabapentin lidocaine [Lidoderm] 5 % adhesive patch,medicated 1 patch topical DAILY PRN (Reason: back pain) Qty: 15 0RF Rx Instructions: leave on most painful area for up to 12 hrs prednisone 20 mg tablet 40 mg PO DAILY 5 Days Qty: 10 0RF montelukast 10 mg tablet 10 mg PO DAILY Qty: 90 1RF Rx Instructions: Take 1 tablet by mouth once daily meloxicam 15 mg tablet 15 mg PO DAILY Qty: 90 1RF Rx Instructions: Take 1 tablet by mouth once daily rosuvastatin 10 mg tablet 10 mg PO DAILY Qty: 90 1RF gabapentin 600 mg tablet See Rx Instructions .ROUTE .COMPLEX Qty: 360 0RF Dose Instruction: Take 1 tablet by mouth 4 times daily Rx Instructions: Take 1 tablet by mouth 4 times daily Follow-up/Referrals: Angel Mora MD [Primary Care Provider] - Time of Disposition: 14:19
[2025-01-21] MEDS: DEXTROSE 5%/LACTATED RINGERS 1,000 ML 1000 ML IV CONT (13:35)
[2025-01-21 13:39] LABS: Creatine Kinase < 20 U/L (30-135)
[2025-01-21 13:52] LABS: Troponin I < 0.012 ng/mL (0.000-0.034)
--- OUTSIDE RECORDS SUMMARY | 2025-01-21 14:23 | XMS_ITS | Clinical Summary ---
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
[2025-01-21] MEDS: LACTATED RINGERS 1,000 ML 125 ML IV CONT ×2 (15:13→23:30)
--- NOTE | 2025-01-21 17:06 | P.HP_ITS ---
H&P: HPI History of Present Illness Date/Time: 01/21/25 17:06 Chief Complaint: Weakness and flu Narrative: 84-year-old female past medical history of COPD, hyperlipidemia, irritable bowel syndrome and GERD presents the hospital with weakness, diarrhea and flu. Patient complains of a junky cough that she has had for a few days. She states a couple days ago she found that she had the flu. Since then she has had increased weakness and shortness of breath. Her lab work shows hyponatremia 135, carbon dioxide at 21, anion gap 15, BUN 20, UA shows positive for nitrates and trace leukocyte esterase with 4+ bacteria. Chest x-ray shows mild atelectasis of lung. EKG shows sinus rhythm with a rate of 76. Review of Systems Review of Systems: 12 systems were reviewed and are negativ e except for as per HPI. [facility] Past Medical History Medical History Kyphoscoliosis Benign essential tremor Vitamin D deficiency Scoliosis due to degenerative disease of spine in adult patient COPD (chronic obstructive pulmonary disease) Vision changes COVID-19 vaccine series completed Neuropathy Dyslipidemia Osteoporosis Sleep apnea Emphysema of lung Memory loss Frozen shoulder Left shoulder Sciatica associated with disorder of lumbar spine GERD (gastroesophageal reflux disease) Arthritis IBS (irritable bowel syndrome) Asthma Surgical History Surgical History Status post cataract extraction of both eyes with insertion of intraocular lens History of partial hysterectomy History of bowel resection History of cholecystectomy History of right hip replacement Family History Family History (Updated 01/21/25 @ 18:02 by Angelita Pacheco RN) Mother Pneumonia Arthritis Father Asbestosis Arthritis Grandparent Pneumonia Grandparent Heart attack Arthritis Grandparent Cerebrovascular accident Sibling Malignant neoplasm Arthritis Social History Social History Social History: She lives in [place] with her of 60 years. She has a Rollator at home but only uses it when she goes to the store. She has 2 children who are healthy. She is a lifelong nonsmoker and does not drink alcohol. 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 Primary care physician: Dr. Cruz Code status: DNR/DNI Surrogate decision maker: Miah (son) Smoking status: Never smoker Second hand tobacco smoke exposure: No Alcohol intake: never Substance use: never Substance use type: does not use Do You Feel Safe in your Home?: Yes Lack of Transportation: No Lack of Food: Never True Current Housing: I Have Housing Concerned About Future Housing: No Difficulty Paying Gas/Electric Bills: No Difficulty Paying for Meds: No Currently Unemployed: No Education: Don't Know Difficulty w/ Childcare or Family Care: No Living arrangements: with family Occupation/Education: retired Gender identity (if verbalized by the patient): Female Sexual Orientation (if Verbalized by the Patient): Straight or Heterosexual Spiritual care concerns: No Agree to blood products: Yes Meds Home Medications and Allergies Home Medications ?Medication ?Instructions ?Recorded ?Confirmed ?Type cholecalciferol (vitamin D3) 50 50 mcg PO DAILY 08/07/20 01/21/25 History mcg (2,000 unit) capsule multivitamin 1 cap PO DAILY 08/07/20 01/21/25 History montelukast 10 mg tablet 10 mg PO DAILY #90 tabs 09/14/23 01/21/25 Rx levalbuterol tartrate 45 2 inh inhalation Q6H PRN Asthma 09/29/23 01/21/25 History mcg/actuation aerosol inhaler ondansetron 4 mg disintegrating 4 mg PO Q8H PRN nausea and 10/03/23 01/21/25 Rx tablet vomiting #30 tabs meloxicam 15 mg tablet 15 mg PO DAILY #90 tabs 04/11/24 01/21/25 Rx rosuvastatin 10 mg tablet 10 mg PO DAILY #90 tabs 07/26/24 01/21/25 Rx omeprazole 40 mg capsule,delayed 40 mg PO DAILY #90 caps 08/01/24 01/21/25 Rx release acetaminophen 500 mg tablet 1,000 mg PO QID 10/09/24 01/21/25 History lidocaine 5 % topical patch 1 patch topical DAILY PRN back 10/27/24 01/21/25 Rx (Lidoderm) pain #15 ea gabapentin 600 mg tablet See Rx Instructions .Route 12/10/24 01/21/25 Rx .COMPLEX #360 tabs potassium chloride 20 mEq 20 meq PO BID #14 tabs 01/19/25 01/21/25 Rx tablet,extended release (K-Tab) Allergies Allergy/AdvReac Type Severity Reaction Status Date / Time codeine Allergy Severe Passes out Verified 01/19/25 12:08 oxycodone Allergy Severe pass out Verified 01/19/25 12:08 pain medications AdvReac Severe syncope Uncoded 01/19/25 12:08 Vital Signs Vital Signs - 24 hr 01/21/25 11:17 01/21/25 11:22 01/21/25 11:23 Temperature 98.2 F 98.2 F Pulse Rate 70 71 70 Respiratory Rate 18 9 L 18 Blood Pressure 141/66 H 141/66 H 141/66 H Pulse Oximetry 95 92 92 Oxygen Delivery Room Air 01/21/25 11:31 01/21/25 11:46 01/21/25 13:31 Temperature Pulse Rate 72 71 73 Respiratory Rate 20 17 19 Blood Pressure 139/62 136/64 123/53 L Pulse Oximetry 92 96 93 Oxygen Delivery 01/21/25 13:35 01/21/25 13:37 01/21/25 13:46 Temperature Pulse Rate 73 72 72 Respiratory Rate 20 19 21 H Blood Pressure 133/62 125/52 L 128/56 L Pulse Oximetry 92 93 94 Oxygen Delivery 01/21/25 14:31 01/21/25 15:01 01/21/25 16:08 Temperature Pulse Rate 70 73 Respiratory Rate 19 12 Blood Pressure 127/56 L 127/54 L 127/54 L Pulse Oximetry 97 95 Oxygen Delivery Exam Narrative: General: well appearing, appears stated age. HEENT: normocephalic, atraumatic. Mucous membranes moist. EOMI, PERRLA, bilateral sclera anicteric, no conjunctival injection. Neck supple without JVD, lymphadenopathy, or bruit. Respiratory: Coarse rhonchi cough productive Cardiovascular: Regular rate and rhythm, normal S1-S2 upon ascultation. No murmurs, rubs, or clicks. PMI is nondisplaced, capillary refill less than 3 second. Abdomen: Soft, round, no pulsatile masses, nondistended and nontender. No rebound, no guarding. No CVA tenderness, no hepatosplenomegaly. Bowel sounds present to all four quadrants. No high pitch or tinkling sounds, resonant to percussion. Extremities: No cyanosis, clubbing, or edema present. Pulses are palpable 2/2. Active ROM to all four extremities. Neuro: Alert and orientated x 4. PERRLA. Cranial nerves 2-12 intact without focal deficit. Skin: Warm, dry, and intact, without rash, erythema, or lesion. Psych: pleasant, cooperative, normal speech, normal affect, no hallucinations, no dysarthia H&P: Results Labs Labs: Short CBC 01/21/25 Range/Units 11:42 WBC 5.6 (4.5-10.0) K/mm3 Hgb 14.9 (12.0-15.0) g/dL Hct 45.0 (37.0-47.0) % Plt Count 174 (150-375) k/mm3 BMP 01/21/25 11:42 Sodium 135 L Potassium 3.6 Chloride 99 Carbon Dioxide 21 L BUN 20 H Creatinine 0.72 Glucose 100 Calcium 9.2 Cardiac Enzymes 01/21/25 Range/Units 11:42 Total Creatine Kinase < 20 L (30-135) U/L Troponin I < 0.012 (0.000-0.034) ng/mL Liver Function 01/21/25 Range/Units 11:42 Total Bilirubin 0.8 (0.2-1.3) mg/dL AST 29 (14-36) U/L ALT 20 (6-35) U/L Alkaline Phosphatase 56 (38-126) U/L Albumin 4.0 (3.5-5.1) g/dL Urine 01/21/25 Range/Units 12:59 Urine Color Dark yellow (Yellow) Urine Appearance Clear (Clear) Urine pH 5.5 (5.0-9.0) Ur Specific [place] 1.023 (1.001-1.035) Urine Protein Trace (Negative) mg/dL Urine Glucose (UA) Negative (Negative) mg/dL Assessment and Plan Assessment and plan (1) Pneumonia: Qualifiers: Pneumonia type: due to unspecified organism Laterality: left Lung location: lower lobe of lung Qualified Code(s): J18.9 - Pneumonia, unspecified organism Code(s): J18.9 - Pneumonia, unspecified organism Status: Acute Assessment and Plan: Chest x-ray shows atelectasis however it is probably more likely pneumonia Add Rocephin Guaifenesin Incentive spirometer (2) Influenza A: Code(s): J10.1 - Influenza due to other identified influenza virus with other respiratory manifestations Status: Acute Assessment and Plan: Positive on on 01/19/25 Tamiflu x5 days (3) Acute UTI: Code(s): N39.0 - Urinary tract infection, site not specified Status: Acute Assessment and Plan: IV Rocephin IV fluids Cultures and sensitivities pending (4) COPD (chronic obstructive pulmonary disease): Qualifiers: COPD type: unspecified COPD Qualified Code(s): J44.9 - Chronic obstructive pulmonary disease, unspecified Code(s): J44.9 - Chronic obstructive pulmonary disease, unspecified Status: Acute Assessment and Plan: Likely COPD exacerbation Solu-Medrol x1 Prednisone in a.m. DuoNeb (5) Starvation ketoacidosis: Code(s): T73.0XXA - Starvation, initial encounter; E87.29 - Other acidosis Status: Acute Assessment and Plan: Poor oral intake due to acute illness D5 LR bolus given in ED Accu-[address] way HS Regular diet with protein supplements Hypoglycemia protocol Dietary supplements (6) Diarrhea: Qualifiers: Diarrhea type: unspecified type Qualified Code(s): R19.7 - Diarrhea, unspecified Code(s): R19.7 - Diarrhea, unspecified Status: Acute Assessment and Plan: C diff test pending (7) Weakness: Code(s): R53.1 - Weakness Status: Acute Assessment and Plan: Secondary to above PT OT eval (8) Dyslipidemia: Code(s): E78.5 - Hyperlipidemia, unspecified Status: Acute Assessment and Plan: Continue home Crestor Quality VTE Prophylaxis VTE prophylaxis: mechanical ordered and pharmacologic ordered Hospitalist MIPS Advance Care Plan I have confirmed that the patient's Advanced Care Plan is present, code status is documented, or surrogate decision maker is listed in patient medical record.: Yes Medication Reconciliation I have utilized all available resources to obtain, update and review the patients current medications (includes all prescriptions, OTC, herbals, cannabis, and nutritional supplements).: Yes
--- NOTE | 2025-01-21 17:57 | ADMGEN ---
This patient, Ellyn Cody, was admitted to [facility] Surg Room 312-01. Patient/family oriented to hospital policies and general routines including ID bracelet, bed and alarms, visiting hours, pain management, procedures, bathroom and other care routines, personal items, smoking policy, room service/diet, and visiting hours. Information on how to activate the Rapid Response Team has been discussed. Patient/Family are encouraged to report perceived risks to care and to ask questions if they do not understand what they are told or what they should do. Report from Sherly in ER.
[2025-01-21] MEDS: ACETAMINOPHEN 325 MG TABLET 650 MG PO (18:29)
[2025-01-22] VITALS (13 sets, daily range): BP systolic 111–136; BP diastolic 50–55; PULSE 67–85; RESP 18–22; TEMP 35.9–36.6; O2SAT 94–98
[2025-01-22] MEDS: ACETAMINOPHEN 500 MG TABLET 1000 MG PO ×5 (00:13→21:18)
[2025-01-22] MEDS: OSELTAMIVIR PHOSPHATE 75 MG CAPSULE PO (00:21)
[2025-01-22] MEDS: guaiFENesin/DEXTROMETHORPHAN 10 ML UDC PO ×6 (00:21→21:17)
[2025-01-22] MEDS: methylPREDNISolone SOD SUCC 125 MG VIAL IV PUSH (00:21)
[2025-01-22] MEDS: AZITHROMYCIN 500 MG/NS 250 ML 500 MG/250 ML BAG 250 MG IVPB (00:22)
[2025-01-22] MEDS: IPRATROPIUM 0.5 MG/ALBUTEROL SULFATE 2.5 MG AMPUL.NEB 3 ML INHALATION ×4 (03:01→19:29)
[2025-01-22 06:35] LABS: Hematocrit 40.2 % (37.0-47.0); Hemoglobin 13.2 g/dL (12.0-15.0); Immature Granulocyte Absolute 0.02 K/mm3 (0.00-0.031); Immature Granulocyte Percent A 0.8 % (0-0.5); Lymphocytes Absolute Auto 0.35 K/mm3 (0.9-3.2); Lymphocytes Percent Auto 14.1 % (18.3-44.2); Mean Corpuscular HGB Conc 32.8 g/dl (32-36); Mean Corpuscular Hemoglobin 30.1 pg (26-34); Mean Corpuscular Volume 91.6 fl (80-100); Mean Platelet Volume 9.3 fl (7.4-10.4); Monocytes Percent Auto 1.6 % (2.6-8.5); Neutrophils Absolute Auto 2.1 K/mm3 (1.3-6.7); Neutrophils Percent Auto 83.5 % (45.5-73.1); Platelet Count Result 140 k/mm3 (150-375); Red Blood Count 4.39 M/mm3 (4.2-5.4); Red Cell Distribution Width 12.8 % (11.5-14.5); White Blood Count 2.5 K/mm3 (4.5-10.0)
[2025-01-22 06:44] LABS: Anion Gap 11 mmol/L (4-12); Blood Urea Nitrogen 15 mg/dL (7-17); Calcium 8.4 mg/dL (8.4-10.2); Carbon Dioxide 23 mmol/L (22-30); Chloride 100 mmol/L (98-107); Estimated Glomerular Filt Rate > 60; Glucose 177 mg/dL (65-110); Potassium 3.5 mmol/L (3.4-5.0); Sodium 134 mmol/L (137-145)
[2025-01-22 08:06] LABS: Glucose Point of Care 175 mg/dl (65-105)
[2025-01-22] MEDS: ENOXAPARIN 40 MG/0.4 ML SYRINGE SUB-Q (08:41)
[2025-01-22] MEDS: OSELTAMIVIR PHOSPHATE 30 MG CAPSULE PO ×2 (08:41→21:18)
[2025-01-22] MEDS: MELOXICAM 7.5 MG TABLET 15 MG PO (08:41)
[2025-01-22] MEDS: predniSONE 20 MG TABLET 40 MG PO (08:42)
[2025-01-22] MEDS: ROSUVASTATIN 10 MG TABLET PO (08:42)
[2025-01-22] MEDS: LACTATED RINGERS 1,000 ML 125 ML IV CONT (09:32)
[2025-01-22] MEDS: GABAPENTIN 300 MG CAPSULE 600 MG BY MOUTH ×4 (09:32→21:18)
[2025-01-22 11:43] LABS: Glucose Point of Care 262 mg/dl (65-105)
--- NOTE | 2025-01-22 14:13 | P.PNIM_ITS ---
Progress Note: A&P Assessment and Plan (1) Pneumonia: Qualifiers: Pneumonia type: due to unspecified organism Laterality: left Lung location: lower lobe of lung Qualified Code(s): J18.9 - Pneumonia, unspecified organism Code(s): J18.9 - Pneumonia, unspecified organism Status: Acute Assessment and Plan: Chest x-ray shows atelectasis however it is probably more likely pneumonia Add Rocephin Guaifenesin Incentive spirometer (2) Influenza A: Code(s): J10.1 - Influenza due to other identified influenza virus with other respiratory manifestations Status: Acute Assessment and Plan: Positive on on 01/19/25 Tamiflu x5 days (3) Acute UTI: Code(s): N39.0 - Urinary tract infection, site not specified Status: Acute Assessment and Plan: IV Rocephin IV fluids Cultures and sensitivities pending (4) COPD (chronic obstructive pulmonary disease): Qualifiers: COPD type: unspecified COPD Qualified Code(s): J44.9 - Chronic obstructive pulmonary disease, unspecified Code(s): J44.9 - Chronic obstructive pulmonary disease, unspecified Status: Acute Assessment and Plan: Likely COPD exacerbation Solu-Medrol x1 Prednisone in a.m. DuoNeb (5) Starvation ketoacidosis: Code(s): T73.0XXA - Starvation, initial encounter; E87.29 - Other acidosis Status: Acute Assessment and Plan: Poor oral intake due to acute illness D5 LR bolus given in ED Accu-Cheks a.c. HS Regular diet with protein supplements Hypoglycemia protocol Dietary supplements (6) Diarrhea: Qualifiers: Diarrhea type: unspecified type Qualified Code(s): R19.7 - Diarrhea, unspecified Code(s): R19.7 - Diarrhea, unspecified Status: Acute Assessment and Plan: C diff test pending (7) Weakness: Code(s): R53.1 - Weakness Status: Acute Assessment and Plan: Secondary to above PT OT eval (8) Dyslipidemia: Code(s): E78.5 - Hyperlipidemia, unspecified Status: Acute Assessment and Plan: Continue home Crestor Plan Patient with hisory of COPD, is found to have pneumonia and positive for influenza A, patient is being treated Rocephin azithromycin and Tamiflu will monitor and further recommendation to follow. Subjective Date/time seen: 01/22/25 14:13 Interval history: Weakness and flu H&P-Narrative: 84-year-old female past medical history of COPD, hyperlipidemia, irritable bowel syndrome and GERD presents the hospital with weakness, diarrhea and flu. Patient complains of a junky cough that she has had for a few days. She states a couple days ago she found that she had the flu. Since then she has had increased weakness and shortness of breath. Her lab work shows hyponatremia 135, carbon dioxide at 21, anion gap 15, BUN 20, UA shows positive for nitrates and trace leukocyte esterase with 4+ bacteria. Chest x-ray shows mild atelectasis of lung. EKG shows sinus rhythm with a rate of 76. Patient with hisory of COPD, is found to have pneumonia and positive for influenza A, patient is being treated Rocephin azithromycin and Tamiflu will monitor and further recommendation to follow. Review of Systems Review of Systems: 12 systems were reviewed and are negativ e except for as per HPI. Exam Narrative: Elderly frail Patient is comfortable, NAD HEENT: eyes are clear and none icteric LUNGS: Bilateral fair entry with harsh breath sounds. HEART: RR S1S2 ABD: BS+, Soft and nontender Lower extremities: no edema SKIN: nonjaundiced Neuro: grossly intact. Objective Data Vital Signs Vital Signs: Vital Signs - 24 hr 01/21/25 14:31 01/21/25 15:01 01/21/25 16:08 Temperature Pulse Rate 70 73 Respiratory Rate 19 12 Blood Pressure 127/56 L 127/54 L 127/54 L Pulse Oximetry 97 95 Oxygen Delivery 01/21/25 21:00 01/22/25 00:00 01/22/25 03:09 Temperature 36.0 C L 36.5 C Pulse Rate 66 67 Respiratory Rate 20 18 Blood Pressure 119/48 L 126/52 L Pulse Oximetry 95 94 94 Oxygen Delivery Room Air 01/22/25 03:09 01/22/25 03:20 01/22/25 04:50 Temperature 35.9 C L Pulse Rate 69 70 74 Respiratory Rate 18 18 18 Blood Pressure 128/50 L Pulse Oximetry 96 Oxygen Delivery 01/22/25 07:35 01/22/25 07:35 01/22/25 07:43 Temperature Pulse Rate 75 85 Respiratory Rate 18 18 Blood Pressure Pulse Oximetry 94 Oxygen Delivery Room Air 01/22/25 08:00 01/22/25 08:00 01/22/25 13:50 Temperature 36.4 C L Pulse Rate 82 72 Respiratory Rate 18 18 Blood Pressure 136/50 L Pulse Oximetry 97 Oxygen Delivery Room Air 01/22/25 14:01 Temperature Pulse Rate 76 Respiratory Rate 18 Blood Pressure Pulse Oximetry Oxygen Delivery Intake/Output Intake/Output: Intake & Output 01/20/25 01/20/25 01/21/25 01/22/25 00:59 23:59 23:59 23:59 Intake Total 0 1397.9 Output Total 75 Balance 1975 1397.9 Meds/Results Medications: Active Medications Generic Name Dose Route Start Last Admin Trade Name Freq PRN Reason Stop Dose Admin Acetaminophen 650 mg 01/21/25 14:12 01/21/25 18:29 Acetaminophen 325 Mg Tablet PO 650 mg Q4H PRN Administration Mild Pain (1-3) or Fever Acetaminophen 1,000 mg 01/21/25 21:00 01/22/25 12:06 Acetaminophen 500 Mg Tablet PO 1,000 mg QID FATUMA Administration Albuterol/Ipratropium 3 ml 01/22/25 02:00 01/22/25 13:48 Ipratropium 0.5 Mg/Albuterol Sulfate 2.5 Mg Ampul.Neb 3 Ml INHALATION 3 ml Q6HRT FATUMA Administration Dextrose 12.5 gm 01/21/25 20:08 Dextrose 50% 25 Gm/50 Ml Syringe IV PUSH PRN PRN Hypoglycemia Protocol Enoxaparin Sodium 40 mg 01/22/25 09:00 01/22/25 08:41 Enoxaparin 40 Mg/0.4 Ml Syringe SUB-Q 40 mg DAILY FATUMA Administration Gabapentin 600 mg 01/22/25 09:00 01/22/25 12:06 Gabapentin 300 Mg Capsule BY MOUTH 600 mg QID FATUMA Administration Glucagon 1 mg 01/21/25 20:08 Glucagon For Inj 1 Mg Vial IM PRN PRN Hypoglycemia Protocol Glucose 15 gm 01/21/25 20:08 Glucose Oral Gel 15 Gm Of Glucse In 37.5 Gm Tube PO PRN PRN Hypoglycemia Protocol Guaifenesin/Dextromethorphan 10 ml 01/22/25 01:00 01/22/25 12:06 Guaifenesin/Dextromethorphan 10 Ml Udc PO 10 ml Q4HR FATUMA Administration Lactated Ringer's 1,000 mls @ 75 mls/hr 01/21/25 14:15 01/22/25 11:07 Lr - Lactated Ringers Iv IV CONT 75 mls/hr .[id number] FATUMA Infusion Dextrose 1,000 mls @ 100 mls/hr 01/21/25 20:08 Dextrose 5% 1,000 Ml IVPB PRN PRN Hypoglycemia Protocol Azithromycin 500 mg in 250 mls @ 250 mls/hr 01/22/25 00:00 01/22/25 00:22 Zithromax IVPB 250 mls/hr Q24H FATUMA Administration Meloxicam 15 mg 01/22/25 09:00 01/22/25 08:41 Meloxicam 7.5 Mg Tablet PO 15 mg DAILY FATUMA Administration Oseltamivir Phosphate 30 mg 01/22/25 09:00 01/22/25 08:41 Oseltamivir Phosphate 30 Mg Capsule PO 01/26/25 09:01 30 mg Q12HR FATUMA Administration Prednisone 40 mg 01/22/25 08:00 01/22/25 08:42 Prednisone 20 Mg Tablet PO 40 mg DAILY@0800 FATUMA Administration Rosuvastatin Calcium 10 mg 01/22/25 09:00 01/22/25 08:42 Rosuvastatin 10 Mg Tablet PO 10 mg DAILY FATUMA Administration Radiology Results: ITS Impressions Chest X-Ray 01/21/25 12:30 IMPRESSION: 1. Mild atelectasis at left lung base. Labs Labs: Laboratory Results - last 24 hr 01/22/25 01/22/25 01/22/25 06:06 07:53 11:29 WBC 2.5 L RBC 4.39 Hgb 13.2 Hct 40.2 MCV 91.6 MCH 30.1 MCHC 32.8 RDW 12.8 Plt Count 140 L MPV 9.3 Immature Gran % (Auto) 0.8 H Neut % (Auto) 83.5 H Lymph % (Auto) 14.1 L Johnson % (Auto) 1.6 L Eos % (Auto) 0.0 Baso % (Auto) 0.0 L Lymph # (Auto) 0.35 L Johnson # (Auto) 0.0 L Eos # (Auto) 0.0 Baso # (Auto) 0.0 Abs Immat Gran (auto) 0.02 Absolute Neuts (auto) 2.1 Absolute Nucleated RBC 0.000 Nucleated RBC % 0.0 Sodium 134 L Potassium 3.5 Chloride 100 Carbon Dioxide 23 Anion Gap 11 BUN 15 D Creatinine 0.65 L Estim Creat Clear Calc Not Reportable Estimated GFR > 60 Glucose 177 H POC Capillary Glucose 175 H 262 H Calcium 8.4 Quality VTE Prophylaxis VTE prophylaxis: mechanical ordered and pharmacologic ordered
[2025-01-22] MEDS: NAPROXEN SODIUM 220 MG TABLET PO (15:19)
[2025-01-22 16:45] LABS: Glucose Point of Care 240 mg/dl (65-105)
[2025-01-22 20:14] LABS: Glucose Point of Care 247 mg/dl (65-105)
[2025-01-22] MEDS: AZITHROMYCIN 250 MG TABLET 500 MG PO (21:18)
[2025-01-22] MEDS: LACTATED RINGERS 1,000 ML 75 ML IV CONT (23:46)
[2025-01-23] VITALS (10 sets, daily range): BP systolic 100–122; BP diastolic 49–52; PULSE 71–98; RESP 16–27; TEMP 36.3–36.9; O2SAT 95–98
[2025-01-23] MEDS: guaiFENesin/DEXTROMETHORPHAN 10 ML UDC PO ×5 (01:05→21:36)
[2025-01-23] MEDS: IPRATROPIUM 0.5 MG/ALBUTEROL SULFATE 2.5 MG AMPUL.NEB 3 ML INHALATION ×4 (01:10→19:10)
[2025-01-23 06:04] LABS: Hematocrit 36.4 % (37.0-47.0); Hemoglobin 12.4 g/dL (12.0-15.0); Mean Corpuscular HGB Conc 34.1 g/dl (32-36); Mean Corpuscular Hemoglobin 30.5 pg (26-34); Mean Corpuscular Volume 89.4 fl (80-100); Mean Platelet Volume 9.5 fl (7.4-10.4); Platelet Count Result 166 k/mm3 (150-375); Red Blood Count 4.07 M/mm3 (4.2-5.4); Red Cell Distribution Width 12.7 % (11.5-14.5); White Blood Count 6.2 K/mm3 (4.5-10.0)
[2025-01-23 06:21] LABS: Anion Gap 7 mmol/L (4-12); Blood Urea Nitrogen 12 mg/dL (7-17); Calcium 8.4 mg/dL (8.4-10.2); Carbon Dioxide 27 mmol/L (22-30); Chloride 100 mmol/L (98-107); Estimated Glomerular Filt Rate > 60; Glucose 161 mg/dL (65-110); Magnesium 1.3 mg/dL (1.6-2.3); Potassium 2.9 mmol/L (3.4-5.0); Sodium 134 mmol/L (137-145)
[2025-01-23] MEDS: POTASSIUM CHLORIDE 20 MEQ PACKET (FOR LIQUID) 40 MEQ PO (08:00)
[2025-01-23] MEDS: MAGNESIUM OXIDE 400 MG TABLET PO (08:00)
[2025-01-23] MEDS: MAGNESIUM SULF 2 GM/WATER 50ML 2 GM/50 ML BAG IVPB (08:00)
[2025-01-23] MEDS: ENOXAPARIN 40 MG/0.4 ML SYRINGE SUB-Q (08:01)
[2025-01-23] MEDS: MELOXICAM 7.5 MG TABLET 15 MG PO (08:01)
[2025-01-23] MEDS: predniSONE 20 MG TABLET 40 MG PO (08:01)
[2025-01-23] MEDS: ACETAMINOPHEN 500 MG TABLET 1000 MG PO ×3 (08:01→21:35)
[2025-01-23] MEDS: OSELTAMIVIR PHOSPHATE 30 MG CAPSULE PO ×2 (08:01→21:36)
[2025-01-23] MEDS: ROSUVASTATIN 10 MG TABLET PO (08:01)
[2025-01-23] MEDS: GABAPENTIN 300 MG CAPSULE 600 MG BY MOUTH ×3 (08:01→21:36)
[2025-01-23 08:06] LABS: Glucose Point of Care 135 mg/dl (65-105)
--- NOTE | 2025-01-23 09:49 | PCOTNOTE ---
Patient just got back to the bed due ot increased nausea/dizziness. Patient requested therapy come back at a later time.
[2025-01-23] MEDS: POTASSIUM CHLORIDE INJ 40 MEQ in SODIUM CHLORIDE 0.9% IV 500 ML 75 MEQ IVPB (09:51)
[2025-01-23] MEDS: ONDANSETRON HCL ODT 4 MG TABLET PO (11:31)
[2025-01-23 11:46] LABS: Glucose Point of Care 184 mg/dl (65-105)
--- NOTE | 2025-01-23 13:42 | P.PNIM_ITS ---
Progress Note: A&P Assessment and Plan (1) Pneumonia: Qualifiers: Pneumonia type: due to unspecified organism Laterality: left Lung location: lower lobe of lung Qualified Code(s): J18.9 - Pneumonia, unspecified organism Code(s): J18.9 - Pneumonia, unspecified organism Status: Acute Assessment and Plan: Chest x-ray shows atelectasis however it is probably more likely pneumonia Add Rocephin Guaifenesin Incentive spirometer (2) Influenza A: Code(s): J10.1 - Influenza due to other identified influenza virus with other respiratory manifestations Status: Acute Assessment and Plan: Positive on on 01/19/25 Tamiflu x5 days (3) Acute UTI: Code(s): N39.0 - Urinary tract infection, site not specified Status: Acute Assessment and Plan: IV Rocephin IV fluids Cultures and sensitivities pending (4) COPD (chronic obstructive pulmonary disease): Qualifiers: COPD type: unspecified COPD Qualified Code(s): J44.9 - Chronic obstructive pulmonary disease, unspecified Code(s): J44.9 - Chronic obstructive pulmonary disease, unspecified Status: Acute Assessment and Plan: Likely COPD exacerbation Solu-Medrol x1 Prednisone in a.m. DuoNeb (5) Starvation ketoacidosis: Code(s): T73.0XXA - Starvation, initial encounter; E87.29 - Other acidosis Status: Acute Assessment and Plan: Poor oral intake due to acute illness D5 LR bolus given in ED Accu-Cheks a.c. HS Regular diet with protein supplements Hypoglycemia protocol Dietary supplements (6) Diarrhea: Qualifiers: Diarrhea type: unspecified type Qualified Code(s): R19.7 - Diarrhea, unspecified Code(s): R19.7 - Diarrhea, unspecified Status: Acute Assessment and Plan: C diff test pending (7) Weakness: Code(s): R53.1 - Weakness Status: Acute Assessment and Plan: Secondary to above PT OT eval (8) Dyslipidemia: Code(s): E78.5 - Hyperlipidemia, unspecified Status: Acute Assessment and Plan: Continue home Crestor Plan Patient with hisory of COPD, is found to have pneumonia and positive for influenza A, patient is being treated Rocephin azithromycin and Tamiflu, currently patient is working with Pt and sitting in the chair, stats feels much better, not as short of breath, will monitor and further recommendation to follow. Subjective Date/time seen: 01/23/25 13:42 Interval history: Weakness and flu H&P-Narrative: 84-year-old female past medical history of COPD, hyperlipidemia, irritable bowel syndrome and GERD presents the hospital with weakness, diarrhea and flu. Patient complains of a junky cough that she has had for a few days. She states a couple days ago she found that she had the flu. Since then she has had increased weakness and shortness of breath. Her lab work shows hyponatremia 135, carbon dioxide at 21, anion gap 15, BUN 20, UA shows positive for nitrates and trace leukocyte esterase with 4+ bacteria. Chest x-ray shows mild atelectasis of lung. EKG shows sinus rhythm with a rate of 76. Patient with hisory of COPD, is found to have pneumonia and positive for influenza A, patient is being treated Rocephin azithromycin and Tamiflu, currently patient is working with Pt and sitting in the chair, stats feels much better, not as short of breath, will monitor and further recommendation to follow. Review of Systems Review of Systems: 12 systems were reviewed and are negativ e except for as per HPI. Exam Narrative: Elderly frail Patient is comfortable, NAD HEENT: eyes are clear and none icteric LUNGS: Bilateral fair entry with harsh breath sounds. HEART: RR S1S2 ABD: BS+, Soft and nontender Lower extremities: no edema SKIN: nonjaundiced Neuro: grossly intact. Objective Data Vital Signs Vital Signs: Vital Signs - 24 hr 01/22/25 13:50 01/22/25 14:00 01/22/25 14:01 Temperature 36.6 C Pulse Rate 72 77 76 Respiratory Rate 18 18 18 Blood Pressure 114/54 L Pulse Oximetry 94 Oxygen Delivery 01/22/25 15:15 01/22/25 19:29 01/22/25 19:29 Temperature Pulse Rate 71 Respiratory Rate 22 H Blood Pressure Pulse Oximetry 95 Oxygen Delivery Room Air Room Air 01/22/25 19:40 01/22/25 19:40 01/22/25 21:13 Temperature 36.4 C L Pulse Rate 71 72 80 Respiratory Rate 22 H 18 20 Blood Pressure 111/55 L Pulse Oximetry 95 98 Oxygen Delivery Room Air 01/23/25 01:10 01/23/25 05:39 01/23/25 07:21 Temperature 36.3 C L Pulse Rate 98 84 80 Respiratory Rate 27 H 20 16 Blood Pressure 122/50 L Pulse Oximetry 97 Oxygen Delivery 01/23/25 07:35 01/23/25 08:00 01/23/25 09:11 Temperature Pulse Rate 80 Respiratory Rate 16 Blood Pressure Pulse Oximetry Oxygen Delivery Room Air Room Air 01/23/25 13:35 Temperature Pulse Rate 71 Respiratory Rate 16 Blood Pressure Pulse Oximetry Oxygen Delivery Intake/Output Intake/Output: Intake & Output 01/20/25 01/21/25 01/22/25 01/23/25 23:59 23:59 23:59 23:59 Intake Total 2050 2490.0 300 Output Total 75 200 Balance 1975 2490.0 100 Meds/Results Medications: Active Medications Generic Name Dose Route Start Last Admin Trade Name Freq PRN Reason Stop Dose Admin Acetaminophen 1,000 mg 01/21/25 21:00 01/23/25 12:07 Acetaminophen 500 Mg Tablet PO Not Given QID FATUMA Albuterol/Ipratropium 3 ml 01/22/25 02:00 01/23/25 13:34 Ipratropium 0.5 Mg/Albuterol Sulfate 2.5 Mg Ampul.Neb 3 Ml INHALATION 3 ml Q6HRT FATUMA Administration Azithromycin 500 mg 01/22/25 21:00 01/22/25 21:18 Azithromycin 250 Mg Tablet PO 01/25/25 21:01 500 mg QHS FATUMA Administration Dextrose 12.5 gm 01/21/25 20:08 Dextrose 50% 25 Gm/50 Ml Syringe IV PUSH PRN PRN Hypoglycemia Protocol Enoxaparin Sodium 40 mg 01/22/25 09:00 01/23/25 08:01 Enoxaparin 40 Mg/0.4 Ml Syringe SUB-Q 40 mg DAILY FATUMA Administration Gabapentin 600 mg 01/22/25 09:00 01/23/25 12:07 Gabapentin 300 Mg Capsule BY MOUTH Not Given QID FATUMA Glucagon 1 mg 01/21/25 20:08 Glucagon For Inj 1 Mg Vial IM PRN PRN Hypoglycemia Protocol Glucose 15 gm 01/21/25 20:08 Glucose Oral Gel 15 Gm Of Glucse In 37.5 Gm Tube PO PRN PRN Hypoglycemia Protocol Guaifenesin/Dextromethorphan 10 ml 01/22/25 01:00 01/23/25 12:07 Guaifenesin/Dextromethorphan 10 Ml Udc PO Not Given Q4HR FATUMA Lactated Ringer's 1,000 mls @ 75 mls/hr 01/21/25 14:15 01/22/25 23:46 Lr - Lactated Ringers Iv IV CONT 75 mls/hr .[id number] FATUMA Administration Dextrose 1,000 mls @ 100 mls/hr 01/21/25 20:08 Dextrose 5% 1,000 Ml IVPB PRN PRN Hypoglycemia Protocol Ceftriaxone Sodium 1 gm in 50 mls @ 100 mls/hr 01/22/25 17:00 01/22/25 17:33 Rocephin 1 Gm/Ns 50 Ml IVPB Infused Q24H FATUMA Infusion Magnesium Oxide 400 mg 01/23/25 09:00 01/23/25 08:00 Magnesium Oxide 400 Mg Tablet PO 400 mg QAM FATUMA Administration Meloxicam 15 mg 01/22/25 09:00 01/23/25 08:01 Meloxicam 7.5 Mg Tablet PO 15 mg DAILY FATUMA Administration Ondansetron HCl 4 mg 01/23/25 11:23 01/23/25 11:31 Ondansetron Hcl Odt 4 Mg Tablet PO 4 mg Q6H PRN Administration Nausea And Vomiting Oseltamivir Phosphate 30 mg 01/22/25 09:00 01/23/25 08:01 Oseltamivir Phosphate 30 Mg Capsule PO 01/26/25 09:01 30 mg Q12HR FATUMA Administration Prednisone 40 mg 01/22/25 08:00 01/23/25 08:01 Prednisone 20 Mg Tablet PO 40 mg DAILY@0800 FATUMA Administration Rosuvastatin Calcium 10 mg 01/22/25 09:00 01/23/25 08:01 Rosuvastatin 10 Mg Tablet PO 10 mg DAILY FATUMA Administration Radiology Results: ITS Impressions Chest X-Ray 01/21/25 12:30 IMPRESSION: 1. Mild atelectasis at left lung base. Labs Labs: Laboratory Results - last 24 hr 01/22/25 01/22/25 01/23/25 16:35 19:25 05:37 WBC 6.2 RBC 4.07 L Hgb 12.4 Hct 36.4 L MCV 89.4 MCH 30.5 MCHC 34.1 RDW 12.7 Plt Count 166 MPV 9.5 Sodium 134 L Potassium 2.9 L Chloride 100 Carbon Dioxide 27 Anion Gap 7 BUN 12 Creatinine 0.71 Estim Creat Clear Calc Not Reportable Estimated GFR > 60 Glucose 161 H POC Capillary Glucose 240 H 247 H Calcium 8.4 Magnesium 1.3 L 01/23/25 01/23/25 07:58 11:36 WBC RBC Hgb Hct MCV MCH MCHC RDW Plt Count MPV Sodium Potassium Chloride Carbon Dioxide Anion Gap BUN Creatinine Estim Creat Clear Calc Estimated GFR Glucose POC Capillary Glucose 135 H 184 H Calcium Magnesium Quality VTE Prophylaxis VTE prophylaxis: mechanical ordered and pharmacologic ordered
[2025-01-23] MEDS: AMOXICILLIN/CLAVULANATE K 875-125 MG TAB 1 TABLET PO (16:41)
[2025-01-23 17:01] LABS: Glucose Point of Care 149 mg/dl (65-105)
[2025-01-23 20:47] LABS: Glucose Point of Care 173 mg/dl (65-105)
[2025-01-23] MEDS: AZITHROMYCIN 250 MG TABLET 500 MG PO (21:36)
[2025-01-23] MEDS: LACTATED RINGERS 1,000 ML 75 ML IV CONT (21:41)
[2025-01-24] VITALS (12 sets, daily range): BP systolic 105–120; BP diastolic 52–76; PULSE 67–115; RESP 16–20; TEMP 36.7–36.8; O2SAT 91–97
[2025-01-24] MEDS: guaiFENesin/DEXTROMETHORPHAN 10 ML UDC PO ×6 (00:34→20:37)
[2025-01-24] MEDS: IPRATROPIUM 0.5 MG/ALBUTEROL SULFATE 2.5 MG AMPUL.NEB 3 ML INHALATION ×4 (01:26→21:24)
[2025-01-24 06:05] LABS: Hematocrit 35.1 % (37.0-47.0); Hemoglobin 11.8 g/dL (12.0-15.0); Mean Corpuscular HGB Conc 33.6 g/dl (32-36); Mean Corpuscular Hemoglobin 30.3 pg (26-34); Mean Platelet Volume 9.7 fl (7.4-10.4); Platelet Count Result 176 k/mm3 (150-375); Red Cell Distribution Width 13.2 % (11.5-14.5); White Blood Count 7.3 K/mm3 (4.5-10.0)
[2025-01-24 06:15] LABS: Anion Gap 5 mmol/L (4-12); Blood Urea Nitrogen 14 mg/dL (7-17); Carbon Dioxide 26 mmol/L (22-30); Chloride 104 mmol/L (98-107); Estimated Glomerular Filt Rate > 60; Glucose 124 mg/dL (65-110); Magnesium 1.8 mg/dL (1.6-2.3); Sodium 135 mmol/L (137-145)
[2025-01-24 08:25] LABS: Glucose Point of Care 98 mg/dl (65-105)
[2025-01-24] MEDS: predniSONE 20 MG TABLET 40 MG PO (09:24)
[2025-01-24] MEDS: ACETAMINOPHEN 500 MG TABLET 1000 MG PO ×4 (09:24→20:36)
[2025-01-24] MEDS: AMOXICILLIN/CLAVULANATE K 875-125 MG TAB 1 TABLET PO ×2 (09:24→20:37)
[2025-01-24] MEDS: MELOXICAM 7.5 MG TABLET 15 MG PO (09:24)
[2025-01-24] MEDS: OSELTAMIVIR PHOSPHATE 30 MG CAPSULE PO ×2 (09:24→20:37)
[2025-01-24] MEDS: GABAPENTIN 300 MG CAPSULE 600 MG BY MOUTH ×4 (09:24→20:37)
[2025-01-24] MEDS: ROSUVASTATIN 10 MG TABLET PO (09:24)
[2025-01-24] MEDS: MAGNESIUM OXIDE 400 MG TABLET PO (09:25)
[2025-01-24] MEDS: POTASSIUM CHLORIDE 20 MEQ PACKET (FOR LIQUID) 40 MEQ PO (09:25)
[2025-01-24] MEDS: ENOXAPARIN 40 MG/0.4 ML SYRINGE SUB-Q (09:25)
[2025-01-24 12:20] LABS: Glucose Point of Care 109 mg/dl (65-105)
[2025-01-24] MEDS: LACTATED RINGERS 1,000 ML 75 ML IV CONT (12:46)
--- NOTE | 2025-01-24 15:45 | P.PNIM_ITS ---
Progress Note: A&P Assessment and Plan (1) Pneumonia: Qualifiers: Pneumonia type: due to unspecified organism Laterality: left Lung location: lower lobe of lung Qualified Code(s): J18.9 - Pneumonia, unspecified organism Code(s): J18.9 - Pneumonia, unspecified organism Status: Acute Assessment and Plan: Chest x-ray shows atelectasis however it is probably more likely pneumonia Add Rocephin Guaifenesin Incentive spirometer (2) Influenza A: Code(s): J10.1 - Influenza due to other identified influenza virus with other respiratory manifestations Status: Acute Assessment and Plan: Positive on on 01/19/25 Tamiflu x5 days (3) Acute UTI: Code(s): N39.0 - Urinary tract infection, site not specified Status: Acute Assessment and Plan: IV Rocephin IV fluids Cultures and sensitivities pending (4) COPD (chronic obstructive pulmonary disease): Qualifiers: COPD type: unspecified COPD Qualified Code(s): J44.9 - Chronic obstructive pulmonary disease, unspecified Code(s): J44.9 - Chronic obstructive pulmonary disease, unspecified Status: Acute Assessment and Plan: Likely COPD exacerbation Solu-Medrol x1 Prednisone in a.m. DuoNeb (5) Starvation ketoacidosis: Code(s): T73.0XXA - Starvation, initial encounter; E87.29 - Other acidosis Status: Acute Assessment and Plan: Poor oral intake due to acute illness D5 LR bolus given in ED Accu-Cheks a.c. HS Regular diet with protein supplements Hypoglycemia protocol Dietary supplements (6) Diarrhea: Qualifiers: Diarrhea type: unspecified type Qualified Code(s): R19.7 - Diarrhea, unspecified Code(s): R19.7 - Diarrhea, unspecified Status: Acute Assessment and Plan: C diff test pending (7) Weakness: Code(s): R53.1 - Weakness Status: Acute Assessment and Plan: Secondary to above PT OT eval (8) Dyslipidemia: Code(s): E78.5 - Hyperlipidemia, unspecified Status: Acute Assessment and Plan: Continue home Crestor Plan Patient with hisory of COPD, is found to have pneumonia and positive for influenza A, patient is being treated Rocephin azithromycin and Tamiflu, today patient worked with PT and lying in the bed, stats feels much better, not as short of breath, will monitor and further recommendation to follow. Subjective Date/time seen: 01/24/25 15:45 Interval history: Weakness and flu H&P-Narrative: 84-year-old female past medical history of COPD, hyperlipidemia, irritable bowel syndrome and GERD presents the hospital with weakness, diarrhea and flu. Patient complains of a junky cough that she has had for a few days. She states a couple days ago she found that she had the flu. Since then she has had increased weakness and shortness of breath. Her lab work shows hyponatremia 135, carbon dioxide at 21, anion gap 15, BUN 20, UA shows positive for nitrates and trace leukocyte esterase with 4+ bacteria. Chest x-ray shows mild atelectasis of lung. EKG shows sinus rhythm with a rate of 76. Patient with hisory of COPD, is found to have pneumonia and positive for influenza A, patient is being treated Rocephin azithromycin and Tamiflu, today patient worked with PT and lying in the bed, stats feels much better, not as short of breath, will monitor and further recommendation to follow. Review of Systems Review of Systems: 12 systems were reviewed and are negativ e except for as per HPI. Exam Narrative: Elderly frail Patient is comfortable, NAD HEENT: eyes are clear and none icteric LUNGS: Bilateral fair entry with harsh breath sounds. HEART: RR S1S2 ABD: BS+, Soft and nontender Lower extremities: no edema SKIN: nonjaundiced Neuro: grossly intact. Objective Data Vital Signs Vital Signs: Vital Signs - 24 hr 01/23/25 19:10 01/23/25 19:10 01/23/25 19:19 Temperature Pulse Rate 77 75 Respiratory Rate 18 18 Blood Pressure Pulse Oximetry 95 Oxygen Delivery Room Air Fraction of Inspired Oxygen 21 01/23/25 21:01 01/23/25 21:35 01/24/25 01:26 Temperature 36.9 C Pulse Rate 90 67 Respiratory Rate 16 18 Blood Pressure 100/52 L Pulse Oximetry 98 Oxygen Delivery Room Air Fraction of Inspired Oxygen 01/24/25 01:37 01/24/25 05:23 01/24/25 08:03 Temperature 36.8 C Pulse Rate 69 96 Respiratory Rate 18 18 Blood Pressure 105/52 L Pulse Oximetry 97 95 Oxygen Delivery Room Air Fraction of Inspired Oxygen 01/24/25 08:03 01/24/25 08:14 01/24/25 09:25 Temperature Pulse Rate 78 72 Respiratory Rate 20 20 Blood Pressure Pulse Oximetry Oxygen Delivery Room Air Fraction of Inspired Oxygen 01/24/25 14:38 01/24/25 14:58 01/24/25 15:05 Temperature 36.7 C Pulse Rate 74 78 80 Respiratory Rate 17 18 18 Blood Pressure 120/76 Pulse Oximetry 96 Oxygen Delivery Fraction of Inspired Oxygen Intake/Output Intake/Output: Intake & Output 01/21/25 01/22/25 01/23/25 01/24/25 23:59 23:59 23:59 23:59 Intake Total 2050 2490.0 2250 2120 Output Total 75 200 Balance 1975 2490.0 0 2120 Meds/Results Medications: Active Medications Generic Name Dose Route Start Last Admin Trade Name Freq PRN Reason Stop Dose Admin Acetaminophen 1,000 mg 01/21/25 21:00 01/24/25 12:44 Acetaminophen 500 Mg Tablet PO 1,000 mg QID FATUMA Administration Albuterol/Ipratropium 3 ml 01/22/25 02:00 01/24/25 14:58 Ipratropium 0.5 Mg/Albuterol Sulfate 2.5 Mg Ampul.Neb 3 Ml INHALATION 3 ml Q6HRT FATUMA Administration Amoxicillin/Clavulanate Potassium 1 tablet 01/23/25 18:00 01/24/25 09:24 Amoxicillin/Clavulanate K 875-125 Mg Tab PO 01/28/25 09:01 1 tablet Q12HR FATUMA Administration Azithromycin 500 mg 01/22/25 21:00 01/23/25 21:36 Azithromycin 250 Mg Tablet PO 01/25/25 21:01 500 mg QHS FATUMA Administration Dextrose 12.5 gm 01/21/25 20:08 Dextrose 50% 25 Gm/50 Ml Syringe IV PUSH PRN PRN Hypoglycemia Protocol Enoxaparin Sodium 40 mg 01/22/25 09:00 01/24/25 09:25 Enoxaparin 40 Mg/0.4 Ml Syringe SUB-Q 40 mg DAILY FATUMA Administration Gabapentin 600 mg 01/22/25 09:00 01/24/25 12:44 Gabapentin 300 Mg Capsule BY MOUTH 600 mg QID FATUMA Administration Glucagon 1 mg 01/21/25 20:08 Glucagon For Inj 1 Mg Vial IM PRN PRN Hypoglycemia Protocol Glucose 15 gm 01/21/25 20:08 Glucose Oral Gel 15 Gm Of Glucse In 37.5 Gm Tube PO PRN PRN Hypoglycemia Protocol Guaifenesin/Dextromethorphan 10 ml 01/22/25 01:00 01/24/25 12:44 Guaifenesin/Dextromethorphan 10 Ml Udc PO 10 ml Q4HR FATUMA Administration Lactated Ringer's 1,000 mls @ 75 mls/hr 01/21/25 14:15 01/24/25 12:46 Lr - Lactated Ringers Iv IV CONT 75 mls/hr .[id number] FATUMA Administration Dextrose 1,000 mls @ 100 mls/hr 01/21/25 20:08 Dextrose 5% 1,000 Ml IVPB PRN PRN Hypoglycemia Protocol Magnesium Oxide 400 mg 01/23/25 09:00 01/24/25 09:25 Magnesium Oxide 400 Mg Tablet PO 400 mg QAM FATUMA Administration Meloxicam 15 mg 01/22/25 09:00 01/24/25 09:24 Meloxicam 7.5 Mg Tablet PO 15 mg DAILY FATUMA Administration Ondansetron HCl 4 mg 01/23/25 11:23 01/23/25 11:31 Ondansetron Hcl Odt 4 Mg Tablet PO 4 mg Q6H PRN Administration Nausea And Vomiting Oseltamivir Phosphate 30 mg 01/22/25 09:00 01/24/25 09:24 Oseltamivir Phosphate 30 Mg Capsule PO 01/26/25 09:01 30 mg Q12HR FATUMA Administration Prednisone 40 mg 01/22/25 08:00 01/24/25 09:24 Prednisone 20 Mg Tablet PO 40 mg DAILY@0800 FATUMA Administration Rosuvastatin Calcium 10 mg 01/22/25 09:00 01/24/25 09:24 Rosuvastatin 10 Mg Tablet PO 10 mg DAILY FATUMA Administration Radiology Results: ITS Impressions Chest X-Ray 01/21/25 12:30 IMPRESSION: 1. Mild atelectasis at left lung base. Labs Labs: Laboratory Results - last 24 hr 01/23/25 01/23/2501/24/25 16:49 19:34 05:53 WBC 7.3 RBC 3.90 L Hgb 11.8 L Hct 35.1 L MCV 90.0 MCH 30.3 MCHC 33.6 RDW 13.2 Plt Count 176 MPV 9.7 Sodium 135 L Potassium 3.0 L Chloride 104 Carbon Dioxide 26 Anion Gap 5 BUN 14 Creatinine 0.76 Estim Creat Clear Calc Not Reportable Estimated GFR > 60 Glucose 124 H POC Capillary Glucose 149 H 173 H Calcium 8.0 L Magnesium 1.8 01/24/25 01/24/25 08:23 11:53 WBC RBC Hgb Hct MCV MCH MCHC RDW Plt Count MPV Sodium Potassium Chloride Carbon Dioxide Anion Gap BUN Creatinine Estim Creat Clear Calc Estimated GFR Glucose POC Capillary Glucose 98 109 H Calcium Magnesium Quality VTE Prophylaxis VTE prophylaxis: mechanical ordered and pharmacologic ordered
[2025-01-24 17:22] LABS: Glucose Point of Care 172 mg/dl (65-105)
[2025-01-24] MEDS: AZITHROMYCIN 250 MG TABLET 500 MG PO (20:37)
[2025-01-24 22:10] LABS: Glucose Point of Care 172 mg/dl (65-105)
[2025-01-25] VITALS (12 sets, daily range): BP systolic 112–137; BP diastolic 46–67; PULSE 72–111; RESP 16–22; TEMP 36.2–36.6; O2SAT 96–99
[2025-01-25] MEDS: guaiFENesin/DEXTROMETHORPHAN 10 ML UDC PO ×6 (00:06→20:36)
[2025-01-25] MEDS: IPRATROPIUM 0.5 MG/ALBUTEROL SULFATE 2.5 MG AMPUL.NEB 3 ML INHALATION ×4 (01:57→19:54)
[2025-01-25] MEDS: LACTATED RINGERS 1,000 ML 75 ML IV CONT ×2 (02:19→14:18)
[2025-01-25 06:25] LABS: Hematocrit 35.8 % (37.0-47.0); Hemoglobin 11.7 g/dL (12.0-15.0); Mean Corpuscular HGB Conc 32.7 g/dl (32-36); Mean Corpuscular Hemoglobin 30.2 pg (26-34); Mean Corpuscular Volume 92.3 fl (80-100); Mean Platelet Volume 9.8 fl (7.4-10.4); Platelet Count Result 177 k/mm3 (150-375); Red Blood Count 3.88 M/mm3 (4.2-5.4); Red Cell Distribution Width 13.6 % (11.5-14.5); White Blood Count 5.7 K/mm3 (4.5-10.0)
[2025-01-25 06:44] LABS: Anion Gap 5 mmol/L (4-12); Blood Urea Nitrogen 11 mg/dL (7-17); Calcium 8.1 mg/dL (8.4-10.2); Carbon Dioxide 27 mmol/L (22-30); Chloride 103 mmol/L (98-107); Estimated Glomerular Filt Rate > 60; Glucose 111 mg/dL (65-110); Magnesium 1.6 mg/dL (1.6-2.3); Sodium 135 mmol/L (137-145)
[2025-01-25 08:00] LABS: Glucose Point of Care 94 mg/dl (65-105)
[2025-01-25] MEDS: predniSONE 20 MG TABLET 40 MG PO (09:29)
[2025-01-25] MEDS: MAGNESIUM OXIDE 400 MG TABLET PO (09:29)
[2025-01-25] MEDS: GABAPENTIN 300 MG CAPSULE 600 MG BY MOUTH ×4 (09:30→20:34)
[2025-01-25] MEDS: ACETAMINOPHEN 500 MG TABLET 1000 MG PO ×4 (09:30→20:34)
[2025-01-25] MEDS: MELOXICAM 7.5 MG TABLET 15 MG PO (09:30)
[2025-01-25] MEDS: ROSUVASTATIN 10 MG TABLET PO (09:30)
[2025-01-25] MEDS: OSELTAMIVIR PHOSPHATE 30 MG CAPSULE PO ×2 (09:31→20:35)
[2025-01-25] MEDS: AMOXICILLIN/CLAVULANATE K 875-125 MG TAB 1 TABLET PO ×2 (09:31→20:36)
[2025-01-25] MEDS: ENOXAPARIN 40 MG/0.4 ML SYRINGE SUB-Q (09:32)
[2025-01-25] MEDS: POTASSIUM CHLORIDE 20 MEQ PACKET (FOR LIQUID) 40 MEQ PO ×2 (09:35→18:24)
[2025-01-25 11:32] LABS: Glucose Point of Care 100 mg/dl (65-105)
--- NOTE | 2025-01-25 13:43 | P.PNIM_ITS ---
Progress Note: A&P Assessment and Plan (1) Pneumonia: Qualifiers: Pneumonia type: due to unspecified organism Laterality: left Lung location: lower lobe of lung Qualified Code(s): J18.9 - Pneumonia, unspecified organism Code(s): J18.9 - Pneumonia, unspecified organism Status: Acute Assessment and Plan: Chest x-ray shows atelectasis however it is probably more likely pneumonia Add Rocephin Guaifenesin Incentive spirometer (2) Influenza A: Code(s): J10.1 - Influenza due to other identified influenza virus with other respiratory manifestations Status: Acute Assessment and Plan: Positive on on 01/19/25 Tamiflu x5 days (3) Acute UTI: Code(s): N39.0 - Urinary tract infection, site not specified Status: Acute Assessment and Plan: IV Rocephin IV fluids Cultures and sensitivities pending (4) COPD (chronic obstructive pulmonary disease): Qualifiers: COPD type: unspecified COPD Qualified Code(s): J44.9 - Chronic obstructive pulmonary disease, unspecified Code(s): J44.9 - Chronic obstructive pulmonary disease, unspecified Status: Acute Assessment and Plan: Likely COPD exacerbation Solu-Medrol x1 Prednisone in a.m. DuoNeb (5) Starvation ketoacidosis: Code(s): T73.0XXA - Starvation, initial encounter; E87.29 - Other acidosis Status: Acute Assessment and Plan: Poor oral intake due to acute illness D5 LR bolus given in ED Accu-Cheks a.c. HS Regular diet with protein supplements Hypoglycemia protocol Dietary supplements (6) Diarrhea: Qualifiers: Diarrhea type: unspecified type Qualified Code(s): R19.7 - Diarrhea, unspecified Code(s): R19.7 - Diarrhea, unspecified Status: Acute Assessment and Plan: C diff test pending (7) Weakness: Code(s): R53.1 - Weakness Status: Acute Assessment and Plan: Secondary to above PT OT eval (8) Dyslipidemia: Code(s): E78.5 - Hyperlipidemia, unspecified Status: Acute Assessment and Plan: Continue home Crestor Plan 84-year-old female past medical history of COPD, hyperlipidemia, irritable bowel syndrome and GERD presents the hospital with weakness, diarrhea and flu. Patient complains of a junky cough that she has had for a few days. She states a couple days ago she found that she had the flu. Since then she has had increased weakness and shortness of breath. Her lab work shows hyponatremia 135, carbon dioxide at 21, anion gap 15, BUN 20, UA shows positive for nitrates and trace leukocyte esterase with 4+ bacteria. Chest x-ray shows mild atelectasis of lung. EKG shows sinus rhythm with a rate of 76. Patient with history of COPD, is found to have pneumonia and positive for influenza A, patient is being treated Rocephin azithromycin and Tamiflu, patient has been working with PT and lying in the bed, stats feels much better, not as short of breath, will monitor and possibly discharge her tomorrow, further recommendation to follow. Subjective Date/time seen: 01/25/25 13:43 Interval history: Weakness and flu H&P-Narrative: 84-year-old female past medical history of COPD, hyperlipidemia, irritable bowel syndrome and GERD presents the hospital with weakness, diarrhea and flu. Patient complains of a junky cough that she has had for a few days. She states a couple days ago she found that she had the flu. Since then she has had increased weakness and shortness of breath. Her lab work shows hyponatremia 135, carbon dioxide at 21, anion gap 15, BUN 20, UA shows positive for nitrates and trace leukocyte esterase with 4+ bacteria. Chest x-ray shows mild atelectasis of lung. EKG shows sinus rhythm with a rate of 76. Patient with history of COPD, is found to have pneumonia and positive for influenza A, patient is being treated Rocephin azithromycin and Tamiflu, patient has been working with PT and lying in the bed, stats feels much better, not as short of breath, will monitor and possibly discharge her tomorrow, further recommendation to follow. Review of Systems Review of Systems: 12 systems were reviewed and are negativ e except for as per HPI. Exam Narrative: Elderly frail Patient is comfortable, NAD HEENT: eyes are clear and none icteric LUNGS: Bilateral fair entry with harsh breath sounds. HEART: RR S1S2 ABD: BS+, Soft and nontender Lower extremities: no edema SKIN: nonjaundiced Neuro: grossly intact. Objective Data Vital Signs Vital Signs: Vital Signs - 24 hr 01/24/25 14:38 01/24/25 14:58 01/24/25 15:05 Temperature 36.7 C Pulse Rate 74 78 80 Respiratory Rate 17 18 18 Blood Pressure 120/76 Pulse Oximetry 96 Oxygen Delivery Oxygen Flow Rate 01/24/25 20:32 01/24/25 20:36 01/24/25 21:24 Temperature 36.8 C Pulse Rate 100 Respiratory Rate 16 Blood Pressure 111/55 L Pulse Oximetry 95 97 91 Oxygen Delivery Room Air Nasal Cannula Oxygen Flow Rate 1 01/24/25 21:24 01/24/25 21:30 01/25/25 01:57 Temperature Pulse Rate 108 H 115 H 102 H Respiratory Rate 16 16 16 Blood Pressure Pulse Oximetry Oxygen Delivery Oxygen Flow Rate 01/25/25 02:07 01/25/25 04:15 01/25/25 09:20 Temperature 36.2 C L Pulse Rate 98 86 96 Respiratory Rate 16 20 18 Blood Pressure 122/46 L Pulse Oximetry 98 Oxygen Delivery Oxygen Flow Rate 01/25/25 09:33 01/25/25 09:52 01/25/25 13:37 Temperature 36.6 C Pulse Rate 100 78 Respiratory Rate 18 16 Blood Pressure 112/56 L Pulse Oximetry 96 99 Oxygen Delivery Room Air Oxygen Flow Rate Intake/Output Intake/Output: Intake & Output 01/22/25 01/23/25 01/24/25 01/25/25 23:59 23:59 23:59 23:59 Intake Total 2490.0 2250 2910 1710 Output Total 200 Balance 2490.0 2050 2910 1710 Meds/Results Medications: Active Medications Generic Name Dose Route Start Last Admin Trade Name Freq PRN Reason Stop Dose Admin Acetaminophen 1,000 mg 01/21/25 21:00 01/25/25 09:30 Acetaminophen 500 Mg Tablet PO 1,000 mg QID FATUMA Administration Albuterol/Ipratropium 3 ml 01/22/25 02:00 01/25/25 09:16 Ipratropium 0.5 Mg/Albuterol Sulfate 2.5 Mg Ampul.Neb 3 Ml INHALATION 3 ml Q6HRT FATUMA Administration Amoxicillin/Clavulanate Potassium 1 tablet 01/23/25 18:00 01/25/25 09:31 Amoxicillin/Clavulanate K 875-125 Mg Tab PO 01/28/25 09:01 1 tablet Q12HR FATUMA Administration Azithromycin 500 mg 01/22/25 21:00 01/24/25 20:37 Azithromycin 250 Mg Tablet PO 01/25/25 21:01 500 mg QHS FATUMA Administration Dextrose 12.5 gm 01/21/25 20:08 Dextrose 50% 25 Gm/50 Ml Syringe IV PUSH PRN PRN Hypoglycemia Protocol Enoxaparin Sodium 40 mg 01/22/25 09:00 01/25/25 09:32 Enoxaparin 40 Mg/0.4 Ml Syringe SUB-Q 40 mg DAILY FATUMA Administration Gabapentin 600 mg 01/22/25 09:00 01/25/25 09:30 Gabapentin 300 Mg Capsule BY MOUTH 600 mg QID FATUMA Administration Glucagon 1 mg 01/21/25 20:08 Glucagon For Inj 1 Mg Vial IM PRN PRN Hypoglycemia Protocol Glucose 15 gm 01/21/25 20:08 Glucose Oral Gel 15 Gm Of Glucse In 37.5 Gm Tube PO PRN PRN Hypoglycemia Protocol Guaifenesin/Dextromethorphan 10 ml 01/22/25 01:00 01/25/25 09:32 Guaifenesin/Dextromethorphan 10 Ml Udc PO 10 ml Q4HR FATUMA Administration Lactated Ringer's 1,000 mls @ 75 mls/hr 01/21/25 14:15 01/25/25 02:19 Lr - Lactated Ringers Iv IV CONT 75 mls/hr .[id number] FATUMA Administration Dextrose 1,000 mls @ 100 mls/hr 01/21/25 20:08 Dextrose 5% 1,000 Ml IVPB PRN PRN Hypoglycemia Protocol Magnesium Oxide 400 mg 01/23/25 09:00 01/25/25 09:29 Magnesium Oxide 400 Mg Tablet PO 400 mg QAM FATUMA Administration Meloxicam 15 mg 01/22/25 09:00 01/25/25 09:30 Meloxicam 7.5 Mg Tablet PO 15 mg DAILY FATUMA Administration Ondansetron HCl 4 mg 01/23/25 11:23 01/23/25 11:31 Ondansetron Hcl Odt 4 Mg Tablet PO 4 mg Q6H PRN Administration Nausea And Vomiting Oseltamivir Phosphate 30 mg 01/22/25 09:00 01/25/25 09:31 Oseltamivir Phosphate 30 Mg Capsule PO 01/26/25 09:01 30 mg Q12HR FATUMA Administration Potassium Chloride 40 meq 01/25/25 16:00 Potassium Chloride 20 Meq Packet (For Liquid) PO 01/25/25 16:01 ONCE ONE Prednisone 40 mg 01/22/25 08:00 01/25/25 09:29 Prednisone 20 Mg Tablet PO 40 mg DAILY@0800 FATUMA Administration Rosuvastatin Calcium 10 mg 01/22/25 09:00 01/25/25 09:30 Rosuvastatin 10 Mg Tablet PO 10 mg DAILY FATUMA Administration Radiology Results: ITS Impressions Chest X-Ray 01/21/25 12:30 IMPRESSION: 1. Mild atelectasis at left lung base. Labs Labs: Laboratory Results - last 24 hr 01/24/25 01/24/25 01/25/25 17:19 20:28 06:00 WBC 5.7 RBC 3.88 L Hgb 11.7 L Hct 35.8 L MCV 92.3 MCH 30.2 MCHC 32.7 RDW 13.6 Plt Count 177 MPV 9.8 Sodium 135 L Potassium 3.0 L Chloride 103 Carbon Dioxide 27 Anion Gap 5 BUN 11 Creatinine 0.72 Estim Creat Clear Calc Not Reportable Estimated GFR > 60 Glucose 111 H POC Capillary Glucose 172 H 172 H Calcium 8.1 L Magnesium 1.6 01/25/25 01/25/25 07:55 11:18 WBC RBC Hgb Hct MCV MCH MCHC RDW Plt Count MPV Sodium Potassium Chloride Carbon Dioxide Anion Gap BUN Creatinine Estim Creat Clear Calc Estimated GFR Glucose POC Capillary Glucose 94 100 Calcium Magnesium Quality VTE Prophylaxis VTE prophylaxis: mechanical ordered and pharmacologic ordered
[2025-01-25 16:50] LABS: Glucose Point of Care 200 mg/dl (65-105)
[2025-01-25 20:27] LABS: Glucose Point of Care 212 mg/dl (65-105)
[2025-01-25] MEDS: AZITHROMYCIN 250 MG TABLET 500 MG PO (20:35)
[2025-01-26] MEDS: guaiFENesin/DEXTROMETHORPHAN 10 ML UDC PO ×4 (00:18→12:10)
[2025-01-26 02:13] VITALS: PULSE 82; RESP 16
[2025-01-26] MEDS: IPRATROPIUM 0.5 MG/ALBUTEROL SULFATE 2.5 MG AMPUL.NEB 3 ML INHALATION ×2 (02:13→07:24)
[2025-01-26 02:20] VITALS: PULSE 83; RESP 16
[2025-01-26 05:16] VITALS: BP 126/60; PULSE 75; RESP 18; TEMP 36.3; O2SAT 99
[2025-01-26 05:58] LABS: Hematocrit 36.7 % (37.0-47.0); Mean Corpuscular HGB Conc 32.7 g/dl (32-36); Mean Corpuscular Hemoglobin 29.9 pg (26-34); Mean Corpuscular Volume 91.3 fl (80-100); Mean Platelet Volume 9.8 fl (7.4-10.4); Platelet Count Result 210 k/mm3 (150-375); Red Blood Count 4.02 M/mm3 (4.2-5.4); Red Cell Distribution Width 13.8 % (11.5-14.5); White Blood Count 6.2 K/mm3 (4.5-10.0)
[2025-01-26 06:13] LABS: Anion Gap 4 mmol/L (4-12); Blood Urea Nitrogen 9 mg/dL (7-17); Calcium 8.4 mg/dL (8.4-10.2); Carbon Dioxide 26 mmol/L (22-30); Chloride 104 mmol/L (98-107); Estimated Glomerular Filt Rate > 60; Glucose 109 mg/dL (65-110); Magnesium 1.6 mg/dL (1.6-2.3); Potassium 4.1 mmol/L (3.4-5.0); Sodium 134 mmol/L (137-145)
[2025-01-26 07:25] VITALS: PULSE 74; RESP 18; O2SAT 97
[2025-01-26 07:38] VITALS: RESP 18
[2025-01-26 08:00] VITALS: PULSE 74; O2SAT 99
[2025-01-26 08:04] LABS: Glucose Point of Care 104 mg/dl (65-105)
[2025-01-26] MEDS: ENOXAPARIN 40 MG/0.4 ML SYRINGE SUB-Q (08:16)
[2025-01-26] MEDS: ACETAMINOPHEN 500 MG TABLET 1000 MG PO ×2 (08:17→12:10)
[2025-01-26] MEDS: MELOXICAM 7.5 MG TABLET 15 MG PO (08:17)
[2025-01-26] MEDS: MAGNESIUM OXIDE 400 MG TABLET PO (08:18)
[2025-01-26] MEDS: OSELTAMIVIR PHOSPHATE 30 MG CAPSULE PO (08:18)
[2025-01-26] MEDS: GABAPENTIN 300 MG CAPSULE 600 MG BY MOUTH ×2 (08:18→12:10)
[2025-01-26] MEDS: ROSUVASTATIN 10 MG TABLET PO (08:18)
[2025-01-26] MEDS: AMOXICILLIN/CLAVULANATE K 875-125 MG TAB 1 TABLET PO (08:18)
--- NOTE | 2025-01-26 10:22 | PM.DS ---
DS: Summary Time Spent with Patient Time attestation: Total time spent providing and/or coordinating discharge services: DS: Data Data Completed and Pending Labs on day of discharge: Labs from last 24 hours 01/26/25 01/26/25 01/25/25 07:55 05:38 19:37 WBC 6.2 RBC 4.02 L Hgb 12.0 Hct 36.7 L MCV 91.3 MCH 29.9 MCHC 32.7 RDW 13.8 Plt Count 210 MPV 9.8 Sodium 134 L Potassium 4.1 Chloride 104 Carbon Dioxide 26 Anion Gap 4 BUN 9 Creatinine 0.62 L Estim Creat Clear Calc Not Reportable Estimated GFR > 60 Glucose 109 POC Capillary Glucose 104 212 H Calcium 8.4 Magnesium 1.6 01/25/25 01/25/25 16:47 11:18 WBC RBC Hgb Hct MCV MCH MCHC RDW Plt Count MPV Sodium Potassium Chloride Carbon Dioxide Anion Gap BUN Creatinine Estim Creat Clear Calc Estimated GFR Glucose POC Capillary Glucose 200 H 100 Calcium Magnesium Discharge Plan Discharge Attending physician on discharge: Vikash Galindo Discharging Clinician: Katlin Rodriguez Patient Disposition: Home Health Service Activity: as tolerated Diet: heart healthy Discharge Instructions: Per Care Coordination Patient has been accepted to have [facility] for RN, PT, OT [phone]. [facility] staff will call to arrange a time to see you in your house after discharged from hospital. patient to follow up with her primary care provider as soon as possible, patient is instructed if any symptoms worsen to go to nearest ER. Patient Instructions: Antibiotic Form Patient Language: Greenlandic Stand Alone Forms: General Discharge Information Follow-up/Referrals: Angel Mora MD [Primary Care Provider] - Discharge Medications: New dextromethorphan-guaifenesin 10-100 mg/5 mL Syrup 10 ml PO Q4HR Qty: 237 0RF magnesium oxide 400 mg (241.3 mg magnesium) Tablet 400 mg PO QAM Qty: 30 0RF amoxicillin-pot clavulanate [Augmentin] 500-125 mg tablet 1 tablet PO Q8H Qty: 6 0RF prednisone 10 mg tablet 10 mg PO DAILY Qty: 20 0RF Rx Instructions: 4Tx2, 3Tx2d, 2Tx2d, 1Tx2d Continued ondansetron 4 mg tablet,disintegrating 4 mg PO Q8H PRN (Reason: nausea and vomiting) Qty: 30 1RF omeprazole 40 mg capsule,delayed release(DR/EC) 40 mg PO DAILY Qty: 90 0RF cholecalciferol (vitamin D3) 50 mcg (2,000 unit) capsule 50 mcg PO DAILY multivitamin Capsule 1 cap PO DAILY potassium chloride [K-Tab] 20 mEq tablet extended release 20 meq PO BID Qty: 14 0RF levalbuterol tartrate 45 mcg/actuation Hfa Aerosol Inhaler 2 inh INHALATION Q6H PRN (Reason: Asthma) acetaminophen 500 mg tablet 1,000 mg PO QID Rx Instructions: takes with gabapentin lidocaine [Lidoderm] 5 % adhesive patch,medicated 1 patch topical DAILY PRN (Reason: back pain) Qty: 15 0RF Rx Instructions: leave on most painful area for up to 12 hrs montelukast 10 mg tablet 10 mg PO DAILY Qty: 90 1RF Rx Instructions: Take 1 tablet by mouth once daily meloxicam 15 mg tablet 15 mg PO DAILY Qty: 90 1RF Rx Instructions: Take 1 tablet by mouth once daily rosuvastatin 10 mg tablet 10 mg PO DAILY Qty: 90 1RF gabapentin 600 mg tablet See Rx Instructions .ROUTE .COMPLEX Qty: 360 0RF Dose Instruction: Take 1 tablet by mouth 4 times daily Rx Instructions: Take 1 tablet by mouth 4 times daily Date of admission: 01/22/25 09:24 Primary Care Provider: Angel Mora Admitting Provider: Vikash Galindo Attending physician on admission: Vikash Galindo Condition: Stable
[2025-01-26 11:51] LABS: Glucose Point of Care 93 mg/dl (65-105)
== END 2025-01-26 13:15 | disposition home health service (06) | DRG 194 ==
LOC: ANHED 14:19 → ANH3MEDSUR 15:51
PROVIDERS: Emergency Medicine; Nurse Practitioner Gerontology; Admitting Provider Hospitalist; Emergency Provider Student in an Organized Health Care Education/Training Program; PCP Family Medicine; Visit Provider Family Medicine
DX: J10.00 Influenza due to other identified influenza virus with unspecified type of pneumonia (principal); E87.1 Hypo-osmolality and hyponatremia; E87.29 Other acidosis; J44.0 Chronic obstructive pulmonary disease with (acute) lower respiratory infection; N39.0 Urinary tract infection, site not specified; J44.1 Chronic obstructive pulmonary disease with (acute) exacerbation; N17.9 Acute kidney failure, unspecified; R62.7 Adult failure to thrive; T73.0XXA Starvation, initial encounter; R19.7 Diarrhea, unspecified; G25.0 Essential tremor; E78.5 Hyperlipidemia, unspecified; K21.9 Gastro-esophageal reflux disease without esophagitis; K58.9 Irritable bowel syndrome, unspecified; G62.9 Polyneuropathy, unspecified; M81.0 Age-related osteoporosis without current pathological fracture; Z66 Do not resuscitate; Z96.641 Presence of right artificial hip joint; Z90.711 Acquired absence of uterus with remaining cervical stump; Z90.49 Acquired absence of other specified parts of digestive tract; Z68.24 Body mass index [BMI] 24.0-24.9, adult
CPT/HCPCS: 36415; 71045; 71046; 80048; 80053; 81001; 82550; 82948; 83690; 83735; 84484; 85025; 85027; 87086; 87186; 87637; 93005; 94640; 96361; 96365; 96374; 96375; 97161; 97165; 97530; 97535; 99284; 99285; A9270; G0378; J0456; J0696; J1650; J2405; J2919; J3475; J3480; J7040; J7120; J7121; J7512

== ENCOUNTER 2025-01-27 13:24 | Inpatient (IN) | payer MEDICARE, SELFPAY ==
[2025-01-27] VITALS (9 sets, daily range): BP systolic 77–122; BP diastolic 42–55; PULSE 61–110; RESP 17–28; TEMP 36.4–37; O2SAT 77–99
--- NOTE | ~2025-01-27 | XR_ITS ---
XR chest 2V Ordering provider: Consuelo Garay APRN History: 84 years Female with . chest pain . Comparison: January 21, 2025 FINDINGS: MEDIASTINUM: The cardiac silhouette is not enlarged. LUNGS: No infiltrates, effusions or pneumothorax. Prominent markings in the left lower lobe medially suggestive of bronchitis. Elevation of the right hemidiaphragm. OTHER: No free air under the diaphragm. Kyphosis with highly suggestive compression fracture of T12. IMPRESSION: No acute cardiopulmonary pathology. Reviewed, dictated and finalized at location A.
--- NOTE | ~2025-01-27 | CT_ITS ---
EXAMINATION: CTA chest PE protocol DATE: 01/27/2025 23:52 CDT INDICATION: Hypoxia and shortness of breath TECHNIQUE: Computed tomographic angiography (CTA) of the chest was performed with 100 mL Omnipaque-35 0 intravenous contrast. The dose-length product was 152.43 mGy-cm. Maximum intensity projection 3D-re constructions of the aorta and other arteries were constructed by the technologist on a separate work station. COMPARISON: Reference was made to multiple plain film evaluations of the chest performed most recentl y approximately 12 hours earlier, and dating back to 01/19/2025 FINDINGS/OBSERVATIONS: PULMONARY ARTERIES: No filling defect is identified within the main or proximal pulmonary artery. The main pulmonary artery is not enlarged. THORACIC AORTA: No aneurysmal dilatation or dissection is present. The great vessels are intact LUNGS: Trace bibasilar atelectasis, right more than left. MEDIASTINUM: No morphologically suspicious or pathologically enlarged lymph nodes are identified with in the mediastinum or bilateral axilla. BONES OF THE CHEST: No acute fracture. No significant degenerative disease. No lytic or blastic lesions. HEART: The heart is of normal size, without pericardial effusion. IMPRESSION: No pulmonary embolus. No thoracic aortic dissection. Trace bibasilar atelectasis, right greater than left. Reviewed, dictated and finalized at location A.
--- NOTE | 2025-01-27 14:10 | ECG_ITS ---
Test Date: 2025-01-27 15:58:59 Measurements Intervals [place] Rate: 102 P: 55 TN: 366 QRS: 4 QRSD: 80 T: 59 QT: 315 QTc: 411 Interpretive Statements SINUS TACHYCARDIA WITH FREQUENT PACS Compared to ECG 01/21/2025 11:47:03 PACS NOW PRESENT Electronically Signed On 01-28-2025 16:42:32 CDT by Leslie Wright M.D.
--- NOTE | 2025-01-27 14:13 | ED.WEAKNESS ---
HPI - Weakness General Chief complaint: Weakness <Consuelo Garay HIGH SPEED WARPER TENDER - Last Filed: 01/27/25 14:20> Stated complaint: weakness, n/v/d, influenza + <Consuelo Garay HIGH SPEED WARPER TENDER - Last Filed: 01/27/25 14:20> Time Seen by Provider: 01/27/25 14:10 <Consuelo Garay HIGH SPEED WARPER TENDER - Last Filed: 01/27/25 14:20> Focused HPI: Pt is an 84-year-old female who presents to the ER with complaints of weakness, diarrhea, and back pain. She reports she was just discharged from the hospital yesterday due to flu a and a UTI. Patient's son reports the home healthcare nurse came to visit her this morning around 11:00 a.m. and she was in the bathroom for 30 minutes with diarrhea. The home healthcare nurse told patient and her son that patient's blood pressure was low so they called EMS. Patient reports ?I feel awful. She reports most of the pain is in her back. Patient denies chest pain, shortness of breath, recent fevers. She also reports she has been unable to keep any fluids down. GENERAL: Ill-appearing, well-nourished, and in mild distress. HEAD: Normocephalic, atraumatic. CHEST: Crackles upon auscultation. ?No respiratory distress. HEART: Tachycardia, regular rate NEURO: ?Alert and oriented x3. Patient screened in triage and initial orders placed.? ?Additional care and disposition to be based upon?diagnostic testing and treatment. <Consuelo Garay, HIGH SPEED WARPER TENDER - Last Filed: 01/27/25 14:20> Focused HPI: Pt is an 84-year-old female who presents to the ER with complaints of weakness, diarrhea, and back pain. She reports she was just discharged from the hospital yesterday due to flu a and a UTI. Patient's son reports the home healthcare nurse came to visit her this morning around 11:00 a.m. and she was in the bathroom for 30 minutes with diarrhea. The home healthcare nurse told patient and her son that patient's blood pressure was low so they called EMS. Patient reports ?I feel awful. She reports most of the pain is in her back. Patient denies chest pain, shortness of breath, recent fevers. She also reports she has been unable to keep any fluids down. GENERAL: Ill-appearing, well-nourished, and in mild distress. HEAD: Normocephalic, atraumatic. CHEST: Crackles upon auscultation. ?No respiratory distress. HEART: Tachycardia, regular rate NEURO: ?Alert and oriented x3. Patient screened in triage and initial orders placed.? ?Additional care and disposition to be based upon?diagnostic testing and treatment. <Marielle Marte PA-C - Last Filed: 01/28/25 00:49> Source: patient and old records reviewed <Marielle Marte PA-C - Last Filed: 01/28/25 00:49> Mode of arrival: ambulatory <Marielle Marte PA-C - Last Filed: 01/28/25 00:49> Limitations: no limitations <PRECIOUS Lou Last Filed: 01/28/25 00:49> History of Present Illness HPI Narrative: Agree with above HPI. Diagnosed with influenza a on 01/19. Currently on Augmentin for UTI. Reports back pain is chronic. Patient states she feels extremely weak. Denies production of sputum with cough. Reports mild shortness of breath. <PRECIOUS Lou Last Filed: 01/28/25 00:49> Related Data Home medications: Home Medications ?Medication ?Instructions ?Recorded ?Confirmed ?Last Taken ?Type cholecalciferol (vitamin D3) 50 50 mcg PO DAILY 08/07/20 01/21/25 11/22/23 08:00 History mcg (2,000 unit) capsule multivitamin 1 cap PO DAILY 08/07/20 01/21/25 11/22/23 08:00 History acetaminophen 500 mg tablet 1,000 mg PO QID 10/09/24 01/21/25 Unknown History <Consuelo Garay APRN - Last Filed: 01/27/25 14:20> Allergies/Adverse reactions: Allergies Allergy/AdvReac Type Severity Reaction Status Date / Time codeine Allergy Severe Passes out Verified 01/19/25 12:08 oxycodone Allergy Severe pass out Verified 01/19/25 12:08 pain medications AdvReac Severe syncope Uncoded 01/19/25 12:08 <Consuelo Garay APRN - Last Filed: 01/27/25 14:20> Review of Systems Review of Systems: All systems reviewed & are unremarkable except as noted in HPI. <Marielle Marte PA-C - Last Filed: 01/28/25 00:49> All systems reviewed & are unremarkable except as noted in HPI and below <Marielle Marte PA-C - Last Filed: 01/28/25 00:49> [facility] Past Medical History Medical History: Medical History Kyphoscoliosis Benign essential tremor Vitamin D deficiency Scoliosis due to degenerative disease of spine in adult patient COPD (chronic obstructive pulmonary disease) Vision changes COVID-19 vaccine series completed Neuropathy Dyslipidemia Osteoporosis Sleep apnea Emphysema of lung Memory loss Frozen shoulder Left shoulder Sciatica associated with disorder of lumbar spine GERD (gastroesophageal reflux disease) Arthritis IBS (irritable bowel syndrome) Asthma <Consuelo Garay APRN - Last Filed: 01/27/25 14:20> Surgical History Surgical History: Surgical History Status post cataract extraction of both eyes with insertion of intraocular lens History of partial hysterectomy History of bowel resection History of cholecystectomy History of right hip replacement <Consuelo Garay APRN - Last Filed: 01/27/25 14:20> Family History Family History: Family History Mother Pneumonia Arthritis Father Asbestosis Arthritis Grandparent Pneumonia Grandparent Heart attack Arthritis Grandparent Cerebrovascular accident Sibling Malignant neoplasm Arthritis <Consuelo Garay APRN - Last Filed: 01/27/25 14:20> Social History Social History: Social History Social History: She lives in [place] with her of 60 years. She has a Rollator at home but only uses it when she goes to the store. She has 2 children who are healthy. She is a lifelong nonsmoker and does not drink alcohol. 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 Primary care physician: Dr. Cruz Code status: DNR/DNI Surrogate decision maker: Miah (son) Smoking status: Never smoker Second hand tobacco smoke exposure: No Alcohol intake: never Substance use: never Substance use type: does not use Do You Feel Safe in your Home?: Yes Lack of Transportation: No Lack of Food: Never True Current Housing: I Have Housing Concerned About Future Housing: No Difficulty Paying Gas/Electric Bills: No Difficulty Paying for Meds: No Currently Unemployed: No Education: Don't Know Difficulty w/ Childcare or Family Care: No Living arrangements: with family Occupation/Education: retired Gender identity (if verbalized by the patient): Female Sexual Orientation (if Verbalized by the Patient): Straight or Heterosexual Spiritual care concerns: No Agree to blood products: Yes <Consuelo Garay APRN - Last Filed: 01/27/25 14:20> Exam Narrative: GENERAL: Eldery, frail, non-toxic, in no acute distress. HEAD: Normocephalic, atraumatic. RESPIRATORY: Airway patent, respirations nonlabored. Rhonchi in bases bilaterally CARDIOVASCULAR: Regular rate and rhythm without murmurs, rubs, or gallops. ABDOMINAL: Soft, no tenderness throughout abdomen, nondistended. Normoactive BS. MUSCULOSKELETAL: Moves all extremities. No gross deformities. SKIN: Warm, dry, normal color. NEURO: A&O X3. Somewhat listless but answers all questions and follows commands. Speech clear. Cranial nerves II-XII grossly intact. No ataxic movements. PSYCHIATRIC: Appropriate mood and affect. Normal interaction. <Marielle Marte PA-C - Last Filed: 01/28/25 00:49> Course Vital Signs Vital signs: Vital Signs Temperature 97.6 F 01/27/25 14:04 Pulse Rate 110 H 01/27/25 14:04 Respiratory Rate 17 01/27/25 14:04 Blood Pressure 95/45 L 01/27/25 14:04 Pulse Oximetry 98 01/27/25 14:04 Temperature 98.6 F 01/27/25 20:15 Pulse Rate 78 01/28/25 00:09 Respiratory Rate 19 01/28/25 00:09 Blood Pressure 129/57 L 01/28/25 00:09 Pulse Oximetry 99 01/28/25 00:09 Oxygen Delivery Nasal Cannula 01/27/25 23:28 Oxygen Flow Rate 2 01/27/25 23:28 <Consuelo Garay APRN - Last Filed: 01/27/25 14:20> Vital Signs Temperature 97.6 F 01/27/25 14:04 Pulse Rate 110 H 01/27/25 14:04 Respiratory Rate 17 01/27/25 14:04 Blood Pressure 95/45 L 01/27/25 14:04 Pulse Oximetry 98 01/27/25 14:04 Temperature 98.6 F 01/27/25 20:15 Pulse Rate 78 01/28/25 00:09 Respiratory Rate 19 01/28/25 00:09 Blood Pressure 129/57 L 01/28/25 00:09 Pulse Oximetry 99 01/28/25 00:09 Oxygen Delivery Nasal Cannula 01/27/25 23:28 Oxygen Flow Rate 2 01/27/25 23:28 <Marielle Marte PA-C - Last Filed: 01/28/25 00:49> MDM - Weakness MDM Narrative Medical decision making narrative: Patient presented to ED with recent diagnosis of influenza A/UTI with ongoing weakness, vomiting, diarrhea, difficulty keeping down food and drink. Was admitted to the hospital here over the weekend, discharged yesterday with home health care set up. Patient reports she was not doing well today. Feels awful. Patient was hypotensive, tachycardic upon arrival. Afebrile here. Oxygen stable on room air. Cbc is unremarkable. CMP with slight ENRICO. Creatinine today 1.04. Baseline around 0.6-0.7. Fluids initiated. Electrolytes are within normal range. Lactic acid borderline at 1.9. EKG without concerning ST changes. Sinus arrhythmia. Baseline artifact. Troponin is undetectable. Chest x-ray is clear. UA is clear. Patient still on augmentin per records for recent UTI, sensitive per recent cx. D-dimer resulted minimally elevated to 0.50. Technically age adjusted normal, however patient did become hypoxic throughout ED stay down into the upper 70s on RA, currently requiring 2 L nasal cannula. CTA chest/PE study obtained and w/o evidence of PE, PNA. Patient will be admitted for further evaluation and likely acute rehab placement. Discussed case with Dr. Gsapar, hospitalist, accepted patient for admission. Will place care coordination consult. Stool studies ordered. Patient and family in agreement with plan and admission. <Marielle Marte PA-C - Last Filed: 01/28/25 00:49> Medical Records Attestation: I reviewed the patient's medical records. <Marielle Marte PA-C - Last Filed: 01/28/25 00:49> Lab Data Attestation: I reviewed the patient's lab results. <Marielle Marte PA-C - Last Filed: 01/28/25 00:49> Result diagrams: 01/27/25 15:52 01/27/25 15:52 <Consuelo Garay APRN - Last Filed: 01/27/25 14:20> Labs: Lab Results 01/27/25 01/27/25 01/27/25 Range/Units 15:52 20:59 22:42 WBC 8.5 (4.5-10.0) K/mm3 RBC 4.86 (4.2-5.4) M/mm3 Hgb 14.7 (12.0-15.0) g/dL Hct 45.2 (37.0-47.0) % MCV 93.0 (80-100) fl MCH 30.2 (26-34) pg MCHC 32.5 (32-36) g/dl RDW 14.3 (11.5-14.5) % Plt Count 333 D (150-375) k/mm3 MPV 9.3 (7.4-10.4) fl Immature Gran % (Auto) 0.5 (0-0.5) % Neut % (Auto) 58.8 (45.5-73.1) % Lymph % (Auto) 29.2 (18.3-44.2) % [place] % (Auto) 8.5 (2.6-8.5) % Eos % (Auto) 2.8 (0-4.4) % Baso % (Auto) 0.2 (0.2-1.2) % Lymph # (Auto) 2.48 (0.9-3.2) K/mm3 [place] # (Auto) 0.7 H (0.1-0.6) K/mm3 Eos # (Auto) 0.2 (0-0.3) K/mm3 Baso # (Auto) 0.0 (0.0-0.1) K/mm3 Abs Immat Gran (auto) 0.04 H (0.00-0.031) K/mm3 Absolute Neuts (auto) 5.0 (1.3-6.7) K/mm3 Absolute Nucleated RBC 0.000 (0.0-0.012) K/mm3 Nucleated RBC % 0.0 (0.0-0.2) % PT 12.5 (11.1-14.7) Seconds INR 0.9 APTT 21.8 L (22.3-36.8) Seconds D-Dimer 0.50 H (<0.48) ug/mL Sodium 135 L (137-145) mmol/L Potassium 4.2 (3.4-5.0) mmol/L Chloride 101 (98-107) mmol/L Carbon Dioxide 26 (22-30) mmol/L Anion Gap 8 (4-12) mmol/L BUN 15 D (7-17) mg/dL Creatinine 1.04 H (0.7-1.0) mg/dL Estim Creat Clear Calc Not Reportable Estimated GFR 50 L (59 - ) Glucose 123 H (65-110) mg/dL Lactic Acid 1.9 (0.7-2.0) mmol/L Calcium 8.8 (8.4-10.2) mg/dL Magnesium 1.8 (1.6-2.3) mg/dL Total Bilirubin 0.7 (0.2-1.3) mg/dL AST 33 (14-36) U/L ALT 27 (6-35) U/L Alkaline Phosphatase 46 (38-126) U/L Troponin I < 0.012 (0.000-0.034) ng/mL C-Reactive Protein < 0.5 (<1.0) mg/dL Total Protein 6.0 L (6.3-8.2) g/dL Albumin 3.6 (3.5-5.1) g/dL Urine Color Yellow (Yellow) Urine Appearance Clear (Clear) Urine pH 7.0 (5.0-9.0) Ur Specific [place] 1.012 (1.001-1.035) Urine Protein Negative (Negative) mg/dL Urine Glucose (UA) Negative (Negative) mg/dL Urine Ketones Negative (Negative) mg/dL Ur Blood (Man) Negative (Negative) Urine Nitrate Negative (Negative) Urine Bilirubin Negative (Negative) Urine Urobilinogen 0.2 (<2.0) mg/dL Leukocyte Esterase Rfl Negative (Negative) PATY/UL <Consuelo Latifuble, HIGH SPEED WARPER TENDER - Last Filed: 01/27/25 14:20> Lab Results 01/27/25 01/27/25 01/27/25 Range/Units 15:52 20:59 22:42 WBC 8.5 (4.5-10.0) K/mm3 RBC 4.86 (4.2-5.4) M/mm3 Hgb 14.7 (12.0-15.0) g/dL Hct 45.2 (37.0-47.0) % MCV 93.0 (80-100) fl MCH 30.2 (26-34) pg MCHC 32.5 (32-36) g/dl RDW 14.3 (11.5-14.5) % Plt Count 333 D (150-375) k/mm3 MPV 9.3 (7.4-10.4) fl Immature Gran % (Auto) 0.5 (0-0.5) % Neut % (Auto) 58.8 (45.5-73.1) % Lymph % (Auto) 29.2 (18.3-44.2) % [place] % (Auto) 8.5 (2.6-8.5) % Eos % (Auto) 2.8 (0-4.4) % Baso % (Auto) 0.2 (0.2-1.2) % Lymph # (Auto) 2.48 (0.9-3.2) K/mm3 [place] # (Auto) 0.7 H (0.1-0.6) K/mm3 Eos # (Auto) 0.2 (0-0.3) K/mm3 Baso # (Auto) 0.0 (0.0-0.1) K/mm3 Abs Immat Gran (auto) 0.04 H (0.00-0.031) K/mm3 Absolute Neuts (auto) 5.0 (1.3-6.7) K/mm3 Absolute Nucleated RBC 0.000 (0.0-0.012) K/mm3 Nucleated RBC % 0.0 (0.0-0.2) % PT 12.5 (11.1-14.7) Seconds INR 0.9 APTT 21.8 L (22.3-36.8) Seconds D-Dimer 0.50 H (<0.48) ug/mL Sodium 135 L (137-145) mmol/L Potassium 4.2 (3.4-5.0) mmol/L Chloride 101 (98-107) mmol/L Carbon Dioxide 26 (22-30) mmol/L Anion Gap 8 (4-12) mmol/L BUN 15 D (7-17) mg/dL Creatinine 1.04 H (0.7-1.0) mg/dL Estim Creat Clear Calc Not Reportable Estimated GFR 50 L (59 - ) Glucose 123 H (65-110) mg/dL Lactic Acid 1.9 (0.7-2.0) mmol/L Calcium 8.8 (8.4-10.2) mg/dL Magnesium 1.8 (1.6-2.3) mg/dL Total Bilirubin 0.7 (0.2-1.3) mg/dL AST 33 (14-36) U/L ALT 27 (6-35) U/L Alkaline Phosphatase 46 (38-126) U/L Troponin I < 0.012 (0.000-0.034) ng/mL C-Reactive Protein < 0.5 (<1.0) mg/dL Total Protein 6.0 L (6.3-8.2) g/dL Albumin 3.6 (3.5-5.1) g/dL Urine Color Yellow (Yellow) Urine Appearance Clear (Clear) Urine pH 7.0 (5.0-9.0) Ur Specific [place] 1.012 (1.001-1.035) Urine Protein Negative (Negative) mg/dL Urine Glucose (UA) Negative (Negative) mg/dL Urine Ketones Negative (Negative) mg/dL Ur Blood (Man) Negative (Negative) Urine Nitrate Negative (Negative) Urine Bilirubin Negative (Negative) Urine Urobilinogen 0.2 (<2.0) mg/dL Leukocyte Esterase Rfl Negative (Negative) PATY/UL <Marielle Marte PA-C - Last Filed: 01/28/25 00:49> Imaging Data Attestation: I personally reviewed and interpreted this imaging study as follows: <Marielle Marte PA-C - Last Filed: 01/28/25 00:49> Radiologist's impression: ITS Impressions Chest X-Ray 01/27/25 15:00 IMPRESSION: No acute cardiopulmonary pathology. Chest CTA 01/27/25 23:52 IMPRESSION: No pulmonary embolus. No thoracic aortic dissection. Trace bibasilar atelectasis, right greater than left. <Marielle Marte PA-C - Last Filed: 01/28/25 00:49> ECG Data EKG #1: Attestation: I personally reviewed and interpreted this ECG as follows: <Marielle Marte PA-C - Last Filed: 01/28/25 00:49> ECG completion date: 01/27/25 <Marielle Marte PA-C - Last Filed: 01/28/25 00:49> ECG completion time: 15:58 <Marielle Marte PA-C - Last Filed: 01/28/25 00:49> EKG Interpretation: tachycardia (102), sinus rhythm (With sinus arrhythmia), non-specific ST changes and other (some baseline artifact/wander) <Marielle Marte PA-C - Last Filed: 01/28/25 00:49> Discharge Plan Discharge Clinical Impression: Weakness, Influenza A, ENRICO (acute kidney injury), Acute hypoxic respiratory failure, Adult failure to thrive <Consuelo Garay APRN - Last Filed: 01/27/25 14:20> Patient Disposition: Still a Patient <Consuelo Garay APRN - Last Filed: 01/27/25 14:20> Condition: Stable <Consuelo Garay APRN - Last Filed: 01/27/25 14:20> Patient Language: Tamazight <Consuelo Garay APRN - Last Filed: 01/27/25 14:20> Prescriptions: No Action ondansetron 4 mg tablet,disintegrating 4 mg PO Q8H PRN (Reason: nausea and vomiting) Qty: 30 1RF omeprazole 40 mg capsule,delayed release(DR/EC) 40 mg PO DAILY Qty: 90 0RF cholecalciferol (vitamin D3) 50 mcg (2,000 unit) capsule 50 mcg PO DAILY multivitamin Capsule 1 cap PO DAILY potassium chloride [K-Tab] 20 mEq tablet extended release 20 meq PO BID Qty: 14 0RF acetaminophen 500 mg tablet 1,000 mg PO QID Rx Instructions: takes with gabapentin amoxicillin-pot clavulanate [Augmentin] 500-125 mg tablet 1 tablet PO Q8H Qty: 6 0RF dextromethorphan-guaifenesin 10-100 mg/5 mL Syrup 10 ml PO Q4HR Qty: 237 0RF magnesium oxide 400 mg (241.3 mg magnesium) Tablet 400 mg PO QAM Qty: 30 0RF prednisone 10 mg tablet 10 mg PO DAILY Qty: 20 0RF Rx Instructions: 4Tx2, 3Tx2d, 2Tx2d, 1Tx2d montelukast 10 mg tablet 10 mg PO DAILY Qty: 90 1RF Rx Instructions: Take 1 tablet by mouth once daily rosuvastatin 10 mg tablet 10 mg PO DAILY Qty: 90 1RF gabapentin 600 mg tablet See Rx Instructions .ROUTE .COMPLEX Qty: 360 0RF Dose Instruction: Take 1 tablet by mouth 4 times daily Rx Instructions: Take 1 tablet by mouth 4 times daily meloxicam 15 mg tablet 15 mg PO DAILY Qty: 90 1RF Rx Instructions: Take 1 tablet by mouth once daily levalbuterol tartrate 45 mcg/actuation HFA aerosol inhaler 2 inh INHALATION Q6H PRN (Reason: Asthma) Qty: 15 1RF lidocaine [Lidoderm] 5 % adhesive patch,medicated 1 patch topical DAILY PRN (Reason: back pain) Qty: 15 0RF Rx Instructions: leave on most painful area for up to 12 hrs <Consuelo Garay APRN - Last Filed: 01/27/25 14:20> Follow-up/Referrals: Angel Mora MD [Primary Care Provider] - <Consuelo Garay APRN - Last Filed: 01/27/25 14:20>
--- OUTSIDE RECORDS SUMMARY | 2025-01-27 15:54 | XMS_ITS | Clinical Summary ---
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
[2025-01-27 15:58] LABS: Basophils Percent Auto 0.2 % (0.2-1.2); Eosinophils Absolute Auto 0.2 K/mm3 (0-0.3); Eosinophils Percent Auto 2.8 % (0-4.4); Hematocrit 45.2 % (37.0-47.0); Hemoglobin 14.7 g/dL (12.0-15.0); Immature Granulocyte Absolute 0.04 K/mm3 (0.00-0.031); Immature Granulocyte Percent A 0.5 % (0-0.5); Lymphocytes Absolute Auto 2.48 K/mm3 (0.9-3.2); Lymphocytes Percent Auto 29.2 % (18.3-44.2); Mean Corpuscular HGB Conc 32.5 g/dl (32-36); Mean Corpuscular Hemoglobin 30.2 pg (26-34); Mean Platelet Volume 9.3 fl (7.4-10.4); Monocytes Absolute Auto 0.7 K/mm3 (0.1-0.6); Monocytes Percent Auto 8.5 % (2.6-8.5); Neutrophils Percent Auto 58.8 % (45.5-73.1); Platelet Count Result 333 k/mm3 (150-375); Red Blood Count 4.86 M/mm3 (4.2-5.4); Red Cell Distribution Width 14.3 % (11.5-14.5); White Blood Count 8.5 K/mm3 (4.5-10.0)
[2025-01-27 16:09] LABS: INR 0.9; Prothrombin Time 12.5 Seconds (11.1-14.7)
[2025-01-27 16:10] LABS: Partial Thromboplastin Time 21.8 Seconds (22.3-36.8)
[2025-01-27 16:16] LABS: Lactic Acid Reflex 1.9 mmol/L (0.7-2.0)
[2025-01-27 16:17] LABS: Alanine Aminotransferase 27 U/L (6-35); Albumin Level 3.6 g/dL (3.5-5.1); Alkaline Phosphatase 46 U/L (38-126); Anion Gap 8 mmol/L (4-12); Aspartate Amino Transferase 33 U/L (14-36); Bilirubin,Total 0.7 mg/dL (0.2-1.3); Blood Urea Nitrogen 15 mg/dL (7-17); CRP < 0.5 mg/dL (<1.0); Calcium 8.8 mg/dL (8.4-10.2); Carbon Dioxide 26 mmol/L (22-30); Chloride 101 mmol/L (98-107); Estimated Glomerular Filt Rate 50; Glucose 123 mg/dL (65-110); Potassium 4.2 mmol/L (3.4-5.0); Sodium 135 mmol/L (137-145)
[2025-01-27 16:27] LABS: Troponin I < 0.012 ng/mL (0.000-0.034)
--- OUTSIDE RECORDS SUMMARY | 2025-01-27 16:59 | XMS_ITS | Clinical Summary ---
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
[2025-01-27 21:27] LABS: Add Urine Microscopic? NO; Appearance Urine Clear (Clear); Bilirubin Urine Negative (Negative); Blood Urine Negative (Negative); Color Urine Yellow (Yellow); Glucose Urine UA Negative (Negative); Ketones Urine Negative (Negative); Leukocyte Esterase Ur Negative LEU/UL (Negative); Nitrate Urine Negative (Negative); Protein Urine Negative (Negative); Specific Grav Ur 1.012 (1.001-1.035); Urobilinogen Urine 0.2 mg/dL (<2.0)
[2025-01-27] MEDS: SODIUM CHLORIDE 0.9% IV 1,000 ML 999 ML IV CONT (21:28)
[2025-01-27 21:49] LABS: Magnesium 1.8 mg/dL (1.6-2.3)
--- NOTE | 2025-01-27 23:17 | PC.NURSE ---
This RN noted pts O2 saturation in 70s. Pt asleep in room, O2 saturation did not improve with repositioning or arousal from sleep. States she does feel short of breath. Placed on 2L NC. PA notified.
--- NOTE | 2025-01-27 23:40 | PC.NURSE ---
Pt to CT at this time via stretcher on 2L NC.
[2025-01-28] VITALS (17 sets, daily range): BP systolic 96–129; BP diastolic 40–79; PULSE 61–84; RESP 8–24; TEMP 35.9–36.8; O2SAT 97–100; BMI 25.7
--- NOTE | 2025-01-28 00:45 | ECG_ITS ---
Test Date: 2025-01-28 01:01:20 Measurements Intervals Lynx Rate: 92 P: 49 CT: 152 QRS: 15 QRSD: 97 T: 4 QT: 349 QTc: 432 Interpretive Statements SINUS RHYTHM LEFT ATRIAL ENLARGEMENT [-0.15mV P WAVE IN V1/V2] BASELINE ARTIFACT LIMITS INTERPRETATION Compared to ECG 01/27/2025 15:58:59 NO SIGNIFICANT CHANGES Electronically Signed On 01-28-2025 16:49:35 CDT by Leslie Wright M.D.
[2025-01-28] MEDS: SODIUM CHLORIDE 0.9% IV 1,000 ML 100 ML IV CONT ×2 (01:26→14:58)
--- NOTE | 2025-01-28 03:06 | PC.NURSE ---
Pt c/o not being able to urinate, but feeling like she needs to. Bladder scan shows 490mL in bladder. Call out to hospitalist for further orders.
[2025-01-28] MEDS: ACETAMINOPHEN 325 MG TABLET 650 MG PO (09:34)
--- NOTE | 2025-01-28 11:40 | PC.NURSE ---
Pt. juanita Miah updated over the phone at this time. All questions answered.
--- NOTE | 2025-01-28 12:02 | PC.NURSE ---
pt was laying on L arm which paused IV fluids. This RN assessed IV site and repositioned pt.
--- NOTE | 2025-01-28 12:58 | PC.NURSE ---
patient used call light to call out for bathroom. i put patient on commode, changed her depends, and changed chux pad. when assisting patient back to bed, i noticed that the iv site on her left hand was puffy and red. Sherly Byrne RN notified and at bedside assessing iv site.
--- NOTE | 2025-01-28 13:18 | PC.NURSE ---
PT had infiltration of the L hand at IV site. Site is edematous and pt denies pain at the site. This RN discontinued IV access, elevated pt's L hand, and removed pt's rings and placed w/ her belongings. PT has resumed IV fluids in new R hand IV access.
[2025-01-28 14:41] LABS: Glucose Point of Care 86 mg/dl (65-105)
--- NOTE | 2025-01-28 14:42 | PC.NURSE ---
Pt. son Miah phoned by this RN and updated that pt. is going to room 326. Son verbalized appreciation.
--- NOTE | 2025-01-28 14:43 | ADMGEN ---
This patient, Ellyn Cody, was admitted to Virtual Bed 3rd Floor-3. Patient/family oriented to hospital policies and general routines including ID bracelet, bed and alarms, visiting hours, pain management, procedures, bathroom and other care routines, personal items, smoking policy, room service/diet, and visiting hours. Information on how to activate the Rapid Response Team has been discussed. Patient/Family are encouraged to report perceived risks to care and to ask questions if they do not understand what they are told or what they should do.
--- NOTE | 2025-01-28 16:45 | PM.IMHP ---
H&P: HPI History of Present Illness Date/Time: 01/28/25 16:45 Chief Complaint: Weakness Narrative: ER - Focused HPI: Pt is an 84-year-old female who presents to the ER with complaints of weakness, diarrhea, and back pain. She reports she was just discharged from the hospital yesterday due to flu a and a UTI. Patient's son reports the home healthcare nurse came to visit her this morning around 11:00 a.m. and she was in the bathroom for 30 minutes with diarrhea. The home healthcare nurse told patient and her son that patient's blood pressure was low so they called EMS. Patient reports ?I feel awful. She reports most of the pain is in her back. Patient denies chest pain, shortness of breath, recent fevers. She also reports she has been unable to keep any fluids down. Patient is known to me as I had just discharged her home after treating for Infleunza A. patient presents with c/o diarrhea, weakness, fatigue and poor PO intake. will hydrate the patient and monitor her electrolytes, will check stool for infection, and have PT/OT work with patient. [facility] Past Medical History Medical History Kyphoscoliosis Benign essential tremor Vitamin D deficiency Scoliosis due to degenerative disease of spine in adult patient COPD (chronic obstructive pulmonary disease) Vision changes COVID-19 vaccine series completed Neuropathy Dyslipidemia Osteoporosis Sleep apnea Emphysema of lung Memory loss Frozen shoulder Left shoulder Sciatica associated with disorder of lumbar spine GERD (gastroesophageal reflux disease) Arthritis IBS (irritable bowel syndrome) Asthma Surgical History Surgical History Status post cataract extraction of both eyes with insertion of intraocular lens History of partial hysterectomy History of bowel resection History of cholecystectomy History of right hip replacement Family History Family History Mother Pneumonia Arthritis Father Asbestosis Arthritis Grandparent Pneumonia Grandparent Heart attack Arthritis Grandparent Cerebrovascular accident Sibling Malignant neoplasm Arthritis Social History Social History Social History: She lives in [place] with her of 60 years. She has a Rollator at home but only uses it when she goes to the store. She has 2 children who are healthy. She is a lifelong nonsmoker and does not drink alcohol. 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 Primary care physician: Dr. Cruz Code status: DNR/DNI Surrogate decision maker: Miah (son) Smoking status: Never smoker Second hand tobacco smoke exposure: No Alcohol intake: never Substance use: never Substance use type: does not use Do You Feel Safe in your Home?: Yes Lack of Transportation: No Lack of Food: Never True Current Housing: I Have Housing Concerned About Future Housing: No Difficulty Paying Gas/Electric Bills: No Difficulty Paying for Meds: No Currently Unemployed: No Education: Don't Know Difficulty w/ Childcare or Family Care: No Living arrangements: with family Occupation/Education: retired Gender identity (if verbalized by the patient): Female Sexual Orientation (if Verbalized by the Patient): Straight or Heterosexual Spiritual care concerns: No Agree to blood products: Yes Meds Home Medications and Allergies Home Medications ?Medication ?Instructions ?Recorded ?Confirmed ?Type cholecalciferol (vitamin D3) 50 50 mcg PO DAILY 08/07/20 01/28/25 History mcg (2,000 unit) capsule multivitamin 1 cap PO DAILY 08/07/20 01/28/25 History montelukast 10 mg tablet 10 mg PO DAILY #90 tabs 09/14/23 01/28/25 Rx ondansetron 4 mg disintegrating 4 mg PO Q8H PRN nausea and 10/03/23 01/28/25 Rx tablet vomiting #30 tabs rosuvastatin 10 mg tablet 10 mg PO DAILY #90 tabs 07/26/24 01/28/25 Rx omeprazole 40 mg capsule,delayed 40 mg PO DAILY #90 caps 08/01/24 01/28/25 Rx release acetaminophen 500 mg tablet 1,000 mg PO QID 10/09/24 01/28/25 History gabapentin 600 mg tablet See Rx Instructions .Route 12/10/24 01/28/25 Rx .COMPLEX #360 tabs potassium chloride 20 mEq 20 meq PO BID #14 tabs 01/19/25 01/28/25 Rx tablet,extended release (K-Tab) amoxicillin 500 mg-potassium 1 tablet PO Q8H #6 tabs 01/26/25 01/28/25 Rx clavulanate 125 mg tablet (Augmentin) dextromethorphan-guaifenesin 10 10 ml PO Q4HR #237 mL 01/26/25 01/28/25 Rx mg-100 mg/5 mL oral syrup magnesium oxide 400 mg (241.3 mg 400 mg PO QAM #30 tabs 01/26/25 01/28/25 Rx magnesium) tablet prednisone 10 mg tablet 10 mg PO DAILY #20 tabs 01/26/25 01/28/25 Rx levalbuterol tartrate 45 2 inh inhalation Q6H PRN Asthma 01/27/25 01/28/25 Rx mcg/actuation aerosol inhaler #15 grams lidocaine 5 % topical patch 1 patch topical DAILY PRN back 01/27/25 01/28/25 Rx (Lidoderm) pain #15 ea meloxicam 15 mg tablet 15 mg PO DAILY #90 tabs 01/27/25 01/28/25 Rx Allergies Allergy/AdvReac Type Severity Reaction Status Date / Time codeine Allergy Severe Passes out Verified 01/19/25 12:08 oxycodone Allergy Severe pass out Verified 01/19/25 12:08 pain medications AdvReac Severe syncope Uncoded 01/19/25 12:08 Vital Signs Vital Signs - 24 hr 01/27/25 17:06 01/27/25 20:15 01/27/25 20:41 Temperature 37.0 C Pulse Rate 61 94 75 Respiratory Rate 18 18 23 H Blood Pressure 93/46 L 77/42 L 102/55 L Pulse Oximetry 97 99 96 Oxygen Delivery Room Air Oxygen Flow Rate 01/27/25 21:28 01/27/25 22:45 01/27/25 23:17 Temperature Pulse Rate 73 78 87 Respiratory Rate 20 28 H Blood Pressure 108/50 L 122/55 L Pulse Oximetry 94 96 77 L Oxygen Delivery Oxygen Flow Rate 01/27/25 23:18 01/27/25 23:28 01/28/25 00:09 Temperature Pulse Rate 78 Respiratory Rate 19 Blood Pressure 129/57 L Pulse Oximetry 91 92 99 Oxygen Delivery Nasal Cannula Nasal Cannula Oxygen Flow Rate 2 2 01/28/25 02:51 01/28/25 04:10 01/28/25 06:13 Temperature Pulse Rate 78 73 76 Respiratory Rate 18 19 18 Blood Pressure 120/64 128/52 L 114/51 L Pulse Oximetry 100 99 98 Oxygen Delivery Oxygen Flow Rate 01/28/25 07:24 01/28/25 07:24 01/28/25 07:24 Temperature 36.6 C Pulse Rate 71 73 Respiratory Rate 12 Blood Pressure 115/50 L Pulse Oximetry 97 97 Oxygen Delivery Nasal Cannula Oxygen Flow Rate 2 01/28/25 09:19 01/28/25 09:38 01/28/25 10:00 Temperature Pulse Rate 73 66 61 Respiratory Rate 19 21 H 22 H Blood Pressure 105/53 L 109/40 L 96/68 L Pulse Oximetry 99 98 98 Oxygen Delivery Oxygen Flow Rate 01/28/25 10:31 01/28/25 11:30 01/28/25 13:10 Temperature Pulse Rate 67 72 64 Respiratory Rate 8 L 22 H 24 H Blood Pressure 110/47 L 107/46 L 116/50 L Pulse Oximetry 98 99 Oxygen Delivery Oxygen Flow Rate 01/28/25 14:54 01/28/25 15:00 01/28/25 16:00 Temperature Pulse Rate 63 71 Respiratory Rate 24 H Blood Pressure Pulse Oximetry 99 Oxygen Delivery Nasal Cannula Oxygen Flow Rate 2 Exam Narrative: Elderly frail Patient is comfortable, NAD HEENT: eyes are clear and none icteric LUNGS:CTA HEART: RR S1S2 ABD: BS+, Soft and nontender Lower extremities: no edema SKIN: nonjaundiced Neuro: grossly intact. H&P: Results Labs Labs: Urine 01/27/25 Range/Units 20:59 Urine Color Yellow (Yellow) Urine Appearance Clear (Clear) Urine pH 7.0 (5.0-9.0) Ur Specific [place] 1.012 (1.001-1.035) Urine Protein Negative (Negative) mg/dL Urine Glucose (UA) Negative (Negative) mg/dL Assessment and Plan Assessment and plan (1) Nausea and vomiting: Code(s): R11.2 - Nausea with vomiting, unspecified Status: Acute (2) Diarrhea: Qualifiers: Diarrhea type: unspecified type Qualified Code(s): R19.7 - Diarrhea, unspecified Code(s): R19.7 - Diarrhea, unspecified Status: Acute (3) ENRICO (acute kidney injury): Code(s): N17.9 - Acute kidney failure, unspecified Status: Acute (4) Generalized weakness: Code(s): R53.1 - Weakness Status: Acute Plan Patient is known to me as I had just discharged her home after treating for Infleunza A. patient presents with c/o diarrhea, weakness, fatigue and poor PO intake. will hydrate the patient and monitor her electrolytes, will check stool for infection, and have PT/OT work with patient.
[2025-01-28] MEDS: guaiFENesin/DEXTROMETHORPHAN 10 ML UDC PO ×2 (16:59→21:17)
[2025-01-28] MEDS: POTASSIUM CHLORIDE 20 MEQ ER TABLET PO (16:59)
[2025-01-28] MEDS: ACETAMINOPHEN 500 MG TABLET 1000 MG PO ×2 (16:59→21:16)
[2025-01-28] MEDS: LIDOCAINE 5% PATCH 2 PATCH TOPICAL (17:05)
[2025-01-28] MEDS: GABAPENTIN 300 MG CAPSULE BY MOUTH ×2 (17:05→21:17)
[2025-01-28 23:01] LABS: Toxigenic C. Diff NEGATIVE (NEGATIVE)
[2025-01-29] VITALS (11 sets, daily range): BP systolic 116–129; BP diastolic 50–69; PULSE 65–96; RESP 16–20; TEMP 36.1–36.6; O2SAT 95–97; BMI 25.7
[2025-01-29] MEDS: guaiFENesin/DEXTROMETHORPHAN 10 ML UDC PO ×5 (04:48→20:28)
[2025-01-29] MEDS: SODIUM CHLORIDE 0.9% IV 1,000 ML 100 ML IV CONT ×2 (04:49→15:40)
[2025-01-29 09:18] LABS: Hemoglobin 11.5 g/dL (12.0-15.0); Mean Corpuscular HGB Conc 31.9 g/dl (32-36); Mean Corpuscular Hemoglobin 31.1 pg (26-34); Mean Corpuscular Volume 97.3 fl (80-100); Mean Platelet Volume 9.1 fl (7.4-10.4); Platelet Count Result 222 k/mm3 (150-375); Red Cell Distribution Width 14.4 % (11.5-14.5); White Blood Count 5.2 K/mm3 (4.5-10.0)
[2025-01-29 09:49] LABS: Glucose Point of Care 113 mg/dl (65-105)
[2025-01-29] MEDS: MULTIVITAMINS THERAPEUTIC TAB (*BKC) 1 TABLET PO (09:50)
[2025-01-29] MEDS: MELOXICAM 7.5 MG TABLET 15 MG PO (09:50)
[2025-01-29] MEDS: GABAPENTIN 300 MG CAPSULE BY MOUTH ×4 (09:50→20:27)
[2025-01-29] MEDS: MAGNESIUM OXIDE 400 MG TABLET PO (09:50)
[2025-01-29] MEDS: POTASSIUM CHLORIDE 20 MEQ ER TABLET PO ×2 (09:50→17:43)
[2025-01-29] MEDS: CHOLECALCIFEROL 1,000 UNITS TABLET 2000 UNITS PO (09:51)
[2025-01-29] MEDS: MONTELUKAST SODIUM 10 MG TABLET PO (09:51)
[2025-01-29] MEDS: predniSONE 10 MG TABLET PO (09:51)
[2025-01-29] MEDS: ROSUVASTATIN 10 MG TABLET PO (09:51)
[2025-01-29] MEDS: ACETAMINOPHEN 500 MG TABLET 1000 MG PO ×4 (09:51→20:28)
[2025-01-29] MEDS: PANTOPRAZOLE 40 MG TABLET PO (09:51)
[2025-01-29 10:22] LABS: Anion Gap 6 mmol/L (4-12); Blood Urea Nitrogen 14 mg/dL (7-17); Calcium 7.9 mg/dL (8.4-10.2); Carbon Dioxide 19 mmol/L (22-30); Chloride 111 mmol/L (98-107); Estimated Glomerular Filt Rate > 60; Glucose 105 mg/dL (65-110); Magnesium 1.7 mg/dL (1.6-2.3); Sodium 136 mmol/L (137-145)
[2025-01-29] MEDS: LIDOCAINE 5% PATCH 2 PATCH TOPICAL (11:42)
[2025-01-29 12:36] LABS: Base Excess ABG -1.2 mEq/l (+/-2.0); Fractional Inspired Oxygen 21 %; HCO3 ABG 19.6 mEq/l (22.0-26.0); Oxygen Content ABG 17.6 %vol (16.0-22.0); Oxygen Saturation ABG 97.4 % (95.0-100.0); Oxyhemoglobin 96.6 % THb (90.0-100.0); PO2 ABG 82.8 mmHg (80.0-100.0); PO2 FiO2 Ratio Arterial Blood 3.94 %; Total Hemoglobin 12.9 g/dL (12.0-18.0)
[2025-01-29 12:38] LABS: pH ABG 7.543 (7.350-7.450)
[2025-01-29 12:39] LABS: Device ROOM AIR; Modified Allen's Test Pass; PCO2 ABG 23.3 mmHg (35.0-45.0); Site Drawn LEFT RADIAL
--- NOTE | 2025-01-29 14:10 | PM.IMPN ---
Progress Note: A&P Assessment and Plan (1) Nausea and vomiting: Code(s): R11.2 - Nausea with vomiting, unspecified Status: Acute (2) Diarrhea: Qualifiers: Diarrhea type: unspecified type Qualified Code(s): R19.7 - Diarrhea, unspecified Code(s): R19.7 - Diarrhea, unspecified Status: Acute (3) ENRICO (acute kidney injury): Code(s): N17.9 - Acute kidney failure, unspecified Status: Acute (4) Generalized weakness: Code(s): R53.1 - Weakness Status: Acute Plan Patient is known to me as I had just discharged her home after treating for Infleunza A. patient presents with c/o diarrhea, weakness, fatigue and poor PO intake. will hydrate the patient and monitor her electrolytes, will check stool for infection, and have PT/OT work with patient. today patient is feeling little better and awake, patient is being hydrated, her kidney function is improving, her diarrhea have improved, stool culture no growth so far, will continue to hydrate the patient, will PT/OT work with the patient patient will benefit going to rehab. Subjective Date/time seen: 01/29/25 14:10 Interval history: Patient is known to me as I had just discharged her home after treating for Infleunza A. patient presents with c/o diarrhea, weakness, fatigue and poor PO intake. will hydrate the patient and monitor her electrolytes, will check stool for infection, and have PT/OT work with patient. today patient is feeling little better and awake, patient is being hydrated, her kidney function is improving, her diarrhea have improved, stool culture no growth so far, will continue to hydrate the patient, will PT/OT work with the patient patient will benefit going to rehab. Exam Narrative: Elderly frail Patient is comfortable, NAD HEENT: eyes are clear and none icteric LUNGS:CTA HEART: RR S1S2 ABD: BS+, Soft and nontender Lower extremities: no edema SKIN: nonjaundiced Neuro: grossly intact. Objective Data Vital Signs Vital Signs: Vital Signs - 24 hr 01/28/25 14:54 01/28/25 15:00 01/28/25 16:00 Temperature Pulse Rate 63 71 Respiratory Rate 24 H Blood Pressure Pulse Oximetry 99 Oxygen Delivery Nasal Cannula Oxygen Flow Rate 2 01/28/25 16:55 01/28/25 20:00 01/28/25 21:26 Temperature 35.9 C L 36.8 C Pulse Rate 71 84 69 Respiratory Rate 20 14 Blood Pressure 122/51 L 102/79 Pulse Oximetry 100 98 Oxygen Delivery Oxygen Flow Rate 01/29/25 00:00 01/29/25 04:00 01/29/25 05:54 Temperature 36.6 C Pulse Rate 73 65 70 Respiratory Rate 16 Blood Pressure 116/50 L Pulse Oximetry 97 Oxygen Delivery Oxygen Flow Rate 01/29/25 08:00 01/29/25 12:00 01/29/25 14:00 Temperature 36.1 C L Pulse Rate 68 75 96 Respiratory Rate 18 Blood Pressure 129/59 L Pulse Oximetry 95 Oxygen Delivery Oxygen Flow Rate Intake/Output Intake/Output: Intake & Output 01/26/25 01/27/25 01/28/25 01/29/25 23:59 23:59 23:59 23:59 Intake Total 1000 1000 2400 Output Total 100 640 600 Balance 179 150 7389 Meds/Results Medications: Active Medications Generic Name Dose Route Start Last Admin Trade Name Freq PRN Reason Stop Dose Admin Acetaminophen 650 mg 01/28/25 00:42 01/28/25 09:34 Acetaminophen 325 Mg Tablet PO 650 mg Q4H PRN Administration Mild Pain (1-3) or Fever Acetaminophen 1,000 mg 01/28/25 17:00 01/29/25 12:17 Acetaminophen 500 Mg Tablet PO 1,000 mg QID FATUMA Administration Dextrose 12.5 gm 01/28/25 00:45 Dextrose 50% 25 Gm/50 Ml Syringe IV PUSH PRN PRN Hypoglycemia Protocol Gabapentin 300 mg 01/28/25 17:00 01/29/25 12:17 Gabapentin 300 Mg Capsule BY MOUTH 300 mg QID FATUMA Administration Glucagon 1 mg 01/28/25 00:45 Glucagon For Inj 1 Mg Vial IM PRN PRN Hypoglycemia Protocol Glucose 15 gm 01/28/25 00:45 Glucose Oral Gel 15 Gm Of Glucse In 37.5 Gm Tube PO PRN PRN Hypoglycemia Protocol Guaifenesin/Dextromethorphan 10 ml 01/28/25 17:00 01/29/25 12:17 Guaifenesin/Dextromethorphan 10 Ml Udc PO 10 ml Q4HR FATUMA Administration Sodium Chloride 1,000 mls @ 100 mls/hr 01/28/25 00:45 01/29/25 04:49 Normal Saline Iv IV CONT 100 mls/hr .Q10H FATUMA Administration Dextrose 1,000 mls @ 100 mls/hr 01/28/25 00:45 Dextrose 5% 1,000 Ml IVPB PRN PRN Hypoglycemia Protocol Levalbuterol HCl 2 puff 01/28/25 16:16 Levalbuterol Hfa (*Sp) 15 Gm Inhaler INHALATION Q6H PRN Asthma Lidocaine 2 patch 01/28/25 16:56 01/29/25 11:42 Lidocaine 5% Patch TOPICAL 2 patch DAILY PRN Administration lower back pain Magnesium Oxide 400 mg 01/29/25 09:00 01/29/25 09:50 Magnesium Oxide 400 Mg Tablet PO 400 mg QAM FATUMA Administration Meloxicam 15 mg 01/29/25 09:00 01/29/25 09:50 Meloxicam 7.5 Mg Tablet PO 15 mg QAM FATUMA Administration Montelukast Sodium 10 mg 01/29/25 09:00 01/29/25 09:51 Montelukast Sodium 10 Mg Tablet PO 10 mg DAILY FATUMA Administration Multivitamins Therapeutic 1 tablet 01/29/25 09:00 01/29/25 09:50 Multivitamins Therapeutic Tab (*Bkc) PO 1 tablet DAILY FATUMA Administration Ondansetron HCl 4 mg 01/28/25 00:42 Ondansetron Inj 4 Mg/2 Ml Vial IV PUSH Q4H PRN Nausea Ondansetron HCl 4 mg 01/28/25 16:16 Ondansetron Hcl Odt 4 Mg Tablet PO Q8H PRN nausea and vomiting Pantoprazole Sodium 40 mg 01/29/25 09:00 01/29/25 09:51 Pantoprazole 40 Mg Tablet PO 40 mg QAM FATUMA Administration Potassium Chloride 20 meq 01/28/25 17:00 01/29/25 09:50 Potassium Chloride 20 Meq Er Tablet PO 20 meq BID FATUMA Administration Prednisone 10 mg 01/29/25 09:00 01/29/25 09:51 Prednisone 10 Mg Tablet PO 10 mg DAILY FATUMA Administration Rosuvastatin Calcium 10 mg 01/29/25 09:00 01/29/25 09:51 Rosuvastatin 10 Mg Tablet PO 10 mg DAILY FATUMA Administration Vitamin D 2,000 units 01/29/25 09:00 01/29/25 09:51 Cholecalciferol 1,000 Units Tablet PO 2,000 units DAILY FATUMA Administration Radiology Results: ITS Impressions Chest X-Ray 01/27/25 15:00 IMPRESSION: No acute cardiopulmonary pathology. Chest CTA 01/27/25 23:52 IMPRESSION: No pulmonary embolus. No thoracic aortic dissection. Trace bibasilar atelectasis, right greater than left. Labs Labs: Laboratory Results - last 24 hr 01/28/25 01/28/25 01/29/25 12:03 21:46 08:22 WBC RBC Hgb Hct MCV MCH MCHC RDW Plt Count MPV Puncture Site ABG pH ABG pCO2 ABG pO2 ABG PO2/FiO2 Ratio ABG HCO3 ABG O2 Saturation ABG O2 Content ABG Base Excess A-a Gradient Oxyhemoglobin Total Hemoglobin O2 Delivery Device O2 Liters/Min FiO2 Sodium 136 L Potassium 4.0 Chloride 111 H Carbon Dioxide 19 L Anion Gap 6 BUN 14 Creatinine 0.69 L Estim Creat Clear Calc Not Reportable Estimated GFR > 60 Glucose 105 POC Capillary Glucose 86 Calcium 7.9 L Magnesium 1.7 C. difficile (PCR) Negative 01/29/25 01/29/25 01/29/25 08:50 09:43 12:30 WBC 5.2 RBC 3.70 L Hgb 11.5 L D Hct 36.0 L MCV 97.3 MCH 31.1 MCHC 31.9 L RDW 14.4 Plt Count 222 MPV 9.1 Puncture Site Left radial ABG pH 7.543 H* ABG pCO2 23.3 L* ABG pO2 82.8 ABG PO2/FiO2 Ratio 3.94 ABG HCO3 19.6 L ABG O2 Saturation 97.4 ABG O2 Content 17.6 ABG Base Excess -1.2 A-a Gradient 39.0 Oxyhemoglobin 96.6 Total Hemoglobin 12.9 O2 Delivery Device Room air O2 Liters/Min Not Reportable FiO2 21 Sodium Potassium Chloride Carbon Dioxide Anion Gap BUN Creatinine Estim Creat Clear Calc Estimated GFR Glucose POC Capillary Glucose 113 H Calcium Magnesium C. difficile (PCR)
[2025-01-30] VITALS (13 sets, daily range): BP systolic 101–130; BP diastolic 51–55; PULSE 59–92; RESP 18–20; TEMP 36.6–37.1; O2SAT 95–99
[2025-01-30] MEDS: guaiFENesin/DEXTROMETHORPHAN 10 ML UDC PO ×6 (01:49→21:23)
[2025-01-30 06:57] LABS: Hematocrit 33.4 % (37.0-47.0); Hemoglobin 10.8 g/dL (12.0-15.0); Mean Corpuscular HGB Conc 32.3 g/dl (32-36); Mean Corpuscular Hemoglobin 30.6 pg (26-34); Mean Corpuscular Volume 94.6 fl (80-100); Mean Platelet Volume 9.1 fl (7.4-10.4); Platelet Count Result 192 k/mm3 (150-375); Red Blood Count 3.53 M/mm3 (4.2-5.4); Red Cell Distribution Width 13.9 % (11.5-14.5); White Blood Count 4.2 K/mm3 (4.5-10.0)
[2025-01-30 07:12] LABS: Anion Gap 3 mmol/L (4-12); Blood Urea Nitrogen 9 mg/dL (7-17); Carbon Dioxide 24 mmol/L (22-30); Chloride 109 mmol/L (98-107); Estimated Glomerular Filt Rate > 60; Glucose 112 mg/dL (65-110); Magnesium 1.6 mg/dL (1.6-2.3); Potassium 3.7 mmol/L (3.4-5.0); Sodium 136 mmol/L (137-145)
[2025-01-30] MEDS: ONDANSETRON INJ 4 MG/2 ML VIAL IV PUSH (08:12)
[2025-01-30] MEDS: MONTELUKAST SODIUM 10 MG TABLET PO (08:13)
[2025-01-30] MEDS: GABAPENTIN 300 MG CAPSULE BY MOUTH ×4 (08:14→21:23)
[2025-01-30] MEDS: MAGNESIUM OXIDE 400 MG TABLET PO (08:14)
[2025-01-30] MEDS: MELOXICAM 7.5 MG TABLET 15 MG PO (08:14)
[2025-01-30] MEDS: PANTOPRAZOLE 40 MG TABLET PO (08:14)
[2025-01-30] MEDS: ACETAMINOPHEN 500 MG TABLET 1000 MG PO ×4 (08:14→21:23)
[2025-01-30] MEDS: predniSONE 10 MG TABLET PO (08:14)
[2025-01-30] MEDS: ROSUVASTATIN 10 MG TABLET PO (08:14)
[2025-01-30] MEDS: POTASSIUM CHLORIDE 20 MEQ ER TABLET PO ×2 (08:14→17:30)
[2025-01-30] MEDS: CHOLECALCIFEROL 1,000 UNITS TABLET 2000 UNITS PO (08:14)
[2025-01-30] MEDS: MULTIVITAMINS THERAPEUTIC TAB (*BKC) 1 TABLET PO (08:14)
[2025-01-30] MEDS: SODIUM CHLORIDE 0.9% IV 1,000 ML 100 ML IV CONT (08:18)
--- NOTE | 2025-01-30 15:53 | PM.IMPN ---
Progress Note: A&P Assessment and Plan (1) Nausea and vomiting: Code(s): R11.2 - Nausea with vomiting, unspecified Status: Acute (2) Diarrhea: Qualifiers: Diarrhea type: unspecified type Qualified Code(s): R19.7 - Diarrhea, unspecified Code(s): R19.7 - Diarrhea, unspecified Status: Acute (3) ENRICO (acute kidney injury): Code(s): N17.9 - Acute kidney failure, unspecified Status: Acute (4) Generalized weakness: Code(s): R53.1 - Weakness Status: Acute Plan Patient is known to me as I had just discharged her home after treating for Infleunza A. patient presents with c/o diarrhea, weakness, fatigue and poor PO intake. will hydrate the patient and monitor her electrolytes, will check stool for infection, and have PT/OT work with patient. today patient is feeling little better and awake, patient is being hydrated, her kidney function is improving, her diarrhea have improved, stool culture no growth so far, will continue to hydrate the patient, will PT/OT work with the patient patient will benefit going to rehab. today patient stats feeling lot better her diarrhea have improved, and she is also eating and drinking more, will have PT/OT work with the patient patient will benefit going to acute rehab and patient is quite weak. Subjective Date/time seen: 01/30/25 15:53 Interval history: Patient is known to me as I had just discharged her home after treating for Infleunza A. patient presents with c/o diarrhea, weakness, fatigue and poor PO intake. will hydrate the patient and monitor her electrolytes, will check stool for infection, and have PT/OT work with patient. today patient is feeling little better and awake, patient is being hydrated, her kidney function is improving, her diarrhea have improved, stool culture no growth so far, will continue to hydrate the patient, will PT/OT work with the patient patient will benefit going to rehab. today patient stats feeling lot better her diarrhea have improved, and she is also eating and drinking more, will have PT/OT work with the patient patient will benefit going to acute rehab and patient is quite weak. Exam Narrative: Elderly frail Patient is comfortable, NAD HEENT: eyes are clear and none icteric LUNGS:CTA HEART: RR S1S2 ABD: BS+, Soft and nontender Lower extremities: no edema SKIN: nonjaundiced Neuro: grossly intact. Objective Data Vital Signs Vital Signs: Vital Signs - 24 hr 01/29/25 16:00 01/29/25 19:34 01/29/25 19:53 Temperature 36.5 C Pulse Rate 73 70 70 Respiratory Rate 20 20 Blood Pressure 124/69 Pulse Oximetry 96 96 Oxygen Delivery Nasal Cannula Oxygen Flow Rate 2 01/29/25 20:00 01/30/25 00:00 01/30/25 04:00 Temperature Pulse Rate 65 67 59 L Respiratory Rate Blood Pressure Pulse Oximetry Oxygen Delivery Oxygen Flow Rate 01/30/25 04:53 01/30/25 08:00 01/30/25 08:15 Temperature 36.6 C Pulse Rate 92 61 Respiratory Rate 20 Blood Pressure 130/55 L Pulse Oximetry 97 99 Oxygen Delivery Nasal Cannula Oxygen Flow Rate 2 01/30/25 08:20 01/30/25 10:20 01/30/25 10:21 Temperature Pulse Rate Respiratory Rate Blood Pressure Pulse Oximetry 97 96 95 Oxygen Delivery Nasal Cannula Nasal Cannula Room Air Oxygen Flow Rate 1 1 Intake/Output Intake/Output: Intake & Output 01/27/25 01/28/25 01/29/25 01/30/25 23:59 23:59 23:59 23:59 Intake Total 1000 1000 3460 1360 Output Total 100 640 750 600 Balance 439 603 1519 760 Meds/Results Medications: Active Medications Generic Name Dose Route Start Last Admin Trade Name Freq PRN Reason Stop Dose Admin Acetaminophen 650 mg 01/28/25 00:42 01/28/25 09:34 Acetaminophen 325 Mg Tablet PO 650 mg Q4H PRN Administration Mild Pain (1-3) or Fever Acetaminophen 1,000 mg 01/28/25 17:00 01/30/25 12:26 Acetaminophen 500 Mg Tablet PO 1,000 mg QID FATUMA Administration Dextrose 12.5 gm 01/28/25 00:45 Dextrose 50% 25 Gm/50 Ml Syringe IV PUSH PRN PRN Hypoglycemia Protocol Gabapentin 300 mg 01/28/25 17:00 01/30/25 12:26 Gabapentin 300 Mg Capsule BY MOUTH 300 mg QID FATUMA Administration Glucagon 1 mg 01/28/25 00:45 Glucagon For Inj 1 Mg Vial IM PRN PRN Hypoglycemia Protocol Glucose 15 gm 01/28/25 00:45 Glucose Oral Gel 15 Gm Of Glucse In 37.5 Gm Tube PO PRN PRN Hypoglycemia Protocol Guaifenesin/Dextromethorphan 10 ml 01/28/25 17:00 01/30/25 12:27 Guaifenesin/Dextromethorphan 10 Ml Udc PO 10 ml Q4HR FATUMA Administration Dextrose 1,000 mls @ 100 mls/hr 01/28/25 00:45 Dextrose 5% 1,000 Ml IVPB PRN PRN Hypoglycemia Protocol Levalbuterol HCl 2 puff 01/28/25 16:16 Levalbuterol Hfa (*Sp) 15 Gm Inhaler INHALATION Q6H PRN Asthma Lidocaine 2 patch 01/28/25 16:56 01/29/25 11:42 Lidocaine 5% Patch TOPICAL 2 patch DAILY PRN Administration lower back pain Magnesium Oxide 400 mg 01/29/25 09:00 01/30/25 08:14 Magnesium Oxide 400 Mg Tablet PO 400 mg QAM FATUMA Administration Meloxicam 15 mg 01/29/25 09:00 01/30/25 08:14 Meloxicam 7.5 Mg Tablet PO 15 mg QAM FATUMA Administration Montelukast Sodium 10 mg 01/29/25 09:00 01/30/25 08:13 Montelukast Sodium 10 Mg Tablet PO 10 mg DAILY FATUMA Administration Multivitamins Therapeutic 1 tablet 01/29/25 09:00 01/30/25 08:14 Multivitamins Therapeutic Tab (*Bkc) PO 1 tablet DAILY FATUMA Administration Ondansetron HCl 4 mg 01/28/25 00:42 01/30/25 08:12 Ondansetron Inj 4 Mg/2 Ml Vial IV PUSH 4 mg Q4H PRN Administration Nausea Ondansetron HCl 4 mg 01/28/25 16:16 Ondansetron Hcl Odt 4 Mg Tablet PO Q8H PRN nausea and vomiting Pantoprazole Sodium 40 mg 01/29/25 09:00 01/30/25 08:14 Pantoprazole 40 Mg Tablet PO 40 mg QAM FATUMA Administration Potassium Chloride 20 meq 01/28/25 17:00 01/30/25 08:14 Potassium Chloride 20 Meq Er Tablet PO 20 meq BID FATUMA Administration Prednisone 10 mg 01/29/25 09:00 01/30/25 08:14 Prednisone 10 Mg Tablet PO 10 mg DAILY FATUMA Administration Rosuvastatin Calcium 10 mg 01/29/25 09:00 01/30/25 08:14 Rosuvastatin 10 Mg Tablet PO 10 mg DAILY FATUMA Administration Vitamin D 2,000 units 01/29/25 09:00 01/30/25 08:14 Cholecalciferol 1,000 Units Tablet PO 2,000 units DAILY FATUMA Administration Radiology Results: ITS Impressions Chest X-Ray 01/27/25 15:00 IMPRESSION: No acute cardiopulmonary pathology. Chest CTA 01/27/25 23:52 IMPRESSION: No pulmonary embolus. No thoracic aortic dissection. Trace bibasilar atelectasis, right greater than left. Labs Labs: Laboratory Results - last 24 hr 01/30/25 06:37 WBC 4.2 L RBC 3.53 L Hgb 10.8 L Hct 33.4 L MCV 94.6 MCH 30.6 MCHC 32.3 RDW 13.9 Plt Count 192 MPV 9.1 Sodium 136 L Potassium 3.7 Chloride 109 H Carbon Dioxide 24 Anion Gap 3 L BUN 9 D Creatinine 0.67 L Estim Creat Clear Calc Not Reportable Estimated GFR > 60 Glucose 112 H Calcium 8.0 L Magnesium 1.6
[2025-01-31] VITALS (7 sets, daily range): BP systolic 120–136; BP diastolic 57–64; PULSE 64–74; RESP 18; TEMP 36.2–37; O2SAT 96–97
[2025-01-31] MEDS: guaiFENesin/DEXTROMETHORPHAN 10 ML UDC PO ×6 (01:18→20:13)
[2025-01-31 06:13] LABS: Hematocrit 35.1 % (37.0-47.0); Mean Corpuscular HGB Conc 31.3 g/dl (32-36); Mean Corpuscular Hemoglobin 30.9 pg (26-34); Mean Corpuscular Volume 98.6 fl (80-100); Mean Platelet Volume 9.3 fl (7.4-10.4); Platelet Count Result 178 k/mm3 (150-375); Red Blood Count 3.56 M/mm3 (4.2-5.4); Red Cell Distribution Width 14.3 % (11.5-14.5)
[2025-01-31 06:19] LABS: Anion Gap 2 mmol/L (4-12); Blood Urea Nitrogen 13 mg/dL (7-17); Calcium 8.1 mg/dL (8.4-10.2); Carbon Dioxide 24 mmol/L (22-30); Chloride 111 mmol/L (98-107); Estimated Glomerular Filt Rate 57; Glucose 94 mg/dL (65-110); Magnesium 1.6 mg/dL (1.6-2.3); Potassium 4.2 mmol/L (3.4-5.0); Sodium 137 mmol/L (137-145)
[2025-01-31] MEDS: ACETAMINOPHEN 500 MG TABLET 1000 MG PO ×4 (09:22→20:13)
[2025-01-31] MEDS: MONTELUKAST SODIUM 10 MG TABLET PO (09:22)
[2025-01-31] MEDS: MELOXICAM 7.5 MG TABLET 15 MG PO (09:22)
[2025-01-31] MEDS: predniSONE 10 MG TABLET PO (09:22)
[2025-01-31] MEDS: ROSUVASTATIN 10 MG TABLET PO (09:22)
[2025-01-31] MEDS: CHOLECALCIFEROL 1,000 UNITS TABLET 2000 UNITS PO (09:22)
[2025-01-31] MEDS: MAGNESIUM OXIDE 400 MG TABLET PO (09:22)
[2025-01-31] MEDS: GABAPENTIN 300 MG CAPSULE BY MOUTH ×4 (09:22→20:13)
[2025-01-31] MEDS: POTASSIUM CHLORIDE 20 MEQ ER TABLET PO ×2 (09:22→16:33)
[2025-01-31] MEDS: MULTIVITAMINS THERAPEUTIC TAB (*BKC) 1 TABLET PO (09:23)
[2025-01-31] MEDS: PANTOPRAZOLE 40 MG TABLET PO (09:23)
[2025-01-31] MEDS: ONDANSETRON HCL ODT 4 MG TABLET PO (13:26)
--- NOTE | 2025-01-31 13:58 | PM.IMPN ---
Progress Note: A&P Assessment and Plan (1) Nausea and vomiting: Code(s): R11.2 - Nausea with vomiting, unspecified Status: Acute (2) Diarrhea: Qualifiers: Diarrhea type: unspecified type Qualified Code(s): R19.7 - Diarrhea, unspecified Code(s): R19.7 - Diarrhea, unspecified Status: Acute (3) ENRICO (acute kidney injury): Code(s): N17.9 - Acute kidney failure, unspecified Status: Acute (4) Generalized weakness: Code(s): R53.1 - Weakness Status: Acute Plan This is a 84-year-old female who presents to the ER with complaint of weakness diarrhea and back pain. Patient was recently discharged after a diagnosis of UTI and influenza A. Home health care nurse came to visit at home after discharge and noted to be in the bathroom for 30 minutes with diarrhea. Blood pressure was also low and hence they called EMS. No chest pain shortness of breath or fever. In the ED she was ill looking was in mild distress tachycardic and borderline blood pressure. However afebrile oxygen stable on room air. Laboratory workup revealed unremarkable CBC CMP with slight ENRICO. Lactic acid 0.9. EKG without any acute ST-T changes. Troponin undetectable. Chest x-ray clear UA is clear. D-dimer mildly elevated at 0.5. CTA chest without evidence of PE or pneumonia. Patient was admitted for generalized weakness and PT OT was consulted. Patient continues to improve. However will need rehab placement care coordination on board. Generalized weakness Essential tremor Kyphoscoliosis Osteoporosis GERD A little bowel syndrome Asthma/COPD DVT prophylaxis SCDs Code status do not resuscitate Subjective Date/time seen: 01/31/25 13:58 Interval history: In good spirits. Feeling better. Still weak. Review of Systems Review of Systems: All systems reviewed & are unremarkable except as noted in HPI and below Exam Narrative: Elderly frail Patient is comfortable, NAD HEENT: eyes are clear and none icteric LUNGS:CTA HEART: RR S1S2 ABD: BS+, Soft and nontender Lower extremities: no edema SKIN: nonjaundiced Neuro: grossly intact. Objective Data Vital Signs Vital Signs: Vital Signs - 24 hr 01/30/25 14:00 01/30/25 16:00 01/30/25 16:33 Temperature 98.7 F Pulse Rate 74 75 Respiratory Rate 20 Blood Pressure 101/54 L Pulse Oximetry 96 Oxygen Delivery Room Air 01/30/25 20:00 01/30/25 20:00 01/30/25 22:00 Temperature 98.6 F Pulse Rate 75 73 73 Respiratory Rate 20 18 Blood Pressure 117/51 L Pulse Oximetry 96 96 Oxygen Delivery Room Air 01/31/25 00:00 01/31/25 04:00 01/31/25 06:00 Temperature 98.6 F Pulse Rate 74 65 67 Respiratory Rate 18 Blood Pressure 120/62 Pulse Oximetry 97 Oxygen Delivery 01/31/25 08:00 01/31/25 09:10 01/31/25 12:00 Temperature Pulse Rate 64 70 Respiratory Rate Blood Pressure Pulse Oximetry Oxygen Delivery Room Air Intake/Output Intake/Output: Intake & Output 01/28/25 01/29/25 01/30/25 01/31/25 23:59 23:59 23:59 23:59 Intake Total 1000 3460 3832 480 Output Total 760 148 2243 Balance 360 2710 2832 480 Meds/Results Medications: Active Medications Generic Name Dose Route Start Last Admin Trade Name Freq PRN Reason Stop Dose Admin Acetaminophen 650 mg 01/28/25 00:42 01/28/25 09:34 Acetaminophen 325 Mg Tablet PO 650 mg Q4H PRN Administration Mild Pain (1-3) or Fever Acetaminophen 1,000 mg 01/28/25 17:00 01/31/25 13:24 Acetaminophen 500 Mg Tablet PO 1,000 mg QID FATUMA Administration Dextrose 12.5 gm 01/28/25 00:45 Dextrose 50% 25 Gm/50 Ml Syringe IV PUSH PRN PRN Hypoglycemia Protocol Gabapentin 300 mg 01/28/25 17:00 01/31/25 13:24 Gabapentin 300 Mg Capsule BY MOUTH 300 mg QID FATUMA Administration Glucagon 1 mg 01/28/25 00:45 Glucagon For Inj 1 Mg Vial IM PRN PRN Hypoglycemia Protocol Glucose 15 gm 01/28/25 00:45 Glucose Oral Gel 15 Gm Of Glucse In 37.5 Gm Tube PO PRN PRN Hypoglycemia Protocol Guaifenesin/Dextromethorphan 10 ml 01/28/25 17:00 01/31/25 13:26 Guaifenesin/Dextromethorphan 10 Ml Udc PO 10 ml Q4HR FATUMA Administration Dextrose 1,000 mls @ 100 mls/hr 01/28/25 00:45 Dextrose 5% 1,000 Ml IVPB PRN PRN Hypoglycemia Protocol Levalbuterol HCl 2 puff 01/28/25 16:16 Levalbuterol Hfa (*Sp) 15 Gm Inhaler INHALATION Q6H PRN Asthma Lidocaine 2 patch 01/28/25 16:56 01/29/25 11:42 Lidocaine 5% Patch TOPICAL 2 patch DAILY PRN Administration lower back pain Magnesium Oxide 400 mg 01/29/25 09:00 01/31/25 09:22 Magnesium Oxide 400 Mg Tablet PO 400 mg QAM FATUMA Administration Meloxicam 15 mg 01/29/25 09:00 01/31/25 09:22 Meloxicam 7.5 Mg Tablet PO 15 mg QAM FATUMA Administration Montelukast Sodium 10 mg 01/29/25 09:00 01/31/25 09:22 Montelukast Sodium 10 Mg Tablet PO 10 mg DAILY FATUMA Administration Multivitamins Therapeutic 1 tablet 01/29/25 09:00 01/31/25 09:23 Multivitamins Therapeutic Tab (*Bkc) PO 1 tablet DAILY FATUMA Administration Ondansetron HCl 4 mg 01/28/25 00:42 01/30/25 08:12 Ondansetron Inj 4 Mg/2 Ml Vial IV PUSH 4 mg Q4H PRN Administration Nausea Ondansetron HCl 4 mg 01/28/25 16:16 01/31/25 13:26 Ondansetron Hcl Odt 4 Mg Tablet PO 4 mg Q8H PRN Administration nausea and vomiting Pantoprazole Sodium 40 mg 01/29/25 09:00 01/31/25 09:23 Pantoprazole 40 Mg Tablet PO 40 mg QAM FATUMA Administration Potassium Chloride 20 meq 01/28/25 17:00 01/31/25 09:22 Potassium Chloride 20 Meq Er Tablet PO 20 meq BID FATUMA Administration Prednisone 10 mg 01/29/25 09:00 01/31/25 09:22 Prednisone 10 Mg Tablet PO 10 mg DAILY FATUMA Administration Rosuvastatin Calcium 10 mg 01/29/25 09:00 01/31/25 09:22 Rosuvastatin 10 Mg Tablet PO 10 mg DAILY FATUMA Administration Vitamin D 2,000 units 01/29/25 09:00 01/31/25 09:22 Cholecalciferol 1,000 Units Tablet PO 2,000 units DAILY FATUMA Administration Radiology Results: ITS Impressions Chest X-Ray 01/27/25 15:00 IMPRESSION: No acute cardiopulmonary pathology. Chest CTA 01/27/25 23:52 IMPRESSION: No pulmonary embolus. No thoracic aortic dissection. Trace bibasilar atelectasis, right greater than left. Labs Labs: Laboratory Results - last 24 hr 01/31/25 05:54 WBC 5.0 RBC 3.56 L Hgb 11.0 L Hct 35.1 L MCV 98.6 MCH 30.9 MCHC 31.3 L RDW 14.3 Plt Count 178 MPV 9.3 Sodium 137 Potassium 4.2 Chloride 111 H Carbon Dioxide 24 Anion Gap 2 L BUN 13 Creatinine 0.93 Estim Creat Clear Calc Not Reportable Estimated GFR 57 L Glucose 94 Calcium 8.1 L Magnesium 1.6
[2025-02-01] MEDS: guaiFENesin/DEXTROMETHORPHAN 10 ML UDC PO ×3 (04:06→14:13)
[2025-02-01 05:30] VITALS: BP 121/80; PULSE 66; RESP 18; TEMP 36.6; O2SAT 95
[2025-02-01 07:00] LABS: Hematocrit 34.4 % (37.0-47.0); Mean Corpuscular Hemoglobin 30.2 pg (26-34); Mean Corpuscular Volume 94.5 fl (80-100); Mean Platelet Volume 9.3 fl (7.4-10.4); Platelet Count Result 202 k/mm3 (150-375); Red Blood Count 3.64 M/mm3 (4.2-5.4); Red Cell Distribution Width 14.2 % (11.5-14.5); White Blood Count 6.2 K/mm3 (4.5-10.0)
[2025-02-01 07:07] LABS: Anion Gap 3 mmol/L (4-12); Blood Urea Nitrogen 12 mg/dL (7-17); Calcium 8.6 mg/dL (8.4-10.2); Carbon Dioxide 25 mmol/L (22-30); Chloride 107 mmol/L (98-107); Estimated Glomerular Filt Rate > 60; Glucose 92 mg/dL (65-110); Magnesium 1.6 mg/dL (1.6-2.3); Potassium 4.1 mmol/L (3.4-5.0); Sodium 135 mmol/L (137-145)
[2025-02-01] MEDS: MAGNESIUM OXIDE 400 MG TABLET PO (10:26)
[2025-02-01] MEDS: CHOLECALCIFEROL 1,000 UNITS TABLET 2000 UNITS PO (10:26)
[2025-02-01] MEDS: PANTOPRAZOLE 40 MG TABLET PO (10:27)
[2025-02-01] MEDS: GABAPENTIN 300 MG CAPSULE BY MOUTH ×2 (10:27→14:10)
[2025-02-01] MEDS: predniSONE 10 MG TABLET PO (10:27)
[2025-02-01] MEDS: ROSUVASTATIN 10 MG TABLET PO (10:27)
[2025-02-01] MEDS: MONTELUKAST SODIUM 10 MG TABLET PO (10:27)
[2025-02-01] MEDS: MULTIVITAMINS THERAPEUTIC TAB (*BKC) 1 TABLET PO (10:27)
[2025-02-01] MEDS: MELOXICAM 7.5 MG TABLET 15 MG PO (10:27)
[2025-02-01] MEDS: ACETAMINOPHEN 500 MG TABLET 1000 MG PO ×2 (10:28→14:11)
[2025-02-01] MEDS: POTASSIUM CHLORIDE 20 MEQ ER TABLET PO (10:29)
--- NOTE | 2025-02-01 12:29 | PM.DS ---
DS: Admitting Diagnosis Discharge Date 02/01/2025 Admitting Diagnosis Generalized weakness DS: Discharge Diagnosis Discharge Diagnosis (1) Nausea and vomiting: Code(s): R11.2 - Nausea with vomiting, unspecified Status: Acute (2) Diarrhea: Qualifiers: Diarrhea type: unspecified type Qualified Code(s): R19.7 - Diarrhea, unspecified Code(s): R19.7 - Diarrhea, unspecified Status: Acute (3) ENRICO (acute kidney injury): Code(s): N17.9 - Acute kidney failure, unspecified Status: Acute (4) Generalized weakness: Code(s): R53.1 - Weakness Status: Acute DS: Summary Hospital Course Hospital Course: This is a 84-year-old female who presents to the ER with complaint of weakness diarrhea and back pain. Patient was recently discharged after a diagnosis of UTI and influenza A. Home health care nurse came to visit at home after discharge and noted to be in the bathroom for 30 minutes with diarrhea. Blood pressure was also low and hence they called EMS. No chest pain shortness of breath or fever. In the ED she was ill looking was in mild distress tachycardic and borderline blood pressure. However afebrile oxygen stable on room air. Laboratory workup revealed unremarkable CBC CMP with slight ENRICO. Lactic acid 0.9. EKG without any acute ST-T changes. Troponin undetectable. Chest x-ray clear UA is clear. D-dimer mildly elevated at 0.5. CTA chest without evidence of PE or pneumonia. Patient was admitted for generalized weakness and PT OT was consulted. Patient continues to improve. However will need rehab placement care coordination on board. alf facility was arranged for discharge Generalized weakness Essential tremor Kyphoscoliosis Osteoporosis GERD A little bowel syndrome Asthma/COPD DVT prophylaxis SCDs Code status do not resuscitate Time Spent with Patient Time attestation: Total time spent providing and/or coordinating discharge services: 35 minutes Exam Narrative: Elderly frail Patient is comfortable, NAD HEENT: eyes are clear and none icteric LUNGS:CTA HEART: RR S1S2 ABD: BS+, Soft and nontender Lower extremities: no edema SKIN: nonjaundiced Neuro: grossly intact. DS: Data Data Completed and Pending Labs on day of discharge: Labs from last 24 hours 02/01/25 06:40 WBC 6.2 RBC 3.64 L Hgb 11.0 L Hct 34.4 L MCV 94.5 MCH 30.2 MCHC 32.0 RDW 14.2 Plt Count 202 MPV 9.3 Sodium 135 L Potassium 4.1 Chloride 107 Carbon Dioxide 25 Anion Gap 3 L BUN 12 Creatinine 0.83 Estim Creat Clear Calc Not Reportable Estimated GFR > 60 Glucose 92 Calcium 8.6 Magnesium 1.6 Imaging Radiologist's impression: ITS Impressions Chest X-Ray 01/27/25 15:00 IMPRESSION: No acute cardiopulmonary pathology. Chest CTA 01/27/25 23:52 IMPRESSION: No pulmonary embolus. No thoracic aortic dissection. Trace bibasilar atelectasis, right greater than left. Discharge Plan Discharge Attending physician on discharge: Wyatt Lindquist Discharging Clinician: Wyatt Lindquist Anticipated Discharge Date/Time: 02/01/25 12:30 Patient Disposition: SNF Activity: as tolerated Diet: as tolerated and regular Patient Language: [place]at[place] Stand Alone Forms: General Discharge Information, Long Term Discharge Follow-up/Referrals: Angel Mora MD [Primary Care Provider] - 1 Week Discharge Medications: Continued ondansetron 4 mg tablet,disintegrating 4 mg PO Q8H PRN (Reason: nausea and vomiting) Qty: 30 1RF omeprazole 40 mg capsule,delayed release(DR/EC) 40 mg PO DAILY Qty: 90 0RF cholecalciferol (vitamin D3) 50 mcg (2,000 unit) capsule 50 mcg PO DAILY multivitamin Capsule 1 cap PO DAILY potassium chloride [K-Tab] 20 mEq tablet extended release 20 meq PO BID Qty: 14 0RF acetaminophen 500 mg tablet 1,000 mg PO QID Rx Instructions: takes with gabapentin dextromethorphan-guaifenesin 10-100 mg/5 mL Syrup 10 ml PO Q4HR Qty: 237 0RF magnesium oxide 400 mg (241.3 mg magnesium) Tablet 400 mg PO QAM Qty: 30 0RF prednisone 10 mg tablet 10 mg PO DAILY Qty: 20 0RF Rx Instructions: 4Tx2, 3Tx2d, 2Tx2d, 1Tx2d montelukast 10 mg tablet 10 mg PO DAILY Qty: 90 1RF Rx Instructions: Take 1 tablet by mouth once daily rosuvastatin 10 mg tablet 10 mg PO DAILY Qty: 90 1RF gabapentin 600 mg tablet See Rx Instructions .ROUTE .COMPLEX Qty: 360 0RF Dose Instruction: Take 1 tablet by mouth 4 times daily Rx Instructions: Take 1 tablet by mouth 4 times daily meloxicam 15 mg tablet 15 mg PO DAILY Qty: 90 1RF Rx Instructions: Take 1 tablet by mouth once daily levalbuterol tartrate 45 mcg/actuation HFA aerosol inhaler 2 inh INHALATION Q6H PRN (Reason: Asthma) Qty: 15 1RF lidocaine [Lidoderm] 5 % adhesive patch,medicated 1 patch topical DAILY PRN (Reason: back pain) Qty: 15 0RF Rx Instructions: leave on most painful area for up to 12 hrs Discontinued amoxicillin-pot clavulanate [Augmentin] 500-125 mg tablet 1 tablet PO Q8H Qty: 6 0RF Date of admission: 01/28/25 08:30 Primary Care Provider: Angel Mora Admitting Provider: Ania Gaspar Attending physician on admission: Ania Gaspar Condition: Stable
[2025-02-01 14:00] VITALS: BP 106/85; PULSE 78; RESP 22; TEMP 36.4; O2SAT 97
[2025-02-01 14:10] LABS: SARS-CoV-2 RNA PCR Negative (Negative)
--- NOTE | 2025-02-01 14:24 | PC.NURSE ---
On 02/01/25, the ADJUNCT PSYCHOLOGY INSTRUCTOR, Claire Ocampo, provided care and completed [email or web address] documentation on this patient. I have reviewed the ADJUNCT PSYCHOLOGY INSTRUCTOR's documentation and agree with the findings.
== END 2025-02-01 15:35 | DRG 684 ==
LOC: ANHED 01-28 00:42 → ANH3MEDSUR 01-28 01:47
PROVIDERS: Family Medicine; Registered Nurse; Admitting Provider Internal Medicine; Emergency Provider Physician Assistant; PCP Family Medicine; Visit Provider Internal Medicine
DX: N17.9 Acute kidney failure, unspecified (principal); E55.9 Vitamin D deficiency, unspecified; R19.7 Diarrhea, unspecified; K21.9 Gastro-esophageal reflux disease without esophagitis; E78.5 Hyperlipidemia, unspecified; G47.30 Sleep apnea, unspecified; J43.9 Emphysema, unspecified; Z66 Do not resuscitate; Z98.41 Cataract extraction status, right eye; Z98.42 Cataract extraction status, left eye; Z96.1 Presence of intraocular lens; Z90.49 Acquired absence of other specified parts of digestive tract; Z96.641 Presence of right artificial hip joint
CPT/HCPCS: 36415; 36600; 71046; 71275; 80048; 80053; 81003; 82805; 82948; 83605; 83735; 84484; 85018; 85025; 85027; 85380; 85610; 85730; 86140; 87045; 87427; 87449; 87493; 87635; 93005; 96361; 96374; 97162; 97165; 99285; A9270; G0378; J2405; J7030; J7512; Q9967

== ENCOUNTER 2025-07-15 12:08 | Inpatient (IN) | payer MEDICARE, SELFPAY ==
[2025-07-15] VITALS (31 sets, daily range): BP systolic 105–161; BP diastolic 41–134; PULSE 63–79; RESP 14–25; TEMP 35.9–36.6; O2SAT 96–99; BMI 22.1
--- NOTE | ~2025-07-15 | CT_ITS ---
EXAMINATION: CT chest abdomen pelvis w con DATE: 07/15/2025 12:50 INDICATION: Unresponsive TECHNIQUE: Computed tomography (CT) of the chest, abdomen, and pelvis was performed with 100 mL Omnipaque-350 intravenous contrast. Automated exposure control and iterative reconstruction technique were employed. The dose-length product was 394.91 mGy-cm. COMPARISON: None FINDINGS: CHEST CT: Mild discoid atelectasis in the bilateral lower lobes. No pneumonia, pulmonary edema, pleural effusion or pneumothorax. There are a few tiny calcified nodules in the left lung consistent with old granulomatous disease. Heart size normal. Atherosclerotic coronary artery calcification. No pericardial effusion. Thoracic aorta is normal in caliber with no dissection. No pathologically enlarged thoracic lymphadenopathy. Thoracic dextroscoliosis with mild spondylosis. ABDOMEN/PELVIS CT: Cholecystectomy clips at the gallbladder fossa. Liver, spleen and bilateral adrenal glands are normal. There is moderate pancreatic atrophy with small dystrophic calcification at the tail of pancreas which could represent sequela of chronic pancreatitis. Likely age-related mild bilateral renal atrophy. 1 cm low-attenuation cyst at the lower pole the left kidney. Bowels including the appendix are normal. Decompressed bladder is unremarkable however evaluation is limited by dense metallic streak artifact from a right total hip arthroplasty. The uterus is not identified and has likely been surgically resected. No free intraperitoneal gas or fluid. No pathologically enlarged abdominal or pelvic lymphadenopathy.. There is calcified atherosclerosis of the aorta and many of the other arteries. Moderate thoracolumbar levoscoliosis with severe spondylosis. IMPRESSION: 1. No acute cardiopulmonary disease or acute intra-abdominal/pelvic process. Reviewed, dictated and finalized at location A.
--- NOTE | ~2025-07-15 | CT_ITS ---
EXAMINATION: CTA BRAIN/CAROTID DATE: 07/15/2025 12:50 INDICATION: Unresponsive TECHNIQUE: Computed tomographic angiography (CTA) of the head and neck was performed with 100 mL Omnipaque-350 intravenous contrast. Multiplanar reconstructions and maximum intensity projection 3D-reconstructions of the carotid arteries and of the intracranial arteries were created by the technologist on a separate workstation. Precontrast CT of the head was also obtained. Automated exposure control and iterative reconstruction technique were employed.The dose-length product was 1600.73 mGy-cm. COMPARISON: None. FINDINGS: Head: No acute intracranial hemorrhage, acute infarction or abnormal extra axial fluid collection. There is mild scattered white matter hypoattenuation consistent with chronic small vessel ischemic disease. Symmetric prominence of the sulci consistent with mild age-appropriate diffuse cerebral volume loss. Ventricles are normal and symmetric. No mass/mass effect. No abnormally enhancing brain lesions on the post contrast imaging . Polypoid soft tissue density nodule in the anterior left nasal cavity. The orbits, paranasal sinuses and mastoid air cells are normal. Intracranial arteries Vertebral arteries are codominant. Small amount of nonhemodynamically significant atherosclerotic plaque at the bilateral carotid siphons and intracranial left vertebral artery. There is no hemodynamically significant stenosis in the vertebral, basilar and internal carotid arteries. Both A1 and P1 segments are patent. The right P1 segment is diminutive with collateral flow to the right posterior cerebral artery supplied via a larger caliber patent right posterior communicating artery. There is also a patent but diminutive left posterior commuting artery There are no aneurysms identified. Cerebral arterial arborization appears symmetric. Carotid arteries: The aortic arch and the great vessels arising from the arch are normal in caliber with small amount of nonhemodynamically significant atherosclerotic plaque and no dissection. There is 50% stenosis of the right carotid bulb relative to normal distal artery lumen diameter (NASCET criteria). There is 30% stenosis of the left carotid bulb relative to normal distal artery lumen diameter. The extracranial bilateral vertebral arteries are codominant with no hemodynamically significant stenosis. IMPRESSION: 1. Normal aging brain. No acute intracranial process. Dr. Sandoval discussed these findings with Dr. Green at 12:58 PM. 2. 50% stenosis of the right carotid bulb relative to normal distal artery lumen diameter (NASCET criteria). 2. 30% stenosis of the left carotid bulb relative to normal distal artery lumen diameter. 3. Unremarkable cerebral CT angiogram with no hemodynamically significant stenosis, aneurysm or thrombosis. Reviewed, dictated and finalized at location A. IMPRESSION: 1. Normal aging brain. No acute intracranial process. Dr. Sandoval discussed th jhonny findings with Dr. Green at 12:58 PM. 2. 50% stenosis of the right carotid bulb relative to normal distal artery lume n diameter (NASCET criteria). 2. 30% stenosis of the left carotid bulb relative to normal distal artery lumen diameter. 3. Unremarkable cerebral CT angiogram with no hemodynamically significant steno sis, aneurysm or thrombosis.
--- NOTE | ~2025-07-15 | MR_ITS ---
EXAMINATION: MR brain/brain stem wo con DATE: 07/18/2025 11:22 INDICATION: Loss of consciousness. Memory loss. TECHNIQUE: Magnetic resonance imaging (MRI) of the brain and brainstem was performed without intravenous contrast. Sequences included sagittal and axial T1-weighted SE, axial diffusion-weighted FS SE, axial 3D SWAN, axial T2-weighted FLAIR, and axial T2-weighted FSE. Apparent diffusion coefficient (ADC) maps were created. COMPARISON: None. FINDINGS: There are no areas of restricted diffusion to suggest acute infarction. No intracranial hemorrhage or abnormal intracranial mass lesion. There are scattered areas of nonspecific increased T2-weighted signal intensity in the cerebral white matter, predominantly involving the deep and periventricular whi te matter. There are no intraparenchymal signal abnormalities seen on the other pulse sequences. Symmetric prominence of the sulci consistent with mild age- appropriate diffuse cerebral volume loss. The ventricles are symmetric and normal in size. There are no abnormal extra-axial fluid collections. Flow voids are seen in the cerebral arteries on the T2-weighted sequences consistent with their expected patency. Changes of bilateral intraocular lens replacement. Visualized orbits and soft tissues are unremarkable. Mild mucosal thickening in the bilateral ethmoid sinuses. IMPRESSION: 1. Normal aging brain with mild diffuse volume loss and mild scattered nonspecific white matter T2 hyperintensity consistent with chronic small vessel ischemic disease. No acute intracranial process. Reviewed, dictated and finalized at location A. IMPRESSION: 1. Normal aging brain with mild diffuse volume loss and mild scattered nonspeci fic white matter T2 hyperintensity consistent with chronic small vessel ischemi c disease. No acute intracranial process.
--- OUTSIDE RECORDS SUMMARY | 2025-07-15 12:15 | XMS_ITS | Clinical Summary ---
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 Gender Identity Not on file Sexual Orientation Not on file Plan of Treatment Health Maintenance Due Date Last Done Comments ZOSTER VACCINE (1 of 2) 1990 OSTEOPOROSIS SCREENING 2005 DTAP/TDAP/TD VACCINES (1 - Tdap) 10/12/2011 10/11/20 11 RSV VACCINE (60+ or ) (1 - 1-dose 75+ series) 2015 INFLUENZA VACCINE (#1) 2025 0, 09/04/2019, 07/17/2018, Additional history exists PNEUMOCOCCAL VACCINE 50+ YEARS Completed 12/03/2014 , 09/21/2006 Insurance MEDICARE PART A AND B [facility] [id number] Care Teams Microbiology Supervisor Relationship Specialty Start Date End Date Ignacio Bell MD [address] [place] [address] PCP - General Internal Medicine 12/31/20
--- NOTE | 2025-07-15 12:19 | ECG_ITS ---
Test Date: 2025-07-15 12:21:18 Measurements Intervals [place] Rate: 65 P: -1 WA: 156 QRS: 36 QRSD: 94 T: 52 QT: 374 QTc: 391 Interpretive Statements SINUS RHYTHM WITHIN NORMAL LIMITS Compared to ECG 01/28/2025 01:01:20 NO OBVIOUS CHANGE. PREVIOUS ECG WAS OF POOR QUALITY Electronically Signed On 07-15-2025 16:03:09 CDT by Dionicio Romeo M.D.
--- NOTE | 2025-07-15 12:28 | PC.NURSE ---
attempted to straight cath pt. no urine noted
[2025-07-15 12:39] LABS: Estimated CRCL calculation 25 ml/min; Estimated Glomerular Filt Rate 39
--- NOTE | 2025-07-15 12:52 | PCRCNOTE ---
VBG delayed due to patient having a chest CT completed. Nurse to call RT when VBG obtained.
--- NOTE | 2025-07-15 12:55 | PC.NURSE ---
Pt A&O x 4 now. making jokes with family at bedside. Dr Green notified
[2025-07-15] MEDS: SODIUM CHLORIDE 0.9% IV 1,000 ML 999 ML IV CONT (12:56)
--- NOTE | 2025-07-15 13:13 | ED.GENADULT ---
HPI - General Adult General Chief complaint: Altered Mental Status Stated complaint: unresponsive Time Seen by Provider: 07/15/25 12:11 History of Present Illness HPI narrative: This is an 84 year old female presenting to the ED for unresponsiveness. She was seen by staff gave her her morning medications at 10:45 a.m.. They went and checked on her after that and she was nonverbal and responsive to pain only. She has been of normal health lately with no complaints. Patient is nonverbal and not providing any information. Patient received 4 mg of Narcan from EMS without response. Related Data Home Medications ?Medication ?Instructions ?Recorded ?Confirmed ?Last Taken ?Type cholecalciferol (vitamin D3) 50 50 mcg PO DAILY 08/07/20 02/19/25 11/22/23 08:00 History mcg (2,000 unit) capsule multivitamin 1 cap PO DAILY 08/07/20 02/19/25 11/22/23 08:00 History acetaminophen 500 mg tablet 1,000 mg PO QID 10/09/24 02/19/25 Unknown History Allergies Allergy/AdvReac Type Severity Reaction Status Date / Time codeine Allergy Severe Passes out Verified 01/19/25 12:08 oxycodone Allergy Severe pass out Verified 01/19/25 12:08 pain medications AdvReac Severe syncope Uncoded 01/19/25 12:08 [facility] Past Medical History Medical History Kyphoscoliosis Benign essential tremor Vitamin D deficiency Scoliosis due to degenerative disease of spine in adult patient COPD (chronic obstructive pulmonary disease) Vision changes COVID-19 vaccine series completed Neuropathy Dyslipidemia Osteoporosis Sleep apnea Emphysema of lung Memory loss Frozen shoulder Left shoulder Sciatica associated with disorder of lumbar spine GERD (gastroesophageal reflux disease) Arthritis IBS (irritable bowel syndrome) Asthma Surgical History Surgical History Status post cataract extraction of both eyes with insertion of intraocular lens History of partial hysterectomy History of bowel resection History of cholecystectomy History of right hip replacement Family History Family History Mother Pneumonia Arthritis Father Asbestosis Arthritis Grandparent Pneumonia Grandparent Heart attack Arthritis Grandparent Cerebrovascular accident Sibling Malignant neoplasm Arthritis Social History Social History Social History: She lives in [place] with her of 60 years. She has a Rollator at home but only uses it when she goes to the store. She has 2 children who are healthy. She is a lifelong nonsmoker and does not drink alcohol. 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 Primary care physician: Dr. Cruz Code status: DNR/DNI Surrogate decision maker: Miah (son) Smoking status: Never smoker Second hand tobacco smoke exposure: No Alcohol intake: never Substance use: never Substance use type: does not use Do You Feel Safe in your Home?: Yes Lack of Transportation: No Lack of Food: Never True Current Housing: I Have Housing Concerned About Future Housing: No Difficulty Paying Gas/Electric Bills: No Difficulty Paying for Meds: No Currently Unemployed: No Education: Don't Know Difficulty w/ Childcare or Family Care: No Living arrangements: with family Occupation/Education: retired Gender identity (if verbalized by the patient): Female Sexual Orientation (if Verbalized by the Patient): Straight or Heterosexual Spiritual care concerns: No Agree to blood products: Yes Exam Narrative: APPEARANCE: No apparent distress. Head: atraumatic. EYES: EOMI, 3 mm equal and reactive NOSE: Atraumatic NECK: Trachea midline RESPIRATORY: No increased rate of breathing CTAB CARDIOVASCULAR: RRR, no peripheral edema ABDOMINAL: Non-distended MUSCULOSKELETAl: No obvious deformities NEURO: Alert. Moving 4/4 extremities to pain, when her hand is placed above her face let go it is lowered to her side. SKIN:: Warm, dry. Normal color, no skin breakdown PSYCHIATRIC: Unresponsive Course Vital Signs Vital signs: Vital Signs Pulse Rate 66 07/15/25 12:08 Respiratory Rate 20 07/15/25 12:08 Blood Pressure 132/55 L 07/15/25 12:08 Pulse Oximetry 96 07/15/25 12:08 Oxygen Delivery Room Air 07/15/25 12:08 Temperature 97.8 F 07/15/25 12:29 Pulse Rate 67 07/15/25 16:16 Respiratory Rate 21 H 07/15/25 16:16 Blood Pressure 121/72 07/15/25 16:16 Pulse Oximetry 98 07/15/25 16:16 Oxygen Delivery Room Air 07/15/25 13:00 Medical Decision Making MDM Narrative Medical decision making narrative: -Course: 84-year-old female presenting with a episode of unresponsiveness. On my initial evaluation she was laying in bed with her eyes open but was nonverbal. He fell her hand above her head and like go she would return to her side. Approximately an hour later she is more awake and now answering questions. She is globally weak and tremulous. She is unable to hold her hands up in front of her. Broad workup obtained. CTA of the brain and neck without causative findings. CT chest abdomen pelvis unremarkable. CBC within normal limits. Metabolic panel showed a slight bump in creatinine from baseline. Potassium 5.2 without EKG changes. given 1 dose of Lokelma. Magnesium 1.5 which is repleted. Urine is not indicative infection although is very concentrated. Patient has received 2 L of normal saline. Urine drug screen negative. Viral swabs negative. On re-evaluation patient is still tremulous and cannot hold her arms up although she does seem slightly improved. Unclear etiology of her mental status changes/weakness. The leading differential is accidental overdose vs incorrect medications. Patient be placed in observation for further management. -DDX includes but is not limited to: Medication side effect, CVA, sepsis pneumonia dehydration UTI electrolyte abnormality Vital Signs Vital Signs: Vital Signs Pulse Rate 66 07/15/25 12:08 Respiratory Rate 20 07/15/25 12:08 Blood Pressure 132/55 L 07/15/25 12:08 Pulse Oximetry 96 07/15/25 12:08 Oxygen Delivery Room Air 07/15/25 12:08 Temperature 97.8 F 07/15/25 12:29 Pulse Rate 67 07/15/25 16:16 Respiratory Rate 21 H 07/15/25 16:16 Blood Pressure 121/72 07/15/25 16:16 Pulse Oximetry 98 07/15/25 16:16 Oxygen Delivery Room Air 07/15/25 13:00 Lab Data 07/15/25 13:40 07/15/25 13:40 Labs: Lab Results 07/15/25 07/15/25 07/15/25 Range/Units 12:26 12:37 13:40 WBC 3.9 L (4.5-10.0) K/mm3 RBC 4.12 L (4.2-5.4) M/mm3 Hgb 12.5 (12.0-15.0) g/dL Hct 39.4 (37.0-47.0) % MCV 95.6 (80-100) fl MCH 30.3 (26-34) pg MCHC 31.7 L (32-36) g/dl RDW 14.6 H (11.5-14.5) % Plt Count 170 (150-375) k/mm3 MPV 9.1 (7.4-10.4) fl Immature Gran % (Auto) 0.3 (0-0.5) % Neut % (Auto) 43.4 L (45.5-73.1) % Lymph % (Auto) 40.6 (18.3-44.2) % Yancey % (Auto) 12.9 H (2.6-8.5) % Eos % (Auto) 2.3 (0-4.4) % Baso % (Auto) 0.5 (0.2-1.2) % Lymph # (Auto) 1.57 (0.9-3.2) K/mm3 Yancey # (Auto) 0.5 (0.1-0.6) K/mm3 Eos # (Auto) 0.1 (0-0.3) K/mm3 Baso # (Auto) 0.0 (0.0-0.1) K/mm3 Abs Immat Gran (auto) 0.01 (0.00-0.031) K/mm3 Absolute Neuts (auto) 1.7 (1.3-6.7) K/mm3 Absolute Nucleated RBC 0.000 (0.0-0.012) K/mm3 Nucleated RBC % 0.0 (0.0-0.2) % PT 13.3 (11.1-14.7) Seconds INR 1.0 APTT 27.1 (22.3-36.8) Seconds Sodium 137 (137-145) mmol/L Potassium 5.2 H (3.4-5.0) mmol/L Chloride 110 H (98-107) mmol/L Carbon Dioxide 19 L (22-30) mmol/L Anion Gap 8 (4-12) mmol/L BUN 27 H D (7-17) mg/dL Creatinine 1.30 H 1.07 H (0.7-1.2) mg/dL Estim Creat Clear Calc 25 30 ml/min Estimated GFR 39 L 49 L (59 - ) Glucose 109 (65-110) mg/dL POC Capillary Glucose 110 H (65-105) mg/dl Lactic Acid (0.7-2.0) mmol/L Calcium 8.8 (8.4-10.2) mg/dL Phosphorus 3.9 (2.5-4.5) mg/dL Magnesium 1.5 L (1.6-2.3) mg/dL Total Bilirubin 0.2 (0.2-1.3) mg/dL AST 25 (14-36) U/L ALT 14 (6-35) U/L Alkaline Phosphatase 47 (38-126) U/L Troponin I < 0.012 (0.000-0.034) ng/mL Total Protein 6.1 L (6.3-8.2) g/dL Albumin 3.7 (3.5-5.1) g/dL Lipase 102 (23-300) U/L TSH (Reflex) 1.080 (0.465-4.68) uIU/mL Urine Color (Yellow) Urine Appearance (Clear) Urine pH (5.0-9.0) Ur Specific Effort (1.001-1.035) Urine Protein (Negative) mg/dL Urine Glucose (UA) (Negative) mg/dL Urine Ketones (Negative) mg/dL Ur Blood (Man) (Negative) Urine Nitrate (Negative) Urine Bilirubin (Negative) Urine Urobilinogen (<2.0) mg/dL Leukocyte Esterase Rfl (Negative) PATY/UL Salicylates < 1.0 L (2-20) mg/dL Urine Opiates Screen (Negative) Urine Methadone Screen (Negative) Ur Barbiturates Screen (Negative) Ur Phencyclidine Scrn (Negative) Ur Amphetamine Screen (Negative) U Benzodiazepines Scrn (Negative) Urine Cocaine Screen (Negative) U Cannabinoids Screen (Negative) Ethyl Alcohol < 10 (<10) mg/dL Influenza A (RT-PCR) (Negative) Influenza B (RT-PCR) (Negative) RSV (RT-PCR) (Negative) SARS-CoV-2 RNA (RT-PCR) (Negative) 07/15/25 07/15/25 07/15/25 Range/Units 13:41 13:42 14:49 WBC (4.5-10.0) K/mm3 RBC (4.2-5.4) M/mm3 Hgb (12.0-15.0) g/dL Hct (37.0-47.0) % MCV (80-100) fl MCH (26-34) pg MCHC (32-36) g/dl RDW (11.5-14.5) % Plt Count (150-375) k/mm3 MPV (7.4-10.4) fl Immature Gran % (Auto) (0-0.5) % Neut % (Auto) (45.5-73.1) % Lymph % (Auto) (18.3-44.2) % Yancey % (Auto) (2.6-8.5) % Eos % (Auto) (0-4.4) % Baso % (Auto) (0.2-1.2) % Lymph # (Auto) (0.9-3.2) K/mm3 Yancey # (Auto) (0.1-0.6) K/mm3 Eos # (Auto) (0-0.3) K/mm3 Baso # (Auto) (0.0-0.1) K/mm3 Abs Immat Gran (auto) (0.00-0.031) K/mm3 Absolute Neuts (auto) (1.3-6.7) K/mm3 Absolute Nucleated RBC (0.0-0.012) K/mm3 Nucleated RBC % (0.0-0.2) % PT (11.1-14.7) Seconds INR APTT (22.3-36.8) Seconds Sodium (137-145) mmol/L Potassium (3.4-5.0) mmol/L Chloride (98-107) mmol/L Carbon Dioxide (22-30) mmol/L Anion Gap (4-12) mmol/L BUN (7-17) mg/dL Creatinine (0.7-1.2) mg/dL Estim Creat Clear Calc ml/min Estimated GFR (59 - ) Glucose (65-110) mg/dL POC Capillary Glucose (65-105) mg/dl Lactic Acid 1.3 (0.7-2.0) mmol/L Calcium (8.4-10.2) mg/dL Phosphorus (2.5-4.5) mg/dL Magnesium (1.6-2.3) mg/dL Total Bilirubin (0.2-1.3) mg/dL AST (14-36) U/L ALT (6-35) U/L Alkaline Phosphatase (38-126) U/L Troponin I (0.000-0.034) ng/mL Total Protein (6.3-8.2) g/dL Albumin (3.5-5.1) g/dL Lipase (23-300) U/L TSH (Reflex) (0.465-4.68) uIU/mL Urine Color Yellow (Yellow) Urine Appearance Clear (Clear) Urine pH 5.0 (5.0-9.0) Ur Specific Effort > 1.045 H (1.001-1.035) Urine Protein Negative (Negative) mg/dL Urine Glucose (UA) Negative (Negative) mg/dL Urine Ketones Negative (Negative) mg/dL Ur Blood (Man) Negative (Negative) Urine Nitrate Negative (Negative) Urine Bilirubin Negative (Negative) Urine Urobilinogen 0.2 (<2.0) mg/dL Leukocyte Esterase Rfl Negative (Negative) PATY/UL Salicylates (2-20) mg/dL Urine Opiates Screen Negative (Negative) Urine Methadone Screen Negative (Negative) Ur Barbiturates Screen Negative (Negative) Ur Phencyclidine Scrn Negative (Negative) Ur Amphetamine Screen Negative (Negative) U Benzodiazepines Scrn Negative (Negative) Urine Cocaine Screen Negative (Negative) U Cannabinoids Screen Negative (Negative) Ethyl Alcohol (<10) mg/dL Influenza A (RT-PCR) Negative (Negative) Influenza B (RT-PCR) Negative (Negative) RSV (RT-PCR) Negative (Negative) SARS-CoV-2 RNA (RT-PCR) Negative (Negative) 07/15/25 Range/Units 15:59 WBC (4.5-10.0) K/mm3 RBC (4.2-5.4) M/mm3 Hgb (12.0-15.0) g/dL Hct (37.0-47.0) % MCV (80-100) fl MCH (26-34) pg MCHC (32-36) g/dl RDW (11.5-14.5) % Plt Count (150-375) k/mm3 MPV (7.4-10.4) fl Immature Gran % (Auto) (0-0.5) % Neut % (Auto) (45.5-73.1) % Lymph % (Auto) (18.3-44.2) % Yancey % (Auto) (2.6-8.5) % Eos % (Auto) (0-4.4) % Baso % (Auto) (0.2-1.2) % Lymph # (Auto) (0.9-3.2) K/mm3 Yancey # (Auto) (0.1-0.6) K/mm3 Eos # (Auto) (0-0.3) K/mm3 Baso # (Auto) (0.0-0.1) K/mm3 Abs Immat Gran (auto) (0.00-0.031) K/mm3 Absolute Neuts (auto) (1.3-6.7) K/mm3 Absolute Nucleated RBC (0.0-0.012) K/mm3 Nucleated RBC % (0.0-0.2) % PT (11.1-14.7) Seconds INR APTT (22.3-36.8) Seconds Sodium (137-145) mmol/L Potassium (3.4-5.0) mmol/L Chloride (98-107) mmol/L Carbon Dioxide (22-30) mmol/L Anion Gap (4-12) mmol/L BUN (7-17) mg/dL Creatinine (0.7-1.2) mg/dL Estim Creat Clear Calc ml/min Estimated GFR (59 - ) Glucose (65-110) mg/dL POC Capillary Glucose (65-105) mg/dl Lactic Acid (0.7-2.0) mmol/L Calcium (8.4-10.2) mg/dL Phosphorus (2.5-4.5) mg/dL Magnesium (1.6-2.3) mg/dL Total Bilirubin (0.2-1.3) mg/dL AST (14-36) U/L ALT (6-35) U/L Alkaline Phosphatase (38-126) U/L Troponin I < 0.012 (0.000-0.034) ng/mL Total Protein (6.3-8.2) g/dL Albumin (3.5-5.1) g/dL Lipase (23-300) U/L TSH (Reflex) (0.465-4.68) uIU/mL Urine Color (Yellow) Urine Appearance (Clear) Urine pH (5.0-9.0) Ur Specific Effort (1.001-1.035) Urine Protein (Negative) mg/dL Urine Glucose (UA) (Negative) mg/dL Urine Ketones (Negative) mg/dL Ur Blood (Man) (Negative) Urine Nitrate (Negative) Urine Bilirubin (Negative) Urine Urobilinogen (<2.0) mg/dL Leukocyte Esterase Rfl (Negative) PATY/UL Salicylates (2-20) mg/dL Urine Opiates Screen (Negative) Urine Methadone Screen (Negative) Ur Barbiturates Screen (Negative) Ur Phencyclidine Scrn (Negative) Ur Amphetamine Screen (Negative) U Benzodiazepines Scrn (Negative) Urine Cocaine Screen (Negative) U Cannabinoids Screen (Negative) Ethyl Alcohol (<10) mg/dL Influenza A (RT-PCR) (Negative) Influenza B (RT-PCR) (Negative) RSV (RT-PCR) (Negative) SARS-CoV-2 RNA (RT-PCR) (Negative) ABG Data ABG results: 07/15/25 13:21 VBG pH 7.351 VBG pCO2 37.5 L VBG pO2 56.8 H VBG HCO3 20.3 L O2 Delivery Device Room air O2 Liters/Min Not Reportable FiO2 21 Discharge Plan Discharge Clinical Impression: Altered mental status, Weakness Patient Disposition: Still a Patient Condition: Stable Patient Language: Spanish Prescriptions: No Action ondansetron 4 mg tablet,disintegrating 4 mg PO Q8H PRN (Reason: nausea and vomiting) Qty: 30 1RF omeprazole 40 mg capsule,delayed release(DR/EC) 40 mg PO DAILY Qty: 90 0RF cholecalciferol (vitamin D3) 50 mcg (2,000 unit) capsule 50 mcg PO DAILY multivitamin Capsule 1 cap PO DAILY donepezil 5 mg tablet 5 mg PO QHS Qty: 90 0RF Rx Instructions: Take one tablet po qd x 30 days, then increase to 2 tablets. potassium chloride [K-Tab] 20 mEq tablet extended release 20 meq PO BID Qty: 14 0RF acetaminophen 500 mg tablet 1,000 mg PO QID Rx Instructions: takes with gabapentin dextromethorphan-guaifenesin 10-100 mg/5 mL Syrup 10 ml PO Q4HR Qty: 237 0RF magnesium oxide 400 mg (241.3 mg magnesium) Tablet 400 mg PO QAM Qty: 30 0RF montelukast 10 mg tablet 10 mg PO DAILY Qty: 90 1RF Rx Instructions: Take 1 tablet by mouth once daily rosuvastatin 10 mg tablet 10 mg PO DAILY Qty: 90 1RF gabapentin 600 mg tablet See Rx Instructions .ROUTE .COMPLEX Qty: 360 0RF Dose Instruction: Take 1 tablet by mouth 4 times daily Rx Instructions: Take 1 tablet by mouth 4 times daily meloxicam 15 mg tablet 15 mg PO DAILY Qty: 90 1RF Rx Instructions: Take 1 tablet by mouth once daily levalbuterol tartrate 45 mcg/actuation HFA aerosol inhaler 2 inh INHALATION Q6H PRN (Reason: Asthma) Qty: 15 1RF lidocaine [Lidoderm] 5 % adhesive patch,medicated 1 patch topical DAILY PRN (Reason: back pain) Qty: 15 0RF Rx Instructions: leave on most painful area for up to 12 hrs Follow-up/Referrals: Angel Mora MD [Primary Care Provider, Family Practice]
[2025-07-15 13:24] LABS: Fractional Inspired Oxygen 21 %; HCO3 VBG 20.3 mEq/l (24.0-30.0); PCO2 VBG 37.5 mmHg (42.0-48.0); PO2 VBG 56.8 mmHg (35.0-45.0); pH VBG 7.351 (7.300-7.400)
[2025-07-15 13:50] LABS: Hematocrit 39.4 % (37.0-47.0); Hemoglobin 12.5 g/dL (12.0-15.0); Immature Granulocyte Percent A 0.3 % (0-0.5); Lymphocytes Absolute Auto 1.57 K/mm3 (0.9-3.2); Mean Corpuscular HGB Conc 31.7 g/dl (32-36); Mean Corpuscular Hemoglobin 30.3 pg (26-34); Mean Corpuscular Volume 95.6 fl (80-100); Nucleated Red Blood Cells Absolute Auto 0.000 K/mm3 (0.0-0.012); Nucleated Red Blood Cells Perc 0.0 % (0.0-0.2); Platelet Count Result 170 k/mm3 (150-375); Red Blood Count 4.12 M/mm3 (4.2-5.4); White Blood Count 3.9 K/mm3 (4.5-10.0)
[2025-07-15 13:59] LABS: Salicylate < 1.0 mg/dL (2-20)
[2025-07-15 14:02] LABS: INR 1.0; Prothrombin Time 13.3 Seconds (11.1-14.7)
[2025-07-15 14:03] LABS: Partial Thromboplastin Time 27.1 Seconds (22.3-36.8)
[2025-07-15 14:07] LABS: Alanine Aminotransferase 14 U/L (6-35); Albumin Level 3.7 g/dL (3.5-5.1); Alkaline Phosphatase 47 U/L (38-126); Anion Gap 8 mmol/L (4-12); Aspartate Amino Transferase 25 U/L (14-36); Bilirubin,Total 0.2 mg/dL (0.2-1.3); Blood Urea Nitrogen 27 mg/dL (7-17); Calcium 8.8 mg/dL (8.4-10.2); Carbon Dioxide 19 mmol/L (22-30); Chloride 110 mmol/L (98-107); Estimated CRCL calculation 30 ml/min; Estimated Glomerular Filt Rate 49; Glucose 109 mg/dL (65-110); Lipase 102 U/L (23-300); Magnesium 1.5 mg/dL (1.6-2.3); Potassium 5.2 mmol/L (3.4-5.0); Sodium 137 mmol/L (137-145); Total Protein 6.1 g/dL (6.3-8.2)
[2025-07-15 14:18] LABS: Troponin I < 0.012 ng/mL (0.000-0.034)
[2025-07-15 14:28] LABS: Influenza A QL RT-PCR Negative (Negative); Influenza B QL RT-PCR Negative (Negative); RSV RNA, RT-PCR Negative (Negative); SARS-CoV-2 RNA PCR Negative (Negative)
[2025-07-15 14:31] LABS: Thyroid Stimulating Hormone Reflex 1.080 uIU/mL (0.465-4.68)
[2025-07-15 15:14] LABS: Add Urine Microscopic? NO; Appearance Urine Clear (Clear); Glucose Urine UA Negative (Negative); Leukocyte Esterase Ur Negative LEU/UL (Negative); Nitrate Urine Negative (Negative); Specific Grav Ur > 1.045 (1.001-1.035)
[2025-07-15 15:24] LABS: Cannabinoid Screen Urine Negative (Negative)
--- NOTE | 2025-07-15 15:54 | ECG_ITS ---
Test Date: 2025-07-15 15:58:12 Measurements Intervals [place] Rate: 64 P: -11 OK: 176 QRS: 21 QRSD: 98 T: 39 QT: 367 QTc: 379 Interpretive Statements SINUS RHYTHM WITHIN NORMAL LIMITS Compared to ECG 07/15/2025 12:21:18 No significant changes Electronically Signed On 07-15-2025 16:12:23 CDT by Dionicio Romeo M.D.
--- NOTE | 2025-07-15 16:27 | PC.NURSE ---
Updated staff at [facility]
[2025-07-15 16:32] LABS: Troponin I < 0.012 ng/mL (0.000-0.034)
--- NOTE | 2025-07-15 17:16 | PC.NURSE ---
Called son and informed him that pt is being admitted. Alex Dooley [phone]
[2025-07-15] MEDS: SODIUM ZIRCONIUM CYCLOSILICATE 10 GM POWD.PACK PO (17:22)
[2025-07-15] MEDS: MAGNESIUM SULF 2 GM/WATER 50ML 2 GM/50 ML BAG IVPB (17:23)
--- NOTE | 2025-07-15 18:40 | PC.NURSE ---
This patient, Ellyn Cody, was admitted to [facility] Surg Room 324-02. Patient/family oriented to hospital policies and general routines including ID bracelet, bed and alarms, visiting hours, pain management, procedures, bathroom and other care routines, personal items, smoking policy, room service/diet, and visiting hours. Information on how to activate the Rapid Response Team has been discussed. Patient/Family are encouraged to report perceived risks to care and to ask questions if they do not understand what they are told or what they should do.
--- NOTE | 2025-07-15 22:30 | P.HP_ITS ---
H&P: HPI History of Present Illness Date/Time: 07/15/25 22:30 Chief Complaint: Altered mental status Narrative: This is an 84-year-old female patient who has a history of memory loss. She was brought into the emergency room today for unresponsiveness. She was seen by the staff this morning when they gave her her morning medications at 10:45 a.m.. Later on the staff checked on her and she was nonverbal and responsive to pain only. The patient tells me that she has been having some right hip pain and cannot take narcotics. According to the records she resides at [facility]. Her abnormal labs under cbc her white count is 3.9, RBC 4.12, and MCHC 31.7. Under ABGs her pH was within normal limits CO2 was low at 37.5, PO2 was 56.8, and HC03 was 20.3. The patient was on room air. On her chemistry her potassium is 5.2, carbon dioxide 19, BUN 27 and creatinine 1.07. GFR is 49. Her blood glucose was noted to be 110. Her magnesium levels 1.5. Her urine was negative for UTI. Head CT was read as a following . 1>Normal aging brain. No acute intracranial process. Dr. Sandoval discussed these findings with Dr. Green at 12:58 PM. 2. 50% stenosis of the right carotid bulb relative to normal distal artery lumen diameter (NASCET criteria). 2. 30% stenosis of the left carotid bulb relative to normal distal artery lumen diameter. 3. Unremarkable cerebral CT angiogram with no hemodynamically significant stenosis, aneurysm or thrombosis. Chest abdomen CT was read as no acute cardiopulmonary disease or acute intra- abdominal/pelvic process She was given magnesium sulfate, IV fluid, and Lokelma in the emergency room. She was admitted to 3rd floor medical bed for observation Review of Systems Review of Systems: All systems reviewed & are unremarkable except as noted in HPI and below (hpi.) Constitutional: Constitutional: Reports as per HPI ENT: Reports system reviewed and no additional complaints, except as documented Cardiovascular: Cardiovascular: Reports as per HPI and Reports no additional cardiovascular complaints Respiratory: Respiratory: Reports as per HPI and Reports no additional respir atory complaints Gastrointestinal: Gastrointestinal: Reports as per HPI and Reports no additional gastrointestinal complaints Genitourinary: Genitourinary: Reports no additional female genitourinary complaints and Reports as per HPI Musculoskeletal: Musculoskeletal: Reports arthralgias (Right hip) Integumentary/Breasts: Skin/Breast: Reports system reviewed and no additional complaints, except as docu Neurologic: Reports abnormal gait (To right hip) Psychiatric: Psychiatric: Reports as per HPI Endocrine: Endocrine: Reports no additional endocrine complaints Hematologic/Lymphatic: Hematologic/Lymphatic: Reports no additional hematologic/lymphatic complaints Allergic/Immunologic: Allergic/Immunologic: Reports no additional allergic /immunologic complaints FORMERLY [facility], [facility] Past Medical History Medical History (Updated 07/15/25 @ 23:04 by Darya Cheatham APRN) Memory deficit Hyperlipidemia Kyphoscoliosis Benign essential tremor Vitamin D deficiency Scoliosis due to degenerative disease of spine in adult patient COPD (chronic obstructive pulmonary disease) Vision changes COVID-19 vaccine series completed Neuropathy Dyslipidemia Osteoporosis Sleep apnea Emphysema of lung Memory loss Frozen shoulder Left shoulder Sciatica associated with disorder of lumbar spine GERD (gastroesophageal reflux disease) Arthritis IBS (irritable bowel syndrome) Asthma Surgical History Surgical History Status post cataract extraction of both eyes with insertion of intraocular lens History of partial hysterectomy History of bowel resection History of cholecystectomy History of right hip replacement Family History Family History Mother Pneumonia Arthritis Father Asbestosis Arthritis Grandparent Pneumonia Grandparent Heart attack Arthritis Grandparent Cerebrovascular accident Sibling Malignant neoplasm Arthritis Social History Social History (Updated 07/15/25 @ 22:50 by Darya Cheatham APRN) Social History: She lives in [facility]. She has a Rollator at home but only uses it when she goes to the store. She has 2 children who are healthy. She is a lifelong nonsmoker and does not drink alcohol. 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 Primary care physician: Dr. Cruz Code status: See living will. She has limited resuscitation Surrogate decision maker: Miah (son) Smoking status: Never smoker Second hand tobacco smoke exposure: No Alcohol intake: never Substance use: never Substance use type: does not use Do You Feel Safe in your Home?: Yes Lack of Transportation: No Lack of Food: Never True Current Housing: I Have Housing Concerned About Future Housing: No Difficulty Paying Gas/Electric Bills: No Difficulty Paying for Meds: No Currently Unemployed: No Education: Don't Know Difficulty w/ Childcare or Family Care: No Living arrangements: with family Occupation/Education: retired Gender identity (if verbalized by the patient): Female Sexual Orientation (if Verbalized by the Patient): Straight or Heterosexual Spiritual care concerns: No Agree to blood products: Yes Comments The patient will allow CPAP and BiPAP but does not want intubated. She is a do not intubate. Meds Home Medications and Allergies Home Medications ?Medication ?Instructions ?Recorded ?Confirmed ?Type cholecalciferol (vitamin D3) 50 50 mcg PO DAILY 07/15/25 History mcg (2,000 unit) capsule multivitamin 1 cap PO DAILY 08/07/2001/07 History montelukast 10 mg tablet 10 mg PO DAILY #90 tabs 01/0507/15/25 Rx rosuvastatin 10 mg tablet 10 mg PO DAILY #90 tabs 07/1407/15/25 Rx omeprazole 40 mg capsule,delayed 40 mg PO DAILY #90 ca ps 08/01/24 07/15/25 Rx release acetaminophen 500 mg tablet 1,000 mg PO QID 10/09/24 0 07/15/25 History gabapentin 600 mg tablet See Rx Instructions .Route 0 12/10/24 07/15/25 Rx .COMPLEX #360 tabs potassium chloride 20 mEq 20 meq PO BID #14 tabs 01/1907/15/25 Rx tablet,extended release (K-Tab) magnesium oxide 400 mg (241.3 mg 400 mg PO QAM #30 tab s 01/26/25 07/15/25 Rx magnesium) tablet meloxicam 15 mg tablet 15 mg PO DAILY #90 tabs 01/1107/15/25 Rx levalbuterol tartrate 45 2 inh inhalation Q6H PRN Ast hma 05/23/25 07/15/25 Rx mcg/actuation aerosol inhaler #15 grams lidocaine 5 % topical patch 1 patch topical DAILY PRN back 05/30/25 07/15/25 Rx (Lidoderm) pain #15 ea donepezil 5 mg tablet 5 mg PO QHS #90 tabs 5 07/15/25 Rx Allergies Allergy/AdvReac Type Severity Reaction Status Date / Time codeine Allergy Severe Passes out Verified 03/09/25 12:08 oxycodone Allergy Severe pass out Verified 01/19/25 12:08 pain medications AdvReac Severe syncope Uncoded 01/19/25 12:08 Vital Signs Vital Signs - 24 hr 07/15/25 12:08 07/15/25 12:29 07/15/25 12:57 Temperature 97.8 F Pulse Rate 66 79 Respiratory Rate 20 25 H Blood Pressure 132/55 L 133/52 L Pulse Oximetry 96 98 Oxygen Delivery Room Air 07/15/25 13:00 07/15/25 15:07 07/15/25 15:15 Temperature Pulse Rate 67 69 Respiratory Rate 18 22 H Blood Pressure Pulse Oximetry 96 97 Oxygen Delivery Room Air 07/15/25 15:16 07/15/25 15:30 07/15/25 15:31 Temperature Pulse Rate 70 66 67 Respiratory Rate 22 H 17 15 Blood Pressure 124/55 L 119/53 L Pulse Oximetry 97 98 97 Oxygen Delivery 07/15/25 15:45 07/15/25 15:46 07/15/25 16:07 Temperature Pulse Rate 66 68 70 Respiratory Rate 15 15 17 Blood Pressure 122/57 L Pulse Oximetry 98 99 98 Oxygen Delivery 07/15/25 16:15 07/15/25 16:16 07/15/25 16:17 Temperature Pulse Rate 65 67 64 Respiratory Rate 15 21 H 20 Blood Pressure 121/72 Pulse Oximetry 98 98 98 Oxygen Delivery 07/15/25 16:33 07/15/25 16:45 07/15/25 16:46 Temperature Pulse Rate 65 64 64 Respiratory Rate 21 H 17 20 Blood Pressure 128/58 L Pulse Oximetry 97 98 97 Oxygen Delivery 07/15/25 17:00 07/15/25 17:02 07/15/25 17:16 Temperature Pulse Rate 67 67 64 Respiratory Rate 20 19 19 Blood Pressure 141/65 H 133/106 H Pulse Oximetry 99 98 97 Oxygen Delivery 07/15/25 17:17 07/15/25 17:30 07/15/25 17:31 Temperature Pulse Rate 71 64 64 Respiratory Rate 21 H 19 19 Blood Pressure 134/54 L Pulse Oximetry 98 96 96 Oxygen Delivery 07/15/25 17:45 07/15/25 17:46 07/15/25 18:00 Temperature Pulse Rate 66 67 74 Respiratory Rate 14 18 23 H Blood Pressure 115/57 L Pulse Oximetry 98 97 Oxygen Delivery 07/15/25 18:01 07/15/25 18:15 07/15/25 18:16 Temperature Pulse Rate 71 69 69 Respiratory Rate 23 H 21 H 18 Blood Pressure 161/134 H 150/54 H Pulse Oximetry Oxygen Delivery 07/15/25 18:59 07/15/25 20:19 Temperature 96.6 F L 97.6 F Pulse Rate 63 68 Respiratory Rate 22 H 18 Blood Pressure 119/41 L 105/53 L Pulse Oximetry 99 97 Oxygen Delivery Exam Const: General: comfortable Nutritional Appearance: average body habitus Orientation/consciousness: oriented to person and oriented to place HENMT: Head: normal to inspection Face/Nose/Sinus: Normal external nose present Face and sinus: normal facial exam Eyes: General: appearance normal, both eyes and all related structures Sclera: sclerae normal EOM: EOMs intact bilaterally Chest: Chest palpation & inspection: normal inspection of the chest Resp: Effort & Inspection: normal respiratory effort and able to speak in complete sentences Auscultation: clear to auscultation bilaterally Cardio: Rate: regular rate Rhythm: regular rhythm Peripheral pulses: Peripheral pulses 2+ throughout GI: Inspection: normal to inspection Auscultation: normal bowel sounds Skin: General skin exam: ecchymosis (Bruising noted to midsternal area) Extrem: General: normal to inspection and full ROM Psych: Appearance: grossly normal H&P: Results Labs Labs: Short CBC 07/15/25 Range/Units 13:40 WBC 3.9 L (4.5-10.0) K/mm3 Hgb 12.5 (12.0-15.0) g/dL Hct 39.4 (37.0-47.0) % Plt Count 170 (150-375) k/mm3 [facility] 07/15/25 07/15/25 12:37 13:40 Sodium 137 Potassium 5.2 H Chloride 110 H Carbon Dioxide 19 L BUN 27 H D Creatinine 1.30 H 1.07 H Glucose 109 Calcium 8.8 Cardiac Enzymes 07/15/25 07/15/25 Range/Units 13:40 15:59 Troponin I < 0.012 < 0.012 (0.000-0.034) ng/mL Liver Function 07/15/25 Range/Units 13:40 Total Bilirubin 0.2 (0.2-1.3) mg/dL AST 25 (14-36) U/L ALT 14 (6-35) U/L Alkaline Phosphatase 47 (38-126) U/L Albumin 3.7 (3.5-5.1) g/dL Urine 07/15/25 Range/Units 14:49 Urine Color Yellow (Yellow) Urine Appearance Clear (Clear) Urine pH 5.0 (5.0-9.0) Ur Specific [place] > 1.045 H (1.001-1.035) Urine Protein Negative (Negative) mg/dL Urine Glucose (UA) Negative (Negative) mg/dL Imaging Chest x-ray: Radiologist's impression: Impressions Head/Neck CTA 07/15/25 12:50 IMPRESSION: 1. Normal aging brain. No acute intracranial process. Dr. Sandoval discussed these findings with Dr. Green at 12:58 PM. 2. 50% stenosis of the right carotid bulb relative to normal distal artery lumen diameter (NASCET criteria). 2. 30% stenosis of the left carotid bulb relative to normal distal artery lumen diameter. 3. Unremarkable cerebral CT angiogram with no hemodynamically significant stenosis, aneurysm or thrombosis. Chest/Abdomen/Pelvis CT 07/15/25 14:11 IMPRESSION: 1. No acute cardiopulmonary disease or acute intra-abdominal/pelvic process. Assessment and Plan Assessment and plan (1) Altered mental status: Code(s): R41.82 - Altered mental status, unspecified Status: Acute Assessment and Plan: -she appears to be back at her baseline. She is alert orientated to person and place but not time. From her records [facility] She is admitted to observation status and would like to be discharged back to her home in the a.m. if possible. -unsure of her unresponsiveness. This could be related to her medications. The patient stated that she does not take narcotics. However the patient is awake and alert at this time. (2) Hyperkalemia: Code(s): E87.5 - Hyperkalemia Status: Acute Assessment and Plan: -The patient is on potassium supplements which we will hold at this time. The patient was given zironium in the emergency room. Her potassium level was 5.2 in the emergency room. -recheck potassium levels in the a.m.. (3) Magnesium deficiency: Code(s): E61.2 - Magnesium deficiency Status: Acute Assessment and Plan: -the patient was supplemented with magnesium in the emergency room. Her magnesium was 1.5 in the emergency room. (4) SHAKIR (obstructive sleep apnea): Code(s): G47.33 - Obstructive sleep apnea (adult) (pediatric) Status: Acute Assessment and Plan: -the patient denies wearing his CPAP machine (5) Arthritis: Code(s): M19.90 - Unspecified osteoarthritis, unspecified site Status: Acute Assessment and Plan: -continue with her meloxicam that she takes at home. Monitor her renal function closely. The patient appears to be at her baseline. -continue with her gabapentin for chronic pain -continue with lidocaine patch. (6) COPD (chronic obstructive pulmonary disease): Qualifiers: COPD type: unspecified COPD Qualified Code(s): J44.9 - Chronic obstructive pulmonary disease, unspecified Code(s): J44.9 - Chronic obstructive pulmonary disease, unspecified Status: Acute Assessment and Plan: -Continue with her home medication of Singulair (7) Hyperlipidemia: Code(s): E78.5 - Hyperlipidemia, unspecified Status: Acute Assessment and Plan: -Continue with her Crestor (8) Memory deficit: Code(s): R41.3 - Other amnesia Status: Acute Assessment and Plan: -continue with her Aricept Quality VTE Prophylaxis VTE prophylaxis: mechanical ordered
[2025-07-16] VITALS (13 sets, daily range): BP systolic 84–124; BP diastolic 38–53; PULSE 66–95; RESP 14–20; TEMP 36.5–36.6; O2SAT 93–97
--- NOTE | 2025-07-16 | ECHO_ITS ---
Patient Info Name: Ellyn Cody Age: 84 years : 1940 Gender: Female Ht: 64 in Wt: 129 lbs BSA: 1.63 m2 HR: 82 bpm BP: 90 / 38 mmHg Heart Rhythm: Sinus Rhythm Technical Quality: Fair Exam Date: 07/16/2025 4:05 PM Patient Status: I Admit Date: 07/16/2025 Exam Type: CA echo dop color flow w con Complete two-dimensional, color flow and Doppler transthoracic echocardiogram is performed with contrast to opacify the left ventricle and to improve the deliniation of the left ventricle endocardial borders. Staff Referring Physician: Marin Green Contact Lens Fitter: Amilcar Coombs III Attending Provider: Thomas Salinas Contrast/Agitated Saline Contrast/Ag. Saline: Definity Amount: 2.00 ml Existing IV Access: Yes IV Access Condition: patent with no signs of infiltration Summary 1. Definity contrast administered improved wall motion interpretation. 2. Left ventricular chamber dimension is normal. 3. Left ventricular systolic function is normal, estimated at 65-70. 4. The left ventricular diastolic function is grade I diastolic dysfunction. 5. E/e' 5 is not elevated. 6. There is mild aortic valve sclerosis. 7. There is trace tricuspid valve regurgitation. 8. No pulmonary hypertension, estimated pulmonary arterial systolic pressure is 23 mmHg. Left Ventricle E/e' 5 is not elevated. Left ventricular chamber dimension is normal. Left ventricular systolic function is normal, estimated at 65-70. The left ventricular diastolic function is grade I diastolic dysfunction. Definity contrast administered improved wall motion interpretation. Right Ventricle Right ventricular chamber dimension is normal. Right ventricular systolic function is normal and with normal TAPSE 1.9 cm. Left Atria Left atrial chamber dimension is normal. Right Atria Right atrial chamber dimension is normal. Aortic Valve The aortic valve is trileaflet. There is mild aortic valve sclerosis. There is no aortic valve stenosis. There is no aortic valve regurgitation. Pulmonic Valve There is no pulmonic regurgitation. Mitral Valve There is no mitral valve stenosis. There is no mitral valve regurgitation. Tricuspid Valve There is trace tricuspid valve regurgitation. No pulmonary hypertension, estimated pulmonary arterial systolic pressure is 23 mmHg. Pericardium/Pleural There is no pericardial effusion. Inferior Vena Cava Normal inferior vena cava with >50% collapse upon inspiration consistent with normal right atrial pressure, 5 mmHg. Aorta The aortic root size at the sinus of Valsalva is normal. Left Ventricular Outflow Tract Name Value Normal LVOT 2D LVOT Diameter 2.1 cm LVOT Doppler LVOT Peak Velocity 92 cm/s LVOT Peak Gradient 3 mmHg LVOT Mean Gradient 2 mmHg LVOT VTI 20 cm LVOT VTI/AV VTI Ratio 1.0 LVOT Stroke Volume 68 ml LVOT CO 14.6 l/min LVOT CI 9.0 l/min/m2 Mitral Valve Name Value Normal MV Doppler MV Peak Gradient 2 mmHg MV Mean Gradient 1 mmHg MV Area (Cont Eq VTI) 4.2 cm2 MV Diastolic Function MV E Peak Velocity 51 cm/s MV A Peak Velocity 67 cm/s MV E/A 0.8 MV Decel Time (PW) 250 ms MV Annular TDI MV E/e' (Septal) 6.7 MV E/e' (Lateral) 5.4 MV E/e' (Average) 6.0 Tricuspid Valve Name Value Normal TV Regurgitation Doppler TR Peak Velocity 214 cm/s TR Peak Gradient 18 mmHg Estimated PAP/RSVP RA Pressure 5 mmHg <=5 PA Systolic Pressure 23 mmHg <36 RV Systolic Pressure 23 mmHg <36 TV Annular TDI TV Lateral Amy s' Velocity 11.7 cm/s >=9.5 Aortic Valve Name Value Normal AV Doppler AV Peak Velocity 102 cm/s AV Peak Gradient 4 mmHg AV Mean Gradient 3 mmHg AV VTI 20 cm AV Area (Cont Eq VTI) 3.4 cm2 >=3.0 AV Area (Cont Eq [place]) 3.0 cm2 AV DI ([place]) 0.90 AV Regurgitation 2D LVOT Area 3.3 cm2 Ventricles Name Value Normal LV Dimensions 2D/MM LVOT Diameter 2.1 cm LV Fractional Shortening/Ejection Fraction 2D/MM LV Diastolic Volume (4C MOD) 38 ml LV EF (4C MOD) 63 % LV Diastolic Length (4C) 6.0 cm LV Systolic Length (4C) 5.3 cm LV Stroke Volume (4C MOD) 24 ml Atria Name Value Normal LA Dimensions LA Volume (4C A-L) 21 ml RA Dimensions RA Systolic Major [place] Length (4C) 4.1 cm 2.2-2.8 RA Area (4C) 10.4 cm2 <=18.0 Report Signatures
[2025-07-16] MEDS: DONEPEZIL HCL 5 MG TABLET PO ×2 (00:37→20:43)
[2025-07-16] MEDS: GABAPENTIN 300 MG CAPSULE BY MOUTH ×5 (00:37→20:43)
[2025-07-16 06:31] LABS: Anion Gap 7 mmol/L (4-12); Blood Urea Nitrogen 21 mg/dL (7-17); Calcium 9.2 mg/dL (8.4-10.2); Carbon Dioxide 23 mmol/L (22-30); Chloride 107 mmol/L (98-107); Estimated CRCL calculation 35 ml/min; Estimated Glomerular Filt Rate 58; Glucose 104 mg/dL (65-110); Magnesium 1.8 mg/dL (1.6-2.3); Potassium 4.4 mmol/L (3.4-5.0); Sodium 137 mmol/L (137-145)
[2025-07-16] MEDS: MELOXICAM 7.5 MG TABLET 15 MG PO (09:40)
[2025-07-16] MEDS: ACETAMINOPHEN 500 MG TABLET 1000 MG PO ×4 (09:41→20:42)
[2025-07-16] MEDS: MULTIVITAMINS THERAPEUTIC TAB (*BKC) 1 TABLET PO (09:42)
[2025-07-16] MEDS: ROSUVASTATIN 10 MG TABLET PO (09:42)
[2025-07-16] MEDS: MONTELUKAST SODIUM 10 MG TABLET PO (09:42)
[2025-07-16] MEDS: CHOLECALCIFEROL (VITAMIN D3) 25 MCG (1,000 UNITS) TABLET 50 MCG PO (09:42)
[2025-07-16] MEDS: MAGNESIUM OXIDE 400 MG TABLET PO (09:42)
--- NOTE | 2025-07-16 09:51 | P.PNIM_ITS ---
Progress Note: A&P Assessment and Plan (1) Altered mental status: Code(s): R41.82 - Altered mental status, unspecified Status: Acute Assessment and Plan: Head/neck CTA: no acute intracranial process 50% stenosis right carotid and 30% stenosis left carotid unremarkable cerebral CT angiogram with no hemodynamically significant stenosis, aneurysm or thrombosis. - No signs of acute infection. WBC WNL. UA and viral panel negative. Chest/abdomen/pelvis CT unremarkable. - UDS negative - Echo ordered to assess cardiac function - medications possibly contributing gabapentin 600 mg qid however has been on this medication since November recently started on donepezil for memory on 06/25 - orthostatics ordered - Neuro consulted, appreciate recommendations (2) Hyperkalemia: Code(s): E87.5 - Hyperkalemia Status: Acute Assessment and Plan: Patient is on potassium supplements which we will hold at this time. Given zironium in the emergency room. Her potassium level was 5.2 in the emergency room. - repeat K WNL, continue to monitor (3) Magnesium deficiency: Code(s): E61.2 - Magnesium deficiency Status: Acute Assessment and Plan: -the patient was supplemented with magnesium in the emergency room. Her magnesium was 1.5 in the emergency room. - repeat mag WNL (4) SHAKIR (obstructive sleep apnea): Code(s): G47.33 - Obstructive sleep apnea (adult) (pediatric) Status: Acute Assessment and Plan: -the patient denies wearing his CPAP machine (5) Arthritis: Code(s): M19.90 - Unspecified osteoarthritis, unspecified site Status: Acute Assessment and Plan: -continue with her meloxicam that she takes at home. Monitor her renal function closely. The patient appears to be at her baseline. -continue with her gabapentin for chronic pain -continue with lidocaine patch. (6) COPD (chronic obstructive pulmonary disease): Qualifiers: COPD type: unspecified COPD Qualified Code(s): J44.9 - Chronic obstructive pulmonary disease, unspecified Code(s): J44.9 - Chronic obstructive pulmonary disease, unspecified Status: Acute Assessment and Plan: -Continue with her home medication of Singulair (7) Hyperlipidemia: Code(s): E78.5 - Hyperlipidemia, unspecified Status: Acute Assessment and Plan: -Continue with her Crestor (8) Memory deficit: Code(s): R41.3 - Other amnesia Status: Acute Assessment and Plan: -continue with her Aricept Time Spent With Patient Time with patient: 25 - 35 minutes Subjective Date/time seen: 07/16/25 09:51 Interval history: 84-year-old female patient with past medical history of essential tremor, copd, dyslipidemia, shakir, emphysema, gerd, ibs,and memory loss presents to the hospital for unresponsiveness. Patient is pleasant lying comfortably in bed. She remains alert oriented x3 at time of assessment. Patient source is slight nausea but otherwise has no complaints. She states that because the nausea her appetite has been decreased. She denies any associated vomiting or abdominal pain. Patient denies any chest pain, palpitations, and shortness of breath. Review of Systems Review of Systems: All systems reviewed & are unremarkable except as noted in HPI and below (hpi.) Exam Narrative: AF HR 68 RR 14 SpO2 97 BP 124/49 General: female in no acute respiratory distress who is nontoxic appearing, lying semi recumbent in bed. HEENT: Normocephalic. Atraumatic. Extraocular movement intact. Sclera clear and anicteric. No facial asymmetry. Chest: Lungs are clear to auscultation bilaterally. No wheezes or crackles. CV: Heart was regular rate and rhythm. S1-S2. No murmurs, gallops, or rubs. Abd: Abdomen was soft. Nontender. Nondistended. Positive bowel sounds. Ext: No clubbing, cyanosis, or edema. DP pulses bilaterally. Neuro: Patient is alert and oriented x4. Strength is symmetrical in both upper and lower extremities. Speech is clear. Objective Data Vital Signs Vital Signs: Vital Signs - 24 hr 07/15/25 12:08 07/15/25 12:29 07/15/25 12:57 Temperature 97.8 F Pulse Rate 66 79 Respiratory Rate 20 25 H Blood Pressure 132/55 L 133/52 L Pulse Oximetry 96 98 Oxygen Delivery Room Air 07/15/25 13:00 07/15/25 15:07 07/15/25 15:15 Temperature Pulse Rate 67 69 Respiratory Rate 18 22 H Blood Pressure Pulse Oximetry 96 97 Oxygen Delivery Room Air 07/15/25 15:16 07/15/25 15:30 07/15/25 15:31 Temperature Pulse Rate 70 66 67 Respiratory Rate 22 H 17 15 Blood Pressure 124/55 L 119/53 L Pulse Oximetry 97 98 97 Oxygen Delivery 07/15/25 15:45 07/15/25 15:46 07/15/25 16:07 Temperature Pulse Rate 66 68 70 Respiratory Rate 15 15 17 Blood Pressure 122/57 L Pulse Oximetry 98 99 98 Oxygen Delivery 07/15/25 16:15 07/15/25 16:16 07/15/25 16:17 Temperature Pulse Rate 65 67 64 Respiratory Rate 15 21 H 20 Blood Pressure 121/72 Pulse Oximetry 98 98 98 Oxygen Delivery 07/15/25 16:33 07/15/25 16:45 07/15/25 16:46 Temperature Pulse Rate 65 64 64 Respiratory Rate 21 H 17 20 Blood Pressure 128/58 L Pulse Oximetry 97 98 97 Oxygen Delivery 07/15/25 17:00 07/15/25 17:02 07/15/25 17:16 Temperature Pulse Rate 67 67 64 Respiratory Rate 20 19 19 Blood Pressure 141/65 H 133/106 H Pulse Oximetry 99 98 97 Oxygen Delivery 07/15/25 17:17 07/15/25 17:30 07/15/25 17:31 Temperature Pulse Rate 71 64 64 Respiratory Rate 21 H 19 19 Blood Pressure 134/54 L Pulse Oximetry 98 96 96 Oxygen Delivery 07/15/25 17:45 07/15/25 17:46 07/15/25 18:00 Temperature Pulse Rate 66 67 74 Respiratory Rate 14 18 23 H Blood Pressure 115/57 L Pulse Oximetry 98 97 Oxygen Delivery 07/15/25 18:01 07/15/25 18:15 07/15/25 18:16 Temperature Pulse Rate 71 69 69 Respiratory Rate 23 H 21 H 18 Blood Pressure 161/134 H 150/54 H Pulse Oximetry Oxygen Delivery 07/15/25 18:59 07/15/25 20:19 07/16/25 00:00 Temperature 96.6 F L 97.6 F Pulse Rate 63 68 67 Respiratory Rate 22 H 18 Blood Pressure 119/41 L 105/53 L Pulse Oximetry 99 97 Oxygen Delivery 07/16/25 04:00 07/16/25 04:43 Temperature 97.7 F Pulse Rate 68 68 Respiratory Rate 14 Blood Pressure 124/49 L Pulse Oximetry 97 Oxygen Delivery Intake/Output Intake/Output: Intake & Output 07/13/25 07/14/25 07/15/25 07/16/25 23:59 23:59 23:59 23:59 Intake Total 1000 170 Balance 1000 170 Meds/Results Medications: Active Medications Generic Name Dose Route Start Last Admin Trade Name Addy PRN Reason Stop Dose Admin Acetaminophen 1,000 mg 07/16/25 09:00 07/16/25 09:41 Acetaminophen 500 Mg Tablet PO 1,000 mg QID FATUMA Administration Donepezil HCl 5 mg 07/15/25 23:00 07/16/25 00:37 Donepezil Hcl 5 Mg Tablet PO 5 mg QHS FATUMA Administration Gabapentin 300 mg 07/15/25 22:55 07/16/25 09:40 Gabapentin 300 Mg Capsule BY MOUTH 300 mg QID [facility] Administration Levalbuterol HCl 2 puff 07/15/25 22:54 Levalbuterol Hfa (*Sp) 15 Gm Inhaler INHALATION Q6H PRN Asthma Lidocaine 1 patch 07/15/25 22:54 Lidocaine 5% Patch TOPICAL DAILY PRN back pain Magnesium Oxide 400 mg 07/16/25 09:00 07/16/25 09:42 Magnesium Oxide 400 Mg Tablet PO 400 mg QAM FATUMA Administration Meloxicam 15 mg 07/16/25 09:00 07/16/25 09:40 Meloxicam 7.5 Mg Tablet PO 15 mg QAM FATUMA Administration Montelukast Sodium 10 mg 07/16/25 09:00 07/16/25 09:42 Montelukast Sodium 10 Mg Tablet PO 10 mg DAILY FATUMA Administration Multivitamins Therapeutic 1 tablet 07/16/25 09:00 07/16/25 09:42 Multivitamins Therapeutic Tab (*Bkc) PO 1 tablet DAILY FATUMA Administration Rosuvastatin Calcium 10 mg 07/16/25 09:00 07/16/25 09:42 Rosuvastatin 10 Mg Tablet PO 10 mg DAILY [facility] Administration Vitamin D 50 mcg 07/16/25 09:00 07/16/25 09:42 Cholecalciferol (Vitamin D3) 25 Mcg (1,000 Units) Tablet PO 50 mcg DAILY FATUMA Administration Radiology Results: ITS Impressions Head/Neck CTA 07/15/25 12:50 IMPRESSION: 1. Normal aging brain. No acute intracranial process. Dr. Sandoval discussed these findings with Dr. Green at 12:58 PM. 2. 50% stenosis of the right carotid bulb relative to normal distal artery lumen diameter (NASCET criteria). 2. 30% stenosis of the left carotid bulb relative to normal distal artery lumen diameter. 3. Unremarkable cerebral CT angiogram with no hemodynamically significant stenosis, aneurysm or thrombosis. Chest/Abdomen/Pelvis CT 07/15/25 14:11 IMPRESSION: 1. No acute cardiopulmonary disease or acute intra-abdominal/pelvic process. Labs Labs: Laboratory Results - last 24 hr 07/15/25 07/15/25 07/15/25 12:26 12:37 13:21 WBC RBC Hgb Hct MCV MCH MCHC RDW Plt Count MPV Immature Gran % (Auto) Neut % (Auto) Lymph % (Auto) Walker % (Auto) Eos % (Auto) Baso % (Auto) Lymph # (Auto) Walker # (Auto) Eos # (Auto) Baso # (Auto) Abs Immat Gran (auto) Absolute Neuts (auto) Absolute Nucleated RBC Nucleated RBC % PT INR APTT VBG pH 7.351 VBG pCO2 37.5 L VBG pO2 56.8 H VBG HCO3 20.3 L O2 Delivery Device Room air O2 Liters/Min Not Reportable FiO2 21 Sodium Potassium Chloride Carbon Dioxide Anion Gap BUN Creatinine 1.30 H Estim Creat Clear Calc 25 Estimated GFR 39 L Glucose POC Capillary Glucose 110 H Lactic Acid Calcium Phosphorus Magnesium Total Bilirubin AST ALT Alkaline Phosphatase Troponin I Total Protein Albumin Lipase TSH (Reflex) Urine Color Urine Appearance Urine pH Ur Specific [place] Urine Protein Urine Glucose (UA) Urine Ketones Ur Blood (Man) Urine Nitrate Urine Bilirubin Urine Urobilinogen Leukocyte Esterase Rfl Salicylates Urine Opiates Screen Urine Methadone Screen Ur Barbiturates Screen Ur Phencyclidine Scrn Ur Amphetamine Screen U Benzodiazepines Scrn Urine Cocaine Screen U Cannabinoids Screen Ethyl Alcohol Influenza A (RT-PCR) Influenza B (RT-PCR) RSV (RT-PCR) SARS-CoV-2 RNA (RT-PCR) 07/15/25 07/15/25 07/15/25 13:40 13:41 13:42 WBC 3.9 L RBC 4.12 L Hgb 12.5 Hct 39.4 MCV 95.6 MCH 30.3 MCHC 31.7 L RDW 14.6 H Plt Count 170 MPV 9.1 Immature Gran % (Auto) 0.3 Neut % (Auto) 43.4 L Lymph % (Auto) 40.6 Walker % (Auto) 12.9 H Eos % (Auto) 2.3 Baso % (Auto) 0.5 Lymph # (Auto) 1.57 Walker # (Auto) 0.5 Eos # (Auto) 0.1 Baso # (Auto) 0.0 Abs Immat Gran (auto) 0.01 Absolute Neuts (auto) 1.7 Absolute Nucleated RBC 0.000 Nucleated RBC % 0.0 PT 13.3 INR 1.0 APTT 27.1 VBG pH VBG pCO2 VBG pO2 VBG HCO3 O2 Delivery Device O2 Liters/Min FiO2 Sodium 137 Potassium 5.2 H Chloride 110 H Carbon Dioxide 19 L Anion Gap 8 BUN 27 H D Creatinine 1.07 H Estim Creat Clear Calc 30 Estimated GFR 49 L Glucose 109 POC Capillary Glucose Lactic Acid 1.3 Calcium 8.8 Phosphorus 3.9 Magnesium 1.5 L Total Bilirubin 0.2 AST 25 ALT 14 Alkaline Phosphatase 47 Troponin I < 0.012 Total Protein 6.1 L Albumin 3.7 Lipase 102 TSH (Reflex) 1.080 Urine Color Urine Appearance Urine pH Ur Specific [place] Urine Protein Urine Glucose (UA) Urine Ketones Ur Blood (Man) Urine Nitrate Urine Bilirubin Urine Urobilinogen Leukocyte Esterase Rfl Salicylates < 1.0 L Urine Opiates Screen Urine Methadone Screen Ur Barbiturates Screen Ur Phencyclidine Scrn Ur Amphetamine Screen U Benzodiazepines Scrn Urine Cocaine Screen U Cannabinoids Screen Ethyl Alcohol < 10 Influenza A (RT-PCR) Negative Influenza B (RT-PCR) Negative RSV (RT-PCR) Negative SARS-CoV-2 RNA (RT-PCR) Negative 07/15/25 07/15/25 07/16/25 14:49 15:59 05:38 WBC RBC Hgb Hct MCV MCH MCHC RDW Plt Count MPV Immature Gran % (Auto) Neut % (Auto) Lymph % (Auto) Walker % (Auto) Eos % (Auto) Baso % (Auto) Lymph # (Auto) Walker # (Auto) Eos # (Auto) Baso # (Auto) Abs Immat Gran (auto) Absolute Neuts (auto) Absolute Nucleated RBC Nucleated RBC % PT INR APTT VBG pH VBG pCO2 VBG pO2 VBG HCO3 O2 Delivery Device O2 Liters/Min FiO2 Sodium 137 Potassium 4.4 Chloride 107 Carbon Dioxide 23 Anion Gap 7 BUN 21 H Creatinine 0.92 Estim Creat Clear Calc 35 Estimated GFR 58 L Glucose 104 POC Capillary Glucose Lactic Acid Calcium 9.2 Phosphorus Magnesium 1.8 Total Bilirubin AST ALT Alkaline Phosphatase Troponin I < 0.012 Total Protein Albumin Lipase TSH (Reflex) Urine Color Yellow Urine Appearance Clear Urine pH 5.0 Ur Specific [place] > 1.045 H Urine Protein Negative Urine Glucose (UA) Negative Urine Ketones Negative Ur Blood (Man) Negative Urine Nitrate Negative Urine Bilirubin Negative Urine Urobilinogen 0.2 Leukocyte Esterase Rfl Negative Salicylates Urine Opiates Screen Negative Urine Methadone Screen Negative Ur Barbiturates Screen Negative Ur Phencyclidine Scrn Negative Ur Amphetamine Screen Negative U Benzodiazepines Scrn Negative Urine Cocaine Screen Negative U Cannabinoids Screen Negative Ethyl Alcohol Influenza A (RT-PCR) Influenza B (RT-PCR) RSV (RT-PCR) SARS-CoV-2 RNA (RT-PCR) Quality VTE Prophylaxis VTE prophylaxis: mechanical ordered
[2025-07-16] MEDS: ONDANSETRON INJ 4 MG/2 ML VIAL IV PUSH (11:53)
[2025-07-16] MEDS: SODIUM CHLORIDE 0.9% IV 1,000 ML 100 ML IV CONT (16:02)
[2025-07-16] MEDS: PERFLUTREN LIPID MICROSPHERES 1.5 ML VIAL DILUTED TO 10 ML TOTAL VOLUME IV PUSH (16:30)
--- NOTE | 2025-07-16 16:48 | IVDEFINITY ---
Prior to administration of IV Definity the patient was educated on the risks and benefits of the imaging enhancing agent including potential adverse side effects. The patient verbalized understanding. Allergies were verified. No exclusion criteria were identified and at least one of the following inclusion criteria were met: 1) physician request, 2) patient technically difficult to image (per the [place] [employer] guidelines of two or more segments not discernable within the apical view), or 3) questionable left ventricular function. ?
[2025-07-17] VITALS (15 sets, daily range): BP systolic 108–152; BP diastolic 54–75; PULSE 64–96; RESP 14–24; TEMP 36.2–36.8; O2SAT 93–98
[2025-07-17 06:00] LABS: Hematocrit 38.7 % (37.0-47.0); Hemoglobin 11.6 g/dL (12.0-15.0); Mean Corpuscular HGB Conc 30.0 g/dl (32-36); Mean Corpuscular Hemoglobin 30.4 pg (26-34); Mean Corpuscular Volume 101.3 fl (80-100); Platelet Count Result 151 k/mm3 (150-375); Red Blood Count 3.82 M/mm3 (4.2-5.4); White Blood Count 4.2 K/mm3 (4.5-10.0)
[2025-07-17 06:30] LABS: Alanine Aminotransferase 10 U/L (6-35); Albumin Level 3.3 g/dL (3.5-5.1); Alkaline Phosphatase 30 U/L (38-126); Anion Gap 6 mmol/L (4-12); Aspartate Amino Transferase 24 U/L (14-36); Bilirubin,Total 0.4 mg/dL (0.2-1.3); Blood Urea Nitrogen 16 mg/dL (7-17); Calcium 8.9 mg/dL (8.4-10.2); Carbon Dioxide 20 mmol/L (22-30); Chloride 109 mmol/L (98-107); Estimated CRCL calculation 41 ml/min; Estimated Glomerular Filt Rate > 60; Glucose 93 mg/dL (65-110); Sodium 135 mmol/L (137-145); Total Protein 5.3 g/dL (6.3-8.2)
[2025-07-17 06:40] LABS: Potassium 4.5 mmol/L (3.4-5.0)
[2025-07-17] MEDS: CHOLECALCIFEROL (VITAMIN D3) 25 MCG (1,000 UNITS) TABLET 50 MCG PO (08:49)
[2025-07-17] MEDS: ACETAMINOPHEN 500 MG TABLET 1000 MG PO ×4 (08:50→20:35)
[2025-07-17] MEDS: MELOXICAM 7.5 MG TABLET 15 MG PO (08:50)
[2025-07-17] MEDS: MONTELUKAST SODIUM 10 MG TABLET PO (08:50)
[2025-07-17] MEDS: MULTIVITAMINS THERAPEUTIC TAB (*BKC) 1 TABLET PO (08:50)
[2025-07-17] MEDS: GABAPENTIN 300 MG CAPSULE BY MOUTH ×4 (08:50→20:35)
[2025-07-17] MEDS: MAGNESIUM OXIDE 400 MG TABLET PO (08:50)
[2025-07-17] MEDS: ROSUVASTATIN 10 MG TABLET PO (08:50)
--- NOTE | 2025-07-17 08:53 | PM.IMPN ---
Progress Note: A&P Assessment and Plan (1) Altered mental status: Code(s): R41.82 - Altered mental status, unspecified Status: Acute Assessment and Plan: Head/neck CTA: no acute intracranial process 50% stenosis right carotid and 30% stenosis left carotid unremarkable cerebral CT angiogram with no hemodynamically significant stenosis, aneurysm or thrombosis. - No signs of acute infection. WBC WNL. UA and viral panel negative. Chest/abdomen/pelvis CT unremarkable. - UDS negative - Echo ordered to assess cardiac function: LVEF 65-70% with grade I diastolic dysfunction - medications possibly contributing gabapentin 600 mg qid however has been on this medication since November recently started on donepezil for memory on 06/25 - orthostatics negative, still possible that unresponsiveness related to hypotension given that patient was on fluids prior to these results - PT/OT recommending home health - Neuro consulted, appreciate recommendations Patient remains AOx4, stating she feels back to baseline. Denies any dizziness/lightheadedness/weakness. (2) Hyperkalemia: Code(s): E87.5 - Hyperkalemia Status: Acute Assessment and Plan: Patient is on potassium supplements which we will hold at this time. Given zironium in the emergency room. Her potassium level was 5.2 in the emergency room. - repeat K WNL, continue to monitor (3) Magnesium deficiency: Code(s): E61.2 - Magnesium deficiency Status: Acute Assessment and Plan: -the patient was supplemented with magnesium in the emergency room. Her magnesium was 1.5 in the emergency room. - repeat mag WNL, resolved (4) SHAKIR (obstructive sleep apnea): Code(s): G47.33 - Obstructive sleep apnea (adult) (pediatric) Status: Acute Assessment and Plan: -the patient denies wearing his CPAP machine (5) Arthritis: Code(s): M19.90 - Unspecified osteoarthritis, unspecified site Status: Acute Assessment and Plan: -continue with her meloxicam that she takes at home. Monitor her renal function closely. The patient appears to be at her baseline. -continue with her gabapentin for chronic pain -continue with lidocaine patch. (6) COPD (chronic obstructive pulmonary disease): Qualifiers: COPD type: unspecified COPD Qualified Code(s): J44.9 - Chronic obstructive pulmonary disease, unspecified Code(s): J44.9 - Chronic obstructive pulmonary disease, unspecified Status: Acute Assessment and Plan: -chronic, does not appear in acute exacerbation - Continue with her home medication of Singulair (7) Hyperlipidemia: Code(s): E78.5 - Hyperlipidemia, unspecified Status: Acute Assessment and Plan: -Continue with her Crestor (8) Memory deficit: Code(s): R41.3 - Other amnesia Status: Acute Assessment and Plan: -continue with her Aricept Time Spent With Patient Time with patient: 25 - 35 minutes Subjective Date/time seen: 07/17/25 08:53 Interval history: 84-year-old female patient with past medical history of essential tremor, copd, dyslipidemia, shakir, emphysema, gerd, ibs,and memory loss presents to the hospital for unresponsiveness. Patient is pleasant sitting up comfortably on the side of the bed working with therapy. She states that she is feeling much better today and has no complaints denies chest pain, shortness a breath, palpitations, nausea/vomiting, abdominal pain, and dizziness/lightheadedness/weakness. Review of Systems Review of Systems: All systems reviewed & are unremarkable except as noted in HPI and below (hpi.) Exam Narrative: AF HR 87 RR 14 Spo2 96 BP 119/71 General: female in no acute respiratory distress who is nontoxic appearing, sitting up on side of bed HEENT: Normocephalic. Atraumatic. Extraocular movement intact. Sclera clear and anicteric. No facial asymmetry. Chest: Lungs are clear to auscultation bilaterally. No wheezes or crackles. CV: Heart was regular rate and rhythm. S1-S2. No murmurs, gallops, or rubs. Abd: Abdomen was soft. Nontender. Nondistended. Positive bowel sounds. Ext: No clubbing, cyanosis, or edema. DP pulses bilaterally. Neuro: Patient is alert and oriented x4. Strength is symmetrical in both upper and lower extremities. Speech is clear. Objective Data Vital Signs Vital Signs: Vital Signs - 24 hr 07/16/25 12:00 07/16/25 13:55 07/16/25 14:37 Temperature 98 F Pulse Rate 67 82 Respiratory Rate 20 Blood Pressure 90/38 L 100/50 L Pulse Oximetry 93 Oxygen Delivery 07/16/25 16:00 07/16/25 16:00 07/16/25 16:05 Temperature Pulse Rate 70 67 76 Respiratory Rate Blood Pressure 93/49 L 84/41 L Pulse Oximetry Oxygen Delivery 07/16/25 16:08 07/16/25 18:16 07/16/25 19:45 Temperature 97.9 F Pulse Rate 95 74 70 Respiratory Rate 16 Blood Pressure 86/43 L 96/40 L 107/53 L Pulse Oximetry 94 Oxygen Delivery 07/16/25 20:00 07/16/25 20:00 07/17/25 04:00 Temperature Pulse Rate 71 69 Respiratory Rate Blood Pressure Pulse Oximetry Oxygen Delivery Room Air 07/17/25 04:11 Temperature 97.1 F L Pulse Rate 68 Respiratory Rate 16 Blood Pressure 120/56 L Pulse Oximetry 95 Oxygen Delivery Intake/Output Intake/Output: Intake & Output 07/14/25 07/15/25 07/16/25 07/17/25 23:59 23:59 23:59 23:59 Intake Total 1000 960 300 Balance 1000 960 300 Meds/Results Medications: Active Medications Generic Name Dose Route Start Last Admin Trade Name Freq PRN Reason Stop Dose Admin Acetaminophen 1,000 mg 07/16/25 09:00 07/17/25 08:50 Acetaminophen 500 Mg Tablet PO 1,000 mg QID FATUMA Administration Donepezil HCl 5 mg 07/15/25 23:00 07/16/25 20:43 Donepezil Hcl 5 Mg Tablet PO 5 mg QHS FATUMA Administration Gabapentin 300 mg 07/15/25 22:55 07/17/25 08:50 Gabapentin 300 Mg Capsule BY MOUTH 300 mg QID FATUMA Administration Levalbuterol HCl 2 puff 07/15/25 22:54 Levalbuterol Hfa (*Sp) 15 Gm Inhaler INHALATION Q6H PRN Asthma Lidocaine 1 patch 07/15/25 22:54 Lidocaine 5% Patch TOPICAL DAILY PRN back pain Magnesium Oxide 400 mg 07/16/25 09:00 07/17/25 08:50 Magnesium Oxide 400 Mg Tablet PO 400 mg QAM FATUMA Administration Meloxicam 15 mg 07/16/25 09:00 07/17/25 08:50 Meloxicam 7.5 Mg Tablet PO 15 mg QAM FATUMA Administration Montelukast Sodium 10 mg 07/16/25 09:00 07/17/25 08:50 Montelukast Sodium 10 Mg Tablet PO 10 mg DAILY FATUMA Administration Multivitamins Therapeutic 1 tablet 07/16/25 09:00 07/17/25 08:50 Multivitamins Therapeutic Tab (*Bkc) PO 1 tablet DAILY FATUMA Administration Ondansetron HCl 4 mg 07/16/25 11:48 07/16/25 11:53 Ondansetron Inj 4 Mg/2 Ml Vial IV PUSH 4 mg Q6H PRN Administration Nausea And Vomiting Rosuvastatin Calcium 10 mg 07/16/25 09:00 07/17/25 08:50 Rosuvastatin 10 Mg Tablet PO 10 mg DAILY FATUMA Administration Vitamin D 50 mcg 07/16/25 09:00 07/17/25 08:49 Cholecalciferol (Vitamin D3) 25 Mcg (1,000 Units) Tablet PO 50 mcg DAILY FATUMA Administration Radiology Results: ITS Impressions Head/Neck CTA 07/15/25 12:50 IMPRESSION: 1. Normal aging brain. No acute intracranial process. Dr. Sandoval discussed these findings with Dr. Green at 12:58 PM. 2. 50% stenosis of the right carotid bulb relative to normal distal artery lumen diameter (NASCET criteria). 2. 30% stenosis of the left carotid bulb relative to normal distal artery lumen diameter. 3. Unremarkable cerebral CT angiogram with no hemodynamically significant stenosis, aneurysm or thrombosis. Chest/Abdomen/Pelvis CT 07/15/25 14:11 IMPRESSION: 1. No acute cardiopulmonary disease or acute intra-abdominal/pelvic process. Labs Labs: Laboratory Results - last 24 hr 07/17/25 05:46 WBC 4.2 L RBC 3.82 L Hgb 11.6 L Hct 38.7 MCV 101.3 H D MCH 30.4 MCHC 30.0 L RDW 14.6 H Plt Count 151 MPV 9.0 Sodium 135 L Potassium 4.5 Chloride 109 H Carbon Dioxide 20 L Anion Gap 6 BUN 16 Creatinine 0.77 Estim Creat Clear Calc 41 Estimated GFR > 60 Glucose 93 Calcium 8.9 Total Bilirubin 0.4 AST 24 ALT 10 Alkaline Phosphatase 30 L Total Protein 5.3 L Albumin 3.3 L Quality VTE Prophylaxis VTE prophylaxis: mechanical ordered
--- NOTE | 2025-07-17 17:23 | WPDNEURCNPN ---
Assessment and Plan Assessment and plan (1) Loss of consciousness: Code(s): R40.20 - Unspecified coma Status: Acute (2) Peripheral neuropathy: Code(s): G62.9 - Polyneuropathy, unspecified Status: Acute (3) Benign essential tremor: Code(s): G25.0 - Essential tremor Status: Acute (4) Hyperlipidemia: Code(s): E78.5 - Hyperlipidemia, unspecified Status: Acute (5) Restless leg syndrome: Code(s): G25.81 - Restless legs syndrome Status: Acute (6) Kyphoscoliosis: Code(s): M41.9 - Scoliosis, unspecified Status: Acute Plan on examination I did not find any focal deficit. She does have benign essential tremor. She is also on low-dose Aricept. CT angiogram of the head and neck shows less than 50% narrowing on the right and less than 3-30% on the left internal carotid artery. An MRI of the brain and EEG are recommended. Cardiac monitoring any underlying cardiac arrhythmia is also recommended. She is already on Neurontin for her symptoms of peripheral neuropathy and lower back pain with radicular symptoms. I shall be glad to follow her in my office made with regard to any treatment options based upon the findings. Consult date: 07/17/25 HPI: Ellyn Cody is a 84 year old female Who presented to the hospital with episode of loss of consciousness on July 15, 2025. At this time the patient is fairly verbal and a complaints of pain in her both lower limbs. She is on Neurontin 1200 mg a day and she is also noted to have memory problems and and noted that she had an Aricept. She also complains of pain in the lower back going down her right lower limb. She has been through the Pain Management. She is able to tell me the month and the year and the name of the hospital without any difficulty. A CT angiogram head and neck was performed which shows narrowing of 50% on the right internal carotid artery and 30% on the left side. No other significant abnormalities were seen. CT scan of brain also did not show any acute abnormality. Patient states that she has lost about 10-15 lb in weight. she also has a history of essential tremor affecting her hands left more than right. The patient is a resident of a [facility]. The staff member have noted that she was completely unresponsive at the time when the saw her and they called EMS. 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 He also has raise possibility of chronic L5-S1 radiculopathy. She also saw me in my office on 08/15/2024 and was diagnosed to essential tremor. She has a thoracic scoliosis. MRI of the lumbosacral spine shows severe arthritic changes in lumbar spine area. Review of Systems Review of Systems: All systems reviewed & are unremarkable except as noted in HPI and below PMFSH Past Medical History Medical History (Updated 07/17/25 @ 17:35 by Wil See MD) Loss of consciousness Peripheral neuropathy Memory deficit Hyperlipidemia Kyphoscoliosis Benign essential tremor Vitamin D deficiency Scoliosis due to degenerative disease of spine in adult patient COPD (chronic obstructive pulmonary disease) Vision changes COVID-19 vaccine series completed Neuropathy Dyslipidemia Osteoporosis Sleep apnea Emphysema of lung Memory loss Frozen shoulder Left shoulder Sciatica associated with disorder of lumbar spine GERD (gastroesophageal reflux disease) Arthritis IBS (irritable bowel syndrome) Asthma Surgical History Surgical History Status post cataract extraction of both eyes with insertion of intraocular lens History of partial hysterectomy History of bowel resection History of cholecystectomy History of right hip replacement Family History Family History Mother Pneumonia Arthritis Father Asbestosis Arthritis Grandparent Pneumonia Grandparent Heart attack Arthritis Grandparent Cerebrovascular accident Sibling Malignant neoplasm Arthritis Social History Social History Social History: She lives in [facility]. She has a Rollator at home but only uses it when she goes to the store. She has 2 children who are healthy. She is a lifelong nonsmoker and does not drink alcohol. 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 Primary care physician: Dr. Cruz Code status: See living will. She has limited resuscitation Surrogate decision maker: Miha (son) Smoking status: Never smoker Second hand tobacco smoke exposure: No Alcohol intake: never Substance use: never Substance use type: does not use Do You Feel Safe in your Home?: Yes Lack of Transportation: No Lack of Food: Never True Current Housing: I Have Housing Concerned About Future Housing: No Difficulty Paying Gas/Electric Bills: No Difficulty Paying for Meds: No Currently Unemployed: No Education: Don't Know Difficulty w/ Childcare or Family Care: No Living arrangements: with family Occupation/Education: retired Gender identity (if verbalized by the patient): Female Sexual Orientation (if Verbalized by the Patient): Straight or Heterosexual Spiritual care concerns: No Agree to blood products: Yes Meds Home Medications and Allergies Home Medications ?Medication ?Instructions ?Recorded ?Confirmed ?Type cholecalciferol (vitamin D3) 50 50 mcg PO DAILY 08/07/20 07/15/25 History mcg (2,000 unit) capsule multivitamin 1 cap PO DAILY 08/07/20 07/15/25 History montelukast 10 mg tablet 10 mg PO DAILY #90 tabs 09/14/23 07/15/25 Rx rosuvastatin 10 mg tablet 10 mg PO DAILY #90 tabs 07/26/24 07/15/25 Rx omeprazole 40 mg capsule,delayed 40 mg PO DAILY #90 caps 08/01/24 07/15/25 Rx release acetaminophen 500 mg tablet 1,000 mg PO QID 10/09/24 07/15/25 History gabapentin 600 mg tablet See Rx Instructions .Route 12/10/24 07/15/25 Rx .COMPLEX #360 tabs potassium chloride 20 mEq 20 meq PO BID #14 tabs 01/19/25 07/15/25 Rx tablet,extended release (K-Tab) magnesium oxide 400 mg (241.3 mg 400 mg PO QAM #30 tabs 01/26/25 07/15/25 Rx magnesium) tablet meloxicam 15 mg tablet 15 mg PO DAILY #90 tabs 01/27/25 07/15/25 Rx levalbuterol tartrate 45 2 inh inhalation Q6H PRN Asthma 05/23/25 07/15/25 Rx mcg/actuation aerosol inhaler #15 grams lidocaine 5 % topical patch 1 patch topical DAILY PRN back 05/30/25 07/15/25 Rx (Lidoderm) pain #15 ea donepezil 5 mg tablet 5 mg PO QHS #90 tabs 06/25/25 07/15/25 Rx Allergies Allergy/AdvReac Type Severity Reaction Status Date / Time codeine Allergy Severe Passes out Verified 01/19/25 12:08 oxycodone Allergy Severe pass out Verified 01/19/25 12:08 pain medications AdvReac Severe syncope Uncoded 01/19/25 12:08 Vital Signs Vital Signs - 24 hr 07/16/25 18:16 07/16/25 19:45 07/16/25 20:00 Temperature 97.9 F Pulse Rate 74 70 Respiratory Rate 16 Blood Pressure 96/40 L 107/53 L Pulse Oximetry 94 Oxygen Delivery Room Air 07/16/25 20:00 07/17/25 04:00 07/17/25 04:11 Temperature 97.1 F L Pulse Rate 71 69 68 Respiratory Rate 16 Blood Pressure 120/56 L Pulse Oximetry 95 Oxygen Delivery 07/17/25 08:00 07/17/25 08:00 07/17/25 10:42 Temperature Pulse Rate 68 Respiratory Rate Blood Pressure Pulse Oximetry 96 Oxygen Delivery Room Air Room Air 07/17/25 12:00 07/17/25 13:00 07/17/25 13:05 Temperature 97.9 F 97.9 F Pulse Rate 68 70 75 Respiratory Rate 14 14 Blood Pressure 115/54 L 108/59 L Pulse Oximetry 97 97 Oxygen Delivery 07/17/25 13:10 07/17/25 16:00 Temperature 97.9 F Pulse Rate 87 67 Respiratory Rate 14 Blood Pressure 119/71 Pulse Oximetry 96 Oxygen Delivery Exam Narrative: Patient is very pleasant and cooperative. Fully conscious alert oriented to self time place and person. She knew the month and the year and the name of the hospital. She is fairly cooperative. Examination head and neck shows no evidence of external trauma. No carotid bruit. The nerves pupils were equal reactive light. Visual hairston and extraocular movements intact. There is no facial asymmetry. Facial sensation intact. Other cranial nerves were within normal limits. Motor system normal power and tone in both upper and lower limbs. She has tremors of the outstretched hand left more than right side. No cogwheeling. Three and grossly intact. Deep tendon reflexes did not show any asymmetry. Gait could not be tested at this time. Results Labs 07/17/25 05:46 07/17/25 05:46 Labs: Short CBC 07/17/25 Range/Units 05:46 WBC 4.2 L (4.5-10.0) K/mm3 Hgb 11.6 L (12.0-15.0) g/dL Hct 38.7 (37.0-47.0) % Plt Count 151 (150-375) k/mm3 BMP 07/17/25 05:46 Sodium 135 L Potassium 4.5 Chloride 109 H Carbon Dioxide 20 L BUN 16 Creatinine 0.77 Glucose 93 Calcium 8.9 Liver Function 07/17/25 Range/Units 05:46 Total Bilirubin 0.4 (0.2-1.3) mg/dL AST 24 (14-36) U/L ALT 10 (6-35) U/L Alkaline Phosphatase 30 L (38-126) U/L Albumin 3.3 L (3.5-5.1) g/dL
[2025-07-17] MEDS: DONEPEZIL HCL 5 MG TABLET PO (20:35)
[2025-07-18] VITALS (11 sets, daily range): BP systolic 118–136; BP diastolic 45–84; PULSE 62–87; RESP 16–24; TEMP 36.3–36.4; O2SAT 91–97
[2025-07-18 06:48] LABS: Hematocrit 36.3 % (37.0-47.0); Hemoglobin 11.6 g/dL (12.0-15.0); Mean Corpuscular HGB Conc 32.0 g/dl (32-36); Mean Corpuscular Hemoglobin 30.5 pg (26-34); Mean Corpuscular Volume 95.5 fl (80-100); Platelet Count Result 162 k/mm3 (150-375); Red Blood Count 3.80 M/mm3 (4.2-5.4); White Blood Count 4.1 K/mm3 (4.5-10.0)
[2025-07-18 07:27] LABS: Alanine Aminotransferase 12 U/L (6-35); Albumin Level 3.4 g/dL (3.5-5.1); Alkaline Phosphatase 40 U/L (38-126); Anion Gap 4 mmol/L (4-12); Aspartate Amino Transferase 26 U/L (14-36); Bilirubin,Total 0.4 mg/dL (0.2-1.3); Blood Urea Nitrogen 13 mg/dL (7-17); Calcium 9.0 mg/dL (8.4-10.2); Carbon Dioxide 24 mmol/L (22-30); Chloride 106 mmol/L (98-107); Estimated CRCL calculation 40 ml/min; Estimated Glomerular Filt Rate > 60; Glucose 94 mg/dL (65-110); Potassium 4.1 mmol/L (3.4-5.0); Sodium 134 mmol/L (137-145); Total Protein 5.6 g/dL (6.3-8.2)
--- NOTE | 2025-07-18 08:20 | P.PNIM_ITS ---
Progress Note: A&P Assessment and Plan (1) Altered mental status: Code(s): R41.82 - Altered mental status, unspecified Status: Acute Assessment and Plan: Head/neck CTA: no acute intracranial process 50% stenosis right carotid and 30% stenosis left carotid unremarkable cerebral CT angiogram with no hemodynamically significant stenosis, aneurysm or thrombosis. - No signs of acute infection. WBC WNL. UA and viral panel negative. Chest/abdomen/pelvis CT unremarkable. - UDS negative - Echo ordered to assess cardiac function: LVEF 65-70% with grade I diastolic dysfunction - medications possibly contributing gabapentin 600 mg qid however has been on this medication since November recently started on donepezil for memory on 06/25 - orthostatics negative, still possible that unresponsiveness related to hypotension given that patient was on fluids prior to these results - PT/OT recommending home health - Neuro consulted, appreciate recommendations MRI of the brain: Normal aging brain with mild diffuse volume loss and mild scattered nonspecific white matter T2 hyperintensity consistent with chronic small vessel ischemic disease. No acute intracranial process. EEG recommended. Cardiac monitoring any underlying cardiac arrhythmia is also recommended. Plan for outpatient cardiac care nurse at time of discharge Follow in office Patient remains AOx4, stating she feels back to baseline. Denies any dizziness/lightheadedness/weakness. Awaiting EEG to be performed. (2) Hyperkalemia: Code(s): E87.5 - Hyperkalemia Status: Acute Assessment and Plan: Patient is on potassium supplements which we will hold at this time. Given zironium in the emergency room. Her potassium level was 5.2 in the emergency room. - repeat K WNL, continue to monitor (3) Magnesium deficiency: Code(s): E61.2 - Magnesium deficiency Status: Acute Assessment and Plan: -the patient was supplemented with magnesium in the emergency room. Her magnesium was 1.5 in the emergency room. - repeat mag WNL, resolved (4) SHAKIR (obstructive sleep apnea): Code(s): G47.33 - Obstructive sleep apnea (adult) (pediatric) Status: Acute Assessment and Plan: -the patient denies wearing his CPAP machine (5) Arthritis: Code(s): M19.90 - Unspecified osteoarthritis, unspecified site Status: Acute Assessment and Plan: -continue with her meloxicam that she takes at home. Monitor her renal function closely. The patient appears to be at her baseline. -continue with her gabapentin for chronic pain -continue with lidocaine patch. (6) COPD (chronic obstructive pulmonary disease): Qualifiers: COPD type: unspecified COPD Qualified Code(s): J44.9 - Chronic obstructive pulmonary disease, unspecified Code(s): J44.9 - Chronic obstructive pulmonary disease, unspecified Status: Acute Assessment and Plan: -chronic, does not appear in acute exacerbation - Continue with her home medication of Singulair (7) Hyperlipidemia: Code(s): E78.5 - Hyperlipidemia, unspecified Status: Acute Assessment and Plan: -Continue with her Crestor (8) Memory deficit: Code(s): R41.3 - Other amnesia Status: Acute Assessment and Plan: -continue with her Aricept Time Spent With Patient Time with patient: 25 - 35 minutes Subjective Date/time seen: 07/18/25 08:20 Interval history: 84-year-old female patient with past medical history of essential tremor, copd, dyslipidemia, shakir, emphysema, gerd, ibs,and memory loss presents to the hospital for unresponsiveness. Patient is pleasant lying comfortably in bed. She endorses flight lower back pain that she notes is chronic. She has no other complaints denying any chest pain, shortness a breath, palpitations, nausea/vomiting, abdominal pain, diz ziness/lightheadedness, and tingling/numbness/weakness. Patient states she feels back to her baseline. Review of Systems Review of Systems: All systems reviewed & are unremarkable except as noted in HPI and below (hpi.) Exam Narrative: AF HR 66 RR 18 SPO2 97 BP 136/84 General: female in no acute respiratory distress who is nontoxic appearing, lying semirecumbent in bed. HEENT: Normocephalic. Atraumatic. Extraocular movement intact. Sclera clear and anicteric. No facial asymmetry. Chest: Lungs are clear to auscultation bilaterally. No wheezes or crackles. CV: Heart was regular rate and rhythm. Abd: Abdomen was soft. Nontender. Nondistended. Positive bowel sounds. Ext: No clubbing, cyanosis, or edema. DP pulses bilaterally. Neuro: Patient is alert and oriented x3. Strength is symmetrical in both upper and lower extremities. Speech is clear. Objective Data Vital Signs Vital Signs: Vital Signs - 24 hr 07/17/25 10:42 07/17/25 12:00 07/17/25 13:00 Temperature 97.9 F Pulse Rate 68 70 Respiratory Rate 14 Blood Pressure 115/54 L Pulse Oximetry 97 Oxygen Delivery Room Air 07/17/25 13:05 07/17/25 13:10 07/17/25 16:00 Temperature 97.9 F 97.9 F Pulse Rate 75 87 67 Respiratory Rate 14 14 Blood Pressure 108/59 L 119/71 Pulse Oximetry 97 96 Oxygen Delivery 07/17/25 17:30 07/17/25 17:35 07/17/25 17:40 Temperature 97.9 F 97.9 F Pulse Rate 68 73 96 Respiratory Rate 18 20 20 Blood Pressure 119/70 126/57 L 119/75 Pulse Oximetry 97 96 98 Oxygen Delivery 07/17/25 20:00 07/17/25 20:45 07/17/25 20:59 Temperature 98.2 F Pulse Rate 68 64 Respiratory Rate 24 H Blood Pressure 130/65 130/65 Pulse Oximetry 93 Oxygen Delivery 07/17/25 20:59 07/17/25 21:00 07/18/25 00:00 Temperature Pulse Rate 63 Respiratory Rate Blood Pressure 124/67 152/72 H Pulse Oximetry Oxygen Delivery 07/18/25 04:00 07/18/25 05:34 Temperature 97.4 F L Pulse Rate 62 62 Respiratory Rate 24 H Blood Pressure 131/58 L Pulse Oximetry 91 Oxygen Delivery Intake/Output Intake/Output: Intake & Output 07/15/25 07/16/25 07/17/25 07/18/25 23:59 23:59 23:59 23:59 Intake Total 0075 087 6302 400 Balance 2832 684 8824 400 Meds/Results Medications: Active Medications Generic Name Dose Route Start Last Admin Trade Name Freq PRN Reason Stop Dose Admin Acetaminophen 1,000 mg 07/16/25 09:00 07/17/25 20:35 Acetaminophen 500 Mg Tablet PO 1,000 mg QID FATUMA Administration Donepezil HCl 5 mg 07/15/25 23:00 07/17/25 20:35 Donepezil Hcl 5 Mg Tablet PO 5 mg QHS FATUMA Administration Gabapentin 300 mg 07/15/25 22:55 07/17/25 20:35 Gabapentin 300 Mg Capsule BY MOUTH 300 mg QID FATUMA Administration Levalbuterol HCl 2 puff 07/15/25 22:54 Levalbuterol Hfa (*Sp) 15 Gm Inhaler INHALATION Q6H PRN Asthma Lidocaine 1 patch 07/15/25 22:54 Lidocaine 5% Patch TOPICAL DAILY PRN back pain Magnesium Oxide 400 mg 07/16/25 09:00 07/17/25 08:50 Magnesium Oxide 400 Mg Tablet PO 400 mg QAM FATUMA Administration Meloxicam 15 mg 07/16/25 09:00 07/17/25 08:50 Meloxicam 7.5 Mg Tablet PO 15 mg QAM FATUMA Administration Montelukast Sodium 10 mg 07/16/25 09:00 07/17/25 08:50 Montelukast Sodium 10 Mg Tablet PO 10 mg DAILY FATUMA Administration Multivitamins Therapeutic 1 tablet 07/16/25 09:00 07/17/25 08:50 Multivitamins Therapeutic Tab (*Bkc) PO 1 tablet DAILY FATUMA Administration Ondansetron HCl 4 mg 07/16/25 11:48 07/16/25 11:53 Ondansetron Inj 4 Mg/2 Ml Vial IV PUSH 4 mg Q6H PRN Administration Nausea And Vomiting Rosuvastatin Calcium 10 mg 07/16/25 09:00 07/17/25 08:50 Rosuvastatin 10 Mg Tablet PO 10 mg DAILY FATUMA Administration Vitamin D 50 mcg 07/16/25 09:00 07/17/25 08:49 Cholecalciferol (Vitamin D3) 25 Mcg (1,000 Units) Tablet PO 50 mcg DAILY FATUMA Administration Radiology Results: ITS Impressions Head/Neck CTA 07/15/25 12:50 IMPRESSION: 1. Normal aging brain. No acute intracranial process. Dr. Sandoval discussed these findings with Dr. Green at 12:58 PM. 2. 50% stenosis of the right carotid bulb relative to normal distal artery lumen diameter (NASCET criteria). 2. 30% stenosis of the left carotid bulb relative to normal distal artery lumen diameter. 3. Unremarkable cerebral CT angiogram with no hemodynamically significant stenosis, aneurysm or thrombosis. Chest/Abdomen/Pelvis CT 07/15/25 14:11 IMPRESSION: 1. No acute cardiopulmonary disease or acute intra-abdominal/pelvic process. Labs Labs: Laboratory Results - last 24 hr 07/18/25 06:26 WBC 4.1 L RBC 3.80 L Hgb 11.6 L Hct 36.3 L MCV 95.5 D MCH 30.5 MCHC 32.0 RDW 14.2 Plt Count 162 MPV 9.2 Sodium 134 L Potassium 4.1 Chloride 106 Carbon Dioxide 24 Anion Gap 4 BUN 13 Creatinine 0.79 Estim Creat Clear Calc 40 Estimated GFR > 60 Glucose 94 Calcium 9.0 Total Bilirubin 0.4 AST 26 ALT 12 Alkaline Phosphatase 40 Total Protein 5.6 L Albumin 3.4 L Quality VTE Prophylaxis VTE prophylaxis: mechanical ordered
[2025-07-18] MEDS: ROSUVASTATIN 10 MG TABLET PO (08:32)
[2025-07-18] MEDS: MELOXICAM 7.5 MG TABLET 15 MG PO (08:32)
[2025-07-18] MEDS: MAGNESIUM OXIDE 400 MG TABLET PO (08:32)
[2025-07-18] MEDS: ACETAMINOPHEN 500 MG TABLET 1000 MG PO ×4 (08:32→20:18)
[2025-07-18] MEDS: CHOLECALCIFEROL (VITAMIN D3) 25 MCG (1,000 UNITS) TABLET 50 MCG PO (08:32)
[2025-07-18] MEDS: MULTIVITAMINS THERAPEUTIC TAB (*BKC) 1 TABLET PO (08:33)
[2025-07-18] MEDS: MONTELUKAST SODIUM 10 MG TABLET PO (08:33)
[2025-07-18] MEDS: GABAPENTIN 300 MG CAPSULE BY MOUTH ×4 (08:33→20:18)
--- NOTE | 2025-07-18 16:06 | PCNEURO ---
EEG will be completed Monday
[2025-07-18] MEDS: LIDOCAINE 5% PATCH 1 PATCH TRANSDERM (17:33)
[2025-07-18] MEDS: DONEPEZIL HCL 5 MG TABLET PO (20:18)
[2025-07-19] VITALS (13 sets, daily range): BP systolic 113–130; BP diastolic 51–59; PULSE 59–96; RESP 16–18; TEMP 35.8–36.8; O2SAT 94–96
[2025-07-19 06:25] LABS: Hematocrit 38.5 % (37.0-47.0); Hemoglobin 12.5 g/dL (12.0-15.0); Mean Corpuscular HGB Conc 32.5 g/dl (32-36); Mean Corpuscular Hemoglobin 30.7 pg (26-34); Mean Corpuscular Volume 94.6 fl (80-100); Platelet Count Result 175 k/mm3 (150-375); Red Blood Count 4.07 M/mm3 (4.2-5.4); White Blood Count 4.8 K/mm3 (4.5-10.0)
[2025-07-19 06:40] LABS: Alanine Aminotransferase 14 U/L (6-35); Albumin Level 3.7 g/dL (3.5-5.1); Alkaline Phosphatase 40 U/L (38-126); Anion Gap 5 mmol/L (4-12); Aspartate Amino Transferase 27 U/L (14-36); Bilirubin,Total 0.4 mg/dL (0.2-1.3); Blood Urea Nitrogen 16 mg/dL (7-17); Calcium 9.5 mg/dL (8.4-10.2); Carbon Dioxide 26 mmol/L (22-30); Chloride 105 mmol/L (98-107); Estimated CRCL calculation 38 ml/min; Estimated Glomerular Filt Rate > 60; Glucose 95 mg/dL (65-110); Potassium 4.5 mmol/L (3.4-5.0); Sodium 136 mmol/L (137-145); Total Protein 6.1 g/dL (6.3-8.2)
--- NOTE | 2025-07-19 07:54 | PM.IMPN ---
Progress Note: A&P Assessment and Plan (1) Altered mental status: Code(s): R41.82 - Altered mental status, unspecified Status: Acute Assessment and Plan: Head/neck CTA: no acute intracranial process 50% stenosis right carotid and 30% stenosis left carotid unremarkable cerebral CT angiogram with no hemodynamically significant stenosis, aneurysm or thrombosis. - No signs of acute infection. WBC WNL. UA and viral panel negative. Chest/abdomen/pelvis CT unremarkable. - UDS negative - Echo ordered to assess cardiac function: LVEF 65-70% with grade I diastolic dysfunction - medications possibly contributing gabapentin 600 mg qid however has been on this medication since November recently started on donepezil for memory on 06/25 - orthostatics negative, still possible that unresponsiveness related to hypotension given that patient was on fluids prior to these results - PT/OT recommending home health - Neuro consulted, appreciate recommendations MRI of the brain: Normal aging brain with mild diffuse volume loss and mild scattered nonspecific white matter T2 hyperintensity consistent with chronic small vessel ischemic disease. No acute intracranial process. EEG recommended Cardiac monitoring any underlying cardiac arrhythmia is also recommended. Plan for outpatient monitoring manager at time of discharge Follow in office Patient remains AOx4, stating she feels back to baseline. Denies any dizziness/lightheadedness/weakness. Still awaiting EEG to be performed. (2) Hyperkalemia: Code(s): E87.5 - Hyperkalemia Status: Acute Assessment and Plan: Patient is on potassium supplements which we will hold at this time. Given zironium in the emergency room. Her potassium level was 5.2 in the emergency room. - repeat K WNL, continue to monitor Resolved. (3) Magnesium deficiency: Code(s): E61.2 - Magnesium deficiency Status: Acute Assessment and Plan: -the patient was supplemented with magnesium in the emergency room. Her magnesium was 1.5 in the emergency room. - repeat mag WNL Resolved (4) SHAKIR (obstructive sleep apnea): Code(s): G47.33 - Obstructive sleep apnea (adult) (pediatric) Status: Acute Assessment and Plan: -the patient denies wearing his CPAP machine (5) Arthritis: Code(s): M19.90 - Unspecified osteoarthritis, unspecified site Status: Acute Assessment and Plan: -continue with her meloxicam that she takes at home. Monitor her renal function closely. The patient appears to be at her baseline. -continue with her gabapentin for chronic pain -continue with lidocaine patch. Patient endorsing increased pain with active range of motion related to OA. Refusing to get out of bed or move secondary to pain. Continue home medications. Will start voltaren gel. Continue working with PT/OT. (6) COPD (chronic obstructive pulmonary disease): Qualifiers: COPD type: unspecified COPD Qualified Code(s): J44.9 - Chronic obstructive pulmonary disease, unspecified Code(s): J44.9 - Chronic obstructive pulmonary disease, unspecified Status: Acute Assessment and Plan: -chronic, does not appear in acute exacerbation - Continue with her home medication of Singulair (7) Hyperlipidemia: Code(s): E78.5 - Hyperlipidemia, unspecified Status: Acute Assessment and Plan: -Continue with her Crestor (8) Memory deficit: Code(s): R41.3 - Other amnesia Status: Acute Assessment and Plan: -continue with her Aricept Time Spent With Patient Time with patient: 25 - 35 minutes Subjective Date/time seen: 07/19/25 07:54 Interval history: 84-year-old female patient with past medical history of essential tremor, copd, dyslipidemia, shakir, emphysema, gerd, ibs,and memory loss presents to the hospital for unresponsiveness. Patient is pleasant lying in bed. She is endorsing increased pain that she relates to her osteoarthritis and is now stating that she is unable to move out of bed or move her extremities. She notes that she will occasionally get flares of her osteoarthritis. She denies any associated tingling/numbness. Patient remains on her home medications for the osteoarthritis and will be trialed on Voltaren gel. Patient has no other complaints denying chest pain, palpitations, shortness of breath, nausea/vomiting, and abdominal pain. Review of Systems Review of Systems: All systems reviewed & are unremarkable except as noted in HPI and below (hpi.) Exam Narrative: AF HR 60 RR 16 Spo2 95 BP 130/55 General: female in no acute respiratory distress who is nontoxic appearing, lying semirecumbent in bed. HEENT: Normocephalic. Atraumatic. Extraocular movement intact. Sclera clear and anicteric. No facial asymmetry. Chest: Lungs are clear to auscultation bilaterally. No wheezes or crackles. CV: Heart was regular rate and rhythm. Abd: Abdomen was soft. Nontender. Nondistended. Positive bowel sounds. Ext: No clubbing, cyanosis, or edema. DP pulses bilaterally. Neuro: Patient is alert and oriented x3. Strength is symmetrical in both upper and lower extremities. Endorsing pain with acitive range of motion. Speech is clear. Objective Data Vital Signs Vital Signs: Vital Signs - 24 hr 07/18/25 08:00 07/18/25 08:00 07/18/25 08:00 Temperature 97.6 F Pulse Rate 66 66 Respiratory Rate 16 Blood Pressure 118/57 L Pulse Oximetry 93 97 Oxygen Delivery Room Air 07/18/25 08:05 07/18/25 08:10 07/18/25 10:02 Temperature 97.6 F 97.6 F Pulse Rate 71 87 Respiratory Rate 16 18 Blood Pressure 127/65 136/84 Pulse Oximetry 97 97 Oxygen Delivery Room Air 07/18/25 12:00 07/18/25 14:00 07/18/25 16:00 Temperature 97.5 F L Pulse Rate 66 66 64 Respiratory Rate 18 Blood Pressure 136/56 L Pulse Oximetry 96 Oxygen Delivery 07/18/25 20:00 07/18/25 21:23 07/19/25 00:00 Temperature 97.3 F L Pulse Rate 66 66 65 Respiratory Rate 16 Blood Pressure 130/45 L Pulse Oximetry 97 Oxygen Delivery 07/19/25 04:00 07/19/25 06:00 Temperature 96.5 F L Pulse Rate 59 L 60 Respiratory Rate 16 Blood Pressure 130/55 L Pulse Oximetry 95 Oxygen Delivery Intake/Output Intake/Output: Intake & Output 07/16/25 07/17/25 07/18/25 07/19/25 23:59 23:59 23:59 23:59 Intake Total 960 1020 1615 250 Balance 960 1020 1615 250 Meds/Results Medications: Active Medications Generic Name Dose Route Start Last Admin Trade Name Freq PRN Reason Stop Dose Admin Acetaminophen 1,000 mg 07/16/25 09:00 07/18/25 20:18 Acetaminophen 500 Mg Tablet PO 1,000 mg QID FATUMA Administration Donepezil HCl 5 mg 07/15/25 23:00 07/18/25 20:18 Donepezil Hcl 5 Mg Tablet PO 5 mg QHS FATUMA Administration Gabapentin 300 mg 07/15/25 22:55 07/18/25 20:18 Gabapentin 300 Mg Capsule BY MOUTH 300 mg QID FATUMA Administration Levalbuterol HCl 2 puff 07/15/25 22:54 Levalbuterol Hfa (*Sp) 15 Gm Inhaler INHALATION Q6H PRN Asthma Lidocaine 1 patch 07/18/25 14:00 07/18/25 17:33 Lidocaine 5% Patch TRANSDERM 1 patch DAILY FATUMA Administration Magnesium Oxide 400 mg 07/16/25 09:00 07/18/25 08:32 Magnesium Oxide 400 Mg Tablet PO 400 mg QAM FATUMA Administration Meloxicam 15 mg 07/16/25 09:00 07/18/25 08:32 Meloxicam 7.5 Mg Tablet PO 15 mg QAM FATUMA Administration Montelukast Sodium 10 mg 07/16/25 09:00 07/18/25 08:33 Montelukast Sodium 10 Mg Tablet PO 10 mg DAILY FATUMA Administration Multivitamins Therapeutic 1 tablet 07/16/25 09:00 07/18/25 08:33 Multivitamins Therapeutic Tab (*Bkc) PO 1 tablet DAILY FATUMA Administration Ondansetron HCl 4 mg 07/16/25 11:48 07/16/25 11:53 Ondansetron Inj 4 Mg/2 Ml Vial IV PUSH 4 mg Q6H PRN Administration Nausea And Vomiting Rosuvastatin Calcium 10 mg 07/16/25 09:00 07/18/25 08:32 Rosuvastatin 10 Mg Tablet PO 10 mg DAILY FATUMA Administration Vitamin D 50 mcg 07/16/25 09:00 07/18/25 08:32 Cholecalciferol (Vitamin D3) 25 Mcg (1,000 Units) Tablet PO 50 mcg DAILY FATUMA Administration Radiology Results: ITS Impressions Head/Neck CTA 07/15/25 12:50 IMPRESSION: 1. Normal aging brain. No acute intracranial process. Dr. Sandoval discussed these findings with Dr. Green at 12:58 PM. 2. 50% stenosis of the right carotid bulb relative to normal distal artery lumen diameter (NASCET criteria). 2. 30% stenosis of the left carotid bulb relative to normal distal artery lumen diameter. 3. Unremarkable cerebral CT angiogram with no hemodynamically significant stenosis, aneurysm or thrombosis. Chest/Abdomen/Pelvis CT 07/15/25 14:11 IMPRESSION: 1. No acute cardiopulmonary disease or acute intra-abdominal/pelvic process. Brain MRI 07/18/25 14:07 IMPRESSION: 1. Normal aging brain with mild diffuse volume loss and mild scattered nonspecific white matter T2 hyperintensity consistent with chronic small vessel ischemic disease. No acute intracranial process. Labs Labs: Laboratory Results - last 24 hr 07/18/25 07/19/25 16:31 05:52 WBC 4.8 RBC 4.07 L Hgb 12.5 Hct 38.5 MCV 94.6 MCH 30.7 MCHC 32.5 RDW 14.2 Plt Count 175 MPV 9.4 Sodium 136 L Potassium 4.5 Chloride 105 Carbon Dioxide 26 Anion Gap 5 BUN 16 Creatinine 0.83 Estim Creat Clear Calc 38 Estimated GFR > 60 Glucose 95 POC Capillary Glucose 102 Calcium 9.5 Total Bilirubin 0.4 AST 27 ALT 14 Alkaline Phosphatase 40 Total Protein 6.1 L Albumin 3.7 Quality VTE Prophylaxis VTE prophylaxis: mechanical ordered
[2025-07-19] MEDS: ACETAMINOPHEN 500 MG TABLET 1000 MG PO ×4 (08:39→20:07)
[2025-07-19] MEDS: LIDOCAINE 5% PATCH 1 PATCH TRANSDERM (08:39)
[2025-07-19] MEDS: MULTIVITAMINS THERAPEUTIC TAB (*BKC) 1 TABLET PO (08:40)
[2025-07-19] MEDS: MAGNESIUM OXIDE 400 MG TABLET PO (08:40)
[2025-07-19] MEDS: GABAPENTIN 300 MG CAPSULE BY MOUTH ×4 (08:40→20:07)
[2025-07-19] MEDS: MELOXICAM 7.5 MG TABLET 15 MG PO (08:40)
[2025-07-19] MEDS: MONTELUKAST SODIUM 10 MG TABLET PO (08:40)
[2025-07-19] MEDS: CHOLECALCIFEROL (VITAMIN D3) 25 MCG (1,000 UNITS) TABLET 50 MCG PO (08:40)
[2025-07-19] MEDS: ROSUVASTATIN 10 MG TABLET PO (08:41)
--- NOTE | 2025-07-19 09:24 | PCPTNOTE ---
Patient declined PT stating she has pain in her shoulders, back and legs. Patient states she can not take narcotics and the medication that she is getting does not help. PT will continue to follow.
[2025-07-19] MEDS: DICLOFENAC SODIUM 1% 100 GM GEL (*BKC) 1 APPLIC TOPICAL ×3 (12:18→20:08)
[2025-07-19] MEDS: DONEPEZIL HCL 5 MG TABLET PO (20:07)
[2025-07-20 00:19] VITALS: PULSE 69
[2025-07-20 04:00] VITALS: PULSE 72
[2025-07-20 05:42] LABS: Hematocrit 38.4 % (37.0-47.0); Hemoglobin 12.6 g/dL (12.0-15.0); Mean Corpuscular HGB Conc 32.8 g/dl (32-36); Mean Corpuscular Hemoglobin 30.6 pg (26-34); Mean Corpuscular Volume 93.2 fl (80-100); Platelet Count Result 140 k/mm3 (150-375); Red Blood Count 4.12 M/mm3 (4.2-5.4); White Blood Count 2.8 K/mm3 (4.5-10.0)
[2025-07-20 05:55] LABS: Alanine Aminotransferase 20 U/L (6-35); Albumin Level 3.8 g/dL (3.5-5.1); Alkaline Phosphatase 46 U/L (38-126); Anion Gap 5 mmol/L (4-12); Aspartate Amino Transferase 35 U/L (14-36); Bilirubin,Total 0.5 mg/dL (0.2-1.3); Blood Urea Nitrogen 18 mg/dL (7-17); Calcium 9.2 mg/dL (8.4-10.2); Carbon Dioxide 27 mmol/L (22-30); Chloride 102 mmol/L (98-107); Estimated CRCL calculation 37 ml/min; Estimated Glomerular Filt Rate > 60; Glucose 105 mg/dL (65-110); Potassium 4.2 mmol/L (3.4-5.0); Sodium 134 mmol/L (137-145); Total Protein 6.3 g/dL (6.3-8.2)
[2025-07-20 06:00] VITALS: BP 121/49; PULSE 73; RESP 16; TEMP 36.8; O2SAT 95
[2025-07-20 08:00] VITALS: PULSE 73
[2025-07-20] MEDS: ACETAMINOPHEN 500 MG TABLET 1000 MG PO ×2 (08:50→12:11)
[2025-07-20] MEDS: MAGNESIUM OXIDE 400 MG TABLET PO (08:50)
[2025-07-20] MEDS: MELOXICAM 7.5 MG TABLET 15 MG PO (08:50)
[2025-07-20] MEDS: MONTELUKAST SODIUM 10 MG TABLET PO (08:50)
[2025-07-20] MEDS: MULTIVITAMINS THERAPEUTIC TAB (*BKC) 1 TABLET PO (08:50)
[2025-07-20] MEDS: DICLOFENAC SODIUM 1% 100 GM GEL (*BKC) 1 APPLIC TOPICAL ×2 (08:50→12:11)
[2025-07-20] MEDS: LIDOCAINE 5% PATCH 1 PATCH TRANSDERM (08:50)
[2025-07-20] MEDS: GABAPENTIN 300 MG CAPSULE BY MOUTH ×2 (08:51→12:11)
[2025-07-20] MEDS: CHOLECALCIFEROL (VITAMIN D3) 25 MCG (1,000 UNITS) TABLET 50 MCG PO (08:51)
[2025-07-20] MEDS: ROSUVASTATIN 10 MG TABLET PO (08:51)
[2025-07-20 12:00] VITALS: PULSE 74
--- NOTE | 2025-07-20 14:13 | P.DS_ITS ---
DS: Admitting Diagnosis Discharge Date 07/20/2025 Admitting Diagnosis AMS Hyperkalemia Mag deficiency SHAKIR Arthritis COPD Hyperlipidemia memory deficit DS: Discharge Diagnosis Discharge Diagnosis (1) Altered mental status: Code(s): R41.82 - Altered mental status, unspecified Status: Acute (2) Hyperkalemia: Code(s): E87.5 - Hyperkalemia Status: Acute (3) Magnesium deficiency: Code(s): E61.2 - Magnesium deficiency Status: Acute (4) SHAKIR (obstructive sleep apnea): Code(s): G47.33 - Obstructive sleep apnea (adult) (pediatric) Status: Acute (5) Arthritis: Code(s): M19.90 - Unspecified osteoarthritis, unspecified site Status: Acute (6) COPD (chronic obstructive pulmonary disease): Qualifiers: COPD type: unspecified COPD Qualified Code(s): J44.9 - Chronic obstructive pulmonary disease, unspecified Code(s): J44.9 - Chronic obstructive pulmonary disease, unspecified Status: Acute (7) Hyperlipidemia: Code(s): E78.5 - Hyperlipidemia, unspecified Status: Acute (8) Memory deficit: Code(s): R41.3 - Other amnesia Status: Acute DS: Summary Hospital Course Reason for hospitalization: AMS Hyperkalemia Mag deficiency SHAKIR Arthritis COPD Hyperlipidemia memory deficit Hospital Course: 84-year-old female patient with past medical history of essential tremor, copd, dyslipidemia, shakir, emphysema, gerd, ibs,and memory loss presents to the hospital for unresponsiveness. Medications possibly contributing include gabapentin 600 mg qid however has been on this medication since November and recently started on donepezil for memory on 06/25. No medication changes per neurology. Orthostatics negative, still possible that unresponsiveness related to hypotension given that patient was on fluids prior to these results. Slight electrolyte abnormalities on admission that resolved with supplementation. No signs of acute infection. WBC WNL. UA and viral panel negative. Chest/abdomen/pelvis CT unremarkable. UDS negative. Echo ordered to assess cardiac function and showed LVEF 65-70% with grade I diastolic dysfunction. Neuro consulted. MRI of the brain showed normal aging brain with mild diffuse volume loss and mild scattered nonspecific white matter T2 hyperintensity consistent with chronic small vessel ischemic disease. No acute intracranial process. EEG recommended, however not obtained during admission. Prior to discharge discussed patient with Neurology who is in agreement that the EEG can be performed in the outpatient setting. Patient to follow up with neurology in the outpatient setting. No cardiac arrhythmias noted on telemetry. Patient to have cardiac event monitor placed at discharge with results CC to PCP. Throughout admission patient remained AOx3. During admission patient developed increased pain to the shoulders and lower back that she related to her osteoarthritis. She denies any recent trauma. Patient remained on her home medications and was started on voltaren cream. Patient stated that the cream helped significantly. Patient worked well with therapy who recommended home health. Outpatient therapy ordered at discharge and per care coordination patient to receive this at the [facility]. Patient no complaints at time of discharge denying chest pain, shortness a breath, palpitations, nausea/vomiting, abdominal pain, and dizziness/lightheadedness. Patient discharged back to assisted living in a stable condition. A patient therapy script being given and per care coordination patient will receive therapy at the [facility]. Patient to follow-up with her primary care provider in 1 week and Neurology as scheduled. Status at Discharge Functional status at discharge: uses cane/walker Time Spent with Patient Time attestation: Total time spent providing and/or coordinating discharge services: Time spent: Greater than 30 minutes Exam Narrative: AF HR 73 RR 16 Spo2 95 BP 121/49 General: female in no acute respiratory distress who is nontoxic appearing, sitting up in bed. HEENT: Normocephalic. Atraumatic. Extraocular movement intact. Sclera clear and anicteric. No facial asymmetry. Chest: Lungs are clear to auscultation bilaterally. No wheezes or crackles. CV: Heart was regular rate and rhythm. Abd: Abdomen was soft. Nontender. Nondistended. Positive bowel sounds. Ext: No clubbing, cyanosis, or edema. DP pulses bilaterally. Neuro: Patient is alert and oriented x3. Strength is symmetrical in both upper and lower extremities. Speech is clear. DS: Data Data Completed and Pending Completed studies during hospitalization: Brain MRI Chest/abdomen/pelvis ct head/neck cta Labs on day of discharge: Labs from last 24 hours 07/20/25 05:17 WBC 2.8 L RBC 4.12 L Hgb 12.6 Hct 38.4 MCV 93.2 MCH 30.6 MCHC 32.8 RDW 14.5 Plt Count 140 L MPV 9.1 Sodium 134 L Potassium 4.2 Chloride 102 Carbon Dioxide 27 Anion Gap 5 BUN 18 H Creatinine 0.86 Estim Creat Clear Calc 37 Estimated GFR > 60 Glucose 105 Calcium 9.2 Total Bilirubin 0.5 AST 35 ALT 20 Alkaline Phosphatase 46 Total Protein 6.3 Albumin 3.8 Preliminary micro results at discharge 07/15/25 13:43 Blood Culture - Preliminary Blood 07/15/25 13:50 Blood Culture - Preliminary Blood Discharge Plan Discharge Attending physician on discharge: Wyatt Lindquist Consulting providers: Gaby Hyatt; Juanjo Winston Discharging Clinician: Gaby Hyatt Anticipated Discharge Date/Time: 07/20/25 12:42 Patient Disposition: [place] [facility] Home/Asst Living Activity: as tolerated Diet: as tolerated Discharge Instructions: Discharge disposition: Patient admitted to the hospital for altered mental status Imaging unremarkable Neurology evaluated Plan for outpatient EEG Follow up with neurology in the outpatient setting, call for appointment Continue a holter monitor for 7 days, results to be sent to patients primary care provider to assess for arrhythmias Monitor blood pressures Take caution while standing, rising, or moving Change positions slowly taking a break between each position change If you standing feel dizzy sit back down and take a break Patient started on Voltaren cream for osteoarthritis pain Continue this medication as needed for pain relief Attached is information on this medication Continue working with therapy, attached is a script for outpatient PT/OT Encouraged to continue with yearly vaccinations Return to the emergency department if he developed sudden shortness of breath, chest pain, nausea, vomiting, upset stomach or intractable diarrhea Return to the emergency department if you develop fever greater than 100.5 Follow-up with the primary care physician within 1-2 weeks Thank you for [facility] for your healthcare needs Patient Instructions: Diclofenac (On the skin) Patient Language: Guinean Stand Alone Forms: General Discharge Information Follow-up/Referrals: Angel Mora MD [Primary Care Provider, Family Practice] - 1 Week Juanjo Winston MD [Physician, Neurology] - Call for Appointment Discharge Medications: Continued omeprazole 40 mg capsule,delayed release(DR/EC) 40 mg PO DAILY Qty: 90 0RF cholecalciferol (vitamin D3) 50 mcg (2,000 unit) capsule 50 mcg PO DAILY multivitamin Capsule 1 cap PO DAILY donepezil 5 mg tablet 5 mg PO QHS Qty: 90 0RF Rx Instructions: Take one tablet po qd x 30 days, then increase to 2 tablets. potassium chloride [K-Tab] 20 mEq tablet extended release 20 meq PO BID Qty: 14 0RF acetaminophen 500 mg tablet 1,000 mg PO QID Patient Comments: Morning, noon, evening, bedtime Rx Instructions: takes with gabapentin magnesium oxide 400 mg (241.3 mg magnesium) Tablet 400 mg PO QAM Qty: 30 0RF montelukast 10 mg tablet 10 mg PO DAILY Qty: 90 1RF Rx Instructions: Take 1 tablet by mouth once daily rosuvastatin 10 mg tablet 10 mg PO DAILY Qty: 90 1RF gabapentin 600 mg tablet See Rx Instructions .ROUTE .COMPLEX Qty: 360 0RF Dose Instruction: Take 1 tablet by mouth 4 times daily Patient Comments: morning, noon, evening, bedtime Rx Instructions: Take 1 tablet by mouth 4 times daily meloxicam 15 mg tablet 15 mg PO DAILY Qty: 90 1RF Rx Instructions: Take 1 tablet by mouth once daily levalbuterol tartrate 45 mcg/actuation HFA aerosol inhaler 2 inh INHALATION Q6H PRN (Reason: Asthma) Qty: 15 1RF lidocaine [Lidoderm] 5 % adhesive patch,medicated 1 patch topical DAILY PRN (Reason: back pain) Qty: 15 0RF Rx Instructions: leave on most painful area for up to 12 hrs Other Ambulatory Orders: PT Outpatient Eval and Treat (ONCE) Timeframe: [id number] Location: Determined by Patient Ordered By: Gaby Hyatt [place] cardiac event monitor (Routine) Timeframe: 1 Week Location: Determined by Patient Ordered By: Gaby Hyatt Date of admission: 07/16/25 15:32 Primary Care Provider: Angel Mora Admitting Provider: Thomas Salinas Attending physician on admission: Thomas Salinas Condition: Stable Hospitalist MIPS Heart Failure (Exclusion) Patient has history of Heart Transplant or Left Ventricular Assistive Device?: No IF YES, STOP HERE Heart Failure (Qualifier) Patient has current or prior documentation of LVEF less than or equal to 40%, or mod/servere depressed LVSF?: No IF NO, STOP HERE
== END 2025-07-20 15:40 | DRG 884 ==
LOC: ANHED 17:14 → ANH3MEDSUR 17:57
PROVIDERS: Nurse Practitioner; Admitting Provider Internal Medicine; Emergency Provider Emergency Medicine; PCP Family Medicine; Visit Provider Student in an Organized Health Care Education/Training Program
DX: R40.4 Transient alteration of awareness (principal); T50.995A Adverse effect of other drugs, medicaments and biological substances, initial encounter; I95.9 Hypotension, unspecified; E87.5 Hyperkalemia; E61.2 Magnesium deficiency; J44.9 Chronic obstructive pulmonary disease, unspecified; R41.3 Other amnesia; G47.33 Obstructive sleep apnea (adult) (pediatric); G62.9 Polyneuropathy, unspecified; G25.0 Essential tremor; E78.5 Hyperlipidemia, unspecified; M81.0 Age-related osteoporosis without current pathological fracture; K21.9 Gastro-esophageal reflux disease without esophagitis; M19.90 Unspecified osteoarthritis, unspecified site; G25.81 Restless legs syndrome; M41.9 Scoliosis, unspecified; K58.9 Irritable bowel syndrome, unspecified; G89.29 Other chronic pain; Z90.49 Acquired absence of other specified parts of digestive tract; Z96.641 Presence of right artificial hip joint; Z90.711 Acquired absence of uterus with remaining cervical stump; Z96.1 Presence of intraocular lens; Z98.42 Cataract extraction status, left eye; Z98.41 Cataract extraction status, right eye
CPT/HCPCS: 36415; 70496; 70498; 70551; 71260; 74177; 80048; 80053; 80179; 80307; 81003; 82077; 82803; 82948; 83605; 83690; 83735; 84100; 84443; 84484; 85025; 85027; 85610; 85730; 87040; 87637; 93005; 96361; 96365; 96375; 97110; 97161; 97166; 97530; 99285; A9270; C8929; G0378; J2405; J3475; J7030; Q9957; Q9967